=== PATIENT | female | born 1975 | race Hispanic/Latino ===

== ENCOUNTER 2017-05-12 20:58 | Emergency (ER) | payer BC, SELFPAY ==
[2017-05-12] MEDS ORDERED: CYCLOBENZAPRINE 10 MG TAB ONE (22:22)
[2017-05-12 22:29] LABS: Urine Blood 3+ (NEG); Urine Glucose NEGATIVE (NEG); Urine Protein NEGATIVE (NEG)
[2017-05-12] MEDS ORDERED: KETOROLAC 30 MG/ML INJ ONE (22:59)
--- NOTE | 2017-05-12 23:36 | EDPHYS ---
Physician Documentation [facility] Name: Aracelis Morales Age: 42 yrs Sex: Female : 1975 Arrival Date: 05/12/2017 Time: 21:02 Bed 20 Private MD: Alpesh Ortiz E ED Physician Duncan Monaco HPI: 05/12 22:00 This 42 yrs old Female presents to ER via Ambulatory with complaints of Neck cp Pain, <24hrs Old, Nausea, Chills. 22:00 The patient or guardian complains of pain, that is acute, tenderness. The symptoms are cp located on the back of neck. 22:00 Onset: The symptoms/episode began/occurred gradually, and became worse today. cp 22:00 Context: The neck injury/problem resulted from from unknown cause. Associated signs and cp symptoms: Pertinent positives: chills, Pertinent negatives: fever, headache, numbness, weakness. The pain does not radiate. Severity of symptoms: in the emergency department the symptoms are unchanged, despite home interventions. 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 - Social history:: Smoking status: Patient/guardian denies using tobacco. ROS: 22:05 Constitutional: Negative for body aches, chills, fever, poor PO intake. cp 22:05 Eyes: Negative for injury, pain, redness, and discharge. cp 22:05 ENT: Negative for drainage from ear(s), ear pain, sore throat, difficulty swallowing, difficulty handling secretions. 22:05 Neck: Positive for pain with movement, pain at rest, tenderness, Negative for injury or acute deformity, swollen nodes. 22:05 Cardiovascular: Negative for chest pain, edema, palpitations. 22:05 Respiratory: Negative for cough, shortness of breath, wheezing. 22:05 Abdomen/GI: Negative for abdominal pain, vomiting, diarrhea, constipation, black/tarry stool, rectal bleeding. 22:05 Back: Negative for injury or acute deformity. 22:05 Skin: Negative for cellulitis, rash. 22:05 Neuro: Negative for altered mental status, headache, numbness, weakness. 22:05 All other systems are negative. Exam: 22:12 Constitutional: The patient appears in no acute distress, alert, awake, cp non-diaphoretic, non-toxic, well developed, well nourished, overweight 22:12 Head/Face: Normocephalic, atraumatic. cp 22:12 Eyes: Periorbital structures: appear normal, Pupils: equal, round, and reactive to light and accomodation, Extraocular movements: intact throughout, Conjunctiva: normal, no exudate, no injection, Sclera: no appreciated abnormality, Lids and lashes: appear normal, bilaterally. 22:12 ENT: External ear(s): are unremarkable, Ear canal(s): are normal, clear, TM's: dullness, bilaterally, Nose: is normal, Mouth: Lips: moist, Oral mucosa: pink and intact, moist, Posterior pharynx: Airway: no evidence of obstruction, patent, Tonsils: are normal in appearance, Uvula: midline, non-edematous, no erythema, swelling, is not appreciated, erythema, is not appreciated, exudate, is not appreciated, Voice: is normal. 22:12 Neck: External neck: swelling, is not appreciated, tenderness, that is moderate, of the left mid cervical area, right mid cervical area, left trapezius, lower cervical area and right trapezius, ROM/movement: pain, that is mild, with any movement, limited range of motion, is not appreciated, Meningeal signs: are not present, nuchal rigidity, is not appreciated, Lymph nodes: no appreciated lymphadenopathy. 22:12 Chest/axilla: Inspection: normal, Palpation: is normal, no crepitus, no tenderness. 22:12 Cardiovascular: Rate: normal, Rhythm: regular, Pulses: Pulses are 2+ in right radial artery and left radial artery. Edema: is not appreciated, JVD: is not appreciated. 22:12 Respiratory: the patient does not display signs of respiratory distress, Respirations: normal, no use of accessory muscles, no retractions, no splinting, no tachypnea, labored breathing, is not present, Breath sounds: are clear throughout, no decreased breath sounds, no stridor, no wheezing. 22:12 Abdomen/GI: Exam negative for discomfort, distension, guarding, Inspection: abdomen appears normal. 22:12 Back: CVA tenderness, is absent, vertebral tenderness, is not appreciated. 22:12 Skin: cellulitis, is not appreciated, no rash present. 22:12 Neuro: Orientation: to person, place \T\ time. Cerebellar function: is grossly normal, Motor: moves all fours, strength is normal, Sensation: no obvious gross deficits. Vital Signs: 21:31 BP 157 / 78; Pulse 71; Resp 18; Temp 98.2; Pulse Ox 97% on R/A; Weight 108.86 kg; bp Height 5 ft. 4 in. (162.56 cm); 23:01 BP 142 / 90; Pulse 64; Resp 18; Pulse Ox 98% ; bp 23:30 BP 139 / 83; Pulse 69; Resp 16; Pulse Ox 98% ; bp 21:31 Body Mass Index 41.20 (108.86 kg, 162.56 cm) bp MDM: 21:33 Patient medically screened. cp 23:30 Data reviewed: vital signs, nurses notes, radiologic studies, plain films. cp 23:30 Differential diagnosis: Cervical Raiculopathy Cervical Spondylosis cervical strain, cp Spondylosis subluxation, Thoracic Outlet Syndrome torticollis. Test interpretation: by ED physician or midlevel provider: plain radiologic studies. Counseling: I had a detailed discussion with the patient and/or guardian regarding: the historical points, exam findings, and any diagnostic results supporting the discharge/admit diagnosis, radiology results, the need for outpatient follow up, a family practitioner, to return to the emergency department if symptoms worsen or persist or if there are any questions or concerns that arise at home. Response to treatment: improved, and as a result, I will discharge patient. 05/12 22:08 Order name: Glucose, Ancillary Testing; Complete Time: 22:09 EDMS 05/12 22:09 Interpretation: GLUC,ANCIL 74; Reviewed. 05/12 22:21 Order name: Urine Dipstick--Ancillary (enter results) [facility] 05/12 21:53 Order name: XRAY C Spine Ap/lat 05/12 22:21 Order name: Urine --Ancillary (enter results) [facility] 05/12 21:53 Order name: Accucheck Blood Glucose; Complete Time: 22:07 05/12 21:53 Order name: Urine Test (obtain specimen); Complete Time: 22:07 cp 05/12 21:53 Order name: Urine Dipstick-Ancillary (obtain specimen); Complete Time: 22:07 cp Administered Medications: 22:07 Drug: Flexeril 10 mg Route: PO; bs1 22:50 Drug: TORadol 60 mg Route: IM; Site: right deltoid; bs1 Point of Care Testing: Blood Glucose: 22: Blood Glucose: 74 mg/dL; bs1 Ranges: Critical Glucose Levels:Adult <50 mg/dl or >400 mg/dl <40 mg/dl or >180 mg/dl Disposition: 05/13 15:56 Co-signature as Attending Physician, Duncan Monaco MD I agree with the assessment and [facility] plan of care. Disposition: 05/12/17 23:35 Discharged to Home. Impression: Neck Pain. - Condition is Stable. - Discharge Instructions: Musculoskeletal Pain. - Prescriptions for Naprosyn 500 mg Oral Tablet - take 1 tablet by ORAL route 2 times per day take with food; 20 tablet. Cyclobenzaprine 10 mg Oral Tablet - take 1 tablet by ORAL route every 8 hours As needed no driving while taking medication; 20 tablet. - Medication Reconciliation Form, Thank You Letter, Antibiotic Education, Prescription Opioid Use form. - Follow up: Private Physician; When: 2 - 3 days; Reason: Recheck today's complaints. - Problem is new. - Symptoms have improved. Signatures: Dispatcher [employer] Duncan Mello MD MD cha Page, Corey, PA PA cp Peltier, Brian, RN RN Marily Patterson RN RN bs1
--- NOTE | 2017-05-12 23:36 | ER ---
Nurse's Notes [facility] Name: Aracelis Morales Age: 42 yrs Sex: Female : 1975 Arrival Date: 05/12/2017 Time: 21:02 Bed 20 Private MD: Alpesh Ortiz E Diagnosis: Neck Pain Presentation: 05/12 21:30 Presenting complaint: Patient states: I HAVE THIS SHARP PAIN IN MY NECK THAT STARTED IN bp MY SHOULDER. IT'S WORSE WHEN I MOVE. Transition of care: patient was not received from another setting of care. Onset of symptoms was May 10, 2017. Care prior to arrival: None. 21:30 Method Of Arrival: Ambulatory bp 21:30 Acuity: TACHO 5 bp Triage Assessment: 21:31 General: Appears in no apparent distress. uncomfortable, obese, Behavior is calm, bp cooperative, appropriate for age. Pain: Complains of pain in back of neck. EENT: No deficits noted. Neuro: Level of Consciousness is awake, alert, obeys commands, Oriented to person, place, time, situation, Appropriate for age Hat And Cap Sewer are equal bilaterally Moves all extremities. Full function Speech is normal, Facial symmetry appears normal, Intact. Cardiovascular: No deficits noted. Respiratory: Airway is patent Respiratory effort is even, unlabored, Respiratory pattern is regular, symmetrical. GI: No deficits noted. : No signs and/or symptoms were reported regarding the genitourinary system. Derm: No signs and/or symptoms reported regarding the dermatologic system. Musculoskeletal: Circulation, motion, and sensation intact. Range of motion: intact in all extremities. 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 - Social history:: Smoking status: Patient/guardian denies using tobacco. Screenin:33 Abuse screen: Denies threats or abuse. Denies injuries from another. Nutritional bp screening: No deficits noted. Tuberculosis screening: No symptoms or risk factors identified. Fall Risk None identified. Assessment: 21:35 General: Appears in no apparent distress. uncomfortable, Behavior is cooperative, bs1 anxious. Pain: Complains of pain in back of neck Pain does not radiate. Pain currently is 9 out of 10 on a pain scale. Quality of pain is described as aching. Neuro: Level of Consciousness is awake, alert, obeys commands, Oriented to person, place, time, situation, Appropriate for age Hat And Cap Sewer are equal bilaterally Moves all extremities. Gait is steady, Reports patient unable to lift shoulders or move head side to side without hurting neck. . Cardiovascular: Reports nausea, Denies chest pain, palpitations, shortness of breath, Heart tones S1 S2 Capillary refill < 3 seconds Patient's skin is warm and dry. Respiratory: Airway is patent Trachea midline Respiratory effort is even, unlabored, Respiratory pattern is regular, symmetrical, Breath sounds are clear bilaterally. GI: Abdomen is round Bowel sounds present X 4 quads. Abd is soft and non tender X 4 quads. Reports nausea, Patient currently denies abdominal pain, diarrhea, vomiting. : No deficits noted. No signs and/or symptoms were reported regarding the genitourinary system. EENT: No deficits noted. No signs and/or symptoms were reported regarding the EENT system. Derm: No deficits noted. No signs and/or symptoms reported regarding the dermatologic system. Musculoskeletal: Circulation, motion, and sensation intact. Capillary refill < 3 seconds, Range of motion: limited in back of neck. 23:43 Reassessment: PT D/C HOME AMBULATORY, DX WITH MUSCULOSKELETAL NECK PAIN. bp Vital Signs: 21:31 BP 157 / 78; Pulse 71; Resp 18; Temp 98.2; Pulse Ox 97% on R/A; Weight 108.86 kg; bp Height 5 ft. 4 in. (162.56 cm); 23:01 BP 142 / 90; Pulse 64; Resp 18; Pulse Ox 98% ; bp 23:30 BP 139 / 83; Pulse 69; Resp 16; Pulse Ox 98% ; bp 21:31 Body Mass Index 41.20 (108.86 kg, 162.56 cm) bp ED Course: 21:02 Patient arrived in ED. es 21:03 Alpesh Ortiz MD is Private Physician. es 21:30 Marily Collins, JORGE is Primary Nurse. bs1 21:31 Triage completed. bp 21:31 Arm band placed on. bp 21:33 Duncan Whelan PA is PHCP. cp 21:33 Duncan Monaco MD is Attending Physician. cp 21:33 Patient has correct armband on for positive identification. Bed in low position. Call bp light in reach. 21:41 No provider procedures requiring assistance completed. Patient did not have IV access bs1 during this emergency room visit. 22:34 Patient moved to radiology via wheelchair. ml 22:34 X-ray completed. Patient tolerated procedure well. ml 22:35 Patient moved back from radiology. ml 22:35 XRAY C Spine Ap/lat In Process Unspecified. EDMS Administered Medications: 22:07 Drug: Flexeril 10 mg Route: PO; bs1 22:50 Drug: TORadol 60 mg Route: IM; Site: right deltoid; bs1 Point of Care Testing: Blood Glucose: 22:07 Blood Glucose: 74 mg/dL; bs1 Ranges: Outcome: 23:35 Discharge ordered by MD. cp 23:45 Discharged to home ambulatory. bp 23:45 Condition: stable 23:45 Discharge instructions given to patient, Instructed on discharge instructions, follow up and referral plans. medication usage, Demonstrated understanding of instructions, follow-up care, medications, Prescriptions given X 2. 23:46 Patient left the ED. bp Signatures: Dispatcher [employer] EDMS Jen Mcbride Melissa Duncan Whelan PA PA cp Peltier, Brian, RN RN bp Marily Collins RN RN bs1
[2017-05-12 23:56] VITALS: TEMP 98.2
[2017-05-12 23:58] VITALS: O2SAT 98
[2017-05-12 23:59] VITALS: BP 139/83
--- NOTE | 2017-05-13 09:34 | RAD REPORT ---
EXAM DESCRIPTION: RAD - C Spine Ap/Lat - 05/12/2017 10:44 pm CLINICAL HISTORY: Neck pain, shoulder pain COMPARISON: None. FINDINGS: Cervical bodies are normal in height and alignment. No fracture or acute bony process seen . No disc space narrowing. There is no prevertebral soft tissue thickening or other suspicious soft tissue finding. IMPRESSION: Negative cervical spine examination.
== END 2017-05-12 23:46 | disposition home or self-care (01) ==
LOC: ER 20:58
DX: M54.2 Cervicalgia (principal); E11.9 Type 2 diabetes mellitus without complications; F41.9 Anxiety disorder, unspecified
CPT/HCPCS: 72040; 81003; 81025; 82962; 96372; 99283

== ENCOUNTER 2017-07-06 17:39 | Emergency (ER) | payer SELFPAY ==
[2017-07-06 19:03] LABS: Urine Blood NEGATIVE (NEG); Urine Glucose NEGATIVE (NEG); Urine Protein NEGATIVE (NEG); Urine Specific Gravity 1.025 (1.005-1.030)
[2017-07-06 19:03] LABS: Absolute Lymphocytes (CBC) 1.9 K/uL (0.7-4.9); Absolute Monocytes 1.1 K/uL (0.1-1.3); Absolute Neutrophil 6.6 K/uL (1.8-8.0); Basophils % 0.7 % (0-1.3); Eosinophils % 1.3 % (0-4.4); Hematocrit 42.8 % (36.0-45.0); Lymphocytes % 19.6 % (15.3-44.8); MCH 29.4 pg (27.0-35.0); MCV 86.7 fL (80-100); MPV 8.2 fL (7.6-11.3); Monocytes % 10.8 % (3.3-12.3); Potassium 3.6 mEq/L (3.6-5.0); RBC Red Blood Cell Count 4.94 M/uL (3.86-4.86)
[2017-07-06] MEDS ORDERED: ASPIRIN 81 MG CHEWABLE TABLET ONE (19:04)
[2017-07-06] MEDS ORDERED: DIAZEPAM 10 MG/2 ML INJ SYRINGE ONE ×2 (19:06→19:16)
--- NOTE | 2017-07-06 19:38 | RAD REPORT ---
EXAM DESCRIPTION: RAD - Chest Pa And Lat (2 Views) - 07/06/2017 6:42 pm CLINICAL HISTORY: Chest pain COMPARISON: January 2015 TECHNIQUE: PA and lateral views of the chest were obtained. FINDINGS: The lungs are clear. Lung markings are similar to comparison. Heart size is normal and ce ntral vasculature is within normal limits. No pleural effusion or pneumothorax seen. No acute bony finding noted. No aortic abnormality. IMPRESSION: No acute cardiopulmonary process. No significant interval change.
[2017-07-06] MEDS ORDERED: ONDANSETRON 4 MG/2 ML VIAL ONE (21:38)
--- NOTE | 2017-07-06 22:10 | EDPHYS ---
Physician Documentation [facility] Name: Aracelis Morales Age: 42 yrs Sex: Female : 1975 Arrival Date: 07/06/2017 Time: 17:42 Bed 30 Private MD: Alpesh Ortiz E ED Physician Nikos Parish HPI: 07/06 21:03 This 42 yrs old Female presents to ER via Ambulatory with complaints of Chest snw Pain > 30 y/o. 21:03 The patient or guardian reports chest pain that is located primarily in the anterior snw chest wall, bilaterally. 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 - Social history:: Smoking status: Patient/guardian denies using tobacco. - Ebola Screening: : Patient negative for fever greater than or equal to 101.5 degrees Fahrenheit, and additional compatible Ebola Virus Disease symptoms. ROS: 21:00 Constitutional: Negative for fever, chills, and weight loss, + anxiety, lots of stress snw yesterday Eyes: Negative for injury, pain, redness, and discharge, ENT: Negative for injury, pain, and discharge, Neck: Negative for injury, pain, and swelling, Cardiovascular: Negative for palpitations and edema, + chest pain Respiratory: Negative for shortness of breath, cough, wheezing, and pleuritic chest pain, Abdomen/GI: Negative for abdominal pain, nausea, vomiting, diarrhea, and constipation, Back: Negative for injury and pain, : Negative for injury, bleeding, discharge, and swelling, MS/Extremity: Negative for injury and deformity, Skin: Negative for injury, rash, and discoloration, Neuro: Negative for headache, weakness, numbness, tingling, and seizure, Psych: Negative for depression, anxiety, suicide ideation, homicidal ideation, and hallucinations. Exam: 19:14 Constitutional: This is a well developed, obese patient who is awake, alert, and in no snw acute distress. Head/Face: Normocephalic, atraumatic. Eyes: Pupils equal round and reactive to light, extra-ocular motions intact. Lids and lashes normal. Conjunctiva and sclera are non-icteric and not injected. Cornea within normal limits. Periorbital areas with no swelling, redness, or edema. ENT: Nares patent. No nasal discharge, no septal abnormalities noted. Tympanic membranes are normal and external auditory canals are clear. Oropharynx with no redness, swelling, or masses, exudates, or evidence of obstruction, uvula midline. Mucous membranes moist. Neck: Trachea midline, no thyromegaly or masses palpated, and no cervical lymphadenopathy. Supple, full range of motion without nuchal rigidity, or vertebral point tenderness. No Meningismus. Chest/axilla: Normal chest wall appearance and motion. Nontender with no deformity. No lesions are appreciated. Cardiovascular: Regular rate and rhythm with a normal S1 and S2. No gallops, murmurs, or rubs. Normal PMI, no JVD. No pulse deficits. Respiratory: Lungs have equal breath sounds bilaterally, clear to auscultation and percussion. No rales, rhonchi or wheezes noted. No increased work of breathing, no retractions or nasal flaring. Abdomen/GI: Soft, non-tender, with normal bowel sounds. No distension or tympany. No guarding or rebound. No evidence of tenderness throughout. Back: No spinal tenderness. No costovertebral tenderness. Full range of motion. Skin: Warm, dry with normal turgor. Normal color with no rashes, no lesions, and no evidence of cellulitis. Neuro: Awake and alert, GCS 15, oriented to person, place, time, and situation. Cranial nerves II-XII grossly intact. Motor strength 5/5 in all extremities. Sensory grossly intact. Cerebellar exam normal. Normal gait. 19:14 Musculoskeletal/extremity: Extremities: grossly normal except: ROM: intact in all extremities, Sensation intact. tenderness to posterior neck and anterior bilateral chest. Vital Signs: 17:49 BP 156 / 93; Pulse 77; Resp 16; Temp 97.9; Pulse Ox 97% on R/A; Weight 108.86 kg; aj Height 5 ft. 4 in. (162.56 cm); 18:53 BP 124 / 73; Pulse 72; Resp 16; Pulse Ox 99% on R/A; Pain 9/10; sr5 20:29 BP 123 / 64; Pulse 75; Resp 16; Pulse Ox 96% on R/A; Pain 5/10; sr5 21:41 BP 131 / 72; Pulse 76; Resp 14; Pulse Ox 99% ; Pain 4/10; sr5 22:33 BP 128 / 79; Pulse 74; Resp 18; Pulse Ox 99% ; Pain 4/10; sr5 17:49 Body Mass Index 41.20 (108.86 kg, 162.56 cm) aj MDM: 18:25 Patient medically screened. [facility] 07/07 02:00 The patient was given aspirin in the Emergency Department. Data reviewed: vital signs, snw nurses notes. Data interpreted: Pulse oximetry: on room air is 99 %. Interpretation: normal. Counseling: I had a detailed discussion with the patient and/or guardian regarding: the historical points, exam findings, and any diagnostic results supporting the discharge/admit diagnosis, the presence of at least one elevated blood pressure reading (>120/80) during this emergency department visit, lab results, radiology results, the need for outpatient follow up, to return to the emergency department if symptoms worsen or persist or if there are any questions or concerns that arise at home. Special discussion: Based on the patient's history, exam, and Dx evaluation, there is no indication for emergent intervention or inpatient Tx. It is understood by the patient/guardian that if the Sx's persist or worsen they need to return immediately for re-evaluation. Based on the history and exam findings, there is no indication for further emergent testing or inpatient evaluation. I discussed with the patient/guardian the need to see the primary care provider for further evaluation of the symptoms. 07/06 18:23 Order name: CBC with Diff; Complete Time: 19:21 snw 07/06 18:23 Order name: Chem 7; Complete Time: 19:10 snw 07/06 18: Order name: CPK; Complete Time: 19:10 w 07/06 18: Order name: Troponin (emerg Dept Use Only); Complete Time: 19:13 snw 07/06 18:27 Order name: Urine Dipstick--Ancillary (enter results); Complete Time: 19:10 em1 07/06 18:27 Order name: Urine --Ancillary (enter results); Complete Time: 19:10 em 07/06 18:23 Order name: Chest Pa And Lat (2 Views) XRAY; Complete Time: 19:40 snw 07/06 18:27 Order name: Urine Dipstick-Ancillary (obtain specimen); Complete Time: 18:27 em1 07/06 18:27 Order name: Urine Test (obtain specimen); Complete Time: 18:27 em1 07/06 18:55 Order name: EKG; Complete Time: 18:56 snw 07/06 20:49 Order name: Troponin (emerg Dept Use Only): at 2130 - and EKG at that time; Complete snw Time: 22:09 07/06 18:55 Order name: EKG - Nurse/Tech; Complete Time: 19:01 snw Administered Medications: 07/06 19:20 Drug: Valium 5 mg Route: IVP; Site: right antecubital; sr5 22:50 Follow up: Response: No change in condition sr5 19:20 Drug: Aspirin Chewable Tablet 324 mg Route: PO; sr5 22:50 Follow up: Response: No adverse reaction sr5 21:40 Drug: Zofran 4 mg Route: IVP; Site: right antecubital; sr5 22:33 Follow up: Response: Nausea is decreased sr5 Disposition: 07/06/17 22:09 Discharged to Home. Impression: Chest pain, unspecified, Myalgia. - Condition is Stable. - Discharge Instructions: Nonspecific Chest Pain, Hypertension, Musculoskeletal Pain, Muscle Pain, Adult, Aspirin and Your Heart. - Prescriptions for Protonix 40 mg Oral Tablet - take 1 tablet by ORAL route once daily; 30 tablet. Zofran 4 mg Oral Tablet - take 1 tablet by ORAL route every 12 hours As needed; 6 tablet. Diclofenac Sodium 75 mg Oral Tablet Sustained Release - take 1 tablet by ORAL route 2 times per day; 30 tablet. orphenadrine citrate 100 mg Oral Tablet Sustained Release - take 1 tablet by ORAL route 2 times per day As needed; 20 tablet. - Work release form, Medication Reconciliation Form, Thank You Letter, Antibiotic Education, Prescription Opioid Use form. - Follow up: Alpesh Ortiz MD; When: 2 - 3 days; Reason: Recheck today's complaints, Continuance of care, Re-evaluation by your physician. Follow up: Emergency Department; When: As needed; Reason: Worsening of condition. Addendum: 07/12/2017 19:23 Co-signature as Attending Physician, Nikos Parish MD. r n Signatures: Dispatcher [employer] Payton Farmer, RN RN Selene Potter, STOREROOM CLERK-C STOREROOM CLERK-Csnw Nikos Parish MD MD rn Martinez, Eric em1 Reseckbrittney, Garo, RN RN sr5 Corrections: (The following items were deleted from the chart) 07/06 22:48 22:09 07/06/2017 22:09 Discharged to Home. Impression: Chest pain, unspecified; sr5 Myalgia. Condition is Stable. Forms are Medication Reconciliation Form, Thank You Letter, Antibiotic Education, Prescription Opioid Use. Follow up: Alpesh Ortiz; When: 2 - 3 days; Reason: Recheck today's complaints, Continuance of care, Re-evaluation by your physician. Follow up: Emergency Department; When: As needed; Reason: Worsening of condition. snw
--- NOTE | 2017-07-06 22:10 | ER ---
Nurse's Notes [facility] Name: Aracelis Morales Age: 42 yrs Sex: Female : 1975 Arrival Date: 07/06/2017 Time: 17:42 Bed 30 Private MD: Alpesh Ortiz E Diagnosis: Chest pain, unspecified;Myalgia Presentation: 07/06 17:48 Presenting complaint: Patient states: Neck pain this AM that improved with muscle aj relaxer. Patient reports she then began to feel chest pain in her upper bilateral chest wall, reproducible with palpation. Transition of care: patient was not received from another setting of care. Onset of symptoms was July 06, 2017. Care prior to arrival: None. 17:48 Method Of Arrival: Ambulatory 17:48 Acuity: TACHO 3 22:49 Risk Assessment: Do you want to hurt yourself or someone else? Patient reports no sr5 desire to harm self or others. Initial Sepsis Screen: Does the patient meet any 2 criteria? No. Patient's initial sepsis screen is negative. Does the patient have a suspected source of infection? No. Patient's initial sepsis screen is negative. Triage Assessment: 17:49 General: Appears in no apparent distress. comfortable, obese, Behavior is calm, aj cooperative, appropriate for age. Pain: Complains of pain in anterior aspect of right upper chest and anterior aspect of left upper chest. Neuro: Level of Consciousness is awake, alert, obeys commands, Oriented to person, place, time, situation, Appropriate for age. Cardiovascular: Capillary refill < 3 seconds in bilateral fingers Patient's skin is warm and dry. Respiratory: Airway is patent Trachea midline Respiratory effort is even, unlabored, Respiratory pattern is regular, symmetrical. Derm: Skin is intact, is healthy with good turgor, Skin is pink, warm \\T\\ dry. normal. Musculoskeletal: Reports pain in anterior aspect of right upper chest and anterior aspect of left upper chest. 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 - Social history:: Smoking status: Patient/guardian denies using tobacco. - Ebola Screening: : Patient negative for fever greater than or equal to 101.5 degrees Fahrenheit, and additional compatible Ebola Virus Disease symptoms. Screenin:59 Abuse screen: Denies threats or abuse. Nutritional screening: No deficits noted. rs2 Tuberculosis screening: No symptoms or risk factors identified. Fall Risk None identified. Assessment: 17:59 General: Appears in no apparent distress. obese, well groomed, Behavior is calm, rs2 cooperative, appropriate for age. 17:59 Pain: Complains of pain in chest Pain does not radiate. Pain currently is 6 out of 10 rs2 on a pain scale. Pain began Pt states, "I took a nap earlier after I took a muscle relaxer and when I woke up about noon my chest felt tight.". Neuro: No deficits noted. Cardiovascular: Reports chest pain, nausea, Chest pain is located in right left anterior. Respiratory: No deficits noted. GI: Reports nausea. 18:53 Reassessment: Assumed care of pt, pt returning from xray department via wheelchair. sr5 Ambulated steadily to stretcher, placed on social problems specialist, SR on monitor, complaint of 9/10 chest pressure with nausea. No radiation. Skin warm/dry/nc. MOLD INSERT CHANGER notified. No orders recevied at this time. Equal unlabored resp, room air, IV site asympt/SL. Awaiting lab/xray results. Call light within reach. 21:40 Reassessment: Patient and/or family updated on plan of care and expected duration. Pain sr5 level reassessed. Patient is alert, oriented x 3, equal unlabored respirations, skin warm/dry/pink. Pt reports chest pressure intermintently persists, nausea unresolved, MOLD INSERT CHANGER notified, order for zofran received/given. Repeat troponin collected, sent to lab, repeat EKG performed. Pt remains AA\\T\\Ox4, equal unlabored resp, skin warm/dry/nc, IV site asympt. SR on monitor. 22:33 Reassessment: Pt remains fully AA\\T\\Ox4, equal unlabored resp, room air, skin sr5 warm/dry/nc, SR on monitor, continued c/o of chest pressure interminent. Repeat trop and EKG negative. MOLD INSERT CHANGER at bedside to discuss results. IV site dc'd intact, steady gait out of ER. DC with family driving. Vital Signs: 17:49 BP 156 / 93; Pulse 77; Resp 16; Temp 97.9; Pulse Ox 97% on R/A; Weight 108.86 kg; aj Height 5 ft. 4 in. (162.56 cm); 18:53 BP 124 / 73; Pulse 72; Resp 16; Pulse Ox 99% on R/A; Pain 9/10; sr5 20:29 BP 123 / 64; Pulse 75; Resp 16; Pulse Ox 96% on R/A; Pain 5/10; sr5 21:41 BP 131 / 72; Pulse 76; Resp 14; Pulse Ox 99% ; Pain 4/10; sr5 22:33 BP 128 / 79; Pulse 74; Resp 18; Pulse Ox 99% ; Pain 4/10; sr5 17:49 Body Mass Index 41.20 (108.86 kg, 162.56 cm) aj ED Course: 17:42 Patient arrived in ED. sb2 17:42 Alpesh Ortiz MD is Private Physician. sb2 17:49 Triage completed. aj 17:49 Arm band placed on left wrist. Patient placed in an exam room. aj 17:58 Yumiko Lawson is Primary Nurse. rs2 17:59 Patient has correct armband on for positive identification. Placed in gown. Bed in low rs2 position. Call light in reach. Side rails up X 1. report checker on. Pulse ox on. NIBP on. Door closed. Noise minimized. Warm blanket given. Verbal reassurance given. 17:59 Patient maintains SpO2 saturation greater than 95% on room air. rs2 18:21 Selene Youssef FNP-C is PHCP. snw 18:21 Nikos Parish MD is Attending Physician. snw 18:41 X-ray completed. Patient tolerated procedure well. kc2 18:42 Chest Pa And Lat (2 Views) XRAY In Process Unspecified. EDMS 18:42 Report given to Pt report given to Chelsea Espinal RN. rs2 18:42 Inserted saline lock: 20 gauge in right antecubital area, using aseptic technique. rs2 22:09 Alpesh Ortiz MD is Referral Physician. snw 22:33 No provider procedures requiring assistance completed. IV discontinued, intact, sr5 bleeding controlled, No redness/swelling at site. Pressure dressing applied. Administered Medications: 19:20 Drug: Valium 5 mg Route: IVP; Site: right antecubital; sr5 22:50 Follow up: Response: No change in condition sr5 19:20 Drug: Aspirin Chewable Tablet 324 mg Route: PO; sr5 22:50 Follow up: Response: No adverse reaction sr5 21:40 Drug: Zofran 4 mg Route: IVP; Site: right antecubital; sr5 22:33 Follow up: Response: Nausea is decreased sr5 Outcome: 22:09 Discharge ordered by . mary 22:33 Discharged to home ambulatory, with family. sr5 22:33 Condition: good 22:33 Discharge instructions given to patient, Instructed on discharge instructions, follow up and referral plans. medication usage, Demonstrated understanding of instructions, follow-up care, medications, Prescriptions given X 4. 22:48 Patient left the ED. sr5 Signatures: Dispatcher [employer] EDPayton Cummings RN RN aj Therrien, Shelly, BUSINESS DEVELOPMENT MANAGER-C BUSINESS DEVELOPMENT MANAGER-Csnw Concetta Dorantes kc2 Garo Espinal RN RN sr5 Yumiko Lawson rs2 Cheyanne Regan sb2
[2017-07-06 23:07] VITALS: TEMP 97.9
[2017-07-06 23:10] VITALS: O2SAT 99
[2017-07-06 23:11] VITALS: BP 128/79
--- NOTE | 2017-07-07 06:45 | EKG ---
Test Date: 2017-07-06 Test Time: 18:19:14 Carnival Worker: ARM MEASUREMENT RESULTS: Intervals: Rate: 76 DE: 152 QRSD: 86 QT: 424 QTc: 477 [place]: P: 27 DE: 152 QRS: 4 T: 11 INTERPRETIVE STATEMENTS: Normal sinus rhythm Normal ECG Compared to ECG 02/12/2015 04:05:54 No significant changes Electronically Signed On 07-07-17 06:44:49 CDT by Keven Leonardo
--- NOTE | 2017-07-07 10:04 | EKG ---
Test Date: 2017-07-06 Test Time: 22:26:55 Supervisor Nuclear Medicine: MARILYN MEASUREMENT RESULTS: Intervals: Rate: 70 TX: 138 QRSD: 88 QT: 446 QTc: 481 [place]: P: 0 TX: 138 QRS: 45 T: 17 INTERPRETIVE STATEMENTS: Normal sinus rhythm Normal ECG Compared to ECG 07/06/2017 18:19:14 No significant changes Electronically Signed On 07-07-17 10:03:25 CDT by Dale Bell
== END 2017-07-06 22:48 | disposition home or self-care (01) ==
LOC: ER 17:39
DX: R07.9 Chest pain, unspecified (principal); M79.1 Myalgia; E11.9 Type 2 diabetes mellitus without complications; F41.9 Anxiety disorder, unspecified
CPT/HCPCS: 36415; 71046; 80048; 81003; 81025; 82550; 84484; 85025; 93005; 96374; 96375; 99285; J2405; J3360

== ENCOUNTER 2017-08-27 04:54 | Emergency (ER) | payer SELFPAY ==
[2017-08-27] MEDS ORDERED: ONDANSETRON 4 MG/2 ML VIAL ONE (06:51)
[2017-08-27 06:57] LABS: Absolute Lymphocytes (CBC) 2.2 K/uL (0.7-4.9); Absolute Monocytes 1.1 K/uL (0.1-1.3); Basophils % 0.7 % (0-1.3); Eosinophils % 1.8 % (0-4.4); Lymphocytes % 23.2 % (15.3-44.8); MCH 30.3 pg (27.0-35.0); MCV 87.3 fL (80-100); Monocytes % 11.9 % (3.3-12.3); RBC Red Blood Cell Count 5.04 M/uL (3.86-4.86)
[2017-08-27 07:17] LABS: Bilirubin Direct 0.1 mg/dL (0-0.2); Bilirubin Total 0.7 mg/dL (0.2-1.0); Potassium 3.5 mmol/L (3.5-5.1); Protein, Total 7.7 g/dL (6.4-8.2)
--- NOTE | 2017-08-27 07:42 | RAD REPORT ---
EXAM DESCRIPTION: CT - CTHCSPWOC - 08/27/2017 7:19 am CLINICAL HISTORY: Headache, neck pain COMPARISON: None. TECHNIQUE: Axial 5 mm thick images of the head were obtained. Axial 2 mm thick images of the cervic al spine were obtained with sagittal and coronal reconstruction images generated and reviewed. All CT scans are performed using dose optimization technique as appropriate and may include automated exposure control or mA/KV adjustment according to patient size. FINDINGS: No intracranial hemorrhage, mass, edema or acute intracranial finding. No suspicion for acute infarct ion. No extra-axial fluid collections. Mastoid air cells and paranasal sinuses are clear. No globe or orbit abnormality seen. Cervical body height and alignment are normal. No disk space narrowing. No fracture or acute bony abn ormality. Posterior spurring changes are present C4 and C5 in the midline. This does not cause signif icant canal encroachment. No facet joint alignment abnormality. No paraspinal mass or hematoma. IMPRESSION: Negative CT head examination for acute or significant finding. No fracture or acute cervical finding. Mild cervical spine degenerative spurring at C4 and C5. No gross central canal abnormality. However, Central canal detail is inherently limited on CT imaging.
[2017-08-27 07:51] LABS: Urine Blood NEGATIVE (NEG); Urine Glucose NEGATIVE (NEG); Urine Protein NEGATIVE (NEG)
[2017-08-27] MEDS ORDERED: KETOROLAC 30 MG/ML INJ ONE (08:02)
[2017-08-27 08:04] LABS: Urine Bacteria 20-50 /HPF (<20); Urine Culture Reflex Order NOT NEEDED; Urine RBC <5 /HPF (NONE SEEN)
--- NOTE | 2017-08-27 08:20 | EDPHYS ---
Physician Documentation [facility] Name: Aracelis Morales Age: 42 yrs Sex: Female : 1975 Arrival Date: 08/27/2017 Time: 04:58 Bed 19 Private MD: ED Physician Nikos Parish HPI: 08/27 06:24 This 42 yrs old Female presents to ER via Ambulatory with complaints of jmm Numbness. 06:24 The patient's problem is reported as paresthesias, all over. Onset: The jmm symptoms/episode began/occurred gradually, 2 hour(s) ago. Duration: The episode is continuous. Associated signs and symptoms: Pertinent positives: tingling, Pertinent negatives: chest pain, weakness. This is a 42 year old female with a history of anxiety and DM that presents to the ED with numbness and tingling to her entire body beginning at approx 4 am this morning. Patient states the symptoms are most pronounced in her neck and right thigh. Patient denies weakness. Patient also states she has undergone a great amount of stress lately. Patient denies chest pain or shortness of breath. . 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 - Social history:: Smoking status: Patient/guardian denies using tobacco. - Ebola Screening: : Patient negative for fever greater than or equal to 101.5 degrees Fahrenheit, and additional compatible Ebola Virus Disease symptoms. ROS: 06:27 Constitutional: Negative for fever, chills, and weight loss, Cardiovascular: Negative jmm for chest pain, palpitations, and edema, Respiratory: Negative for shortness of breath, cough, wheezing, and pleuritic chest pain. 06:27 MS/extremity: Positive for paresthesias. 06:27 Neuro: Positive for numbness, tingling, Negative for weakness. 06:27 All other systems are negative. Exam: 06:27 Constitutional: This is a well developed, well nourished patient who is awake, alert, jmm and in no acute distress. Head/Face: atraumatic. Cardiovascular: Regular rate and rhythm. No edema appreciated Respiratory: Normal respirations, no respiratory distress appreciated Abdomen/GI: Non distended, soft 06:27 Cardiovascular: Rate: normal, Rhythm: regular, Pulses: no pulse deficits are appreciated. 06:27 Musculoskeletal/extremity: ROM: intact in all extremities. 06:27 Skin: Appearance: Color: normal in color. 06:27 Neuro: Orientation: is normal, Mentation: is normal, Memory: is normal. 06:27 Neuro: Cerebellar function: is grossly normal, normal finger to nose testing, Motor: is normal, Gait: is steady. 06:27 Psych: Behavior/mood is pleasant, cooperative. 10:38 Radiologist reports: CT Head C Spine \E\[id number]\E\ [facility] [place] [id number] [facility] REPORT Name: ARACELIS MORALES Acct Number: [id number] :1975 Age:42 Sex:F Ord Phys: Natan Ann Unit Number: [id number] Prim Care Dr: Alpesh Ortiz MD Status: REG [facility] Exam Date: 08/27/17 EXAM DESCRIPTION: CT - CTHCSPWOC - 08/27/2017 7:19 am CLINICAL HISTORY: Headache, neck pain COMPARISON: None. TECHNIQUE: Axial 5 mm thick images of the head were obtained. Axial 2 mm thick images of the cervical spine were obtained with sagittal and coronal reconstruction images generated and reviewed. All CT scans are performed using dose optimization technique as appropriate and may include automated exposure control or mA/KV adjustment according to patient size. FINDINGS: No intracranial hemorrhage, mass, edema or acute intracranial finding. No suspicion for acute infarction. No extra-axial fluid collections. Mastoid air cells and paranasal sinuses are clear. No globe or orbit abnormality seen. Cervical body height and alignment are normal. No disk space narrowing. No fracture or acute bony abnormality. Posterior spurring changes are present C4 and C5 in the midline. This does not cause significant canal encroachment. No facet joint alignment abnormality. No paraspinal mass or hematoma. IMPRESSION: Negative CT head examination for acute or significant finding. No fracture or acute cervical finding. Mild cervical spine degenerative spurring at C4 and C5. No gross central canal abnormality. However, Central canal detail is inherently limited on CT imaging. Signed By: Cruz Corey MD Signed AT: 08/27/17 0742 \E\[id number]\ Vital Signs: 05:20 BP 155 / 94; Pulse 90; Resp 18 S; Temp 98.8(O); Pulse Ox 97% on R/A; Weight 108.86 kg jd3 (R); Height 5 ft. 4 in. (162.56 cm) (R); Pain 9/10; 05:58 BP 127 / 74; Pulse 82; Resp 18 S; Pulse Ox 98% on R/A; jd3 07:25 BP 117 / 72; Pulse 86; Resp 16; Pulse Ox 98% on R/A; Pain 9/10; em 05:20 Body Mass Index 41.20 (108.86 kg, 162.56 cm) d3 MDM: 06:19 Patient medically screened. [facility] 08:18 Data reviewed: vital signs, nurses notes, lab test result(s), radiologic studies, CT [facility] scan. Counseling: I had a detailed discussion with the patient and/or guardian regarding: the historical points, exam findings, and any diagnostic results supporting the discharge/admit diagnosis, the presence of at least one elevated blood pressure reading (>120/80) during this emergency department visit, lab results, radiology results, the need for outpatient follow up, to return to the emergency department if symptoms worsen or persist or if there are any questions or concerns that arise at home. Response to treatment: the patient's symptoms have markedly improved after treatment. 08/27 06:21 Order name: Amylase, Serum; Complete Time: 07:32 [facility] 08/27 06:21 Order name: Basic Metabolic Panel; Complete Time: 07:32 [facility] 08/27 06:21 Order name: CBC with Diff; Complete Time: 06:58 [facility] 08/27 06:21 Order name: Creatinine for Radiology; Complete Time: 07:32 [facility] 08/27 06:21 Order name: Hepatic Function; Complete Time: 07:32 [facility] 08/27 06:21 Order name: Lipase; Complete Time: 07:32 [facility] 08/27 06:21 Order name: Urine Microscopic Only; Complete Time: 08:06 [facility] 08/27 06:21 Order name: CT Head C Spine; Complete Time: 07:49 [facility] 08/27 06:21 Order name: Troponin (emerg Dept Use Only); Complete Time: 07:32 [facility] 08/27 06:30 Order name: EKG; Complete Time: 06:31 j 08/27 07:30 Order name: Urine Dipstick--Ancillary (enter results); Complete Time: 08:06 08/27 07:30 Order name: Urine --Ancillary (enter results); Complete Time: 08:06 08/27 06:21 Order name: IV Saline Lock; Complete Time: 07:01 [facility] 08/27 06:21 Order name: Labs collected and sent; Complete Time: 07:01 [facility] 08/27 06:21 Order name: Urine Dipstick-Ancillary (obtain specimen); Complete Time: 07:01 [facility] 08/27 06:21 Order name: EKG - Nurse/Tech; Complete Time: 07:01 [facility] Administered Medications: 06:50 Drug: Zofran 4 mg Route: IVP; Site: right antecubital; jd3 07:54 Follow up: Response: No adverse reaction em 08:05 Drug: TORadol 30 mg Route: IVP; Site: right antecubital; ss Disposition: 19:07 Co-signature as Attending Physician, Nikos Parish MD. rn Disposition: 08/27/17 08:19 Discharged to Home. Impression: Paresthesia of skin, Urinary tract infection, site not specified. - Condition is Stable. - Discharge Instructions: Paresthesia, Urinary Tract Infection. - Prescriptions for Cephalexin 500 mg Oral Capsule - take 1 capsule by ORAL route every 12 hours for 10 days; 20 capsule. Ultram 50 mg Oral Tablet - take 1 tablet by ORAL route every 6 hours As needed; 12 tablet. - Medication Reconciliation Form, Thank You Letter, Antibiotic Education, Prescription Opioid Use form. - Follow up: Trell Zambrano MD; When: 2 - 3 days; Reason: Continuance of care. - Notes: Please follow up with neurology for further evaluation. Please return to the ED if you develop weakness or worsening symptoms. Signatures: Dispatcher [employer] EDMS Natan Ann PA PA jmm Munoz Ronny, PROFESSIONAL GOLF TOURNAMENT PLAYER PROFESSIONAL GOLF TOURNAMENT PLAYER em Nikos Parish MD MD rn Mar Oliver RN RN Armando Vega RN RN jd3 Corrections: (The following items were deleted from the chart) 08:32 08:19 08/27/2017 08:19 Discharged to Home. Impression: Paresthesia of skin; Urinary em tract infection, site not specified. Condition is Stable. Forms are Medication Reconciliation Form, Thank You Letter, Antibiotic Education, Prescription Opioid Use. Follow up: Trell Zambrano; When: 2 - 3 days; Reason: Continuance of care. scot
--- NOTE | 2017-08-27 08:20 | ER ---
Nurse's Notes [facility] Name: Aracelis Morales Age: 42 yrs Sex: Female : 1975 Arrival Date: 08/27/2017 Time: 04:58 Bed 19 Private MD: Diagnosis: Paresthesia of skin;Urinary tract infection, site not specified Presentation: 08/27 05:15 Presenting complaint: Patient states: "it feels like I am having pins and needles all jd3 over my body, with cold and hot flashes, and some nausea.". Transition of care: patient was not received from another setting of care. Onset of symptoms was August 27, 2017. Risk Assessment: Do you want to hurt yourself or someone else? Patient reports no desire to harm self or others. Initial Sepsis Screen: Does the patient meet any 2 criteria? No. Patient's initial sepsis screen is negative. Does the patient have a suspected source of infection? No. Patient's initial sepsis screen is negative. Care prior to arrival: None. 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 - Social history:: Smoking status: Patient/guardian denies using tobacco. - Ebola Screening: : Patient negative for fever greater than or equal to 101.5 degrees Fahrenheit, and additional compatible Ebola Virus Disease symptoms. Screenin:25 Abuse screen: Denies threats or abuse. Nutritional screening: No deficits noted. jd3 Tuberculosis screening: No symptoms or risk factors identified. Fall Risk Ambulatory Aid- None/Bed Rest/Nurse Assist (0 pts). Gait- Normal/Bed Rest/Wheelchair (0 pts) Mental Status- Oriented to own ability (0 pts). Total Gómez Fall Scale indicates No Risk (0-24 pts). Assessment: 05:22 General: Appears uncomfortable, Behavior is cooperative, appropriate for age, anxious. jd3 Pain: Complains of pain in general Pain currently is 9 out of 10 on a pain scale. Quality of pain is described as aching, heavy, numb. Neuro: Level of Consciousness is awake, alert, obeys commands, Oriented to person, place, time, situation. Cardiovascular: Heart tones S1 S2 present Capillary refill < 3 seconds Patient's skin is warm and dry. Respiratory: Airway is patent Respiratory effort is even, unlabored, Respiratory pattern is regular, symmetrical, Breath sounds are clear bilaterally. GI: Abdomen is round Bowel sounds present X 4 quads. Abd is soft and non tender X 4 quads. Reports nausea. : No signs and/or symptoms were reported regarding the genitourinary system. EENT: No signs and/or symptoms were reported regarding the EENT system. Derm: Skin is intact, Skin is dry, Skin is normal, Skin temperature is warm. Musculoskeletal: Circulation, motion, and sensation intact. Range of motion: intact in all extremities. 05:59 Reassessment: Patient appears in no apparent distress at this time. Patient and/or jd3 family updated on plan of care and expected duration. Pain level reassessed. Patient is alert, oriented x 3, equal unlabored respirations, skin warm/dry/pink. waiting for provider to see pt. 07:10 Reassessment: Patient appears in no apparent distress at this time. Patient and/or em family updated on plan of care and expected duration. Pain level reassessed. General: Appears in no apparent distress. comfortable, Behavior is calm, cooperative. General: Denies fever. Pain: Complains of pain in back of neck Pain currently is 9 out of 10 on a pain scale. Quality of pain is described as aching, numb, Pain began at 4AM. Neuro: Level of Consciousness is awake, alert, obeys commands, Oriented to person, place, time, situation. Neuro: Reports paresthesias in right arm, left arm, right leg and left leg Denies blurred vision dizziness. GI: Abdomen is round obese. : No signs and/or symptoms were reported regarding the genitourinary system. EENT: No signs and/or symptoms were reported regarding the EENT system. Derm: Skin is intact, Skin is pink, warm \\T\\ dry. Musculoskeletal: Circulation, motion, and sensation intact. Range of motion: intact in all extremities. 07:51 Reassessment: Patient appears in no apparent distress at this time. Patient and/or em family updated on plan of care and expected duration. Pain level reassessed. reports pain in neck area, JEANETTE Gama notified, new medication orders received. 08:31 Reassessment: Patient appears in no apparent distress at this time. Patient and/or em family updated on plan of care and expected duration. Pain level reassessed. Patient is alert, oriented x 3, equal unlabored respirations, skin warm/dry/pink. rates pain 4/10 Patient states feeling better. Vital Signs: 05:20 BP 155 / 94; Pulse 90; Resp 18 S; Temp 98.8(O); Pulse Ox 97% on R/A; Weight 108.86 kg jd3 (R); Height 5 ft. 4 in. (162.56 cm) (R); Pain 9/10; 05:58 BP 127 / 74; Pulse 82; Resp 18 S; Pulse Ox 98% on R/A; jd3 07:25 BP 117 / 72; Pulse 86; Resp 16; Pulse Ox 98% on R/A; Pain 9/10; em 05:20 Body Mass Index 41.20 (108.86 kg, 162.56 cm) jd3 ED Course: 04:58 Patient arrived in ED. es 05:15 Armando Aldana, RN is Primary Nurse. jd3 05:18 Triage completed. jd3 05:22 Arm band placed on. jd3 05:25 Patient has correct armband on for positive identification. Bed in low position. Call jd3 light in reach. Side rails up X 1. 05:44 Inserted saline lock: 20 gauge in right antecubital area, using aseptic technique. jd3 Blood collected. 06:14 Natan Ann PA is PHCP. jmm 06:14 Nikos Parish MD is Attending Physician. jmm 07:06 Report given to Erika ANDINO. jd3 07:16 EKG done, by ED staff, reviewed by Nikos Parish MD. em 07:19 CT completed. Patient moved to CT via wheelchair. Patient moved back from CT. kw1 07:19 CT Head C Spine In Process Unspecified. EDMS 07:24 No provider procedures requiring assistance completed. em 08:19 Trell Zambrano MD is Referral Physician. [facility] 08:31 IV discontinued, intact, bleeding controlled, No redness/swelling at site. Pressure em dressing applied. Administered Medications: 06:50 Drug: Zofran 4 mg Route: IVP; Site: right antecubital; jd3 07:54 Follow up: Response: No adverse reaction em 08:05 Drug: TORadol 30 mg Route: IVP; Site: right antecubital; Outcome: 08:19 Discharge ordered by MD. m 08:31 Discharged to home ambulatory. em 08:31 Condition: good 08:31 Discharge instructions given to patient, Instructed on discharge instructions, follow up and referral plans. medication usage, Demonstrated understanding of instructions, follow-up care, medications, Prescriptions given X 2. 08:32 Patient left the ED. em Signatures: Dispatcher [employer] EDMS Natan Ann PA PA jmm Salyer, Edna es Munoz, Edgar, PLASTERER SPOT PLASTERER SPOT em Mar Oliver RN RN ss Davies, Jonathon, RN RN jd3 Wilhelm, Kimberly [facility]
[2017-08-27 08:36] VITALS: TEMP 98.8
[2017-08-27 08:37] VITALS: O2SAT 98
[2017-08-27 08:38] VITALS: BP 117/72
--- NOTE | 2017-08-28 09:33 | EKG ---
Test Date: 2017-08-27 Test Time: 07:10:41 Mainframe Systems Administrator: ITA MEASUREMENT RESULTS: Intervals: Rate: 81 W[place]: 152 QRSD: 88 QT: 376 QTc: 436 [place]: P: 34 [place]: 152 QRS: 9 T: 3 INTERPRETIVE STATEMENTS: Normal sinus rhythm Cannot rule out Anterior infarct, age undetermined Abnormal ECG Compared to ECG 07/06/2017 22:26:55 Myocardial infarct finding now present Electronically Signed On 08-28-17 09:28:29 CDT by Dale Bell
== END 2017-08-27 08:32 | disposition home or self-care (01) ==
LOC: ER 04:54
DX: N39.0 Urinary tract infection, site not specified (principal); E11.9 Type 2 diabetes mellitus without complications; F41.9 Anxiety disorder, unspecified
CPT/HCPCS: 36415; 70450; 72125; 80048; 80076; 81003; 81015; 81025; 82150; 83690; 84484; 85025; 93005; 96374; 96375; 99284; J2405

== ENCOUNTER 2018-02-04 17:27 | Emergency (ER) | payer SELFPAY ==
[2018-02-04] MEDS ORDERED: ONDANSETRON 4 MG (ODT) TAB ONE (18:32)
[2018-02-04] MEDS ORDERED: MORPHINE 4 MG/ML SYR ONE (18:32)
[2018-02-04 19:18] LABS: Urine Blood NEGATIVE (NEG); Urine Glucose NEGATIVE (NEG); Urine Protein TRACE (NEG); Urine Specific Gravity 1.025 (1.005-1.030)
--- NOTE | 2018-02-04 20:00 | RAD REPORT ---
EXAM DESCRIPTION: CT - [id number] - 02/04/2018 6:28 pm CLINICAL HISTORY: Headache, dizziness, nontraumatic neck pain COMPARISON: CT head and cervical August 27, 2017 TECHNIQUE: Axial 5 mm thick images of the head were obtained. Axial 2 mm thick images of the cervic al spine were obtained with sagittal and coronal reconstruction images generated and reviewed. All CT scans are performed using dose optimization technique as appropriate and may include automated exposure control or mA/KV adjustment according to patient size. FINDINGS: No intracranial hemorrhage, mass, edema or acute intracranial finding. No suspicion for acute infarct ion. No extra-axial fluid collections. Mastoid air cells and paranasal sinuses are clear. No globe or orbit abnormality seen. Nasal septum deviation present. Cervical body height and alignment are normal. No disk space narrowing. No fracture or acute bony abn ormality. Calcification along the posterior longitudinal ligament at C4 and C5 causes a minimal encro achment into the central canal. No paraspinal mass or hematoma. A few small nonspecific cervical lymph nodes are present. IMPRESSION: Negative CT head examination for acute or significant finding. Negative CT cervical spine examination for acute or significant finding. Posterior longitudinal liga ment calcification at C4 and C5 does not cause significant canal encroachment.
--- NOTE | 2018-02-04 20:50 | ER ---
Nurse's Notes [facility] Name: Aracelis Morales Age: 43 yrs Sex: Female : 1975 Arrival Date: 02/04/2018 Time: 17:29 Bed 6 Private MD: Alpesh Ortiz E Diagnosis: Muscle spasm of back Presentation: 02/04 17:37 Presenting complaint: Patient states: back of neck pain that began 1 week ago. Pt aa5 states "I thought I had slept wrong but I still have the neck pain". Pt also reports dizziness and nausea x 1 week ago. Denies fever, denies vomiting. 17:37 Transition of care: patient was not received from another setting of care. Onset of aa5 symptoms was January 2018. Risk Assessment: Do you want to hurt yourself or someone else? Patient reports no desire to harm self or others. Initial Sepsis Screen: Does the patient meet any 2 criteria? No. Patient's initial sepsis screen is negative. Does the patient have a suspected source of infection? No. Patient's initial sepsis screen is negative. Care prior to arrival: None. 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 - Social history:: Smoking status: Patient/guardian denies using tobacco. - Ebola Screening: : No symptoms or risks identified at this time. Screenin:40 Abuse screen: Denies threats or abuse. Nutritional screening: No deficits noted. aa5 Tuberculosis screening: No symptoms or risk factors identified. Fall Risk None identified. Assessment: 17:40 General: Appears comfortable, Behavior is calm, cooperative. Pain: Complains of pain in aa5 back of neck Pain does not radiate. Pain currently is 9 out of 10 on a pain scale. Quality of pain is described as tender, Pain began 1 week ago Is continuous. Neuro: Level of Consciousness is awake, alert, obeys commands, Oriented to person, place, time, situation, Inside Polisher are equal bilaterally Moves all extremities. Gait is steady, Speech is normal, Facial symmetry appears normal, Pupils are PERRLA, Reports dizziness. Cardiovascular: Heart tones S1 S2 present Rhythm is regular. Respiratory: Airway is patent Respiratory effort is even, unlabored, Respiratory pattern is regular, symmetrical, Breath sounds are clear bilaterally. GI: Abdomen is round non-distended, Bowel sounds present X 4 quads. Abd is soft and non tender X 4 quads. Reports nausea, Patient currently denies vomiting. : Denies burning with urination, inability to void, urinary frequency. EENT: No signs and/or symptoms were reported regarding the EENT system. Derm: Skin is pink, warm \\T\\ dry. Musculoskeletal: Range of motion: intact in all extremities. 18:33 Reassessment: Patient and/or family updated on plan of care and expected duration. Pain aa5 level reassessed. Patient is alert, oriented x 3, equal unlabored respirations, skin warm/dry/pink. Pt back from CT. Pt notified of wait time for results. 18:49 Reassessment: Patient is alert, oriented x 3, equal unlabored respirations, skin aa5 warm/dry/pink. Pain: Pain currently is 8 out of 10 on a pain scale. 19:34 General: Appears comfortable, Behavior is calm, cooperative. Pain: Complains of pain in ea right trapezius and left trapezius Pain does not radiate. Pain currently is 7 out of 10 on a pain scale. Quality of pain is described as aching, tender. Neuro: Level of Consciousness is awake, alert, obeys commands, Oriented to person, place, time, situation, Inside Polisher are equal bilaterally Moves all extremities. Gait is steady, Speech is normal, Reports dizziness. Cardiovascular: Heart tones S1 S2 present. Respiratory: Airway is patent Respiratory effort is even, unlabored, Respiratory pattern is regular, symmetrical, Breath sounds are clear bilaterally. GI: Abdomen is non-distended, Bowel sounds present X 4 quads. Abd is soft and non tender X 4 quads. Derm: Skin is pink, warm \\T\\ dry. 20:30 Reassessment: Patient and/or family updated on plan of care and expected duration. Pain ea level reassessed. Patient is alert, oriented x 3, equal unlabored respirations, skin warm/dry/pink. 21:16 Reassessment: Patient and/or family updated on plan of care and expected duration. Pain ea level reassessed. Patient is alert, oriented x 3, equal unlabored respirations, skin warm/dry/pink. Discharge instructions given to patient, verbalized the understanding of instruction. Vital Signs: 17:42 BP 159 / 89; Pulse 82; Resp 18 S; Temp 98.7(O); Pulse Ox 99% on R/A; Weight 108.86 kg aa5 (R); Height 5 ft. 4 in. (162.56 cm) (R); Pain 9/10; 18:48 BP 121 / 68; Pulse 73; Resp 16 S; Pulse Ox 99% on R/A; Pain 8/10; aa5 19:00 BP 134 / 82; Pulse 80; Resp 18; Pulse Ox 97% ; ea 20:04 BP 125 / 71; Pulse 70; Resp 18; Pulse Ox 99% ; ea 21:19 BP 121 / 75; Pulse 70; Resp 18; Pulse Ox 99% on R/A; ea 17:42 Body Mass Index 41.20 (108.86 kg, 162.56 cm) aa5 ED Course: 17:29 Patient arrived in ED. rg4 17:29 Alpesh Ortiz MD is Private Physician. rg4 17:37 Arm band placed on Patient placed in an exam room, on a stretcher. aa5 17:37 Patient has correct armband on for positive identification. Placed in gown. Bed in low aa5 position. Call light in reach. Side rails up X2. 17:39 Otis Bull PA is PHCP. jr8 17:39 Ayo Chester MD is Attending Physician. jr8 17:47 Breanna Mcintyre, JORGE is Primary Nurse. aa5 17:49 Triage completed. aa5 17:58 Radiology exam delayed due to test not completed at this time. bq 18:11 Urine collected: clean catch specimen, cloudy, tracie colored. jb1 18:29 CT Head C Spine In Process Unspecified. EDMS 19:00 Report given to JORGE Fontanez. aa5 20:49 Alpesh Ortiz MD is Referral Physician. jr8 21:19 No provider procedures requiring assistance completed. IV discontinued, intact, ea bleeding controlled, No redness/swelling at site. Pressure dressing applied. Administered Medications: 18:33 Drug: morphine 4 mg Route: IM; Site: right gluteus; aa5 18:50 Follow up: Response: No adverse reaction aa5 18:33 Drug: Zofran 4 mg Route: PO; aa5 18:50 Follow up: Response: No adverse reaction aa5 21:15 Drug: TORadol 60 mg Route: IM; Site: right deltoid; ea 21:21 Follow up: Response: Medication administered at discharge. ea 21:15 Drug: Flexeril 10 mg Route: PO; ea 21:22 Follow up: Response: Medication administered at discharge. ea Outcome: 20:49 Discharge ordered by . julissa 21:20 Discharged to home ambulatory. ea 21:20 Condition: stable 21:20 Discharge instructions given to patient, Instructed on discharge instructions, follow up and referral plans. medication usage, Demonstrated understanding of instructions, follow-up care, medications, Prescriptions given X 3. 21:24 Patient left the ED. ea Signatures: Dispatcher [employer] EDMS Cruz Lopez jbBren Kaur Audri, RN RN aa5 Otis Bull PA PA jr8 Pia Chambers4 Estee Arnold RN RN nikki
--- NOTE | 2018-02-04 20:50 | EDPHYS ---
Physician Documentation [facility] Name: Aracelis Morales Age: 43 yrs Sex: Female : 1975 Arrival Date: 02/04/2018 Time: 17:29 Bed 6 Private MD: Alpesh Ortiz E ED Physician Ayo Chester HPI: 02/04 18:44 This 43 yrs old Female presents to ER via Ambulatory with complaints of neck jr8 pain, Dizziness, Nausea. 18:44 The patient or guardian complains of pain. The symptoms are located on the posterior jr8 neck. Onset: The symptoms/episode began/occurred gradually, today. Context: The problem was sustained at home, The neck injury/problem resulted from from unknown cause. Associated signs and symptoms: Pertinent positives: nausea and dizziness. The pain does not radiate. Modifying factors: The symptoms are alleviated by nothing. the symptoms are aggravated by nothing. Severity of symptoms: At their worst the symptoms were mild, in the emergency department the symptoms are unchanged. The patient has not experienced similar symptoms in the past. The patient has not recently seen a physician. Denies trauma . 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 - Social history:: Smoking status: Patient/guardian denies using tobacco. - Ebola Screening: : No symptoms or risks identified at this time. ROS: 18:44 Eyes: Negative for injury, pain, redness, and discharge, ENT: Negative for injury, jr8 pain, and discharge, Cardiovascular: Negative for chest pain, palpitations, and edema, Respiratory: Negative for shortness of breath, cough, wheezing, and pleuritic chest pain, Back: Negative for injury and pain, MS/Extremity: Negative for injury and deformity, Skin: Negative for injury, rash, and discoloration. 18:44 Neck: Positive for pain at rest, tenderness, Negative for bony tenderness. 18:44 Abdomen/GI: Positive for nausea, Negative for abdominal pain, vomiting, diarrhea, abdominal cramps, abdominal distension. 18:44 Neuro: Positive for dizziness, Negative for headache, loss of consciousness, numbness, seizure activity, syncope, tingling, visual changes, weakness. Exam: 18:44 Head/Face: Normocephalic, atraumatic. Eyes: Pupils equal round and reactive to light, jr8 extra-ocular motions intact. Lids and lashes normal. Conjunctiva and sclera are non-icteric and not injected. Cornea within normal limits. Periorbital areas with no swelling, redness, or edema. ENT: Nares patent. No nasal discharge, no septal abnormalities noted. Tympanic membranes are normal and external auditory canals are clear. Oropharynx with no redness, swelling, or masses, exudates, or evidence of obstruction, uvula midline. Mucous membranes moist. Neck: Trachea midline, no thyromegaly or masses palpated, and no cervical lymphadenopathy. Supple, full range of motion without nuchal rigidity, or vertebral point tenderness. No Meningismus. Cardiovascular: Regular rate and rhythm with a normal S1 and S2. No gallops, murmurs, or rubs. Normal PMI, no JVD. No pulse deficits. Respiratory: Lungs have equal breath sounds bilaterally, clear to auscultation and percussion. No rales, rhonchi or wheezes noted. No increased work of breathing, no retractions or nasal flaring. Abdomen/GI: Soft, non-tender, with normal bowel sounds. No distension or tympany. No guarding or rebound. No evidence of tenderness throughout. Skin: Warm, dry with normal turgor. Normal color with no rashes, no lesions, and no evidence of cellulitis. MS/ Extremity: Pulses equal, no cyanosis. Neurovascular intact. Full, normal range of motion. Neuro: Awake and alert, GCS 15, oriented to person, place, time, and situation. Cranial nerves II-XII grossly intact. Motor strength 5/5 in all extremities. Sensory grossly intact. Cerebellar exam normal. Normal gait. 18:44 Back: pain, that is moderate, of the left trapezius and right trapezius, ROM is normal, normal spinal alignment noted, CVA tenderness, is absent, vertebral tenderness, is not appreciated. Vital Signs: 17:42 BP 159 / 89; Pulse 82; Resp 18 S; Temp 98.7(O); Pulse Ox 99% on R/A; Weight 108.86 kg aa5 (R); Height 5 ft. 4 in. (162.56 cm) (R); Pain 9/10; 18:48 BP 121 / 68; Pulse 73; Resp 16 S; Pulse Ox 99% on R/A; Pain 8/10; aa5 19:00 BP 134 / 82; Pulse 80; Resp 18; Pulse Ox 97% ; ea 20:04 BP 125 / 71; Pulse 70; Resp 18; Pulse Ox 99% ; ea 21:19 BP 121 / 75; Pulse 70; Resp 18; Pulse Ox 99% on R/A; ea 17:42 Body Mass Index 41.20 (108.86 kg, 162.56 cm) aa5 MDM: 17:39 Patient medically screened. jr8 20:49 Data reviewed: vital signs, nurses notes, radiologic studies, CT scan, and as a result, jr8 I will discharge patient. Data interpreted: Pulse oximetry: on room air is 99 %. Interpretation: normal. Counseling: I had a detailed discussion with the patient and/or guardian regarding: the historical points, exam findings, and any diagnostic results supporting the discharge/admit diagnosis, radiology results, the need for outpatient follow up, a family practitioner, to return to the emergency department if symptoms worsen or persist or if there are any questions or concerns that arise at home. Response to treatment: the patient's symptoms have markedly improved after treatment. 02/04 18:25 Order name: Urine Dipstick--Ancillary (enter results); Complete Time: 19:23 eb 02/04 18:25 Order name: Urine --Ancillary (enter results); Complete Time: 19:23 eb 02/04 17:50 Order name: CT Head C Spine; Complete Time: 20:04 jr8 Administered Medications: 18:33 Drug: morphine 4 mg Route: IM; Site: right gluteus; aa5 18:50 Follow up: Response: No adverse reaction aa5 18:33 Drug: Zofran 4 mg Route: PO; aa5 18:50 Follow up: Response: No adverse reaction aa5 21:15 Drug: TORadol 60 mg Route: IM; Site: right deltoid; ea 21:21 Follow up: Response: Medication administered at discharge. ea 21:15 Drug: Flexeril 10 mg Route: PO; ea 21:22 Follow up: Response: Medication administered at discharge. ea Disposition: 02/04/18 20:49 Discharged to Home. Impression: Muscle spasm of back. - Condition is Stable. - Discharge Instructions: Muscle Cramps and Spasms, Back Exercises, [id number], Heat Therapy. - Prescriptions for Ibuprofen 800 mg Oral Tablet - take 1 tablet by ORAL route every 12 hours As needed take with food; 20 tablet. Cyclobenzaprine 10 mg Oral Tablet - take 1 tablet by ORAL route every 8 hours As needed; 30 tablet. Tramadol 50 mg Oral Tablet - take 1 tablet by ORAL route every 8 hours as needed; 12 tablet. - Medication Reconciliation Form, Thank You Letter, Antibiotic Education, Prescription Opioid Use form. - Follow up: Alpesh Ortiz MD; When: 5 - 6 days; Reason: Recheck today's complaints, Continuance of care, Re-evaluation by your physician. - Problem is new. - Symptoms have improved. Addendum: 02/16/2018 15:15 Co-signature as Attending Physician, Ayo Chester MD Available for consultation at p s1 all times. . Signatures: Dispatcher [employer] EDMS Breanna Mcintyre RN RN aa5 Otis Bull PA PA jr8 Yola Nicole RN RN tl2 Estee Arnold RN RN ea Singer, Phillip, MD MD ps1 Corrections: (The following items were deleted from the chart) 02/04 18:54 18:44 Neuro: Positive for dizziness, Negative for headache, loss of consciousness, jr8 seizure activity, syncope, jr8 21:24 20:49 02/04/2018 20:49 Discharged to Home. Impression: Muscle spasm of back. Condition ea is Stable. Forms are Medication Reconciliation Form, Thank You Letter, Antibiotic Education, Prescription Opioid Use. Follow up: Alpesh Ortiz; When: 5 - 6 days; Reason: Recheck today's complaints, Continuance of care, Re-evaluation by your physician. Problem is new. Symptoms have improved. jr8
[2018-02-04] MEDS ORDERED: KETOROLAC 30 MG/ML INJ ONE (21:25)
[2018-02-04] MEDS ORDERED: CYCLOBENZAPRINE 10 MG TAB ONE (21:25)
[2018-02-04 21:37] VITALS: TEMP 98.7
[2018-02-04 21:49] VITALS: O2SAT 99
[2018-02-04 21:50] VITALS: BP 121/75
== END 2018-02-04 21:24 | disposition home or self-care (01) ==
LOC: ER 17:27
DX: M62.830 Muscle spasm of back (principal); E11.9 Type 2 diabetes mellitus without complications; F41.9 Anxiety disorder, unspecified; Z79.84 Long term (current) use of oral hypoglycemic drugs; Z79.899 Other long term (current) drug therapy
CPT/HCPCS: 70450; 72125; 81003; 81025; 96372; 99284

== ENCOUNTER 2018-03-30 19:25 | Emergency (ER) | payer SELFPAY ==
[2018-03-30 20:25] LABS: Absolute Lymphocytes (CBC) 2.4 K/uL (0.7-4.9); Absolute Monocytes 1.3 K/uL (0.1-1.3); Absolute Neutrophil 7.8 K/uL (1.8-8.0); Basophils % 0.6 % (0-1.3); Eosinophils % 0.9 % (0-4.4); Hematocrit 44.4 % (36.0-45.0); Lymphocytes % 20.5 % (15.3-44.8); MPV 7.9 fL (7.6-11.3); Monocytes % 11.4 % (3.3-12.3); RBC Red Blood Cell Count 5.07 M/uL (3.86-4.86)
--- NOTE | 2018-03-30 20:27 | RAD REPORT ---
EXAM DESCRIPTION: Bek[facility] Single View03/30/2018 8:06 pm CLINICAL HISTORY: Chest pain COMPARISON: June 2017 FINDINGS: The lungs appear clear of acute infiltrate. The heart is normal size IMPRESSION: No acute abnormalities displayed
[2018-03-30 20:28] LABS: Protime INR 0.96
--- NOTE | 2018-03-30 20:32 | RAD REPORT ---
EXAM DESCRIPTION: CT - Head Brain Wo Cont - 03/30/2018 8:21 pm CLINICAL HISTORY: Numbness COMPARISON: None TECHNIQUE: Computed axial tomography of the head was obtained. IV contrast was not requested. All CT scans are performed using dose optimization technique as appropriate and may include automated exposure control or mA/KV adjustment according to patient size. FINDINGS: An intracranial bleed is not seen . The ventricles are normal in caliber. No extra-axial fluid collection is noted. Fluid within the sinuses/ mastoids is not seen. IMPRESSION: No acute intracranial abnormality is seen. If patient's symptoms persist MRI of the bra in would be recommended.
[2018-03-30 20:37] LABS: Urine Blood NEGATIVE (NEG); Urine Glucose NEGATIVE (NEG); Urine Protein NEGATIVE (NEG)
[2018-03-30 20:45] LABS: ALT/SGPT 26 U/L (12-78); AST/SGOT 15 U/L (15-37); Albumin 4.1 g/dL (3.4-5.0); Alkaline Phosphatase 59 U/L (45-117); BUN Blood Urea Nitrogen 12 mg/dL (7-18); Bicarbonate 29 mmol/L (21-32); Bilirubin Direct 0.1 mg/dL (0-0.2); Bilirubin Total 0.4 mg/dL (0.2-1.0); Glucose Level 104 mg/dL (74-106); Potassium 3.7 mmol/L (3.5-5.1); Protein, Total 7.9 g/dL (6.4-8.2); Sodium Level 142 mmol/L (136-145); Troponin (Emerg Dept Use Only) < 0.02 ng/mL (0.0-0.045)
[2018-03-30 20:49] LABS: NT PRO-BNP < 5 pg/mL (<125)
[2018-03-30 20:53] LABS: Urine Bacteria >50 /HPF (<20); Urine Culture Reflex Order NOT NEEDED; Urine RBC <5 /HPF (NONE SEEN)
[2018-03-30] MEDS ORDERED: ONDANSETRON 4 MG/2 ML VIAL ONE (21:06)
--- NOTE | 2018-03-30 22:59 | EDPHYS ---
Physician Documentation [facility] Name: Aracelis Morales Age: 43 yrs Sex: Female : 1975 Arrival Date: 03/30/2018 Time: 19:26 Bed 2 Private MD: Alpesh Ortiz E ED Physician Aydin Helton HPI: 03/30 20:00 This 43 yrs old Female presents to ER via Ambulatory with complaints of pm1 Dizziness, Numbness Of Face. 20:00 The patient presents with sense of spinning. Onset: The symptoms/episode began/occurred pm1 today, at 17:00. Context: occurred at home, occurred while the patient was cleaning. just prior to the episode the patient experienced no apparent symptoms. Modifying factors: The symptoms are alleviated by nothing, the symptoms are aggravated by movement of head. Associated signs and symptoms: Pertinent positives: numbness, bilateral neck pain, Pertinent negatives: chest pain, headache, shortness of breath. Severity of symptoms: in the emergency department the symptoms are unchanged. Patient's baseline: Neuro: alert and fully oriented, Motor: no deficits, Ambulation: walks without assistance, Speech: normal. The patient has not experienced similar symptoms in the past. 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 - Social history:: Smoking status: Patient/guardian denies using tobacco, Patient/guardian denies using alcohol, street drugs. - Ebola Screening: : No symptoms or risks identified at this time. ROS: 20:00 Constitutional: Negative for fever, chills, and weight loss, Eyes: Negative for injury, pm1 pain, redness, and discharge, ENT: Negative for injury, pain, and discharge, Cardiovascular: Negative for chest pain, palpitations, and edema. 20:00 Respiratory: Negative for shortness of breath, cough, wheezing, and pleuritic chest pain, Abdomen/GI: Negative for abdominal pain, nausea, vomiting, diarrhea, and constipation, Back: Negative for injury and pain, : Negative for injury, bleeding, discharge, and swelling, MS/Extremity: Negative for injury and deformity, Skin: Negative for injury, rash, and discoloration. 20:00 Neck: Positive for stiffness, tenderness, of the left trapezius and right trapezius, Pain. 20:00 Neuro: Positive for dizziness, numbness, of the face. Exam: 20:00 Constitutional: This is a well developed, well nourished patient who is awake, alert, pm1 and in no acute distress. Head/Face: Normocephalic, atraumatic. Eyes: Pupils equal round and reactive to light, extra-ocular motions intact. Lids and lashes normal. Conjunctiva and sclera are non-icteric and not injected. Cornea within normal limits. Periorbital areas with no swelling, redness, or edema. ENT: Nares patent. No nasal discharge, no septal abnormalities noted. Tympanic membranes are normal and external auditory canals are clear. Oropharynx with no redness, swelling, or masses, exudates, or evidence of obstruction, uvula midline. Mucous membranes moist. Chest/axilla: Normal chest wall appearance and motion. Nontender with no deformity. No lesions are appreciated. Cardiovascular: Regular rate and rhythm with a normal S1 and S2. No gallops, murmurs, or rubs. Normal PMI, no JVD. No pulse deficits. Respiratory: Lungs have equal breath sounds bilaterally, clear to auscultation and percussion. No rales, rhonchi or wheezes noted. No increased work of breathing, no retractions or nasal flaring. Abdomen/GI: Soft, non-tender, with normal bowel sounds. No distension or tympany. No guarding or rebound. No evidence of tenderness throughout. 20:00 Back: No spinal tenderness. No costovertebral tenderness. Full range of motion. Skin: Warm, dry with normal turgor. Normal color with no rashes, no lesions, and no evidence of cellulitis. MS/ Extremity: Pulses equal, no cyanosis. Neurovascular intact. Full, normal range of motion. 20:00 Neck: External neck: tenderness, of the left trapezius and right trapezius, muscle spasm, C-spine: vertebral tenderness, is not appreciated. 20:00 Neuro: Orientation: is normal, Mentation: is normal, Cranial nerves: CN II- XII are normal as tested, Cerebellar function: normal finger to nose testing, Motor: moves all fours, strength is normal, strength is 5/5 in all extremities, Sensation: is normal, no obvious gross deficits, sensation of touch equal to both sides of the patient's face, Gait: is steady, at a normal pace, without difficulty. Vital Signs: 19:53 BP 150 / 92; Pulse 102; Resp 16 S; Temp 98.5(O); Pulse Ox 97% on R/A; Weight 108.86 kg bb (R); Height 5 ft. 4 in. (162.56 cm) (R); Pain 0/10; 21:18 BP 108 / 88; Pulse 97; Resp 14; Pulse Ox 99% on R/A; ak1 21:57 BP 110 / 87; Pulse 93; Resp 20; Pulse Ox 99% ; ak1 23:01 BP 131 / 84; Pulse 92; Resp 20; Temp 98.7; Pulse Ox 97% on R/A; ak1 19:53 Body Mass Index 41.20 (108.86 kg, 162.56 cm) bb NIH Stroke Scale Scores: 20:00 NIHSS Score: 0 pm1 MDM: 19:48 Patient medically screened. pm1 22:58 Data reviewed: vital signs. Data interpreted: Pulse oximetry: on room air is 99 %. pm1 Interpretation: normal. Counseling: I had a detailed discussion with the patient and/or guardian regarding: the historical points, exam findings, and any diagnostic results supporting the discharge/admit diagnosis, lab results, radiology results, the need for outpatient follow up, to return to the emergency department if symptoms worsen or persist or if there are any questions or concerns that arise at home. 03/30 19:54 Order name: Basic Metabolic Panel; Complete Time: 20:57 pm1 03/30 19:54 Order name: CBC with Diff; Complete Time: 20:29 pm1 03/30 19:54 Order name: LFT's; Complete Time: 20:57 pm1 03/30 19:54 Order name: Magnesium; Complete Time: 20:57 pm1 03/30 19:54 Order name: NT PRO-BNP; Complete Time: 20:57 pm1 03/30 19:54 Order name: PT-INR; Complete Time: 20:40 pm1 03/30 19:54 Order name: Troponin (emerg Dept Use Only); Complete Time: 20:57 pm03/30 19:54 Order name: XRAY Chest (1 view); Complete Time: 20:29 pm03/30 19:54 Order name: EKG; Complete Time: 19:56 pm03/30 19:54 Order name: Urine Microscopic Only; Complete Time: 20:57 pm03/30 19:57 Order name: CT Head Brain wo Cont; Complete Time: 20:35 pm1 03/30 20:26 Order name: Urine Dipstick--Ancillary (enter results); Complete Time: 20:40 ag4 03/30 20:26 Order name: Urine --Ancillary (enter results); Complete Time: 20:40 ag4 03/30 19:54 Order name: Cardiac monitoring; Complete Time: 20:30 pm03/30 19:54 Order name: EKG - Nurse/Tech; Complete Time: 20:12 pm03/30 19:54 Order name: IV Saline Lock; Complete Time: 20:20 pm03/30 19:54 Order name: Labs collected and sent; Complete Time: 20:20 pm03/30 19:54 Order name: O2 Per Protocol; Complete Time: 20:12 pm03/30 19:54 Order name: O2 Sat Monitoring; Complete Time: 20:12 pm03/30 19:54 Order name: Urine Dipstick-Ancillary (obtain specimen); Complete Time: 20:19 pm1 Administered Medications: 20:58 Drug: Zofran 4 mg Route: IVP; Site: right antecubital; ak1 21:19 Follow up: Response: No adverse reaction ak1 Disposition: 03/31 06:21 Co-signature as Attending Physician, Aydin Helton MD I agree with the assessment and tw4 plan of care. Disposition: 03/30/18 22:58 Discharged to Home. Impression: Paresthesia of skin. - Condition is Stable. - Discharge Instructions: Paresthesia. - Medication Reconciliation Form, Thank You Letter form. - Follow up: Emergency Department; When: As needed; Reason: Worsening of condition. Follow up: Private Physician; When: 2 - 3 days; Reason: Recheck today's complaints, Continuance of care, Re-evaluation by your physician. - Problem is new. - Symptoms have improved. NIH Stroke Scale - NIH Stroke Score Date: 03/30/2018 Time: 20:00 Total Score = 0 1a. Level of Consciousness (LOC) - 0(Alert) 1b. Level of Consciousness (LOC) (Year \T\ Age) - 0(Both) 1c. LOC Commands (Open \T\ Closes Eyes/Bobbin Drier) - 0(Both) 2. Best Gaze (Lateral Gaze Paresis) - 0(Normal) 3. Visual Field Loss - 0(No visual loss) 4. Facial Palsy - 0(Normal) 5a. Left Arm: Motor (10-second hold) - 0(No drift) 5b. Right Arm: Motor (10-second hold) - 0(No drift) 6a. Left Leg: Motor (5-second hold - always test supine) - 0(No drift) 6b. Right Leg: Motor (5-second hold - always test supine) - 0(No drift) 7. Limb Ataxia (finger/nose \T\ heel/wolfe - test with eyes open) - 0(Absent) 8. Sensory Loss (pinprick arms/legs/face) - 0(Normal) 9. Best Language: Aphasia (description/naming/reading) - 0(No aphasia) 10. Dysarthria (speech clarity - read or repeat words) - 0(Normal) 11. Extinction and Inattention (visual/tactile/auditory/spatial/personal) - 0(No abnormality) Initials: pm1 Signatures: Dispatcher [employer] EDMS Abigail Arreguin RN RN bb Lasagna, Tonya, RN RN tl1 Grace Blas RN RN ak1 Maximiliano Kwong, BUSINESS DEVELOPER BUSINESS DEVELOPER pm1 Aydin Helton MD MD tw4 Corrections: (The following items were deleted from the chart) 03/30 23:11 22:58 03/30/2018 22:58 Discharged to Home. Impression: Paresthesia of skin. ak1 Condition is Stable. Forms are Medication Reconciliation Form, Thank You Letter, Antibiotic Education, Prescription Opioid Use. Follow up: Emergency Department; When: As needed; Reason: Worsening of condition. Follow up: Private Physician; When: 2 - 3 days; Reason: Recheck today's complaints, Continuance of care, Re-evaluation by your physician. Problem is new. Symptoms have improved. pm1
--- NOTE | 2018-03-30 22:59 | ER ---
Nurse's Notes [facility] Name: Aracelis Morales Age: 43 yrs Sex: Female : 1975 Arrival Date: 03/30/2018 Time: 19:26 Bed 2 Private MD: Alpesh Ortiz E Diagnosis: Paresthesia of skin Presentation: 03/30 19:45 Presenting complaint: Patient states: today about 1700 she was cleaning her room and bb started feeling "ugly" with numbness to the left side of her face, light-headed, nausea, she also has a stiff neck and "heaviness to her right shoulder. Transition of care: patient was not received from another setting of care. Onset of symptoms was March 30, 2018 at 17:00. Risk Assessment: Do you want to hurt yourself or someone else? Patient reports no desire to harm self or others. Initial Sepsis Screen: Does the patient meet any 2 criteria? No. Patient's initial sepsis screen is negative. Does the patient have a suspected source of infection? No. Patient's initial sepsis screen is negative. Care prior to arrival: None. 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 - Social history:: Smoking status: Patient/guardian denies using tobacco, Patient/guardian denies using alcohol, street drugs. - Ebola Screening: : No symptoms or risks identified at this time. Screenin:05 Abuse screen: Denies threats or abuse. Denies injuries from another. Nutritional ak1 screening: No deficits noted. Tuberculosis screening: No symptoms or risk factors identified. Fall Risk None identified. Assessment: 20:04 General: Appears in no apparent distress. Behavior is calm, cooperative. Pain: Denies ak1 pain. Neuro: Level of Consciousness is awake, alert, obeys commands, Oriented to person, place, time, situation, Marketing Analytics Analyst are equal bilaterally Moves all extremities. Gait is steady, Speech is normal, Facial symmetry appears normal, pt reports numbness to her face. . Cardiovascular: No deficits noted. Respiratory: No deficits noted. GI: No signs and/or symptoms were reported involving the gastrointestinal system. : No signs and/or symptoms were reported regarding the genitourinary system. EENT: No signs and/or symptoms were reported regarding the EENT system. Derm: No signs and/or symptoms reported regarding the dermatologic system. Musculoskeletal: No signs and/or symptoms reported regarding the musculoskeletal system. 21:57 Reassessment: Patient appears in no apparent distress at this time. No changes from ak1 previously documented assessment. Patient and/or family updated on plan of care and expected duration. Pain level reassessed. Patient is alert, oriented x 3, equal unlabored respirations, skin warm/dry/pink. Vital Signs: 19:53 BP 150 / 92; Pulse 102; Resp 16 S; Temp 98.5(O); Pulse Ox 97% on R/A; Weight 108.86 kg bb (R); Height 5 ft. 4 in. (162.56 cm) (R); Pain 0/10; 21:18 BP 108 / 88; Pulse 97; Resp 14; Pulse Ox 99% on R/A; ak1 21:57 BP 110 / 87; Pulse 93; Resp 20; Pulse Ox 99% ; ak1 23:01 BP 131 / 84; Pulse 92; Resp 20; Temp 98.7; Pulse Ox 97% on R/A; ak1 19:53 Body Mass Index 41.20 (108.86 kg, 162.56 cm) bb NIH Stroke Scale Scores: 20:00 NIHSS Score: 0 pm1 ED Course: 19:26 Patient arrived in ED. am2 19:26 Alpesh Ortiz MD is Private Physician. am2 19:40 Grace Blas, JORGE is Primary Nurse. ak1 19:48 Maximiliano Kwong NP is PHCP. pm1 19:48 Aydin Helton MD is Attending Physician. pm1 19:53 Triage completed. bb 19:53 Arm band placed on Patient placed in an exam room, on a stretcher, on pulse oximetry. bb 20:03 X-ray completed. Portable x-ray completed in exam room. Patient tolerated procedure az well. 20:05 XRAY Chest (1 view) In Process Unspecified. EDMS 20:05 Patient has correct armband on for positive identification. Bed in low position. Call ak1 light in reach. Side rails up X 1. monitor car operator on. Pulse ox on. NIBP on. 20:19 CT completed. Patient tolerated procedure well. Patient moved to CT. Patient moved back nj from CT. 20:19 No provider procedures requiring assistance completed. Inserted saline lock: 20 gauge tl1 in right antecubital area, using aseptic technique. Blood collected. 20:23 CT Head Brain wo Cont In Process Unspecified. EDMS 23:06 IV discontinued, intact, bleeding controlled, No redness/swelling at site. Pressure ak1 dressing applied. Administered Medications: 20:58 Drug: Zofran 4 mg Route: IVP; Site: right antecubital; ak1 21:19 Follow up: Response: No adverse reaction ak1 Outcome: 21:57 Condition: stable ak1 22:58 Discharge ordered by MD. pm1 23:06 Discharged to home ambulatory. ak1 23:07 Discharge instructions given to patient, Instructed on discharge instructions, follow ak1 up and referral plans. Demonstrated understanding of instructions, follow-up care. 23:11 Patient left the ED. ak1 NIH Stroke Scale - NIH Stroke Score Date: 03/30/2018 Time: 20:00 Total Score = 0 1a. Level of Consciousness (LOC) - 0(Alert) 1b. Level of Consciousness (LOC) (Year \\T\\ Age) - 0(Both) 1c. LOC Commands (Open \\T\\ Closes Eyes/Traffic Administrator) - 0(Both) 2. Best Gaze (Lateral Gaze Paresis) - 0(Normal) 3. Visual Field Loss - 0(No visual loss) 4. Facial Palsy - 0(Normal) 5a. Left Arm: Motor (10-second hold) - 0(No drift) 5b. Right Arm: Motor (10-second hold) - 0(No drift) 6a. Left Leg: Motor (5-second hold - always test supine) - 0(No drift) 6b. Right Leg: Motor (5-second hold - always test supine) - 0(No drift) 7. Limb Ataxia (finger/nose \\T\\ heel/wolfe - test with eyes open) - 0(Absent) 8. Sensory Loss (pinprick arms/legs/face) - 0(Normal) 9. Best Language: Aphasia (description/naming/reading) - 0(No aphasia) 10. Dysarthria (speech clarity - read or repeat words) - 0(Normal) 11. Extinction and Inattention (visual/tactile/auditory/spatial/personal) - 0(No abnormality) Initials: pm1 Signatures: Dispatcher [employer] EDAbigail Hurt RN RN bb Bárbara Aden RN RN tl1 Grace Blas RN RN ak1 Maximiliano Kwong, NEHEMIAS PATTERN CARRIER pm1 Dustin Canales Amanda am2 Marina Tinsley
[2018-03-31 00:20] VITALS: BP 131/84; TEMP 98.7; O2SAT 97
--- NOTE | 2018-03-31 07:46 | EKG ---
Test Date: 2018-03-30 Test Time: 20:09:27 Recovery Advocate: JEFFERSON MEASUREMENT RESULTS: Intervals: Rate: 101 [place]: 140 QRSD: 86 QT: 380 QTc: 492 Gay: P: 21 [place]: 140 QRS: 4 T: 4 INTERPRETIVE STATEMENTS: Sinus tachycardia Otherwise normal ECG Compared to ECG 08/27/2017 07:10:41 Sinus rhythm no longer present Myocardial infarct finding no longer present Electronically Signed On 03-31-18 06:52:19 WIRE BRUSHER by Dale Bell
== END 2018-03-30 23:11 | disposition home or self-care (01) ==
LOC: ER 19:25
DX: R20.2 Paresthesia of skin (principal); E11.9 Type 2 diabetes mellitus without complications; F41.9 Anxiety disorder, unspecified
CPT/HCPCS: 36415; 70450; 71045; 80048; 80076; 81003; 81015; 81025; 83735; 83880; 84484; 85025; 85610; 93005; 96374; 99285; J2405

== ENCOUNTER 2018-10-21 21:26 | Emergency (ER) | payer SELFPAY ==
[2018-10-21 22:25] LABS: Basophils % 0.9 % (0-1.3); Hematocrit 41.5 % (36.0-45.0); Lymphocytes % 22.7 % (15.3-44.8); MPV 8.2 fL (7.6-11.3); RBC Red Blood Cell Count 4.72 M/uL (3.86-4.86)
[2018-10-21 22:27] LABS: Protime INR 0.98
[2018-10-21 22:50] LABS: ALT/SGPT 29 U/L (12-78); AST/SGOT 19 U/L (15-37); Albumin 3.8 g/dL (3.4-5.0); Alkaline Phosphatase 57 U/L (45-117); BUN Blood Urea Nitrogen 9 mg/dL (7-18); Bicarbonate 26 mmol/L (21-32); Bilirubin Direct 0.1 mg/dL (0-0.2); Bilirubin Total 0.4 mg/dL (0.2-1.0); Glucose Level 94 mg/dL (74-106); Magnesium 1.8 mg/dL (1.8-2.4); NT PRO-BNP 15 pg/mL (<125); Potassium 3.9 mmol/L (3.5-5.1); Sodium Level 142 mmol/L (136-145); Troponin (Emerg Dept Use Only) < 0.02 ng/mL (0.0-0.045)
[2018-10-21] MEDS ORDERED: LIDOCAINE VISCOUS 2% SOLN 15 ML UDC ONE (23:02)
[2018-10-21] MEDS ORDERED: MAGNE/ALUM HYDROXD 30 ML UCUP ONE (23:02)
[2018-10-21 23:09] LABS: Urine Blood NEGATIVE (NEG); Urine Glucose NEGATIVE (NEG); Urine Protein NEGATIVE (NEG); Urine Specific Gravity 1.025 (1.005-1.030)
--- NOTE | 2018-10-21 23:15 | ER ---
Nurse's Notes [facility] Name: Aracelis Morales Age: 43 yrs Sex: Female : 1975 Arrival Date: 10/21/2018 Time: 21:28 Bed 25 Private MD: Diagnosis: Chest pain, unspecified;Gastro-esophageal reflux disease Presentation: 10/21 21:31 Presenting complaint: Patient states: Chest pain that started at 1400 today. Reports aj1 that she tried taking Tums but it didn't help. Reports nausea, cold sweats, shortness of breath. Reports chest pain is worse when she takes a deep breath. Denies fever. Transition of care: patient was not received from another setting of care. Onset of symptoms was October 21, 2018 at 14:00. Risk Assessment: Do you want to hurt yourself or someone else? Patient reports no desire to harm self or others. Initial Sepsis Screen: Does the patient meet any 2 criteria? No. Patient's initial sepsis screen is negative. Does the patient have a suspected source of infection? No. Patient's initial sepsis screen is negative. Care prior to arrival: None. 21:31 Method Of Arrival: Ambulatory aj1 21:31 Acuity: TACHO 3 aj1 Triage Assessment: 21:33 General: Appears in no apparent distress. comfortable, Behavior is calm, cooperative, aj1 appropriate for age. Pain: Complains of pain in mid-sternal area Pain does not radiate. Pain currently is 9 out of 10 on a pain scale. Neuro: Level of Consciousness is awake, alert, obeys commands, Oriented to person, place, time, situation. Cardiovascular: Patient's skin is warm and dry. Respiratory: Airway is patent Respiratory effort is even, unlabored, Respiratory pattern is regular, symmetrical. 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 - Social history:: Smoking status: Patient/guardian denies using tobacco. - Ebola Screening: : Patient denies travel to an Ebola-affected area in the 21 days before illness onset. Screenin:35 Abuse screen: Denies threats or abuse. Nutritional screening: No deficits noted. tr5 Tuberculosis screening: No symptoms or risk factors identified. Fall Risk None identified. Assessment: 21:35 Reassessment:. General: Appears uncomfortable, Behavior is calm, cooperative, tr5 appropriate for age. Pain: Complains of pain in mid-sternal area Pain does not radiate. Pain currently is 6 out of 10 on a pain scale. Quality of pain is described as pressure, Pain began gradually, Is continuous, Alleviated by nothing. Neuro: Level of Consciousness is awake, alert, obeys commands, Oriented to person, place, time, Compensation And Benefits Advisor are equal bilaterally Moves all extremities. Cardiovascular: Reports chest pain, Heart tones present Capillary refill < 3 seconds Pulses are all present. Edema is absent. Rhythm is regular. Respiratory: Airway is patent Respiratory effort is even, unlabored, Respiratory pattern is regular, symmetrical. GI: No signs and/or symptoms were reported involving the gastrointestinal system. : No signs and/or symptoms were reported regarding the genitourinary system. EENT: No signs and/or symptoms were reported regarding the EENT system. Derm: Skin is intact, Skin is dry, Skin is normal. Musculoskeletal: Capillary refill < 3 seconds, Range of motion: intact in all extremities. 22:30 Reassessment: Patient and/or family updated on plan of care and expected duration. Pain tr5 level reassessed. Patient is alert, oriented x 3, equal unlabored respirations, skin warm/dry/pink. Vital Signs: 21:33 BP 144 / 92; Pulse 79; Resp 18; Temp 98.1; Pulse Ox 98% on R/A; Weight 108.86 kg (R); aj1 Height 5 ft. 4 in. (162.56 cm) (R); 22:30 BP 135 / 89; Pulse 97; Resp 16; Pulse Ox 97% on R/A; tr5 21:33 Body Mass Index 41.20 (108.86 kg, 162.56 cm) [facility] ED Course: 21:28 Patient arrived in ED. mr 21:32 Triage completed. aj1 21:33 Arm band placed on Patient placed in an exam room. 1 21:35 Bed in low position. Call light in reach. Side rails up X 1. hand dry cleaner on. Pulse tr5 ox on. NIBP on. 21:45 Zahraa Manzano FNP [facility]. nh 21:45 Lee Park MD is Attending Physician. nh 22:14 Inserted saline lock: 20 gauge in right antecubital area, using aseptic technique. lt1 22:15 Initial lab(s) drawn, by me, sent to lab. lt1 22:19 Logan Valle, RN is Primary Nurse. tr5 22:24 XRAY Chest (1 view) In Process Unspecified. EDMS 23:23 No provider procedures requiring assistance completed. IV discontinued. Patient tr5 maintains SpO2 saturation greater than 95% on room air. Administered Medications: 23:01 Drug: GI Cocktail with - (Phenobarbital-Belladonna 10 ml, Maalox Suspension 30 tr5 ml, Lidocaine Liquid 2 % 20 ml) Route: PO; 23:24 Follow up: Response: Marked relief of symptoms tr5 Outcome: 23:14 Discharge ordered by . nh 23:23 Discharged to home ambulatory. tr5 23:23 Condition: stable 23:23 Discharge instructions given to patient, Instructed on discharge instructions, follow up and referral plans. medication usage, Demonstrated understanding of instructions, follow-up care, medications, Prescriptions given X 1. 23:23 Patient left the ED. tr5 Signatures: Dispatcher [employer] EDMS Zoey Chinchilla, RN RN aj1 Zahraa Manzano FNP STATION CAPTAIN wi Kody, Aundrea Zhu lt1 Logan Valle, RN RN tr5
--- NOTE | 2018-10-21 23:16 | EDPHYS ---
Physician Documentation [facility] Name: Aracelis Morales Age: 43 yrs Sex: Female : 1975 Arrival Date: 10/21/2018 Time: 21:28 Bed 25 Private MD: ED Physician [place] HPI: 10/21 23:12 This 43 yrs old Female presents to ER via Ambulatory with complaints of Chest nh Pain. 23:12 Onset: The symptoms/episode began/occurred this morning. Associated signs and symptoms: nh The patient has no apparent associated signs or symptoms. Modifying factors: The patient symptoms are alleviated by nothing, the patient symptoms are aggravated by nothing. The patient has not experienced similar symptoms in the past. The patient has not recently seen a physician. States that she thought it was heartburn, but then tried to drink some coke and it didn't help. 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 - Social history:: Smoking status: Patient/guardian denies using tobacco. - Ebola Screening: : Patient denies travel to an Ebola-affected area in the 21 days before illness onset. ROS: 23:12 Constitutional: Negative for fever, chills, and weight loss, Eyes: Negative for injury, nh pain, redness, and discharge, ENT: Negative for injury, pain, and discharge, Neck: Negative for injury, pain, and swelling, Respiratory: Negative for shortness of breath, cough, wheezing, and pleuritic chest pain, Abdomen/GI: Negative for abdominal pain, nausea, vomiting, diarrhea, and constipation, Back: Negative for injury and pain, : Negative for injury, bleeding, discharge, and swelling, MS/Extremity: Negative for injury and deformity, Skin: Negative for injury, rash, and discoloration, Neuro: Negative for headache, weakness, numbness, tingling, and seizure, Psych: Negative for depression, anxiety, suicide ideation, homicidal ideation, and hallucinations, Allergy/Immunology: Negative for hives, rash, and allergies, Endocrine: Negative for neck swelling, polydipsia, polyuria, polyphagia, and marked weight changes, Hematologic/Lymphatic: Negative for swollen nodes, abnormal bleeding, and unusual bruising. 23:12 Cardiovascular: Positive for chest pain, Negative for edema, orthopnea, palpitations, paroxysmal nocturnal dyspnea, acute changes. Exam: 23:12 Constitutional: This is a well developed, well nourished patient who is awake, alert, nh and in no acute distress. Head/Face: Normocephalic, atraumatic. Eyes: Pupils equal round and reactive to light, extra-ocular motions intact. Lids and lashes normal. Conjunctiva and sclera are non-icteric and not injected. Cornea within normal limits. Periorbital areas with no swelling, redness, or edema. ENT: Nares patent. No nasal discharge, no septal abnormalities noted. Tympanic membranes are normal and external auditory canals are clear. Oropharynx with no redness, swelling, or masses, exudates, or evidence of obstruction, uvula midline. Mucous membranes moist. Neck: Trachea midline, no thyromegaly or masses palpated, and no cervical lymphadenopathy. Supple, full range of motion without nuchal rigidity, or vertebral point tenderness. No Meningismus. Chest/axilla: Normal chest wall appearance and motion. Nontender with no deformity. No lesions are appreciated. Cardiovascular: Regular rate and rhythm with a normal S1 and S2. No gallops, murmurs, or rubs. Normal PMI, no JVD. No pulse deficits. Respiratory: Lungs have equal breath sounds bilaterally, clear to auscultation and percussion. No rales, rhonchi or wheezes noted. No increased work of breathing, no retractions or nasal flaring. Abdomen/GI: Soft, non-tender, with normal bowel sounds. No distension or tympany. No guarding or rebound. No evidence of tenderness throughout. Back: No spinal tenderness. No costovertebral tenderness. Full range of motion. Skin: Warm, dry with normal turgor. Normal color with no rashes, no lesions, and no evidence of cellulitis. MS/ Extremity: Pulses equal, no cyanosis. Neurovascular intact. Full, normal range of motion. Vital Signs: 21:33 BP 144 / 92; Pulse 79; Resp 18; Temp 98.1; Pulse Ox 98% on R/A; Weight 108.86 kg (R); aj1 Height 5 ft. 4 in. (162.56 cm) (R); 22:30 BP 135 / 89; Pulse 97; Resp 16; Pulse Ox 97% on R/A; tr5 21:33 Body Mass Index 41.20 (108.86 kg, 162.56 cm) aj1 MDM: 21:45 Patient medically screened. vt 23:12 Data reviewed: vital signs, nurses notes, lab test result(s), radiologic studies, I nh have discussed the patient's presentation/case with the attending Emergency Department Physician; and as a result, I will discharge patient. Counseling: I had a detailed discussion with the patient and/or guardian regarding: the historical points, exam findings, and any diagnostic results supporting the discharge/admit diagnosis, lab results, radiology results, the need for outpatient follow up, to return to the emergency department if symptoms worsen or persist or if there are any questions or concerns that arise at home. 10/21 21:53 Order name: Basic Metabolic Panel; Complete Time: 22:53 vt 10/21 23:10 Interpretation: CO2 26. vt 10/21 21:53 Order name: CBC with Diff; Complete Time: 22:53 vt 10/21 21:53 Order name: LFT's; Complete Time: 22:53 vt 10/21 21:53 Order name: Magnesium; Complete Time: 22:53 vt 10/21 21:53 Order name: NT PRO-BNP; Complete Time: 22:53 vt 10/21 21:53 Order name: PT-INR; Complete Time: 22:53 vt 10/21 21:53 Order name: Troponin (emerg Dept Use Only); Complete Time: 22:53 vt 10/21 21:53 Order name: XRAY Chest (1 view) vt 10/21 21:53 Order name: EKG; Complete Time: 21:54 vt 10/21 21:53 Order name: Cardiac monitoring; Complete Time: 22:20 vt 10/21 21:53 Order name: EKG - Nurse/Tech; Complete Time: 22:20 vt 10/21 22:55 Order name: Urine Dipstick--Ancillary (enter results); Complete Time: 23:10 ar5 10/21 22:55 Order name: Urine --Ancillary (enter results); Complete Time: 23:10 ar5 10/21 21:53 Order name: IV Saline Lock; Complete Time: 22:20 vt 10/21 21:53 Order name: Labs collected and sent; Complete Time: 22:20 vt 10/21 21:53 Order name: O2 Per Protocol; Complete Time: 22:20 vt 10/21 21:53 Order name: O2 Sat Monitoring; Complete Time: 22:20 vt 10/21 21:53 Order name: Urine Dipstick-Ancillary (obtain specimen); Complete Time: 22:57 vt 10/21 21:53 Order name: Urine Test (obtain specimen); Complete Time: 22:57 vt Administered Medications: 23:01 Drug: GI Cocktail with - (Phenobarbital-Belladonna 10 ml, Maalox Suspension 30 tr5 ml, Lidocaine Liquid 2 % 20 ml) Route: PO; 23:24 Follow up: Response: Marked relief of symptoms tr5 Disposition: 10/21/18 23:14 Discharged to Home. Impression: Chest pain, unspecified, Gastro-esophageal reflux disease. - Condition is Stable. - Discharge Instructions: Nonspecific Chest Pain, Food Choices for Gastroesophageal Reflux Disease, Adult. - Prescriptions for Prilosec 20 mg Oral Capsule, Delayed Release(E.C.) - take 1 capsule by ORAL route once daily; 14 capsule. - Medication Reconciliation Form, Thank You Letter, Antibiotic Education, Prescription Opioid Use form. - Follow up: Private Physician; When: 5 - 6 days; Reason: Recheck today's complaints. - Problem is new. - Symptoms are unchanged. Signatures: Dispatcher [employer] [facility] Zoey Chinchilla RN RN aj1 Zahraa Manzano, GOVERNMENT RELATIONS ANALYST GOVERNMENT RELATIONS ANALYST vt Logan Valle, RN RN tr5 Corrections: (The following items were deleted from the chart) 23:23 23:14 10/21/2018 23:14 Discharged to Home. Impression: Chest pain, unspecified; tr5 Gastro-esophageal reflux disease. Condition is Stable. Forms are Medication Reconciliation Form, Thank You Letter, Antibiotic Education, Prescription Opioid Use. Follow up: Private Physician; When: 5 - 6 days; Reason: Recheck today's complaints. Problem is new. Symptoms are unchanged. vt
[2018-10-22 06:29] VITALS: TEMP 98.1
[2018-10-22 06:30] VITALS: BP 135/89; O2SAT 97
--- NOTE | 2018-10-22 09:32 | EKG ---
Test Date: 2018-10-21 Test Time: 22:24:21 Film Laboratory Technician: ROSALIA MEASUREMENT RESULTS: Intervals: Rate: 74 KS: 144 QRSD: 86 QT: 416 QTc: 461 [place]: P: 34 KS: 144 QRS: 11 T: 17 INTERPRETIVE STATEMENTS: Normal sinus rhythm Prolonged QT Abnormal ECG Compared to ECG 03/30/2018 20:09:27 Prolonged QT interval now present Sinus tachycardia no longer present Electronically Signed On 10-22-18 09:31:00 CDT by Keven Leonardo
--- NOTE | 2018-10-22 12:38 | RAD REPORT ---
EXAM DESCRIPTION: RAD - Chest Single View - 10/21/2018 10:28 pm CLINICAL HISTORY: CHEST PAIN Chest pain. COMPARISON: Chest Single View dated 03/30/2018; Chest Pa And Lat (2 Views) dated 07/06/2017; CHEST SIN GLE VIEW dated 02/12/2015; CHEST SINGLE VIEW dated 05/25/2013 FINDINGS: Portable technique limits examination quality. The lungs are grossly clear. The heart is normal in size. No displaced fractures. IMPRESSION: No acute intrathoracic process suspected.
== END 2018-10-21 23:23 | disposition home or self-care (01) ==
LOC: ER 21:26
DX: K21.9 Gastro-esophageal reflux disease without esophagitis (principal); F41.9 Anxiety disorder, unspecified
CPT/HCPCS: 36415; 71045; 80048; 80076; 81003; 81025; 83735; 83880; 84484; 85025; 85610; 93005; 99285

== ENCOUNTER 2018-12-03 01:34 | Emergency (ER) | payer SELFPAY ==
[2018-12-03] MEDS ORDERED: DICYCLOMINE HCL 10 MG CAP ONE (02:20)
--- NOTE | 2018-12-03 02:33 | EDPHYS ---
Physician Documentation [facility] Name: Aracelis Morales Age: 43 yrs Sex: Female : 1975 Arrival Date: 12/03/2018 Time: 01:37 Bed 8 Private MD: ED Physician Duncan Monaco HPI: 12/03 01:53 This 43 yrs old Female presents to ER via Ambulatory with complaints of jr8 Nausea/Vomiting. 01:53 The patient presents to the emergency department with nausea, vomiting. Onset: The jr8 symptoms/episode began/occurred at 17:00. Possible causes: bad food exposure. Associated signs and symptoms: Pertinent negatives: fever, GI bleeding, hematuria. Pt reports onset of nausea and vomiting at 1700 today after eating a chicken salad, reports intermittent abd cramping, denies fevers, denies pain at this time. 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 - Social history:: Smoking status: Patient/guardian denies using tobacco. - Ebola Screening: : No symptoms or risks identified at this time. ROS: 01:55 Constitutional: Negative for fever, chills, and weight loss, Eyes: Negative for injury, jr8 pain, redness, and discharge, ENT: Negative for injury, pain, and discharge, Neck: Negative for injury, pain, and swelling, Cardiovascular: Negative for chest pain, palpitations, and edema, Respiratory: Negative for shortness of breath, cough, wheezing, and pleuritic chest pain, Back: Negative for injury and pain, MS/Extremity: Negative for injury and deformity, Neuro: Negative for headache, weakness, numbness, tingling, and seizure. 01:55 Abdomen/GI: Positive for nausea, vomiting. Exam: 01:55 Constitutional: This is a well developed, well nourished patient who is awake, alert, jr8 and in no acute distress. Head/Face: Normocephalic, atraumatic. Eyes: Pupils equal round and reactive to light, extra-ocular motions intact. Lids and lashes normal. Conjunctiva and sclera are non-icteric and not injected. Cornea within normal limits. Periorbital areas with no swelling, redness, or edema. ENT: Nares patent. No nasal discharge, no septal abnormalities noted. Tympanic membranes are normal and external auditory canals are clear. Oropharynx with no redness, swelling, or masses, exudates, or evidence of obstruction, uvula midline. Mucous membranes moist. Neck: Trachea midline, no thyromegaly or masses palpated, and no cervical lymphadenopathy. Supple, full range of motion without nuchal rigidity, or vertebral point tenderness. No Meningismus. Chest/axilla: Normal chest wall appearance and motion. Nontender with no deformity. No lesions are appreciated. Cardiovascular: Regular rate and rhythm with a normal S1 and S2. No gallops, murmurs, or rubs. Normal PMI, no JVD. No pulse deficits. Respiratory: Lungs have equal breath sounds bilaterally, clear to auscultation and percussion. No rales, rhonchi or wheezes noted. No increased work of breathing, no retractions or nasal flaring. Abdomen/GI: Soft, non-tender, with normal bowel sounds. No distension or tympany. No guarding or rebound. No evidence of tenderness throughout. Back: No spinal tenderness. No costovertebral tenderness. Full range of motion. MS/ Extremity: Pulses equal, no cyanosis. Neurovascular intact. Full, normal range of motion. Neuro: Awake and alert, GCS 15, oriented to person, place, time, and situation. Cranial nerves II-XII grossly intact. Motor strength 5/5 in all extremities. Sensory grossly intact. Cerebellar exam normal. Normal gait. 01:55 Abdomen/GI: Inspection: abdomen appears normal, obese Bowel sounds: normal, in all quadrants, Palpation: abdomen is soft and non-tender, in all quadrants, Indicators: McBurney's point is not tender, Schuler's sign is negative, Rovsing's sign is negative, Obturator sign is negative, Psoas sign is negative. Vital Signs: 01:43 Pulse 92; Resp 18; Temp 97.9(O); Pulse Ox 100% on R/A; Weight 108.86 kg (R); Height 5 ak1 ft. 4 in. (162.56 cm) (R); Pain 8/10; 01:46 BP 148 / 74; tl1 02:48 BP 125 / 95; Pulse 81; Resp 17; Temp 98(O); Pulse Ox 98% on R/A; Pain 3/10; tl1 01:43 Body Mass Index 41.20 (108.86 kg, 162.56 cm) ak1 MDM: 01:48 Patient medically screened. jr8 02:31 Data reviewed: vital signs, nurses notes, and as a result, I will discharge patient. ED jr8 course: Pt states feeling better, tolerating PO, no focal abdominal findings. States pain is diminished and feeling less nauseous, return precautions given. 12/03 02:06 Order name: NOVJaz; Complete Time: 02:24 tl1 12/03 01:47 Order name: IV Saline Lock; Complete Time: 01:47 tl1 12/03 01:47 Order name: Labs collected and sent; Complete Time: 01:47 tl1 Administered Medications: 01:57 Drug: Zofran 4 mg Route: PO; tl1 02:51 Follow up: Response: No adverse reaction; Marked relief of symptoms; Nausea is decreasedtl1 02:24 Drug: Bentyl 20 mg Route: PO; tl1 02:51 Follow up: Response: No adverse reaction; Marked relief of symptoms; Pain is decreased tl1 Disposition: 12/03/18 02:32 Discharged to Home. Impression: Nausea and vomiting. - Condition is Stable. - Discharge Instructions: Nausea and Vomiting, Adult. - Prescriptions for Zofran ODT 4 mg Oral tablet,disintegrating - place 1 tablet by TRANSLINGUAL route every 6-8 hours; 12 tablet. Bentyl 20 mg Oral Tablet - take 1 tablet by ORAL route every 6 hours As needed; 20 tablet. - Work release form, Medication Reconciliation Form, Thank You Letter form. - Follow up: Private Physician; When: 2 - 3 days; Reason: Recheck today's complaints, Re-evaluation by your physician. - Problem is new. - Symptoms have improved. Addendum: 12/04/2018 08:33 Co-signature as Attending Physician, Duncan Monaco MD I agree with the assessment and c barron plan of care. Signatures: Dispatcher [employer] EDMS Duncan Monaco MD MD cha Roszak, Josh, PA PA jr8 Bárbara Aden, RN RN tl1 Grace Blas RN RN ak1 Corrections: (The following items were deleted from the chart) 12/03 02:00 01:48 BASIC METABOLIC PANEL+C.LAB.BRZ ordered. [facility] EDMS 02:00 01:48 CBC+H.LAB.BRZ ordered. [facility] EDMS 02:00 01:48 Creatinine for Radiology+C.LAB.BRZ ordered. [facility] EDMS 02:00 01:48 HEPATIC FUNCTION+C.LAB.BRZ ordered. [facility] EDMS 02:00 01:48 LIPASE+C.LAB.BRZ ordered. [facility] 02:53 02:32 12/03/2018 02:32 Discharged to Home. Impression: Nausea and vomiting. Condition tl1 is Stable. Forms are Medication Reconciliation Form, Thank You Letter, Antibiotic Education, Prescription Opioid Use. Follow up: Private Physician; When: 2 - 3 days; Reason: Recheck today's complaints, Re-evaluation by your physician. Problem is new. Symptoms have improved. jr8
--- NOTE | 2018-12-03 02:33 | ER ---
Nurse's Notes [facility] Name: Aracelis Morales Age: 43 yrs Sex: Female : 1975 Arrival Date: 12/03/2018 Time: 01:37 Bed 8 Private MD: Diagnosis: Nausea and vomiting Presentation: 12/03 01:44 Presenting complaint: Patient states: abd pain, N/V since 1700. Transition of care: ak1 patient was not received from another setting of care. Onset of symptoms was December 03, 2018. Risk Assessment: Do you want to hurt yourself or someone else? Patient reports no desire to harm self or others. Initial Sepsis Screen: Does the patient meet any 2 criteria? No. Patient's initial sepsis screen is negative. Does the patient have a suspected source of infection? No. Patient's initial sepsis screen is negative. Care prior to arrival: None. 01:44 Method Of Arrival: Ambulatory ak1 01:44 Acuity: TACHO 3 ak1 Triage Assessment: 01:46 General: Appears in no apparent distress. uncomfortable, Behavior is calm, cooperative. 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 - Social history:: Smoking status: Patient/guardian denies using tobacco. - Ebola Screening: : No symptoms or risks identified at this time. Screenin:50 Abuse screen: Denies threats or abuse. Denies injuries from another. Nutritional tl1 screening: No deficits noted. Tuberculosis screening: No symptoms or risk factors identified. Fall Risk None identified. Assessment: 02:00 General: Appears in no apparent distress. obese, Behavior is calm, cooperative, tl1 appropriate for age. Pain: Complains of pain in abdomen Quality of pain is described as crampy. Neuro: Level of Consciousness is awake, alert, obeys commands, Oriented to person, place, time, situation. Cardiovascular: Denies chest pain. Respiratory: Airway is patent Trachea midline Respiratory effort is even, unlabored, Breath sounds are clear bilaterally. GI: Abdomen is obese, Bowel sounds present X 4 quads. Abd is soft and non tender X 4 quads. Reports nausea, vomiting. : No signs and/or symptoms were reported regarding the genitourinary system. EENT: No signs and/or symptoms were reported regarding the EENT system. Derm: No signs and/or symptoms reported regarding the dermatologic system. Musculoskeletal: No signs and/or symptoms reported regarding the musculoskeletal system. 02:50 Reassessment: Patient and/or family updated on plan of care and expected duration. Pain tl1 level reassessed. Patient is alert, oriented x 3, equal unlabored respirations, skin warm/dry/pink. Patient states feeling better. Patient states symptoms have improved. Vital Signs: 01:43 Pulse 92; Resp 18; Temp 97.9(O); Pulse Ox 100% on R/A; Weight 108.86 kg (R); Height 5 ak1 ft. 4 in. (162.56 cm) (R); Pain 8/10; 01:46 BP 148 / 74; tl1 02:48 BP 125 / 95; Pulse 81; Resp 17; Temp 98(O); Pulse Ox 98% on R/A; Pain 3/10; tl1 01:43 Body Mass Index 41.20 (108.86 kg, 162.56 cm) ak1 ED Course: 01:37 Patient arrived in ED. cl3 01:43 Arm band placed on Patient placed in an exam room, on a stretcher, Patient notified of ak1 wait time. 01:43 Patient has correct armband on for positive identification. Bed in low position. Call tl1 light in reach. Side rails up X 1. 01:45 Triage completed. ak1 01:46 Bárbara Aden, JORGE is Primary Nurse. tl1 01:47 No provider procedures requiring assistance completed. Inserted saline lock: 20 gauge tl1 in right antecubital area, using aseptic technique. Blood collected. 01:48 Otis Bull PA is PHCP. jr8 01:48 Duncan Monaco MD is Attending Physician. jr8 02:50 IV discontinued, intact, bleeding controlled, No redness/swelling at site. Pressure tl1 dressing applied. Administered Medications: 01:57 Drug: Zofran 4 mg Route: PO; tl1 02:51 Follow up: Response: No adverse reaction; Marked relief of symptoms; Nausea is decreasedtl1 02:24 Drug: Bentyl 20 mg Route: PO; tl1 02:51 Follow up: Response: No adverse reaction; Marked relief of symptoms; Pain is decreased tl1 Outcome: 02:32 Discharge ordered by MD. costa 02:50 Discharged to home ambulatory. tl1 02:50 Condition: improved 02:50 Discharge instructions given to patient, Instructed on discharge instructions, follow up and referral plans. medication usage, Demonstrated understanding of instructions, follow-up care, medications, Prescriptions given X 2. 02:53 Patient left the ED. tl1 Signatures: Otis Bull PA PA jr8 Bárbara Aden RN RN tl1 Grace Blas RN RN ak1 Randa Andre cl3
[2018-12-03 03:24] VITALS: BP 125/95; TEMP 98; O2SAT 98
== END 2018-12-03 02:53 | disposition home or self-care (01) ==
LOC: ER 01:34
DX: R11.2 Nausea with vomiting, unspecified (principal); E11.9 Type 2 diabetes mellitus without complications; F41.9 Anxiety disorder, unspecified; Z91.048 Other nonmedicinal substance allergy status
CPT/HCPCS: 36415; 82962; 99284

== ENCOUNTER 2019-08-04 12:29 | Emergency (ER) | payer SELFPAY ==
--- NOTE | 2019-08-04 13:03 | ER ---
Nurse's Notes [facility] Name: Aracelis Morales Age: 44 yrs Sex: Female : 1975 Arrival Date: 08/04/2019 Time: 12:33 Bed 10 Private MD: Diagnosis: Acute upper respiratory infection, unspecified Presentation: 08/03 12:40 Chief complaint: Patient states: N/V/D, loss of sense of taste and headache that began ss last night. Pt's nephew that she lives with recently tested positive for COVID 19. Coronavirus screen: Surgical mask placed on patient. Patient moved to private room, placed in contact and droplet isolation with eye protection until further assessment. Patient denies a cough. Patient denies shortness of breath or difficulty breathing. Patient denies measured and/or subjective temperature greater than 100.4F prior to today's visit. Patient denies travel on a cruise ship or to a country the [facility] currently lists as an affected area. Patient reports contact with known and/or suspected case of COVID-19. Ebola Screen: Patient denies exposure to infectious person. Patient denies travel to an Ebola-affected area in the 21 days before illness onset. Initial Sepsis Screen: Does the patient meet any 2 criteria? No. Patient's initial sepsis screen is negative. Does the patient have a suspected source of infection? No. Patient's initial sepsis screen is negative. Risk Assessment: Do you want to hurt yourself or someone else? Patient reports no desire to harm self or others. Onset of symptoms was August 03, 2019. 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 - Social history:: Smoking status: Patient denies any tobacco usage or history of. Screenin:26 Abuse screen: Denies threats or abuse. Nutritional screening: No deficits noted. ll1 Tuberculosis screening: No symptoms or risk factors identified. Fall Risk None identified. Total Gómez Fall Scale indicates No Risk (0-24 pts). Assessment: 13:27 General: Appears ill, Behavior is calm, cooperative. Pain: Complains of pain in head ll1 Quality of pain is described as aching. Neuro: Level of Consciousness is awake, alert, obeys commands, Oriented to person, place, time, situation, Appropriate for age Driver Sales are equal bilaterally Moves all extremities. Full function Gait is steady, Speech is normal, Facial symmetry appears normal, Reports headache. Cardiovascular: No deficits noted. Respiratory: No deficits noted. GI: Abdomen is flat, Bowel sounds present X 4 quads. Abd is soft and non tender X 4 quads. Reports cramping, diarrhea, nausea. Vital Signs: 12:40 BP 137 / 93; Pulse 84; Resp 14; Temp 98.6(TE); Pulse Ox 99% on R/A; Weight 108.86 kg; ss Height 5 ft. 4 in. (162.56 cm); Pain 7/10; 12:40 Body Mass Index 41.20 (108.86 kg, 162.56 cm) ED Course: 12:33 Patient arrived in ED. as 12:33 Selene Youssef [facility]-C is [facility]. snw 12:33 Cresencio Henderson MD is Attending Physician. snw 12:43 Triage completed. ss 12:43 Arm band placed on right wrist. ss 13:26 Terence Andre, JORGE is Primary Nurse. ll1 13:26 Patient has correct armband on for positive identification. Bed in low position. Call ll1 light in reach. Side rails up X 1. 13:32 No provider procedures requiring assistance completed. Patient did not have IV access ll1 during this emergency room visit. Administered Medications: No medications were administered Outcome: 13:02 Discharge ordered by . snw 13:32 Patient left the ED. ll1 13:33 Discharged to home ambulatory. ll1 13:33 Condition: stable 13:33 Discharge instructions given to patient, Instructed on discharge instructions, follow up and referral plans. Demonstrated understanding of instructions, follow-up care, medications, Prescriptions given X 1. Addendum: 08/07/2019 17:37 Addendum: Other pt notified of negative COVID-19 swab results. d m5 Signatures: Fallon Emmanuel, RN RN dm5 Selene Youssef FNP-C FNP-Nimcow Marlyn Butler Shelby, RN RN ss Terence Andre, RN RN ll1
--- NOTE | 2019-08-04 13:03 | EDPHYS ---
Physician Documentation [facility] Name: Aracelis Morales Age: 44 yrs Sex: Female : 1975 Arrival Date: 08/04/2019 Time: 12:33 Bed 10 Private MD: ED Physician Cresencio Henderson HPI: 08/03 13:05 This 44 yrs old Female presents to ER via Ambulatory with complaints of r/o snw covid. 13:05 pt unable to taste, + headache, N/V/D, lives with CoVid 19 positive person. Onset: The snw symptoms/episode began/occurred acutely. Severity of symptoms: At their worst the symptoms were mild in the emergency department the symptoms are unchanged. It is unknown whether or not the patient has had similar symptoms in the past. It is unknown whether or not the patient has recently seen a physician. 13:05 nephew admitted with CoVId 19. 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 - Social history:: Smoking status: Patient denies any tobacco usage or history of. ROS: 13:04 Constitutional: Negative for fever, chills, and weight loss, Eyes: Negative for injury, snw pain, redness, and discharge, ENT: Negative for injury, pain, and discharge, unable to taste Neck: Negative for injury, pain, and swelling, Cardiovascular: Negative for chest pain, palpitations, and edema, Respiratory: Negative for shortness of breath, cough, wheezing, and pleuritic chest pain. 13:04 Back: Negative for injury and pain, : Negative for injury, bleeding, discharge, and swelling, MS/Extremity: Negative for injury and deformity, Skin: Negative for injury, rash, and discoloration. 13:04 Abdomen/GI: Positive for nausea, vomiting, and diarrhea. 13:04 Neuro: Positive for headache. Exam: 14:05 Head/Face: Normocephalic, atraumatic. Eyes: Pupils equal round and reactive to light, snw extra-ocular motions intact. Lids and lashes normal. Conjunctiva and sclera are non-icteric and not injected. Cornea within normal limits. Periorbital areas with no swelling, redness, or edema. ENT: Nares patent. No nasal discharge, no septal abnormalities noted. Tympanic membranes are normal and external auditory canals are clear. Oropharynx with no redness, swelling, or masses, exudates, or evidence of obstruction, uvula midline. Mucous membranes moist. Neck: Trachea midline, no thyromegaly or masses palpated, and no cervical lymphadenopathy. Supple, full range of motion without nuchal rigidity, or vertebral point tenderness. No Meningismus. Chest/axilla: Normal chest wall appearance and motion. Nontender with no deformity. No lesions are appreciated. Cardiovascular: Regular rate and rhythm with a normal S1 and S2. No gallops, murmurs, or rubs. Normal PMI, no JVD. No pulse deficits. Respiratory: Lungs have equal breath sounds bilaterally, clear to auscultation and percussion. No rales, rhonchi or wheezes noted. No increased work of breathing, no retractions or nasal flaring. Abdomen/GI: Soft, non-tender, with normal bowel sounds. No distension or tympany. No guarding or rebound. No evidence of tenderness throughout. Back: No spinal tenderness. No costovertebral tenderness. Full range of motion. Skin: Warm, dry with normal turgor. Normal color with no rashes, no lesions, and no evidence of cellulitis. MS/ Extremity: Pulses equal, no cyanosis. Neurovascular intact. Full, normal range of motion. Neuro: Awake and alert, GCS 15, oriented to person, place, time, and situation. Cranial nerves II-XII grossly intact. Motor strength 5/5 in all extremities. Sensory grossly intact. Cerebellar exam normal. Normal gait. Psych: Awake, alert, with orientation to person, place and time. Behavior, mood, and affect are within normal limits. 14:05 Constitutional: The patient appears alert, awake, febrile. Vital Signs: 12:40 BP 137 / 93; Pulse 84; Resp 14; Temp 98.6(TE); Pulse Ox 99% on R/A; Weight 108.86 kg; ss Height 5 ft. 4 in. (162.56 cm); Pain 7/10; 12:40 Body Mass Index 41.20 (108.86 kg, 162.56 cm) MDM: 12:47 Patient medically screened. snw 13:03 Data reviewed: vital signs, nurses notes. Data interpreted: Pulse oximetry: on room air snw is 99 %. Interpretation: normal. Counseling: I had a detailed discussion with the patient and/or guardian regarding: the historical points, exam findings, and any diagnostic results supporting the discharge/admit diagnosis, lab results, the need for outpatient follow up, to return to the emergency department if symptoms worsen or persist or if there are any questions or concerns that arise at home. Special discussion: I have referred the patient to see his PCP for further evaluation of high blood pressure. Based on the history and exam findings, there is no indication for further emergent testing or inpatient evaluation. I discussed with the patient/guardian the need to see the primary care provider for further evaluation of the symptoms. 08/03 13:01 Order name: CASTRO hernandez Administered Medications: No medications were administered Disposition: 08/04 04:25 Co-signature as Attending Physician, Cresencio Henderson MD I agree with the assessment and kdr plan of care. Disposition: 08/04/19 13:02 Discharged to Home. Impression: Acute upper respiratory infection, unspecified. - Condition is Stable. - Discharge Instructions: General Headache Without Cause, Upper Respiratory Infection, Adult, Rehydration, Adult. - Prescriptions for promethazine 25 mg Oral Tablet - take 1 tablet by ORAL route every 6 hours As needed; 20 tablet. - Work release form, Medication Reconciliation Form, Thank You Letter, Antibiotic Education, Prescription Opioid Use form. - Follow up: Emergency Department; When: As needed; Reason: Worsening of condition. Follow up: Private Physician; Reason: Recheck today's complaints, Continuance of care, Re-evaluation by your physician. Signatures: Dispatcher [employer] Cresencio Welch MD MD kdr Therrien, Shelly, SOILS TECHNICIAN-C SOILS TECHNICIAN-Nimcow Mar Oliver RN RN Terence White RN RN ll1 Corrections: (The following items were deleted from the chart) 08/03 13:32 13:02 08/04/2019 13:02 Discharged to Home. Impression: Acute upper respiratory ll1 infection, unspecified. Condition is Stable. Forms are Medication Reconciliation Form, Thank You Letter, Antibiotic Education, Prescription Opioid Use. Follow up: Emergency Department; When: As needed; Reason: Worsening of condition. Follow up: Private Physician; Reason: Recheck today's complaints, Continuance of care, Re-evaluation by your physician. snw
[2019-08-04 13:38] VITALS: BP 137/93; TEMP 98.6; O2SAT 99
--- OUTSIDE RECORDS SUMMARY | 2019-08-04 14:23 | XMS REPORT | Continuity of Care Document ---
:1975 Author Organization [facility] t Address [address] [place] [id number] Care Team Providers Name Role Phone Unavailable Unavailable Unavailable Problems This patient has no known problems. Allergies, Adverse Reactions, Alerts This patient has no known allergies or adverse reactions. Medications This patient has no known medications. Procedures This patient has no known procedures. Results This patient has no known results.
== END 2019-08-04 13:32 | disposition home or self-care (01) ==
LOC: ER 12:29
DX: J06.9 Acute upper respiratory infection, unspecified (principal); Z20.828 Contact with and (suspected) exposure to other viral communicable diseases; Z91.048 Other nonmedicinal substance allergy status
CPT/HCPCS: 99282; U0001

== ENCOUNTER 2019-08-26 16:40 | Emergency (ER) | payer SELFPAY ==
--- OUTSIDE RECORDS SUMMARY | 2019-08-26 16:42 | XMS REPORT | Continuity of Care Document ---
:1975 Author Organization [facility] t Address [address] [place] [id number] Care Team Providers Name Role Phone Unavailable Unavailable Unavailable Problems This patient has no known problems. Allergies, Adverse Reactions, Alerts This patient has no known allergies or adverse reactions. Medications This patient has no known medications. Procedures This patient has no known procedures. Results This patient has no known results.
[2019-08-26 19:55] LABS: Absolute Lymphocytes (CBC) 1.5 K/uL (0.7-4.9); Basophils % 0.4 % (0-1.3); Hematocrit 43.3 % (36.0-45.0); Lymphocytes % 17.1 % (15.3-44.8); MPV 8.1 fL (7.6-11.3); Protime INR 1.03; RBC Red Blood Cell Count 5.05 M/uL (3.86-4.86)
[2019-08-26 20:10] LABS: AST/SGOT 13 U/L (15-37); BUN Blood Urea Nitrogen 9 mg/dL (7-18); Bicarbonate 28 mmol/L (21-32); Glucose Level 98 mg/dL (74-106); Potassium 3.6 mmol/L (3.5-5.1); Sodium Level 140 mmol/L (136-145)
[2019-08-26 20:11] LABS: ALT/SGPT 17 U/L (12-78); Albumin 3.9 g/dL (3.4-5.0); Alkaline Phosphatase 48 U/L (45-117); Bilirubin Direct 0.1 mg/dL (0-0.2); Bilirubin Total 0.7 mg/dL (0.2-1.0); NT PRO-BNP 27 pg/mL (<125); Protein, Total 7.3 g/dL (6.4-8.2); Troponin (Emerg Dept Use Only) < 0.02 ng/mL (0.0-0.045)
--- NOTE | 2019-08-26 20:20 | RAD REPORT ---
EXAM DESCRIPTION: Bekah Single View08/26/2019 8:12 pm CLINICAL HISTORY: Chest pain COMPARISON: 2018 FINDINGS: The lungs appear clear of acute infiltrate. The heart is normal size IMPRESSION: No acute abnormalities displayed
[2019-08-26] MEDS ORDERED: ONDANSETRON 4 MG/2 ML VIAL ONE (20:32)
[2019-08-26] MEDS ORDERED: MORPHINE 4 MG/ML SYR ONE (20:32)
--- NOTE | 2019-08-26 21:47 | EDPHYS ---
Physician Documentation [facility] Name: Aracelis oMrales Age: 44 yrs Sex: Female : 1975 Arrival Date: 08/26/2019 Time: 16:42 Bed 26 Private MD: Alpesh Ortiz E ED Physician Aydin Helton HPI: 08/25 19:15 This 44 yrs old Female presents to ER via Ambulatory with complaints of Neck pm1 and Upper Back Pain. 19:15 The patient or guardian complains of pain. The symptoms are located left trapezius. pm1 19:15 Onset: The symptoms/episode began/occurred yesterday. Context: The problem was pm1 sustained at home, The neck injury/problem resulted from from unknown cause. Associated signs and symptoms: Pertinent positives: nausea, chest pain yesterday that has resolved, Pertinent negatives: fever, headache. The pain does not radiate. Modifying factors: The symptoms are alleviated by remaining still, the symptoms are aggravated by moving neck and left arm. Severity of symptoms: in the emergency department the symptoms are unchanged. The patient has not experienced similar symptoms in the past. The patient has not recently seen a physician. . 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 - Social history:: Smoking status: Patient denies any tobacco usage or history of. ROS: 19:15 Constitutional: Negative for fever, chills, and weight loss, Eyes: Negative for injury, pm1 pain, redness, and discharge, ENT: Negative for injury, pain, and discharge. 19:15 Respiratory: Negative for shortness of breath, cough, wheezing, and pleuritic chest pain, Abdomen/GI: Negative for abdominal pain, nausea, vomiting, diarrhea, and constipation, Back: Negative for injury and pain, MS/Extremity: Negative for injury and deformity, Skin: Negative for injury, rash, and discoloration, Neuro: Negative for headache, weakness, numbness, tingling, and seizure. 19:15 Neck: Positive for pain with movement, tenderness, of the left trapezius, Negative for bony tenderness. 19:15 Cardiovascular: Positive for chest pain, yesterday, Negative for edema, orthopnea, palpitations. Exam: 19:15 Constitutional: This is a well developed, well nourished patient who is awake, alert, pm1 and in no acute distress. Head/Face: Normocephalic, atraumatic. 19:15 Chest/axilla: Normal chest wall appearance and motion. Nontender with no deformity. No lesions are appreciated. Cardiovascular: Regular rate and rhythm with a normal S1 and S2. No gallops, murmurs, or rubs. Normal PMI, no JVD. No pulse deficits. Respiratory: Lungs have equal breath sounds bilaterally, clear to auscultation and percussion. No rales, rhonchi or wheezes noted. No increased work of breathing, no retractions or nasal flaring. Abdomen/GI: Soft, non-tender, with normal bowel sounds. No distension or tympany. No guarding or rebound. No evidence of tenderness throughout. Back: No spinal tenderness. No costovertebral tenderness. Full range of motion. Skin: Warm, dry with normal turgor. Normal color with no rashes, no lesions, and no evidence of cellulitis. MS/ Extremity: Pulses equal, no cyanosis. Neurovascular intact. Full, normal range of motion. 19:15 Neck: External neck: tenderness, of the left trapezius, C-spine: vertebral tenderness, is not appreciated. 19:15 Neuro: Exam negative for acute changes, Orientation: is normal, Mentation: is normal, Motor: is normal, moves all fours. Vital Signs: 16:59 BP 152 / 78; Pulse 70; Resp 15 S; Temp 99(TE); Pulse Ox 100% on R/A; Weight 108.86 kg ca1 (R); Height 5 ft. 4 in. (162.56 cm) (R); Pain 8/10; 19:38 BP 137 / 70; Pulse 71; Resp 16; Pulse Ox 100% on R/A; Pain 8/10; jb4 20:30 BP 126 / 51; Pulse 71; Resp 16; Pulse Ox 100% on R/A; jb4 21:30 BP 117 / 64; Pulse 69; Resp 16; Pulse Ox 97% on R/A; jb4 22:30 BP 130 / 70; Pulse 92; Resp 16; Pulse Ox 97% on R/A; Pain 6/10; jb4 16:59 Body Mass Index 41.20 (108.86 kg, 162.56 cm) ca1 MDM: 19:02 Patient medically screened. pm1 21:44 Data reviewed: vital signs. Data interpreted: Pulse oximetry: on room air is 100 %. pm1 Interpretation: normal. 21:45 Counseling: I had a detailed discussion with the patient and/or guardian regarding: the pm1 historical points, exam findings, and any diagnostic results supporting the discharge/admit diagnosis, lab results, radiology results, the need for outpatient follow up, to return to the emergency department if symptoms worsen or persist or if there are any questions or concerns that arise at home. 08/25 19:14 Order name: Basic Metabolic Panel; Complete Time: 20:31 pm08/25 19:14 Order name: CBC with Diff; Complete Time: 20:08 pm08/25 19:14 Order name: LFT's; Complete Time: 20:31 pm08/25 19:14 Order name: Magnesium; Complete Time: 20:31 pm08/25 19:14 Order name: NT PRO-BNP; Complete Time: 20:31 pm08/25 19:14 Order name: PT-INR; Complete Time: 20:08 pm08/25 19:14 Order name: Troponin (emerg Dept Use Only); Complete Time: 20:31 pm08/25 19:14 Order name: XRAY Chest (1 view); Complete Time: 20:31 pm08/25 19:14 Order name: Cardiac monitoring; Complete Time: 20:16 pm08/25 19:14 Order name: EKG - Nurse/Tech; Complete Time: 20:16 pm08/25 19:14 Order name: IV Saline Lock; Complete Time: 20:16 pm08/25 19:14 Order name: Labs collected and sent; Complete Time: 20:16 pm08/25 19:14 Order name: O2 Per Protocol; Complete Time: 20:16 pm08/25 19:14 Order name: O2 Sat Monitoring; Complete Time: 20:16 pm1 Administered Medications: 20:25 Drug: Zofran (Ondansetron) 4 mg Route: IVP; Site: right antecubital; mg2 21:00 Follow up: Response: No adverse reaction jb4 20:28 Drug: morphine 4 mg {Note: rass score 0.} Route: IVP; Site: right antecubital; mg2 21:00 Follow up: Response: No adverse reaction; Pain is decreased jb4 22:40 Drug: Flexeril 10 mg Route: PO; jb4 22:40 Follow up: Response: Medication administered at discharge. jb4 Disposition: 08/26 07:43 Co-signature as Attending Physician, Aydin Helton MD I agree with the assessment and 4 plan of care. Disposition: 08/26/19 21:46 Discharged to Home. Impression: Strain of muscle, fascia and tendon at neck level. - Condition is Stable. - Discharge Instructions: Muscle Strain, Acute Torticollis, Adult. - Prescriptions for Tylenol- Codeine #3 300-30 mg Oral Tablet - take 2 tablets by ORAL route every 6 hours As needed; 20 tablet. Cyclobenzaprine 10 mg Oral Tablet - take 1 tablet by ORAL route every 8 hours As needed; 30 tablet. Diclofenac Sodium 75 mg Oral Tablet, Delayed Release (E.C.) - take 1 tablet by ORAL route 2 times per day As needed; 30 tablet. - Medication Reconciliation Form, Thank You Letter, Antibiotic Education, Prescription Opioid Use form. - Follow up: Emergency Department; When: As needed; Reason: Worsening of condition. Follow up: Private Physician; When: 2 - 3 days; Reason: Recheck today's complaints, Continuance of care, Re-evaluation by your physician. - Problem is new. - Symptoms have improved. Signatures: Dispatcher [employer] EDMS Maximiliano Kwong NP AUTOMOBILE MECHANIC SUPERVISOR pm1 Nahid Espino RN RN jb4 Aydin Helton MD MD tw4 Harrison Ying RN RN mg2 Zina Phan RN RN ca1 Corrections: (The following items were deleted from the chart) 08/25 22:42 21:46 08/26/2019 21:46 Discharged to Home. Impression: Strain of muscle, fascia and jb4 tendon at neck level. Condition is Stable. Forms are Medication Reconciliation Form, Thank You Letter, Antibiotic Education, Prescription Opioid Use. Follow up: Emergency Department; When: As needed; Reason: Worsening of condition. Follow up: Private Physician; When: 2 - 3 days; Reason: Recheck today's complaints, Continuance of care, Re-evaluation by your physician. Problem is new. Symptoms have improved. pm1
--- NOTE | 2019-08-26 21:47 | ER ---
Nurse's Notes [facility] Name: Aracelis Morales Age: 44 yrs Sex: Female : 1975 Arrival Date: 08/26/2019 Time: 16:42 Bed 26 Private MD: Alpesh Ortiz E Diagnosis: Strain of muscle, fascia and tendon at neck level Presentation: 08/25 16:59 Chief complaint: Patient states: Neck pain since yesterday, feels heavy. Reports ca1 Nausea. Denies injury. Denies fever. Coronavirus screen: Proceed with normal triage. Patient denies a cough. Patient denies shortness of breath or difficulty breathing. Patient denies measured and/or subjective temperature greater than 100.4F prior to today's visit. Patient denies travel on a cruise ship or to a country the [facility] currently lists as an affected area. Patient denies contact with known and/or suspected case of COVID-19. Ebola Screen: Patient negative for fever greater than or equal to 101.5 degrees Fahrenheit, and additional compatible Ebola Virus Disease symptoms Patient denies exposure to infectious person. Patient denies travel to an Ebola-affected area in the 21 days before illness onset. No symptoms or risks identified at this time. Initial Sepsis Screen: Does the patient meet any 2 criteria? No. Patient's initial sepsis screen is negative. Does the patient have a suspected source of infection? No. Patient's initial sepsis screen is negative. Risk Assessment: Do you want to hurt yourself or someone else? Patient reports no desire to harm self or others. Onset of symptoms was August 26, 2019. 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 - Social history:: Smoking status: Patient denies any tobacco usage or history of. Screenin:38 Abuse screen: Denies threats or abuse. Nutritional screening: No deficits noted. jb4 Tuberculosis screening: No symptoms or risk factors identified. Fall Risk None identified. Assessment: 19:38 General: Appears in no apparent distress. uncomfortable, Behavior is calm, cooperative, jb4 appropriate for age. Pain: Complains of pain in left scapular area, right scapular area and neck Pain does not radiate. Pain currently is 8 out of 10 on a pain scale. Neuro: Level of Consciousness is awake, alert, obeys commands, Oriented to person, place, time, situation. Cardiovascular: Patient's skin is warm and dry. Respiratory: Airway is patent Respiratory effort is even, unlabored, Respiratory pattern is regular, symmetrical. GI: No signs and/or symptoms were reported involving the gastrointestinal system. : No signs and/or symptoms were reported regarding the genitourinary system. EENT: No signs and/or symptoms were reported regarding the EENT system. Derm: Skin is intact, Skin is pink, warm \T\ dry. Musculoskeletal: Circulation, motion, and sensation intact. Range of motion: intact in all extremities. 20:30 Reassessment: Patient appears in no apparent distress at this time. Patient and/or jb4 family updated on plan of care and expected duration. Pain level reassessed. Patient is alert, oriented x 3, equal unlabored respirations, skin warm/dry/pink. 21:30 Reassessment: Patient appears in no apparent distress at this time. Patient and/or jb4 family updated on plan of care and expected duration. Pain level reassessed. Patient is alert, oriented x 3, equal unlabored respirations, skin warm/dry/pink. 22:30 Reassessment: Patient appears in no apparent distress at this time. Patient and/or jb4 family updated on plan of care and expected duration. Pain level reassessed. Patient is alert, oriented x 3, equal unlabored respirations, skin warm/dry/pink. Vital Signs: 16:59 BP 152 / 78; Pulse 70; Resp 15 S; Temp 99(TE); Pulse Ox 100% on R/A; Weight 108.86 kg ca1 (R); Height 5 ft. 4 in. (162.56 cm) (R); Pain 8/10; 19:38 BP 137 / 70; Pulse 71; Resp 16; Pulse Ox 100% on R/A; Pain 8/10; jb4 20:30 BP 126 / 51; Pulse 71; Resp 16; Pulse Ox 100% on R/A; jb4 21:30 BP 117 / 64; Pulse 69; Resp 16; Pulse Ox 97% on R/A; jb4 22:30 BP 130 / 70; Pulse 92; Resp 16; Pulse Ox 97% on R/A; Pain 6/10; jb4 16:59 Body Mass Index 41.20 (108.86 kg, 162.56 cm) ca1 ED Course: 16:42 Patient arrived in ED. ag5 16:42 Alpesh Ortiz MD is Private Physician. ag5 17:00 Triage completed. ca1 17:00 Arm band placed on right wrist. ca1 19:01 Maximiliano Kwong NP is PHCP. pm1 19:02 Aydin Helton MD is Attending Physician. pm1 19:31 Nahid Espion, JORGE is Primary Nurse. jb4 19:38 Patient has correct armband on for positive identification. Bed in low position. Call jb4 light in reach. Side rails up X 1. newspaper editor on. Pulse ox on. NIBP on. 20:12 XRAY Chest (1 view) In Process Unspecified. EDMS 22:38 No provider procedures requiring assistance completed. IV discontinued, intact, jb4 bleeding controlled, No redness/swelling at site. Pressure dressing applied. Administered Medications: 20:25 Drug: Zofran (Ondansetron) 4 mg Route: IVP; Site: right antecubital; mg2 21:00 Follow up: Response: No adverse reaction jb4 20:28 Drug: morphine 4 mg {Note: rass score 0.} Route: IVP; Site: right antecubital; mg2 21:00 Follow up: Response: No adverse reaction; Pain is decreased jb4 22:40 Drug: Flexeril 10 mg Route: PO; jb4 22:40 Follow up: Response: Medication administered at discharge. jb4 Outcome: 21:46 Discharge ordered by . pm1 22:38 Discharged to home ambulatory. jb4 22:38 Condition: stable 22:38 Discharge instructions given to patient, Instructed on discharge instructions, follow up and referral plans. medication usage, Demonstrated understanding of instructions, follow-up care, medications, Prescriptions given X 3. 22:42 Patient left the ED. jb4 Signatures: Dispatcher [employer] EDMS Maximiliano Kwong, [employer] pm1 Nahid Espino RN RN jb4 Harrison Ying RN RN mg2 Zina Phan RN RN ca1 Anna Mancera ag5 Corrections: (The following items were deleted from the chart) 08/26 04:35 08/25 19:38 Pain: Complains of pain in left scapular area, right scapular area and neck jb4 Pain does not radiate. Pain currently is 6 out of 10 on a pain scale. jb4
[2019-08-26] MEDS ORDERED: CYCLOBENZAPRINE 10 MG TAB ONE (22:43)
[2019-08-26 23:05] VITALS: TEMP 99
[2019-08-26 23:33] VITALS: BP 130/70; O2SAT 97
== END 2019-08-26 22:42 | disposition home or self-care (01) ==
LOC: ER 16:40
DX: S16.1XXA Strain of muscle, fascia and tendon at neck level, initial encounter (principal); E11.9 Type 2 diabetes mellitus without complications; F41.9 Anxiety disorder, unspecified; Z91.048 Other nonmedicinal substance allergy status
CPT/HCPCS: 36415; 71045; 80048; 80076; 83735; 83880; 84484; 85025; 85610; 96374; 96375; 99284; J2405

== ENCOUNTER 2019-10-03 16:47 | Emergency (ER) | payer SELFPAY ==
--- OUTSIDE RECORDS SUMMARY | 2019-10-03 16:48 | XMS REPORT | Continuity of Care Document ---
:1975 Author Organization [facility] t Address [address] [place] [id number] Care Team Providers Name Role Phone Kimberly Meyers Attending Clinician Doctor Unassigned, Name Attending Clinician Unavailable Problems This patient has no known problems. Allergies, Adverse Reactions, Alerts This patient has no known allergies or adverse reactions. Medications This patient has no known medications. Procedures This patient has no known procedures. Encounters Start End Encounter Admission Attending Care Care Encounter Source Date/Time Date/Time Type Type Clinicians Facility Department ID 2019-09-17 2019-09-17 Emergency Mitch [facility] [id number] 14:51:00 16:38:00 Kimberly Caballero [id number] [place] [id number] [place] [id number] 2019-09-17 2019-09-17 Orders Doctor [facility] [id number] 00:00:00 00:00:00 Only UnassMAMIE alvarez [id number] [place] [facility] [id number] Results This patient has no known results.
--- OUTSIDE RECORDS SUMMARY | 2019-10-03 16:49 | XMS REPORT | Summary of Care ---
:1975 Author Organization [facility] - Health Address [address] [place] [address] Care Team Providers Name Role Phone Padmini Meyer [facility] Insurance [employer]mo [phone] Mitch Faustin Primary Care Provider Encounter Details Date Type Department Care Team Description 09/17/2019 Orders Only [facility] Doctor Unassigned, No [address] [facility] [place] [address] [place] [id number] Allergies Active Allergy Reactions Severity Noted Date Comments Iodine And Iodide Containing Products Rash documented as of this encounter (statuses as of 09/17/2019) Medications Medication Sig Dispensed Refills Start Date End Date Status vitamin w/FA Take 1 tablet by 100 tablet 3 12/26/2016 Active tablet mouth daily. ferrous sulfate 325 mg Take 1 tablet by 60 tablet 2 12/26/2016 Active (65 mg iron) tablet mouth 2 (two) times daily. ibuprofen 600 mg Take 1 tablet by 60 tablet 1 12/26/2016 Active tablet mouth every 6 (six) hours as needed for Pain (scale 1-3) or Pain (scale 4-6) (Pain). Take with food or milk. metFORMIN 500 mg Take 1 tablet by 60 tablet 2 12/26/2016 Active tablet mouth 2 (two) times daily with meals. proMETHazine 25 mg Take 1 tablet by 20 tablet 0 12/06/2018 Active tabletIndications: mouth every 6 Gastroenteritis, (six) hours as Urinary tract needed for Nausea infection without and Vomiting hematuria, site (N/V). unspecified documented as of this encounter (statuses as of 09/17/2019) Active Problems Problem Noted Date Well woman exam 02/10/2017 Contraceptive management 02/10/2017 Morbid obesity 02/10/2017 History of depression 06/09/2016 History of anxiety 06/09/2016 Controlled type 2 diabetes mellitus without complicati on 06/09/2016 documented as of this encounter (statuses as of 09/17/2019) Resolved Problems Problem Noted Date Resolved Date Routine follow-up 01/17/2017 02/10/2017 delivery delivered 12/26/2016 01/17/2017 NST (non-stress test) nonreactive 12/23/20162016 38 weeks gestation of 12/23/2016 01/18/20 17 [address] contractions 12/20/2016 01/17/2017 Supervision of high risk , antepartum 06/09/2016 01/17/2017 AMA (advanced maternal age) multigravida 35+ 06/09/2016 01/17/2017 Flu vaccine need 06/09/2016 01/17/2017 Overview: Received today Morbid obesity with body mass index of 40.0-49.9 03/26/2016 06/09/2016 Obesity affecting 03/26/2016 01/17/2017 documented as of this encounter (statuses as of 09/17/2019) Immunizations Name Administration Dates Next Due Influenza Virus Vaccine Quad IM 3+ YRS 06/09/2016 TDAP 10/14/2016 documented as of this encounter Social History Tobacco Use Types Packs/Day Years Used Date Never Smoker Smokeless Tobacco: Never Used Alcohol Use Drinks/Week oz/Week Comments No Sex Assigned at Date Recorded Not on file documented as of this encounter Last Filed Vital Signs Not on filedocumented in this encounter Plan of Treatment Health Maintenance Due Date Last Done Comments PNEUMOCOCCAL 0-64 YEARS COMBINED SERIES (1 1983 of 1 - PPSV23) LDL-C 1987 URINE MICROALBUMIN 1987 Depression Screening 1989 FOOT EXAM 1995 Breast Cancer Screening (MAMMOGRAM) 2017 HgA1C 03/19/2017 09/16/2016, 06/09/2016 CREATININE (SERUM) 07/12/2017 07/12/2016, 06/11/2016 EYE EXAM 12/08/2017 12/08/2016, 08/06/2016 PAP SMEAR 06/10/2019 06/09/2016 INFLUENZA VACCINE (#1) 2019 06/09/2016 DTaP,Tdap,and Td Vaccines (2 - Td) 10/14/2026 10/14/2016 documented as of this encounter Procedures Procedure Name Priority Date/Time Associated Diagnosis Comme nts ASSIGNMENT OF BENEFITS Routine 09/17/2019 2:48 PM CDT documented in this encounter Results Not on filedocumented in this encounter Advance Directives Name Relationship Healthcare Agent Communication Relationship Janice Saleh [facility] Health Care Agent [phone] Morales (Mobile) [email or web address]
--- OUTSIDE RECORDS SUMMARY | 2019-10-03 16:49 | XMS REPORT | Summary of Care ---
:1975 Author Organization [facility] - Health Address [address] [place] [address] Care Team Providers Name Role Phone Padmini Meyer [facility] Insurance Hmo [phone] Mitch Faustin Primary Care Provider Reason for Visit Reason Comments Abdominal Pain Dizziness Auth/Cert Status Reason Specialty Diagnoses / Referred By Referred To Procedures Contact Contact Emergency Medicine [facility] Em ergency Dept [address] [phone] Fax: Encounter Details Date Type Department Care Team Description 09/17/2019 Emergency ADC-Emergency Kimberly Meyer , TAYLOR Menorrhagia with regular cycle (Primary Dx); Department [address] [place] [address]. Vaginal bleeding; [address] [place] [address] Epigastri c abdominal pain; Drive [id number] Nausea; [place] [address] Abdominal cramping [phone] Allergies Active Allergy Reactions Severity Noted Date Comments Iodine And Iodide Containing Products Rash documented as of this encounter (statuses as of 09/17/2019) Medications Medication Sig Dispensed Refills Start Date End Date Status vitamin w/FA Take 1 tablet 100 tablet 3 12/26/2016 Active tablet by mouth daily. ferrous sulfate 325 mg Take 1 tablet 60 tablet 2 12/26/2016 Active (65 mg iron) tablet by mouth 2 (two) times daily. ibuprofen 600 mg Take 1 tablet 60 tablet 1 12/26/2016 Active tablet by mouth every 6 (six) hours as needed for Pain (scale 1-3) or Pain (scale 4-6) (Pain). Take with food or milk. metFORMIN 500 mg Take 1 tablet 60 tablet 2 12/26/2016 Active tablet by mouth 2 (two) times daily with meals. proMETHazine 25 mg Take 1 tablet 20 tablet 0 12/06/2018 Active tabletIndications: by mouth every Gastroenteritis, 6 (six) hours Urinary tract as needed for infection without Nausea and hematuria, site Vomiting (N/V). unspecified ondansetron (ZOFRAN Take 1 tablet 15 tablet 0 09/17/201910/01 Active ODT) 4 mg by mouth every disintegrating 8 (eight) hours tabletIndications: as needed for Nausea, Abdominal Nausea and cramping, Menorrhagia Vomiting (N/V) with regular cycle for up to 15 days. documented as of this encounter (statuses as [...] 38 weeks gestation of 12/23/2016 01/18/20 17 Sterling Cardona contractions 12/20/2016 01/17/2017 Supervision of high [...] Assigned at Date Recorded Not on file COVID-19 Exposure Response Date Recorded In the last month, have you been in contact with No / Unsure 09/17/2019 2:53 PM CDT someone who was confirmed or suspected to have Coronavirus / COVID-19? documented as of this encounter Last Filed Vital Signs Vital Sign Reading Time Taken Comments Blood Pressure 162/94 09/17/2019 2:57 PM CDT Pulse 73 09/17/2019 2:57 PM CDT Temperature 37.1 C (98.8 F) 09/17/2019 2:57 PM CDT Respiratory Rate 16 09/17/2019 2:57 PM CDT Oxygen Saturation 99% 09/17/2019 2:57 PM CDT Inhaled Oxygen Concentration - - Weight 109.8 kg (242 lb) 09/17/2019 2:57 PM CDT Height 162.6 cm (5' 4") 09/17/2019 2:57 PM CDT Body Mass Index 41.54 09/17/2019 2:57 PM CDT documented in this encounter Discharge Instructions Kimberly White FNP - 09/17/2019 Take medication as directed for nausea Take over the counter Midol, Motrin or Tylenol for abdominal cramping Drink plenty fluids Follow up with your Gelatin 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 Menstrual Cycle, Understanding the Normal (Georgian)Menstrual Cycle, Hormones and Your (Georgian)Dysfunctional Uterine Bleeding (Georgian)Abdominal Pain, Adult (Georgian)documented in this encounter ED Notes Shruthi Shelby RN - 09/17/2019 2:53 PM CDTCC: Patient present to ED from home. She states she started her period last night 09/15 at 22:00. She stated she is having more cramping that normal and epigastric pain at 5 out of 10. She stated she's had multiple blood clots and gone through 4 pads today. She also reports dizziness. PMHx: NIDDM, Anxiety, Pancreatitis PSH: , Cholie MEDS: See Hx LMP: 09/15 Tetanus: UTD Awake, alert, oriented, resp reg unlabored, skin warm, color appropriate for race, moves all ext without difficulty, amb without assist. Appears in no distress documented in this encounter Miscellaneous Notes ED Nurse Note - Ne Mon RN - 09/17/2019 4:37 PM CDTPt given printed and verbal discharge instructions Prescriptions provided zofran Pt verbalized understanding of instructions, pt awake alert oriented, resp reg unlabored, skin w/d, color appropriate for race, moves all ext well,pt encouraged to follow up with pcp Advised to seek medical attention for new/prolonged/worsening of symptoms, No adverse reaction to meds given in ER noted upon discharge PIV d'cd, dressing to site, catheter in tact. Awake, alert oriented, resp reg unlabored, skin w/d, pt leaving amb with steady gait, in no apparent distress, documented in this encounter Plan of Treatment Health [...] encounter Procedures Procedure Name Priority Date/Time Associated Comments Diagnosis URINALYSIS STAT 09/17/2019 3:34 PM Vaginal blee ding Results for this CDT Epigastric procedure are i n abdominal pain the results section. CBC WITH DIFF STAT 09/17/2019 3:34 PM Vaginal blee ding Results for this CDT Epigastric procedure are i n abdominal pain the results section. COMP. METABOLIC STAT 09/17/2019 3:34 PM Vaginal blee ding Results for this PANEL (79638) CDT Epigastric procedure are in abdominal pain the results section. LIPASE STAT 09/17/2019 3:34 PM Vaginal blee ding Results for this CDT Epigastric procedure are i n abdominal pain the results section. POCT TEST BETHANIE 09/17/2019 3:32 PM Vaginal bleeding Results for this CDT Epigastric procedure are i n abdominal pain the results section. documented in this encounter Results LIPASE (09/17/2019 3:34 PM CDT) Pathologist Sig nature LIPASE 47 0 - 220 U/L [facility] Specimen Blood - VENOUS Performing Organization Address City/State/Zipcode Phone Number [facility] CLIA: [id number] [place] [address] COMP. METABOLIC PANEL ([id number]) (09/17/2019 3:34 PM CDT) Pathologist Sig nature NA 138 135 - 145 mmol/L [facility] K 3.9 3.5 - 5.0 mmol/L [facility] CL 106 98 - 108 mmol/L [facility] CO2 TOTAL 25 23 - 31 mmol/L [facility] AGAP 7 2 - 16 [facility] BUN 5 (L) 7 - 23 mg/dL [facility] GLUCOSE 103 70 - 110 mg/dL [facility] CREATININE 0.76 0.50 - 1.04 [facility] mg/dL HOSPITAL LABORATORY TOTAL BILI 0.5 0.1 - 1.1 mg/dL [facility] CALCIUM 8.8 8.6 - 10.6 mg/dL [facility] T PROTEIN 7.2 6.3 - 8.2 g/dL [facility] ALBUMIN 4.1 3.5 - 5.0 g/dL [facility] ALK PHOS 47 34 - 122 U/L [facility] ALTv 17 5 - 35 U/L [facility] AST(SGOT) 19 13 - 40 U/L [facility] eGFR Calculation 83.5 mL/min/1.73m2 [facility] LABORATOR Y eGFR Calculation 101.2 mL/min/1.73m2 [facility] LABORATORY Specimen Blood - VENOUS Narrative Performed At [facility] of Glomerular Filtration Rate (GFR) [facility] and Staging of Kidney Disease* + + +- + | GFR (mL/min/1.73 m2) | With Kidney Damage | Without Kidney Damage + + +- + | >90 | Stage one | Normal + + +- + | 60-89 | Stage two | Decreased GFR + + +- + | 30-59 | Stage three | Stage three + + +- + | 15-29 | Stage four | Stage four + + +- + | <15 (or dialysis) | Stage five | Stage five + + +- + *Each stage assumes the associated GFR level has been in effect for at least three months. Stages 1 to 5, with or without kidney disease, indicate chronic kidney disease. Notes: Determination of stages one and two (with eGFR >59mL/min/1.73 m2) requires estimation of kidney damage for at least three months as defined by structural or functional abnormalities of the kidney, manifested by either: Pathological abnormalities or Markers of kidney damage (including abnormalities in the composition of the blood or urine or abnormalities in imaging tests). Performing Organization Address City/State/Zipcode Phone Number [facility] CLIA: [id number] [place] [address] CBC WITH DIFF (09/17/2019 3:34 PM CDT) [facility] WBC 7.97 4.30 - 11.10 [facility] 10*3/L [facility] RBC 4.92 3.93 - 5.25 [facility] 10*6/L [facility] HGB 14.4 11.6 - 15.0 [facility] g/dL [facility] HCT 42.3 35.7 - 45.2 % [facility] MCV 86.0 80.6 - 95.5 fL [facility] MCH 29.3 25.9 - 32.8 pg [facility] MCHC 34.0 31.6 - 35.1 [facility] g/dL [facility] RDW-SD 39.7 39.0 - 49.9 fL [facility] RDW-CV 12.8 12.0 - 15.5 % [facility] PLT 246 166 - 358 [facility] 10*3/L HOSPITAL LABORATORY MPV 9.6 9.5 - 12.9 fL [facility] NRBC/100 WBC 0.0 0.0 - 10.0 /100 [facility] WBCs [facility] NRBC x10^3 <0.01 10*3/L [facility] GRAN MAT (NEUT) % 75.3 % [facility] IMM GRAN % 0.30 % [facility] LYMPH % 15.3 % [facility] MONO % 7.9 % [facility] EOS % 0.8 % [facility] BASO % 0.4 % [facility] GRAN MAT x10^3(ANC) 6.01 1.88 - 7.09 [facility] 10*3/uL [facility] IMM GRAN x10^3 <0.03 0.00 - 0.06 [facility] 10*3/uL HOSPITAL LABORATORY LYMPH x10^3 1.22 (L) 1.32 - 3.29 [facility] 10*3/uL HOSPITAL LAB[facility]ORY MONO x10^3 0.63 0.33 - 0.92 [facility] 10*3/uL HOSPITAL LAB[facility]ATORY EOS x10^3 0.06 0.03 - 0.39 [facility] 10*3/uL HOSPITAL LAB[facility]ORY BASO x10^3 0.03 0.01 - 0.07 [facility] 10*3/uL HOSPITAL LAB[facility]ORY Specimen Blood - VENOUS Performing Organization Address City/State/Zipcode Phone Number [facility] CLIA: [id number] [place], [place] [id number] LABORATORY [address] URINALYSIS (09/17/2019 3:34 PM CDT) Pathologist Sig nature APPEARANCE Cloudy (A) Clear [facility] COLOR Grace (A) Yellow [facility] PH 6.0 4.8 - 8.0 [facility] SP GRAVITY 1.012 1.003 - 1.030 [facility] GLU U QUAL 50 mg/dL (A) Normal [facility] BLOOD 2+ (A) Negative [facility] KETONES Negative Negative [facility] PROTEIN 100 mg/dL (A) Negative [facility] UROBILIN Normal Normal [facility] BILIRUBIN Negative Negative [facility] NITRITE Negative Negative [facility] LEUK MOOSE Negative Negative [facility] RBC/HPF >182 (H) 0 - 3 HPF [facility] WBC/HPF 19 (H) 0 - 5 HPF [facility] BACTERIA Few (A) Negative [facility] MUCOUS Moderate (A) Negative LPF [facility] SQ EPITH 5 HPF [facility] Specimen Urine - URINE, CLEAN CATCH Performing Organization Address City/State/Zipcode Phone Number [facility] CLIA: [id number] [place] [address] POCT TEST (09/17/2019 3:32 PM CDT) Pathologist Sig nature POCT PREG negative On board controls acceptable present with C Line Specimen Urine - URINE, CLEAN CATCH documented in this encounter Visit Diagnoses Diagnosis Menorrhagia with regular cycle - Primary Excessive or frequent menstruation Vaginal bleeding Other specified noninflammatory disorder of vagina Epigastric abdominal pain Abdominal pain, epigastric Nausea Nausea alone Abdominal cramping Abdominal pain, unspecified site documented in this encounter Administered Medications Medication Order MAR Action Action Date Dose Rate Site NaCl 0.9% (NS) bolus New Bag 09/17/2019 3:33 PM CDT 1,000 mL 99 9 mL/hr infusion 1,000 mL at 999 mL/hr, 1,000 mL, IV Infusion, ONCE, 1 dose, Tue09/17/19 at 1530, BETHANIE ondansetron (ZOFRAN (PF)) injection 4 mg Given 09/17/2019 3:34 PM CDT 4 mg 4 mg, Slow IV Push, ONCE, 1 dose, 09/17/19 at 1630, BETHANIE documented in this encounter Advance Directives Name Relationship Healthcare Agent Communication Relationship Janice Saleh Sibling Health Care Agent [phone] Morales (Mobile) [email or web address]
[2019-10-03] MEDS ORDERED: FAMOTIDINE 20 MG/2 ML VIAL IV ONE (20:05)
[2019-10-03] MEDS ORDERED: ONDANSETRON 4 MG/2 ML VIAL ONE (20:05)
[2019-10-03] MEDS ORDERED: MORPHINE 4 MG/ML SYR ONE ×2 (20:05→22:04)
[2019-10-03] MEDS ORDERED: NA CHLORIDE 0.9% 1,000 ML ONE (20:05)
--- NOTE | 2019-10-03 20:15 | RAD REPORT ---
EXAM DESCRIPTION: CT - Abdomen Pelvis Wo Contrast - 10/03/2019 7:50 pm CLINICAL HISTORY: Abdominal pain. ABD PAIN COMPARISON: [facility]STONE PROTOCOL dated 02/26/2015 TECHNIQUE: CT imaging of the abdomen and pelvis was performed without contrast. Solid organ, bowel a nd vascular assessment is limited due to lack of IV and oral contrast. All CT scans are performed using dose optimization technique as appropriate and may include automated exposure control or mA/KV adjustment according to patient size. FINDINGS: The lower lung valdivia are clear.Cholecystectomy clips. The liver, spleen, pancreas, adrenal glands and kidneys are within normal limits for a limited non-co ntrast examination. No bowel obstruction, free air, free fluid or abscess. Mild sigmoid diverticulosis without diverticul itis. The appendix is normal. Small fat containing umbilical hernia. Moderate spondylosis L5-S1. IMPRESSION: No acute intra-abdominal or pelvic findings. A limited non-contrast examination was performed as detailed.
[2019-10-03 20:27] LABS: Absolute Lymphocytes (CBC) 1.3 K/uL (0.7-4.9); Basophils % 0.6 % (0-1.3); Hematocrit 43.7 % (36.0-45.0); MPV 8.2 fL (7.6-11.3); RBC Red Blood Cell Count 5.08 M/uL (3.86-4.86)
[2019-10-03 20:41] LABS: Urine Blood NEGATIVE (NEG); Urine Glucose NEGATIVE (NEG); Urine Protein NEGATIVE (NEG); Urine Specific Gravity 1.025 (1.005-1.030)
[2019-10-03 20:51] LABS: Albumin 3.8 g/dL (3.4-5.0); Bilirubin Direct 0.2 mg/dL (0-0.2); Bilirubin Total 0.8 mg/dL (0.2-1.0); Potassium 4.1 mmol/L (3.5-5.1); Protein, Total 7.4 g/dL (6.4-8.2)
[2019-10-03] MEDS ORDERED: PROMETHAZINE INJ 25 MG/ML AMP ONE (22:04)
--- NOTE | 2019-10-03 23:29 | ER ---
Nurse's Notes [facility] Name: Aracelis Morales Age: 44 yrs Sex: Female : 1975 Arrival Date: 10/03/2019 Time: 16:49 Bed 4 Private MD: Diagnosis: Abdominal Pain;Nausea Presentation: 10/02 17:03 Chief complaint: Patient states: Sudden onset RUQ abdominal pain at noon today. Near ll1 syncope feeling with nausea/chills/cold sweats since. Coronavirus screen: Client denies travel out of the [place] in the last 14 days. At this time, the client does not indicate any symptoms associated with coronavirus-19. The client reports previous COVID testing was negative. Ebola Screen: Patient denies travel to an Ebola-affected area in the 21 days before illness onset. Initial Sepsis Screen: Does the patient meet any 2 criteria? No. Patient's initial sepsis screen is negative. Risk Assessment: Do you want to hurt yourself or someone else? Patient reports no desire to harm self or others. Onset of symptoms was October 03, 2019. 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 - Social history:: Smoking status: Patient denies any tobacco usage or history of. Patient/guardian denies using alcohol, street drugs. Screenin:00 Abuse screen: Denies threats or abuse. Denies injuries from another. Nutritional rr5 screening: No deficits noted. Tuberculosis screening: No symptoms or risk factors identified. Fall Risk IV access (20 points). Total Gómez Fall Scale indicates No Risk (0-24 pts). Assessment: 20:00 General: Appears in no apparent distress. uncomfortable, Behavior is calm, cooperative, rr5 appropriate for age. 20:00 Neuro: Level of Consciousness is awake, alert, obeys commands, Oriented to person, rr5 place, time, situation, Reports dizziness. Cardiovascular: Capillary refill < 3 seconds Patient's skin is warm and dry. Respiratory: Airway is patent Respiratory effort is even, unlabored, Respiratory pattern is regular, symmetrical. GI: Abdomen is round non-distended, Reports lower abdominal pain, upper abdominal pain, nausea, vomiting. : No signs and/or symptoms were reported regarding the genitourinary system. EENT: No signs and/or symptoms were reported regarding the EENT system. Derm: Skin is intact, is healthy with good turgor, Skin temperature is warm. Musculoskeletal: Circulation, motion, and sensation intact. Capillary refill < 3 seconds. 21:00 Reassessment: Patient appears in no apparent distress at this time. Patient is alert, rr5 oriented x 3, equal unlabored respirations, skin warm/dry/pink. awaiting for results. 21:45 Reassessment: ED provider aware with order made and carried out Patient states symptoms rr5 have not improved. Pain: Complains of pain in abdomen Pain currently is 8 out of 10 on a pain scale. Quality of pain is described as aching. 22:35 Reassessment: Patient appears in no apparent distress at this time. No changes from rr5 previously documented assessment. Patient is alert, oriented x 3, equal unlabored respirations, skin warm/dry/pink. awaiting for review Patient states symptoms have improved. 23:35 Reassessment: Patient appears in no apparent distress at this time. Patient is alert, rr5 oriented x 3, equal unlabored respirations, skin warm/dry/pink. discharge instruction given and explained without complaints made. Vital Signs: 17:03 BP 143 / 88; Pulse 84; Resp 18; Temp 98.3; Pulse Ox 99% ; Weight 109.77 kg; Height 5 ll1 ft. 4 in. (162.56 cm); Pain 8/10; 21:00 BP 141 / 75; Pulse 80; Resp 19; Pulse Ox 100% ; rr5 21:45 BP 138 / 75; Pulse 75; Resp 17; Pulse Ox 99% ; Pain 8/10; rr5 17:03 Body Mass Index 41.54 (109.77 kg, 162.56 cm) ll1 ED Course: 16:49 Patient arrived in ED. ds1 17:05 Triage completed. ll1 17:05 Arm band placed on Patient notified of wait time. ll1 19:14 Andrzej Mullins MD is Attending Physician. [facility] 19:50 CT Abd/Pelvis - Without Contrast In Process Unspecified. EDMS 19:54 Fahad Laws, RN is Primary Nurse. rr5 20:00 Patient has correct armband on for positive identification. Placed in gown. Bed in low rr5 position. Call light in reach. Side rails up X2. 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 Pulse ox on. NIBP on. 20:10 Inserted saline lock: 20 gauge in right antecubital area, using aseptic technique. rr5 Blood collected. 20:15 Urine collected: clean catch specimen, clear. rr5 20:20 EKG done, by ED staff, reviewed by Andrzej Mullins MD. rr5 23:28 Zeke Mena MD is Referral Physician. [facility] 23:42 No provider procedures requiring assistance completed. IV discontinued, intact, jb4 bleeding controlled, No redness/swelling at site. Pressure dressing applied. Administered Medications: 20:10 Drug: NS 0.9% 1000 ml Route: IV; Rate: 1000 ml; Site: right antecubital; rr5 20:10 Drug: Pepcid 20 mg Route: IVP; Site: right antecubital; rr5 20:12 Drug: Zofran (Ondansetron) 4 mg Route: IVP; Site: right antecubital; rr5 20:14 Drug: morphine 4 mg {Note: rass 0.} Route: IVP; Site: right antecubital; rr5 21:58 Drug: Phenergan 12.5 mg Route: IVP; Site: right antecubital; rr5 22:00 Drug: morphine 4 mg {Note: rass 0.} Route: IVP; Site: right antecubital; rr5 Outcome: 23:29 Discharge ordered by . 7 23:41 Discharged to home ambulatory. jb4 23:41 Condition: stable 23:41 Discharge instructions given to patient, Instructed on discharge instructions, follow up and referral plans. medication usage, Demonstrated understanding of instructions, follow-up care, medications, Prescriptions given X 3. 23:42 Patient left the ED. jb4 Signatures: Dispatcher [employer] EDNJ Isabel Marshall ds1 Nahid Espino RN RN jb4 Fahad Laws, RN RN rr5 Terence Andre RN RN 1 Andrzej Mullins MD MD [email or web address]
--- NOTE | 2019-10-03 23:29 | EDPHYS ---
Physician Documentation [facility] Name: Aracelis Morales Age: 44 yrs Sex: Female : 1975 Arrival Date: 10/03/2019 Time: 16:49 Bed 4 Private MD: ED Physician Andrzej Mullins HPI: 10/02 20:13 This 44 yrs old Female presents to ER via Ambulatory with complaints of mh7 Dizziness, Nausea, Abdominal Pain. 20:13 The patient presents with abdominal pain in the epigastric area, in the left upper mh7 quadrant. The patient presents with abdominal pain. Onset: The symptoms/episode began/occurred today. The symptoms do not radiate. Associated signs and symptoms: Pertinent positives: nausea, Dizziness, Pertinent negatives: anorexia, blood in stools, chest pain, constipation, dysuria, fever, headache, hematuria, palpitations, shortness of breath, vaginal discharge, vomiting, vomiting blood. The symptoms are described as intermittent, vague, waxing/waning. Modifying factors: The symptoms are alleviated by nothing, the symptoms are aggravated by nothing. Severity of pain: At its worst the pain was moderate today, in the emergency department the pain is unchanged. 23:30 Associated signs and symptoms: Pertinent positives: Pertinent negatives:. 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 - Social history:: Smoking status: Patient denies any tobacco usage or history of. Patient/guardian denies using alcohol, street drugs. ROS: 20:13 Constitutional: Negative for fever, chills, and weight loss, Eyes: Negative for injury, mh7 pain, redness, and discharge, ENT: Negative for injury, pain, and discharge, Neck: Negative for injury, pain, and swelling, Cardiovascular: Negative for chest pain, palpitations, and edema, Respiratory: Negative for shortness of breath, cough, wheezing, and pleuritic chest pain, Back: Negative for injury and pain, : Negative for injury, bleeding, discharge, and swelling, MS/Extremity: Negative for injury and deformity, Skin: Negative for injury, rash, and discoloration, Neuro: Negative for headache, weakness, numbness, tingling, and seizure, Psych: Negative for depression, anxiety, suicide ideation, homicidal ideation, and hallucinations, Allergy/Immunology: Negative for hives, rash, and allergies, Endocrine: Negative for neck swelling, polydipsia, polyuria, polyphagia, and marked weight changes, Hematologic/Lymphatic: Negative for swollen nodes, abnormal bleeding, and unusual bruising. Exam: 20:13 Constitutional: This is a well developed, well nourished patient who is awake, alert, mh7 and in no acute distress. Head/Face: Normocephalic, atraumatic. Neck: Trachea midline, no thyromegaly or masses palpated, and no cervical lymphadenopathy. Supple, full range of motion without nuchal rigidity, or vertebral point tenderness. No Meningismus. Chest/axilla: Normal chest wall appearance and motion. Nontender with no deformity. No lesions are appreciated. Cardiovascular: Regular rate and rhythm with a normal S1 and S2. No gallops, murmurs, or rubs. Normal PMI, no JVD. No pulse deficits. Respiratory: Lungs have equal breath sounds bilaterally, clear to auscultation and percussion. No rales, rhonchi or wheezes noted. No increased work of breathing, no retractions or nasal flaring. 20:13 Back: No spinal tenderness. No costovertebral tenderness. Full range of motion. Skin: Warm, dry with normal turgor. Normal color with no rashes, no lesions, and no evidence of cellulitis. MS/ Extremity: Pulses equal, no cyanosis. Neurovascular intact. Full, normal range of motion. Neuro: Awake and alert, GCS 15, oriented to person, place, time, and situation. Cranial nerves II-XII grossly intact. Motor strength 5/5 in all extremities. Sensory grossly intact. Cerebellar exam normal. Normal gait. 20:13 Abdomen/GI: Inspection: abdomen appears normal, obese Bowel sounds: normal, in all quadrants, Palpation: moderate abdominal tenderness, in the epigastric area and left upper quadrant, Rectal exam: the exam is deferred, because of patient request, Indicators: McBurney's point is not tender, Schuler's sign is negative, Rovsing's sign is negative, Obturator sign is negative, Psoas sign is negative, Liver: no appreciated palpable abnormalities, Hernia: not appreciated. Vital Signs: 17:03 BP 143 / 88; Pulse 84; Resp 18; Temp 98.3; Pulse Ox 99% ; Weight 109.77 kg; Height 5 ll1 ft. 4 in. (162.56 cm); Pain 8/10; 21:00 BP 141 / 75; Pulse 80; Resp 19; Pulse Ox 100% ; rr5 21:45 BP 138 / 75; Pulse 75; Resp 17; Pulse Ox 99% ; Pain 8/10; rr5 17:03 Body Mass Index 41.54 (109.77 kg, 162.56 cm) ll1 MDM: 19:36 Patient medically screened. 7 23:26 Differential diagnosis: appendicitis, bowel obstruction, diverticulitis, gastritis, mh7 non-specific abd pain, pancreatitis, Peptic Ulcer Disease, Pyelonephritis, urinary tract infection. Data reviewed: vital signs, nurses notes, lab test result(s), CBC, electrolytes, urinalysis, EKG, radiologic studies, CT scan. Data interpreted: Pulse oximetry: on room air is 99 %. Interpretation: normal. Counseling: I had a detailed discussion with the patient and/or guardian regarding: the historical points, exam findings, and any diagnostic results supporting the discharge/admit diagnosis, the presence of at least one elevated blood pressure reading (>120/80) during this emergency department visit, lab results, radiology results, the need for outpatient follow up, to return to the emergency department if symptoms worsen or persist or if there are any questions or concerns that arise at home. Response to treatment: the patient's symptoms have resolved after treatment, the patient's blood pressure is in an acceptable range, mental status has returned to baseline, the patient no longer shows bradycardia, the patient is not short of breath, the patient is not tachycardic, the patient's pain is gone, the patient's temperature has normalized. 10/03 06:20 Special discussion: Based on the patient's Hx, exam, and Dx evaluation, there is no [facility] indication for emergent surgery or inpatient Tx. It is understood by the patient/guardian that if the Sx's persist or worsen they need to return immediately for re-evaluation. 10/02 17:20 Order name: Glucose, Ancillary Testing; Complete Time: 22:59 EDMS 10/02 19:38 Order name: Basic Metabolic Panel; Complete Time: 22:59 [facility] 10/02 19:38 Order name: CBC with Diff; Complete Time: 22:59 [facility] 10/02 19:38 Order name: Hepatic Function; Complete Time: 22:59 [facility] 10/02 19:38 Order name: Lipase; Complete Time: 22:59 [facility] 10/02 20:18 Order name: Urine Dipstick--Ancillary (enter results); Complete Time: 22:59 [facility] 10/02 19:38 Order name: CT Abd/Pelvis - Without Contrast; Complete Time: 22:59 [facility] 10/02 20:18 Order name: Urine --Ancillary (enter results); Complete Time: 22:59 [facility] 10/02 19:38 Order name: IV Saline Lock; Complete Time: 20:17 [facility] 10/02 19:38 Order name: Labs collected and sent; Complete Time: 20:17 [facility] 10/02 19:38 Order name: Urine Dipstick-Ancillary (obtain specimen); Complete Time: 20:16 [facility] 10/02 19:38 Order name: Urine Test (obtain specimen); Complete Time: 20:16 [facility] 10/02 19:38 Order name: EKG - Nurse/Tech; Complete Time: 20:16 [facility] Administered Medications: 10/02 20:10 Drug: NS 0.9% 1000 ml Route: IV; Rate: 1000 ml; Site: right antecubital; rr5 20:10 Drug: Pepcid 20 mg Route: IVP; Site: right antecubital; rr5 20:12 Drug: Zofran (Ondansetron) 4 mg Route: IVP; Site: right antecubital; rr5 20:14 Drug: morphine 4 mg {Note: rass 0.} Route: IVP; Site: right antecubital; rr5 21:58 Drug: Phenergan 12.5 mg Route: IVP; Site: right antecubital; rr5 22:00 Drug: morphine 4 mg {Note: rass 0.} Route: IVP; Site: right antecubital; rr5 Disposition: 10/03 06:20 Co-signature as Attending Physician, Andrzej Mullins MD. [facility] Disposition: 10/03/19 23:29 Discharged to Home. Impression: Abdominal Pain, Nausea. - Condition is Stable. - Discharge Instructions: Abdominal Pain, Adult, [id number], Nausea, Adult, [id number]. - Prescriptions for Zofran ODT 4 mg Oral tablet,disintegrating - place 1 tablet by TRANSLINGUAL route every 8 hours As needed; 10 tablet. Bentyl 20 mg Oral Tablet - take 1 tablet by ORAL route every 6 hours As needed; 20 tablet. Pepcid 20 mg Oral Tablet - take 1 tablet by ORAL route every 12 hours for 5 days; 10 tablet. - Medication Reconciliation Form, Thank You Letter, Antibiotic Education, Prescription Opioid Use form. - Follow up: Private Physician; When: 1 - 2 days; Reason: Worsening of condition, Recheck today's complaints, Continuance of care, Re-evaluation by your physician. Follow up: Zeke Mena MD; When: 2 - 3 days; Reason: Worsening of condition, Recheck today's complaints. - Problem is new. - Symptoms have improved. Signatures: Dispatcher [employer] EDMS Nahid Espino RN RN jb4 Fahad Laws RN RN rr5 Terence Andre RN RN ll1 Andrzej Mullins MD MD 7 Corrections: (The following items were deleted from the chart) 10/02 23:31 23:29 10/03/2019 23:29 Discharged to Home. Impression: Abdominal Pain; Gastroenteritis. mh7 Condition is Stable. Forms are Medication Reconciliation Form, Thank You Letter, Antibiotic Education, Prescription Opioid Use. Follow up: Private Physician; When: 1 - 2 days; Reason: Worsening of condition, Recheck today's complaints, Continuance of care, Re-evaluation by your physician. Follow up: Zeke Mena; When: 2 - 3 days; Reason: Worsening of condition, Recheck today's complaints. Problem is new. Symptoms have improved. mh7 23:31 23:31 10/03/2019 23:29 Discharged to Home. Impression: Abdominal Pain; Vomiting. mh7 Condition is Stable. Forms are Medication Reconciliation Form, Thank You Letter, Antibiotic Education, Prescription Opioid Use. Follow up: Private Physician; When: 1 - 2 days; Reason: Worsening of condition, Recheck today's complaints, Continuance of care, Re-evaluation by your physician. Follow up: Zeke Mena; When: 2 - 3 days; Reason: Worsening of condition, Recheck today's complaints. Problem is new. Symptoms have improved. mh7 23:42 23:31 10/03/2019 23:29 Discharged to Home. Impression: Abdominal Pain; Nausea. jb4 Condition is Stable. Forms are Medication Reconciliation Form, Thank You Letter, Antibiotic Education, Prescription Opioid Use. Follow up: Private Physician; When: 1 - 2 days; Reason: Worsening of condition, Recheck today's complaints, Continuance of care, Re-evaluation by your physician. Follow up: Zeke Mena; When: 2 - 3 days; Reason: Worsening of condition, Recheck today's complaints. Problem is new. Symptoms have improved. 7
[2019-10-04 00:59] VITALS: TEMP 98.3
[2019-10-04 01:02] VITALS: BP 138/75; O2SAT 99
--- NOTE | 2019-10-04 08:39 | EKG ---
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
== END 2019-10-03 23:42 | disposition home or self-care (01) ==
LOC: ER 16:47
DX: R10.13 Epigastric pain (principal); Z88.8 Allergy status to other drugs, medicaments and biological substances
CPT/HCPCS: 36415; 74176; 80048; 80076; 81003; 81025; 82947; 83690; 85025; 93005; 96374; 96375; 99284; J2405; J2550; J7030

== ENCOUNTER 2020-02-20 23:55 | Inpatient (IN) | payer SELFPAY ==
--- OUTSIDE RECORDS SUMMARY | 2020-02-20 23:59 | XMS REPORT | Continuity of Care Document ---
:1975 Author Organization [facility] t Address [address] [place] [address] [place] [id number] Care Team Providers Name Role Phone Kimberly [...] Clinicians Facility Department ID 2019-09-17 2019-09-17 Emergency [facility]renice [facility] [id number] 14:51:00 16:38:00 Kimberly Caballero [id number] [place] [id number] [place] [id number] [id number] 2019-09-17 2019-09-17 Orders Doctor JEAN [id number] 00:00:00 00:00:00 Only UnassMAMIE alvarez [id number] [place] [facility] [id number] Results This patient has no known results.
[2020-02-21 00:53] LABS: Absolute Lymphocytes (CBC) 1.9 K/uL (0.7-4.9); Basophils % 0.8 % (0-1.3); Lymphocytes % 24.2 % (15.3-44.8); MPV 8.1 fL (7.6-11.3); RBC Red Blood Cell Count 4.77 M/uL (3.86-4.86)
[2020-02-21] MEDS ORDERED: ASPIRIN 81 MG CHEWABLE TABLET ONE (00:57)
[2020-02-21] MEDS ORDERED: NITROGLYCERIN 0.4 MG/TAB SL ONE (00:57)
[2020-02-21 01:12] LABS: ALT/SGPT 15 U/L (12-78); AST/SGOT 11 U/L (15-37); Albumin 3.9 g/dL (3.4-5.0); Alkaline Phosphatase 62 U/L (45-117); BUN Blood Urea Nitrogen 10 mg/dL (7-18); Bicarbonate 28 mmol/L (21-32); Bilirubin Direct 0.1 mg/dL (0-0.2); Bilirubin Total 0.3 mg/dL (0.2-1.0); Glucose Level 106 mg/dL (74-106); Lipase 124 U/L (73-393); Magnesium 2.2 mg/dL (1.8-2.4); NT PRO-BNP 15 pg/mL (<125); Potassium 3.9 mmol/L (3.5-5.1); Protein, Total 7.3 g/dL (6.4-8.2); Sodium Level 141 mmol/L (136-145); Troponin (Emerg Dept Use Only) < 0.02 ng/mL (0.0-0.045)
--- NOTE | 2020-02-21 01:20 | EDPHYS ---
Physician Documentation [facility] Name: Aracelis Morales Age: 45 yrs Sex: Female : 1975 Arrival Date: 02/20/2020 Time: 23:57 Bed 17 Private MD: ED Physician Duncan Monaco HPI: 02/20 00:29 This 45 yrs old Female presents to ER via Ambulatory with complaints of Chest cp Pain, Nausea. 00:30 The patient or guardian reports chest pain that is located primarily in the substernal cp area. 00:30 Onset: last night. cp 00:30 Associated signs and symptoms: Pertinent positives: nausea, Pertinent negatives: cp abdominal pain, cough, headache, lower extremity pain, lower extremity swelling, palpitations, shortness of breath. The chest pain is described as a heaviness. Duration: The patient or guardian reports a single episode, that is still ongoing, and unchanged. Modifying factors: The symptoms are alleviated by nothing. [employer] FE[employer]ER: 00:30 LMP 01/2020 Historical: - Allergies: 00:18 Iodine; sg - Home Meds: 02:13 alprazolam 0.5 mg Oral tab twice a day [Active]; metformin 500 mg Oral tab 1 tab daily [Active]; - PMHx: 00:18 Anxiety; Diabetes - NIDDM; Pancreatitis; sg - PSHx: 00:18 Cholecystectomy; ; sg - Immunization history:: Adult Immunizations up to date. - Social history:: Smoking status: Patient denies any tobacco usage or history of. ROS: 00:30 Cardiovascular: Positive for chest pain, of the substernal, Negative for edema, cp palpitations. 00:30 Constitutional: Negative for body aches, chills, fever, poor PO intake. cp 00:30 Abdomen/GI: Positive for nausea, Negative for abdominal pain, vomiting, diarrhea, constipation. 00:30 Eyes: Negative for injury, pain, redness, and discharge. cp 00:30 Neck: Negative for pain with movement, pain at rest, stiffness. cp 00:30 Respiratory: Negative for cough, shortness of breath, wheezing. 00:30 Back: Negative for radiated pain. 00:30 Neuro: Negative for altered mental status, dizziness, headache, numbness, weakness. 00:30 All other systems are negative. Exam: 00:38 Head/Face: Normocephalic, atraumatic. cp 00:38 Constitutional: The patient appears in no acute distress, alert, awake, non-diaphoretic, non-toxic, well developed, well nourished, obese, uncomfortable. 00:38 Eyes: Periorbital structures: appear normal, Conjunctiva: normal, no exudate, no injection, Sclera: no appreciated abnormality, Lids and lashes: appear normal, bilaterally. 00:38 ENT: External ear(s): are unremarkable, Nose: is normal, Posterior pharynx: is normal, airway is patent. 00:38 Neck: ROM/movement: is normal, is supple, without pain, no range of motions limitations. 00:38 Chest/axilla: Inspection: normal, Palpation: is normal, no crepitus, no tenderness. 00:38 Cardiovascular: Rate: normal, Rhythm: regular, Heart sounds: murmur, not appreciated, Edema: is not appreciated, JVD: is not appreciated. 00:38 Respiratory: the patient does not display signs of respiratory distress, Respirations: normal, no use of accessory muscles, no retractions, labored breathing, is not present, Breath sounds: are clear throughout, no decreased breath sounds, no stridor, no wheezing. 00:38 Abdomen/GI: Inspection: abdomen appears normal, Bowel sounds: active, all quadrants, Palpation: abdomen is soft and non-tender, in all quadrants. 00:38 Back: pain, that is mild, of the between shoulder blades, ROM is normal. 00:38 Neuro: Orientation: to person, place \T\ time. Mentation: is normal. 00:41 ECG was reviewed by the Attending Physician. cp Vital Signs: 00:20 BP 150 / 79; Pulse 76; Resp 18; Temp 97.9; Pulse Ox 100% ; Weight 108.86 kg; Height 5 wh ft. 4 in. (162.56 cm); Pain 6/10; 02:00 BP 145 / 61; Pulse 74; Resp 18; Pulse Ox 100% on R/A; wh 00:20 Body Mass Index 41.20 (108.86 kg, 162.56 cm) wh MDM: 00:12 Patient medically screened. carlos 00:42 Differential diagnosis: abnormal EKG, acute myocardial infarction, acute pericarditis, cp anxiety, chest wall pain, esophagitis, pericarditis, pleurisy, pneumonia, pneumothorax, pulmonary embolus, thoracic aortic disection. 01:14 HEART Score: History: Moderately Suspicious (1), ECG: Non specific repolarization cp disturbance / LBTB / PM (1), Age: < or = 45 years (0), Risk Factors: 1 or 2 risk factors (1), [DM] [Obesity] Troponin: < or = 1 x Normal Limit (0), Total Score = 3. The patient was given aspirin in the Emergency Department. 01:18 Data reviewed: vital signs, nurses notes, lab test result(s), EKG, radiologic studies, cp plain films. 01:18 Test interpretation: by ED physician or midlevel provider: ECG, chest xray negative for cp infiltrates. Counseling: I had a detailed discussion with the patient and/or guardian regarding: the historical points, exam findings, and any diagnostic results supporting the discharge/admit diagnosis, the presence of at least one elevated blood pressure reading (>120/80) during this emergency department visit, lab results, radiology results, the need for further work-up and treatment in the hospital. Response to treatment: the patient's symptoms have markedly improved after treatment. 02/20 00:31 Order name: Basic Metabolic Panel; Complete Time: : cp 02/20 00:31 Order name: CBC with Diff; Complete Time: : cp 02/20 00:31 Order name: LFT's; Complete Time: 01: cp 02/20 00:31 Order name: Magnesium; Complete Time: 01: cp 02/20 00:31 Order name: NT PRO-BNP; Complete Time: 01: cp 02/20 00:31 Order name: PT-INR; Complete Time: 01: cp 02/20 00:31 Order name: Troponin (emerg Dept Use Only); Complete Time: 01: cp 02/20 01:13 Interpretation: TROPED < 0.02; Reviewed. cp 02/20 00:31 Order name: Lipase; Complete Time: 01: cp 02/20 00:43 Order name: COVID-19 cp 02/20 03:04 Order name: SARS-COV-2 RT PCR; Complete Time: 07:10 EDMS 02/20 06:27 Order name: Basic Metabolic Panel; Complete Time: 07:10 EDMS 02/20 06:27 Order name: Troponin I; Complete Time: 07:10 EDMS 02/20 06:27 Order name: Lipid Profile; Complete Time: 07:10 EDMS 02/20 06:27 Order name: T4 Free; Complete Time: 07:10 EDMS 02/20 00:31 Order name: XRAY Chest (1 view) cp 02/20 00:31 Order name: EKG; Complete Time: 00:32 cp 02/20 00:31 Order name: Cardiac monitoring; Complete Time: 00:59 cp 02/20 00:31 Order name: EKG - Nurse/Tech; Complete Time: 00:59 cp 02/20 00:31 Order name: IV Saline Lock; Complete Time: 00:59 cp 02/20 06:27 Order name: Magnesium; Complete Time: 07:10 EDMS 02/20 06:27 Order name: Thyroid Stimulating Hormone; Complete Time: 07:10 EDMS 02/20 07:59 Order name: Glucose, Ancillary Testing EDMS 02/20 11:52 Order name: Glucose, Ancillary Testing EDMS 02/20 12:09 Order name: Troponin I EDMS 02/20 17:03 Order name: Glucose, Ancillary Testing EDMS 02/20 00:31 Order name: Labs collected and sent; Complete Time: 00:59 cp 02/20 00:31 Order name: O2 Per Protocol; Complete Time: 00:59 cp 02/20 00:31 Order name: O2 Sat Monitoring; Complete Time: 00:59 cp 02/20 01:55 Order name: NPO; Complete Time: 02:03 la1 EC:41 Rate is 78 beats/min. Rhythm is regular. [place] interval is normal. QRS interval is normal. cp QT interval is normal. Interpreted by me. Reviewed by me. Administered Medications: 00:58 Drug: Aspirin Chewable Tablet 324 mg Route: PO; 02:03 Follow up: Response: No adverse reaction 00:58 Drug: Nitroglycerin 0.4 mg Route: Sublingual; 02:03 Follow up: Response: No adverse reaction 01:41 Drug: morphine 2 mg {Note: RASS 0.} Route: IVP; Site: right antecubital; 02:02 Follow up: Response: No adverse reaction; Pain is decreased; RASS: Alert and Calm (0) 01:43 Drug: Zofran (Ondansetron) 4 mg Route: IVP; Site: right antecubital; 02:03 Follow up: Response: No adverse reaction; Nausea is decreased 02:02 Drug: ALPRAZolam Tablet 0.5 mg Route: PO; Disposition: 02/21/20 01:19 Hospitalization ordered by Fahad Parish for Observation. Preliminary diagnosis is Chest pain, unspecified. - Bed requested for [facility] ER HOLD. - Status is Observation. ll1 - Condition is Stable. - Problem is new. - Symptoms have improved. Addendum: 02/24/2020 01:52 Co-signature as Attending Physician, Duncan Monaco MD I agree with the assessment and c barron plan of care. Signatures: Dispatcher [employer] EDSid Garcia, RN RN Duncan Monaco MD MD cha Rittger, Kevin, MD MD [facility] Josias Freire, [employer]-C IN[employer] INTERNS[employer]-Cla1 Duncan Whelan PA PA Zoey Chambers, RN JORGE María Puentes Terence Andre RN RN ll1 Corrections: (The following items were deleted from the chart) 02/20 01:27 01:19 Hospitalization Ordered by Fahad Parish MD for Observation. Preliminary cg diagnosis is Chest pain, unspecified. Bed requested for Telemetry/MedSurg (observation). Status is Observation. Condition is Stable. Problem is new. Symptoms have improved. cp 17:47 01:27 02/21/2020 01:19 Hospitalization Ordered by Fahad Parish MD for Observation. ll1 Preliminary diagnosis is Chest pain, unspecified. Bed requested for [facility] ER HOLD. Status is Observation. Condition is Stable. Problem is new. Symptoms have improved. cg
--- NOTE | 2020-02-21 01:20 | ER ---
Nurse's Notes [facility] Name: Aracelis Morales Age: 45 yrs Sex: Female : 1975 Arrival Date: 02/20/2020 Time: 23:57 Bed 17 Private MD: Diagnosis: Chest pain, unspecified Presentation: 02/20 00:18 Chief complaint: Patient states: Im having some chest discomfort and nausea, this all sg started last night and has just been getting worse. Coronavirus screen: Client denies travel out of the [place] in the last 14 days. Ebola Screen: Patient negative for fever greater than or equal to 101.5 degrees Fahrenheit, and additional compatible Ebola Virus Disease symptoms Patient denies exposure to infectious person. Patient denies travel to an Ebola-affected area in the 21 days before illness onset. No symptoms or risks identified at this time. Initial Sepsis Screen: Does the patient meet any 2 criteria? No. Patient's initial sepsis screen is negative. Does the patient have a suspected source of infection? No. Patient's initial sepsis screen is negative. Risk Assessment: Do you want to hurt yourself or someone else? Patient reports no desire to harm self or others. Onset of symptoms was February 21, 2020. Care prior to arrival: None. 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 - Social history:: Smoking status: Patient denies any tobacco usage or history of. Screenin:30 Abuse screen: Denies threats or abuse. Denies injuries from another. Nutritional screening: No deficits noted. Tuberculosis screening: No symptoms or risk factors identified. Fall Risk None identified. Assessment: 00:30 General: Appears in no apparent distress. Behavior is calm, cooperative, appropriate wh for age. Pain: Complains of pain in chest Pain does not radiate. Pain currently is 6 out of 10 on a pain scale. Quality of pain is described as squeezing, Pain began 4 hours ago. Neuro: Level of Consciousness is awake, alert, obeys commands, Oriented to person, place, time, situation, Appropriate for age. Cardiovascular: Reports chest pain, Heart tones S1 S2. Respiratory: Airway is patent Respiratory effort is even, unlabored, Respiratory pattern is regular, symmetrical, Breath sounds are clear bilaterally. GI: Abdomen is flat, non-distended. : No signs and/or symptoms were reported regarding the genitourinary system. EENT: No signs and/or symptoms were reported regarding the EENT system. Derm: Skin is intact, is healthy with good turgor, Skin is pink, warm \T\ dry. normal. Musculoskeletal: Circulation, motion, and sensation intact. 02:00 Reassessment: Patient appears in no apparent distress at this time. No changes from previously documented assessment. Patient and/or family updated on plan of care and expected duration. Pain level reassessed. Patient is alert, oriented x 3, equal unlabored respirations, skin warm/dry/pink. Vital Signs: 00:20 BP 150 / 79; Pulse 76; Resp 18; Temp 97.9; Pulse Ox 100% ; Weight 108.86 kg; Height 5 wh ft. 4 in. (162.56 cm); Pain 6/10; 02:00 BP 145 / 61; Pulse 74; Resp 18; Pulse Ox 100% on R/A; wh 00:20 Body Mass Index 41.20 (108.86 kg, 162.56 cm) ED Course: 02/19 23:57 Patient arrived in ED. cf2 02/20 00:11 Duncan Whelan PA is PHCP. cp 00:11 Duncan Monaco MD is Attending Physician. cp 00:18 Arm band placed on. sg 00:19 Triage completed. sg 00:30 Patient has correct armband on for positive identification. Placed in gown. Bed in low wh position. Call light in reach. Side rails up X 1. vehicle monitor technician on. Pulse ox on. NIBP on. 00:35 María Puentes is Primary Nurse. wh 00:45 No provider procedures requiring assistance completed. Inserted saline lock: 20 gauge wh in right antecubital area, using aseptic technique. Blood collected. Patient maintains SpO2 saturation greater than 95% on room air. 01:01 XRAY Chest (1 view) In Process Unspecified. EDMS 01:18 Fahad Parish MD is Hospitalizing Provider. cp 17:48 Patient admitted, IV remains in place. ll1 Administered Medications: 00:58 Drug: Aspirin Chewable Tablet 324 mg Route: PO; 02:03 Follow up: Response: No adverse reaction 00:58 Drug: Nitroglycerin 0.4 mg Route: Sublingual; 02:03 Follow up: Response: No adverse reaction 01:41 Drug: morphine 2 mg {Note: RASS 0.} Route: IVP; Site: right antecubital; 02:02 Follow up: Response: No adverse reaction; Pain is decreased; RASS: Alert and Calm (0) 01:43 Drug: Zofran (Ondansetron) 4 mg Route: IVP; Site: right antecubital; 02:03 Follow up: Response: No adverse reaction; Nausea is decreased 02:02 Drug: ALPRAZolam Tablet 0.5 mg Route: PO; Outcome: 01:19 Decision to Hospitalize by Provider. cp 17:47 Patient left the ED. ll1 17:47 Admitted to Tele accompanied by nurse, via stretcher, room ICU ER room 9, with chart, ll1 Report called to Logan 17:47 Condition: stable 17:48 Instructed on the need for admit. 1 Signatures: Dispatcher [employer] EDMS Sid Dasilva RN RN sg Page, Corey, PA PA María Puentes Aracelis Kirkpatrick cf2 Terence Andre RN RN 1
[2020-02-21] MEDS ORDERED: ONDANSETRON 4 MG/2 ML VIAL ONE ×2 (01:43→12:14)
[2020-02-21] MEDS ORDERED: MORPHINE 2 MG/ML SYR ONE ×5 (01:43→17:57)
--- NOTE | 2020-02-21 02:04 | P.HP ---
Certification for Inpatient Patient admitted to: Observation With expected LOS: <2 Midnights Patient will require the following post-hospital care: None Practitioner: I am a practitioner with admitting privileges, knowledge of patient current condition, hospital course, and medical plan of care. Services: Services provided to patient in accordance with Admission requirements found in Title 42 Section 412.3 of the Code of Federal Regulations <Josias Freire - Last Filed: 02/21/20 02:01> Patient History Date of Service: 02/21/20 Primary Care Provider: Dr. Ortiz Reason for admission: Chest pain History of Present Illness: 45-year-old female with history of diabetes mellitus type 2 presents to the emergency department for chest pain. Patient reports chest pain began at approximately 7:30 p.m. last night while she was cooking dinner from the pain is described as a pressure/tightness radiating to the back with associated diaphoresis, nausea. Patient denies previous episodes similar to this, has not had cardiac workup ever in the past. Father has history of heart disease. Initial troponin negative, EKG with nonspecific changes, chest x-ray unremarkable. Labs unremarkable. ED provider wishes to admit patient for further evaluation and management of chest pain. - Past Medical/Surgical History -: Diabetes mellitus type 2 -: Cholecystectomy -: Psychosocial/ Personal History: Patient lives with family - Family History Father -: Heart disease, Hypertension - Social History Smoking Status: Never smoker Alcohol use: No CD- Drugs: No Caffeine use: Yes Place of Residence: Home <Josias Freire - Last Filed: 02/21/20 02:01> Date of Service: 02/28/20 <Fahad Parish - Last Filed: 02/28/20 14:57> Allergies Iodinated Contrast Media Allergy (Verified 02/21/20 03:07) Hives/Rash Review of Systems 10-point ROS is otherwise unremarkable Respiratory: Shortness of Breath Cardiovascular: Chest Pain <PhiljohnathanJosias - Last Filed: 02/21/20 02:01> Physical Examination - Physical Exam General: Alert, In no apparent distress, Oriented x3, Obese HEENT: Atraumatic, PERRLA, Mucous membr. moist/pink Neck: Supple, 2+ carotid pulse no bruit, No LAD Respiratory: Clear to auscultation bilaterally, Normal air movement Cardiovascular: Regular rate/rhythm, Normal S1 S2 Gastrointestinal: Normal bowel sounds, No tenderness Musculoskeletal: No tenderness Integumentary: No rashes Neurological: Normal speech, Normal strength at 5/5 x4 extr, Normal tone, Normal affect - Studies Laboratory Data (last 24 hrs) 02/21/20 00:35: PT 11.8, INR 1.00 02/21/20 00:35: WBC 7.9, Hgb 13.8, Hct 41.0, Plt Count 256 02/21/20 00:35: Sodium 141, Potassium 3.9, BUN 10, Creatinine 0.94, Glucose 106, Magnesium 2.2, Total Bilirubin 0.3, AST 11 L, ALT 15, Alkaline Phosphatase 62, Lipase 124 <Josias Freire - Last Filed: 02/21/20 02:01> Assessment and Plan - Plan Assessment Chest pain rule out ACS Diabetes mellitus type 2 Plan Chest pain rule out ACS: Monitor on telemetry, trend troponins, cardiology consult in place. Continue with daily aspirin, metoprolol, statin. Lipid panel with morning labs, thyroid panel with morning labs. Appreciate further input from cardiology. DVT prophylaxis Lovenox 40 mg subcutaneous once daily. Diabetes mellitus type 2: A.c. HS Accu-Cheks, sliding scale insulin therapy. Patient reports last A1c was 5 last month. Discharge Plan: Home Plan to discharge in: 24 Hours - Advance Directives Does patient have a Living Will: No Does patient have a Durable POA for Healthcare: No - Code Status/Comfort Care Code Status Assessed: Yes (Full code) Critical Care: No Time Spent Managing Pts Care (In Minutes): 55 <Josias Freire - Last Filed: 02/21/20 02:01> - Plan Agree with plan of care as noted above by Josias Freire. Atypical chest pain, constant with occasionally worsening trend troponins, cardiology consulted <Fahad Parish - Last Filed: 02/28/20 14:57>
[2020-02-21] MEDS ORDERED: ALPRAZOLAM 0.5 MG TABLET ONE (02:15)
[2020-02-21] MEDS ORDERED: ACETAMINOPHEN 500 MG TAB PO PRN (03:03)
[2020-02-21] MEDS ORDERED: ONDANSETRON 4 MG/2 ML VIAL IV PRN (03:03)
[2020-02-21] MEDS ORDERED: ALPRAZOLAM 0.25 MG TABLET PO PRN (03:03)
[2020-02-21 03:05] VITALS: BMI 41.1
[2020-02-21] MEDS: MORPHINE 2 MG/ML SYR IV PRN ×4 (04:00→17:46)
[2020-02-21] MEDS: METOPROLOL TAR 25 MG TAB PO SCH ×2 (06:00→17:42)
[2020-02-21 06:27] LABS: BUN Blood Urea Nitrogen 10 mg/dL (7-18); Bicarbonate 27 mmol/L (21-32); Glucose Level 106 mg/dL (74-106); HDL Cholesterol 25 mg/dL (40-60); LDL Cholesterol, Calculated 77 (<130); Magnesium 2.1 mg/dL (1.8-2.4); Potassium 3.8 mmol/L (3.5-5.1); Sodium Level 140 mmol/L (136-145); Troponin I < 0.02 ng/mL (0.0-0.045)
[2020-02-21] MEDS ORDERED: METOPROLOL TAR 25 MG TAB ONE (07:06)
[2020-02-21] MEDS: INSULIN -REGULAR HUMAN 50 UNIT/0.5 ML ML SQ SCH ×4 (07:30→21:00)
[2020-02-21] MEDS ORDERED: ASPIRIN EC 81 MG TAB PO ONE (07:49)
[2020-02-21] MEDS ORDERED: POTASSIUM CL SA 10 MEQ TAB PO ONE ×2 (07:49→09:00)
[2020-02-21] MEDS ORDERED: ENOXAPARIN 40 MG/0.4 ML SQ ONE (07:50)
[2020-02-21] MEDS ORDERED: PNEUMOCOCCAL VACCINE 0.5 ML IMVAC ONE (08:00)
[2020-02-21] MEDS: ASPIRIN EC 81 MG TAB PO SCH (08:05)
[2020-02-21] MEDS: ENOXAPARIN 40 MG/0.4 ML SQ SCH (08:05)
--- NOTE | 2020-02-21 08:50 | RAD REPORT ---
EXAM DESCRIPTION: RAD - Chest Single View - 02/21/2020 1:00 am CLINICAL HISTORY: CHEST PAIN Chest pain. COMPARISON: Chest Single View dated 08/26/2019; Chest Single View dated 10/21/2018; Chest Single View d ated 03/30/2018; Chest Pa And Lat (2 Views) dated 07/06/2017 FINDINGS: Portable technique limits examination quality. The lungs are grossly clear. The heart is normal in size. No displaced fractures. IMPRESSION: No acute intrathoracic process suspected.
--- NOTE | 2020-02-21 14:03 | CON ---
Date of Consultation: 02/21/2020 Reason For Consultation: Chest pain. History Of Present Illness: A 45-year-old female, obese, history of hypertension, presented with billy st pain, pressure-like, retrosternal, no radiation. Started around 7:30 p.m. yesterday, continuously being there. Not related to exertion. No radiation. She has been having shortness of breath on mi nimal exertion lately. No nausea, vomiting, or diarrhea. No other complaints. Past Medical History: As outlined above in HPI. Medications: Refer to reconciliation sheet for detailed list. Allergies: CONTRAST MEDIA. Social History: She does not smoke or drink. Does not use drugs. Review of Systems: All systems reviewed and they were negative except what mentioned in the HPI. Family History: No premature coronary disease or cancer. Physical Examination: Vital Signs: Temperature is 97.8, pulse 69, breathing at 18, blood pressure 126/59, saturating 97%. General: Pleasant young female, obese, no apparent distress. Head and neck: Pupils are equal, reactive to light. Intact eye movements. No JVD. No cervical lym phadenopathy. Neck: Supple. Thyroid is not enlarged. Lungs: Clear to auscultation bilaterally. No rhonchi, rales, or crackles. No accessory muscle use. Heart: Regular rate and rhythm. No extra sounds. Abdomen: Soft, nontender. Bowel sounds positive. No organomegaly. No masses or hernia. No rigidi ty or rebound. Extremities: No edema, clubbing, or cyanosis. Intact pulses. Skin: No rash noted. Neurologic: Alert, awake, oriented x3. No acute focal deficits appreciated. Investigations: Troponins x2 are negative. Creatinine 0.78. Hemoglobin 13.8. EKG is normal sinus rhythm without acute abnormalities. Assessment And Plan: Chest pain. It is atypical as it is constant since yesterday. Negative EKG fi ndings and negative troponin. Atypical and probably noncardiac due to obesity and hypertension. Rec ommend exercise stress test to further evaluate and further trend troponin 1 more time. Start baby a spirin 81 mg and further plan based on the stress test results. If the patient becomes asymptomatic and chest pain free, stress test can be done as outpatient. Otherwise, if continues to have symptoms , recommend to do the stress test as an inpatient. SR/MODL Voice ID: [id number] Report ID: [id number]
--- NOTE | 2020-02-21 17:46 | P.PN ---
Subjective Date of Service: 02/21/20 Primary Care Provider: Dr. Ortiz Chief Complaint: Chest pain Subjective: No new changes (continues with chest pain, some relief with medications) Review of Systems 10-point ROS is otherwise unremarkable Physical Examination - Vital Signs Temperature: 98.0 F Blood Pressure: 96/60 Pulse: 75 Respirations: 17 Pulse Ox (%): 98 - Physical Exam General: Alert, In no apparent distress, Oriented x3 HEENT: Sclerae nonicteric Respiratory: Clear to auscultation bilaterally Cardiovascular: No edema, Regular rate/rhythm Gastrointestinal: Soft and benign, No tenderness Musculoskeletal: Tenderness (slight TTP along sternum) Integumentary: No rashes Neurological: Normal speech, Normal affect - Studies Laboratory Data (last 24 hrs) 02/21/20 05:35: Sodium 140, Potassium 3.8, BUN 10, Creatinine 0.78, Glucose 106, Magnesium 2.1, Troponin I < 0.02, Triglycerides 175 H, Cholesterol 137, HDL Cholesterol 25 L, Cholesterol/HDL Ratio 5.48 02/21/20 00:35: PT 11.8, INR 1.00 02/21/20 00:35: WBC 7.9, Hgb 13.8, Hct 41.0, Plt Count 256 02/21/20 00:35: Sodium 141, Potassium 3.9, BUN 10, Creatinine 0.94, Glucose 106, Magnesium 2.2, Total Bilirubin 0.3, AST 11 L, ALT 15, Alkaline Phosphatase 62, Lipase 124 Assessment & Plan Physician Review Additional Text: Chest pain rule out ACS Diabetes mellitus type 2 Plan Chest pain rule out ACS: trop negative x3, cardiology consulted, recommend stress test given family history, atypical chest pain continue aspirin, metoprolol, stati Diabetes mellitus type 2: A.c. HS Accu-Cheks, sliding scale insulin therapy. Patient reports last A1c was 5 last month. Dispo: anticipate dc home tomorrow after stress test - if negative Time Spent Managing Pts Care (In Minutes): 35
[2020-02-21] MEDS: ATORVASTATIN 40 MG TAB PO SCH ×2 (21:00)
[2020-02-21] MEDS ORDERED: ATORVASTATIN 20 MG TAB ONE (21:34)
[2020-02-21] MEDS ORDERED: ALPRAZOLAM 0.25 MG TABLET ONE (21:35)
[2020-02-21] MEDS ORDERED: ACETAMINOPHEN 325 MG TABLET ONE (21:39)
[2020-02-21] MEDS ORDERED: PROMETHAZINE INJ 25 MG/ML AMP IV ONE (21:39)
[2020-02-21] MEDS ORDERED: ACETAMINOPHEN 500 MG TAB ONE (21:41)
[2020-02-21] MEDS ORDERED: PROMETHAZINE INJ 25 MG/ML AMP ONE (22:02)
[2020-02-22 05:21] LABS: Magnesium 2.3 mg/dL (1.8-2.4); Potassium 4.2 mmol/L (3.5-5.1)
[2020-02-22] MEDS: METOPROLOL TAR 25 MG TAB PO SCH (06:00)
[2020-02-22] MEDS: INSULIN -REGULAR HUMAN 50 UNIT/0.5 ML ML SQ SCH ×3 (07:30→16:22)
[2020-02-22] MEDS: ASPIRIN EC 81 MG TAB PO SCH (08:13)
[2020-02-22] MEDS: ENOXAPARIN 40 MG/0.4 ML SQ SCH (08:13)
[2020-02-22] MEDS ORDERED: REGADENOSON 0.4 MG/5 ML SYR IV ONE (08:30)
--- NOTE | 2020-02-22 12:05 | RAD REPORT ---
EXAM DESCRIPTION: NM - Rest Stress Cardiac Imaging - 02/22/2020 11:49 am CLINICAL HISTORY: CP Chest pain. COMPARISON: No comparisons TECHNIQUE: The patient was administered approximately 10mCi of Tc 99m Sestamibi prior to resting SPE CT imaging of the heart. The patient was then administered approximately 30 mCi of Tc 99m Sestamibi f ollowing exercise or pharmacologic stress. Multiplanar SPECT images were reviewed. FINDINGS: No stress induced ischemic defect is seen to suggest stress induced ischemia. No fixed def ect is seen to suggest hibernating myocardium or scarred myocardium. The end diastolic volume is 65 ml, the end systolic volume is 23 ml, and the ejection fraction is 64 %. IMPRESSION: No stress induced ischemia.
--- NOTE | 2020-02-22 15:44 | P.DS ---
Admission Date: 02/21/20 Discharge Date: 02/22/20 Primary Care Provider: Dr. Ortiz Disposition: ROUTINE DISCHARGE Discharge Condition: GOOD Reason for Admission: Chest pain Consultations: Cardiology - Dr. Gordillo Procedures: CXR (02/20): no acute intrathoracic processs suspected Nuclear Stress Test (02/21): no stress induced ischemic defect is seen. no fixed defect is seen. EF: 64% COVID (02/20): negative. Problem List: Chest pain rule out ACS Diabetes mellitus type 2, non-insulin dependent Brief History of Present Illness: 45yo F, PMH: non-insulin dependent DM2, presented to ED due to chest pain/pressure behind sternum. Pain began night prior to presentation while cooking dinner. Described as pressure/tightness, radiated to back with associated diaphoresis/nausea. Denies history of cardiac disease, reports father with h/o heart disease. Initial troponin negative, EKG without ischemic changes, CXR unremarkable, labs otherwise unremarkable. Hospital Course: Patient was admitted for ACS rule out. Troponin trended and remained negative x 3. Cardiology consulted and recommended nuclear stress test given continued atypical chest pain, which resulted negative. On day of discharge, patient reported mild-moderate improvement of chest pain. On the seconday day of hospitalization, patient did have some sternal tenderness that recreated her pain, however subsequent exams were negative on recreating this. She was discharged with a prescription for pantoprazole. She is to f/u with PCP and to f/u with cardiology if her pain persists. She expressed understanding and agreement with the plan. Vital Signs/Physical Exam: Temp Pulse Resp BP Pulse Ox 98.6 F 79 20 126/84 99 02/22/20 12:00 02/22/20 12:00 02/22/20 12:00 02/22/20 12:00 02/22/20 12:00 General: Alert, In no apparent distress, Oriented x3, Obese HEENT: Sclerae nonicteric Neck: JVD not distended Respiratory: Clear to auscultation bilaterally, Normal air movement Cardiovascular: No edema, Regular rate/rhythm, No murmurs Gastrointestinal: Soft and benign Musculoskeletal: No tenderness Integumentary: No rashes, No significant lesion Neurological: Normal speech, Normal affect Laboratory Data at Discharge: WBC 7.9 K/uL (4.3-10.9) 02/21/20 00:35 Hgb 13.8 g/dL (12.0-15.0) 02/21/20 00:35 Hct 41.0 % (36.0-45.0) 02/21/20 00:35 Plt Count 256 K/uL (152-406) 02/21/20 00:35 PT 11.8 SECONDS (9.5-12.5) 02/21/20 00:35 INR 1.00 02/21/20 00:35 Sodium 142 mmol/L (136-145) 02/22/20 04:42 Potassium 4.2 mmol/L (3.5-5.1) 02/22/20 04:42 BUN 8 mg/dL (7-18) 02/22/20 04:42 Creatinine 0.86 mg/dL (0.55-1.3) 02/22/20 04:42 Glucose 103 mg/dL (74-106) 02/22/20 04:42 Magnesium 2.3 mg/dL (1.8-2.4) 02/22/20 04:42 Total Bilirubin 0.3 mg/dL (0.2-1.0) 02/21/20 00:35 AST 11 U/L (15-37) L 02/21/20 00:35 ALT 15 U/L (12-78) 02/21/20 00:35 Alkaline Phosphatase 62 U/L (45-117) 02/21/20 00:35 Troponin I < 0.02 ng/mL (0.0-0.045) 02/21/20 11:39 Triglycerides 175 mg/dL (<150) H 02/21/20 05:35 Cholesterol 137 mg/dL (<200) 02/21/20 05:35 HDL Cholesterol 25 mg/dL (40-60) L 02/21/20 05:35 Cholesterol/HDL Ratio 5.48 02/21/20 05:35 Lipase 124 U/L (73-393) 02/21/20 00:35 Home Medications: Alprazolam [Xanax] 0.5 mg PO BID 02/21/20 Metformin HCl 500 mg PO DAILY 02/21/20 Pantoprazole [Protonix Tab*] 40 mg PO DAILY 30 Days #30 tab 02/22/20 New Medications: Pantoprazole [Protonix Tab*] 40 mg PO DAILY 30 Days #30 tab Patient Discharge Instructions: Your cardiac enzymes (troponin), EKG, and stress test were all normal. There was no evidence of an acute heart attack / heart damage. Your chest pain may be due to some gastritis / acid reflux. You are prescribed pantoprazole - once a day. Follow up with PCP within 1 week. Follow up with Cardiology in the next few weeks if your pain persists. Diet: ADA Activity: Ad elise Followup: Yunior Gold PA [Primary Care Provider] - Time spent managing pt's care (in minutes): 45
[2020-02-22 16:26] VITALS: BP 121/76; TEMP 97.8; O2SAT 98
--- NOTE | 2020-02-25 08:44 | TREADPHA ---
DX: CHEST PAIN Date of Study: Ht: 5' 4 " Wt: 240 lb 0 oz Consulting Physician: KEMI MEDICATIONS: ASPIRIN, LOPRESSOR, NOVOLIN-R HISTORY: 45 YEAR OLD FEMALE WITH CHEST PAIN. HISTORY OF NON INSULIN DEPENDENT DIABETES MELLITUS AND ANXIETY. PHYSICIAL EXAMINATION: RESTING B.P.: 132/81 RESTING H.R.: 77 RESTING EKG: NORMAL PROTOCOL: LEXISCAN EXERCISE TIME: 3:30 B.P. AT PEAK STRESS: 114/76 IMPRESSION: LEXISCAN STRESS TEST PERFORMED. CARDIOLITE INJECTED PER PROTOCOL. SEE NUCLEAR MEDICINE REPORT. NO SUPRAVENTRICULAR TACHYCARDIA. NO VENTRICULAR TACHYCARDIA. NO ARRHYTMIAS NOTED. RESPIRATORY EVEN AND NONLABORED. PATIENT TOLERATED WELL.
== END 2020-02-22 16:27 | disposition home or self-care (01) | DRG 392 ==
LOC: ER 23:55 → ERHOLD 02-21 02:09 → OBSVTOIN 02-21 07:48 → ERHOLD 02-21 17:44
PROVIDERS: ADMIT Hospitalist; ATTEND Hospitalist
DX: K21.9 Gastro-esophageal reflux disease without esophagitis (principal); Z68.41 Body mass index [BMI] 40.0-44.9, adult; E66.9 Obesity, unspecified; K29.70 Gastritis, unspecified, without bleeding; I10 Essential (primary) hypertension; E11.9 Type 2 diabetes mellitus without complications; Z88.8 Allergy status to other drugs, medicaments and biological substances; Z79.84 Long term (current) use of oral hypoglycemic drugs; Z91.041 Radiographic dye allergy status; Z79.899 Other long term (current) drug therapy; Z90.49 Acquired absence of other specified parts of digestive tract; Z20.822 Contact with and (suspected) exposure to COVID-19
CPT/HCPCS: 36415; 71045; 78452; 80048; 80061; 80076; 82947; 83690; 83735; 83880; 84439; 84443; 84484; 85025; 85610; 93005; 93017; 96374; 96375; 99285; A9500; G0378; J1650; J2270; J2405; J2550; J2785; U0003

== ENCOUNTER 2020-11-15 03:52 | Emergency (ER) | payer SELFPAY ==
[2020-11-15] MEDS ORDERED: predniSONE 20 MG TAB ONE (05:36)
[2020-11-15] MEDS ORDERED: DIPHENHYDRAMINE 25 MG TAB/CAP ONE (05:36)
[2020-11-15] MEDS ORDERED: FAMOTIDINE 20 MG TAB ONE (05:36)
--- NOTE | 2020-11-15 05:50 | EDPHYS ---
Physician Documentation [facility] Name: Aracelis Morales Age: 45 yrs Sex: Female : 1975 Arrival Date: 11/15/2020 Time: 03:56 Bed 11 Private MD: ED Physician Andrzej Mullins HPI: 11/15 04:25 This 45 yrs old Female presents to ER via Ambulatory with complaints of mh7 Allergic Reaction, Nausea, Hives. 04:25 The patient presents with itching, rash, of the chest, right arm and left arm. Onset: mh7 The symptoms/episode began/occurred today, at 01:00. Associated signs and symptoms: Pertinent positives: hives, nausea, rash, Pertinent negatives: abdominal pain, Altered mental status chest pain, dysphagia, fever, headache, Light headed shortness of breath, swelling, Syncope vomiting. Possible causes: CBD Gummies. At home the patient or guardian has treated the symptoms with nothing. Severity of symptoms: At their worst the symptoms were mild today, in the emergency department the symptoms are unchanged. Patient states that she ate 2 CBD Gummies around 12:30 AM and approximately 30 minutes later started having itching and a rash to both arms and chest area. Denies any lip, tongue, throat swelling. Denies any headache, chest pain, abdominal pain, fever, shortness of breath, cough, vomiting, diarrhea, dizziness, numbness/tingling, or weakness.. RN PRIMARY CARE: 04:16 LMP 10/29/2020 df1 Historical: - Allergies: 04:08 Iodine; df1 - Home Meds: 04:08 alprazolam 0.5 mg Oral tab twice a day [Active]; metformin 500 mg Oral tab 1 tab daily df1 [Active]; - PMHx: 04:08 Anxiety; Diabetes - NIDDM; Pancreatitis; df1 - PSHx: 04:08 section; Cholecystectomy; df1 - Immunization history:: Adult Immunizations up to date. - Social history:: Smoking status: Patient denies any tobacco usage or history of. Patient/guardian denies using alcohol, street drugs, IV drugs. ROS: 04:25 Constitutional: Negative for fever, chills, and weight loss, Eyes: Negative for injury, mh7 pain, redness, and discharge, ENT: Negative for injury, pain, and discharge, Neck: Negative for injury, pain, and swelling, Cardiovascular: Negative for chest pain, palpitations, and edema, Respiratory: Negative for shortness of breath, cough, wheezing, and pleuritic chest pain, Back: Negative for injury and pain, : Negative for injury, bleeding, discharge, and swelling, MS/Extremity: Negative for injury and deformity, Neuro: Negative for headache, weakness, numbness, tingling, and seizure, Psych: Negative for depression, anxiety, suicide ideation, homicidal ideation, and hallucinations, Endocrine: Negative for neck swelling, polydipsia, polyuria, polyphagia, and marked weight changes, Hematologic/Lymphatic: Negative for swollen nodes, abnormal bleeding, and unusual bruising. Exam: 04:25 Constitutional: This is a well developed, well nourished patient who is awake, alert, mh7 and in no acute distress. Head/Face: Normocephalic, atraumatic. Eyes: Pupils equal round and reactive to light, extra-ocular motions intact. Lids and lashes normal. Conjunctiva and sclera are non-icteric and not injected. Cornea within normal limits. Periorbital areas with no swelling, redness, or edema. Neck: Trachea midline, no thyromegaly or masses palpated, and no cervical lymphadenopathy. Supple, full range of motion without nuchal rigidity, or vertebral point tenderness. No Meningismus. Chest/axilla: Normal chest wall appearance and motion. Nontender with no deformity. No lesions are appreciated. Cardiovascular: Regular rate and rhythm with a normal S1 and S2. No gallops, murmurs, or rubs. Normal PMI, no JVD. No pulse deficits. Respiratory: Lungs have equal breath sounds bilaterally, clear to auscultation and percussion. No rales, rhonchi or wheezes noted. No increased work of breathing, no retractions or nasal flaring. Abdomen/GI: Soft, non-tender, with normal bowel sounds. No distension or tympany. No guarding or rebound. No evidence of tenderness throughout. Back: No spinal tenderness. No costovertebral tenderness. Full range of motion. Skin: Warm, dry with normal turgor. Normal color with no rashes, no lesions, and no evidence of cellulitis. MS/ Extremity: Pulses equal, no cyanosis. Neurovascular intact. Full, normal range of motion. Neuro: Awake and alert, GCS 15, oriented to person, place, time, and situation. Cranial nerves II-XII grossly intact. Motor strength 5/5 in all extremities. Sensory grossly intact. Cerebellar exam normal. Normal gait. Psych: Awake, alert, with orientation to person, place and time. Behavior, mood, and affect are within normal limits. Vital Signs: 04:05 BP 160 / 102; Pulse 91; Resp 18; Temp 98.7; Pulse Ox 100% on R/A; Weight 108.86 kg; df1 Height 5 ft. 4 in. (162.56 cm); Pain 0/10; 04:46 BP 131 / 82; Pulse 91; Resp 18; Temp 97.0; Pulse Ox 100% ; Weight 108.8 kg; Height 5 wr ft. 4 in. (162.56 cm); Pain 0/10; 04:46 Body Mass Index 41.17 (108.80 kg, 162.56 cm) wr MDM: 05:44 Differential diagnosis: anaphylaxis, angioedema, non IgE mediated drug reaction 7 urticaria. Data reviewed: vital signs, nurses notes, lab test result(s), finger stick glucose. Data interpreted: Pulse oximetry: on room air is 100 %. Interpretation: normal. Counseling: I had a detailed discussion with the patient and/or guardian regarding: the historical points, exam findings, and any diagnostic results supporting the discharge/admit diagnosis, lab results, the need for outpatient follow up, to return to the emergency department if symptoms worsen or persist or if there are any questions or concerns that arise at home. Response to treatment: the patient's symptoms have resolved after treatment, the patient's blood pressure is in an acceptable range, mental status has returned to baseline, the patient no longer shows bradycardia, the patient is not short of breath, the patient is not tachycardic, the patient's pain is gone, the patient's temperature has normalized, the patient is now symptom free. 05:50 Patient medically screened. [facility] 11/15 05:07 Order name: Glucose, Ancillary Testing; Complete Time: 05:09 EDMS 11/15 04:47 Order name: Accucheck Blood Glucose; Complete Time: 05:08 [facility] Administered Medications: 05:16 Drug: Benadryl (diphenhydrAMINE) 50 mg Route: PO; wr 05:16 Drug: Pepcid (famotidine) 20 mg Route: PO; wr 05:16 Drug: predniSONE 60 mg Route: PO; Point of Care Testing: Ranges: Critical Glucose Levels:Adult <50 mg/dl or >400 mg/dl <40 mg/dl or >180 mg/dl Disposition Summary: 11/15/20 05:50 Discharge Ordered Location: Home [facility] Problem: new [facility] Symptoms: have improved [facility] Condition: Stable [facility] Diagnosis - Urticaria, unspecified [facility] - Cannabis abuse [facility] Followup: [facility] - With: Private Physician - When: 1 - 2 days - Reason: Worsening of condition, Recheck today's complaints, Continuance of care, Re-evaluation by your physician Followup: [facility] - With: Man Merida MD - When: 1 - 2 days - Reason: Worsening of condition, Recheck today's complaints Discharge Instructions: - Discharge Summary Sheet [facility] - Hives, [id number] [facility] Forms: - Medication Reconciliation Form [facility] - Thank You Letter [facility] - Antibiotic Education [facility] - Prescription Opioid Use [facility] Prescriptions: - Benadryl 25 mg Oral Capsule - take 1 capsule by ORAL route every 6 hours As needed; 30 tablet; Refills: 0, [facility] Product Selection Permitted - Pepcid 20 mg Oral Tablet - take 1 tablet by ORAL route every 12 hours for 5 days; 10 tablet; Refills: 0, [facility] Product Selection Permitted - Prednisone 20 mg Oral Tablet - take 2 tablets by ORAL route once daily for 5 days; 10 tablet; Refills: 0, [facility] Product Selection Permitted Signatures: Dispatcher [employer] Andrzej Perez MD MD [facility] Ervin Watson Dawn df1
--- NOTE | 2020-11-15 05:50 | ER ---
Nurse's Notes [facility] Name: Aracelis Morales Age: 45 yrs Sex: Female : 1975 Arrival Date: 11/15/2020 Time: 03:56 Bed 11 Private MD: Diagnosis: Urticaria, unspecified;Cannabis abuse Presentation: 11/15 04:05 Chief complaint: Patient states: allergic reaction/rash at 0330 today. Coronavirus df1 screen: Vaccine status: Patient reports being unvaccinated. The client reports previous COVID testing was negative. Date of collection: July 2020. Ebola Screen: Patient negative for fever greater than or equal to 101.5 degrees Fahrenheit, and additional compatible Ebola Virus Disease symptoms Patient denies exposure to infectious person. Patient denies travel to an Ebola-affected area in the 21 days before illness onset. Onset: The symptoms/episode began/occurred suddenly, 3 hour(s) ago. Onset: The symptoms/episode began/occurred 1 hour(s) ago. Anaphylaxis evaluation, no signs or symptoms of anaphylaxis were noted. Initial Sepsis Screen: Does the patient meet any 2 criteria? No. Patient's initial sepsis screen is negative. Risk Assessment: Do you want to hurt yourself or someone else? Patient reports no desire to harm self or others. Onset of symptoms was November 15, 2020 at 03:30. 04:05 Method Of Arrival: Ambulatory df1 04:05 Acuity: TACHO 4 df1 04:10 Note Pt states h/o anxiety and out of prescription. At 0030 today she took 2 CBD df1 gummies for relief. At 0330 pt states rash, nausea and hot sweat. Upon arrival pt denies SOB, nausea. LS CTA. Resp even and unlabored. Airway patent. Skin warm and dry. 04:18 Initial Sepsis Screen: Does the patient have a suspected source of infection? No. df1 Patient's initial sepsis screen is negative. Triage Assessment: 04:09 General: Appears in no apparent distress. comfortable, Behavior is calm, cooperative. df1 Pain: Denies pain. Derm: Pt reports rash to bilateral arms and torso. BRICK WASHER: 04:16 LMP 10/29/2020 df1 Historical: - Allergies: 04:08 Iodine; df1 - Home Meds: 04:08 alprazolam 0.5 mg Oral tab twice a day [Active]; metformin 500 mg Oral tab 1 tab daily df1 [Active]; - PMHx: 04:08 Anxiety; Diabetes - NIDDM; Pancreatitis; df1 - PSHx: 04:08 section; Cholecystectomy; df1 - Immunization history:: Adult Immunizations up to date. - Social history:: Smoking status: Patient denies any tobacco usage or history of. Patient/guardian denies using alcohol, street drugs, IV drugs. Screenin:16 Abuse screen: Denies threats or abuse. Nutritional screening: No deficits noted. df1 Tuberculosis screening: No symptoms or risk factors identified. Fall Risk None identified. Assessment: 04:16 Respiratory: Airway is patent Breath sounds are clear bilaterally. df1 04:18 Respiratory: Respiratory effort is even, unlabored. df1 05:01 Reassessment: B/P=131/82., blood ajnnvge=348, T=97.7,R=18,. Reassessment: Pulse=91,O2 wr Kqn=195 %.Rash on arms neck,and face.. General: Appears in no apparent distress. obese. Pain: Denies pain. Cardiovascular: No deficits noted. 05:06 GI: No deficits noted. wr Vital Signs: 04:05 BP 160 / 102; Pulse 91; Resp 18; Temp 98.7; Pulse Ox 100% on R/A; Weight 108.86 kg; df1 Height 5 ft. 4 in. (162.56 cm); Pain 0/10; 04:46 BP 131 / 82; Pulse 91; Resp 18; Temp 97.0; Pulse Ox 100% ; Weight 108.8 kg; Height 5 wr ft. 4 in. (162.56 cm); Pain 0/10; 04:46 Body Mass Index 41.17 (108.80 kg, 162.56 cm) wr ED Course: 03:56 Patient arrived in ED. bp1 04:08 Triage completed. df1 04:16 Arm band placed on right wrist. df1 04:18 Patient has correct armband on for positive identification. Bed in low position. Call df1 light in reach. 04:18 No provider procedures requiring assistance completed. df1 04:23 Andrzej Mullins MD is Attending Physician. [facility] 05:46 Man Merida MD is Referral Physician. mh7 Administered Medications: 05:16 Drug: Benadryl (diphenhydrAMINE) 50 mg Route: PO; wr 05:16 Drug: Pepcid (famotidine) 20 mg Route: PO; wr 05:16 Drug: predniSONE 60 mg Route: PO; Point of Care Testing: Ranges: Outcome: 05:36 Condition: Condition stable, patient stated itching have stop ,and rash is going wr away. No acute distress noted at this time. 05:36 Instructed on discharge instructions, no drinking with medication, medication usage. 05:50 Discharge ordered by . socrates 06:10 Patient left the ED. Signatures: Marily Dover Maurice, MD MD mh7 Ervin Watson Dawn df1
[2020-11-15 06:19] VITALS: O2SAT 100
[2020-11-15 06:21] VITALS: BP 131/82; TEMP 97
== END 2020-11-15 06:10 | disposition home or self-care (01) ==
LOC: ER 03:52
DX: L50.9 Urticaria, unspecified (principal); F12.10 Cannabis abuse, uncomplicated; E11.9 Type 2 diabetes mellitus without complications; F41.9 Anxiety disorder, unspecified; Z91.048 Other nonmedicinal substance allergy status
CPT/HCPCS: 82947; 99283; J7512

== ENCOUNTER 2021-03-07 23:11 | Emergency (ER) | payer SELFPAY ==
--- OUTSIDE RECORDS SUMMARY | 2021-03-07 23:15 | XMS REPORT | Continuity of Care Document ---
:1975 Author Organization [facility] t Address [address] [place] [address] Care Team Providers Name Role Phone Mitch Faustin Primary Care Physician Salena BENITEZ Attending Clinician Unavailable Eli VAZQUEZ, Salena Attending Clinician SOLOMON Attending Clinician Unavailable SOLOMON Attending Clinician Unavailable Mitch VAZQUEZ, J Attending Clinician Doctor Unassigned, Name Attending Clinician Unavailable Diaz ROTH Attending Clinician Unavailable Payers Payer Name Policy Type Policy Number Effective Date Expiration Date S [employer] [place] [id number] 2020 WOMEN 00:00:00 MEDICAID PENDING PENDING 2018 2018 00:00:00 00:00:00 Advance Directives Directive Decision Effective Termination Comments Source Date Date Healthcare Agents on N/A Univ ersity FileNameRelationshipHealthcare [facility] Agent Medical RelationshipCommunicationHerkimer Memorial Hospitala Branch Therese MoralesSist. franc[facility] centerHealth Care [phone] (Mobile) [email or web address] Problems Condition Condition Condition Status Onset Resolution Last Treating Co mments Source Name Details Category Date Date Treatment Clinician Date Benign Benign Disease Active Univers breast breast 6-14 ity of lumps lumps 00:00: [place] [address] Medical Branch Abnormal Abnormal Disease Active Unive rs finding on finding on 07-28 it y of breast breast 00:00: [place] imaging imaging 00 Medical Branch Anxiety Anxiety Disease Active Univers 4-27 ity of 00:00: [place] [facility] Excessive Excessive Disease Active Uni vers bleeding bleeding -27 ity of in the in the 00:00: [place] premenopau premenopau 00 Me dical phi period phi period Br anch Contracept Contracept Disease Active 2016-02 U nivers rowdy rowdy 2-28 ity of management management 00:00: [place] [facility] Morbid Morbid Disease Active 2016-02 Univers obesity obesity 2- ity of 00:00: [place] [facility] History of History of Disease Active U mike depression depression - it y of 00:00: [place] [facility] History of History of Disease Active U liloers anxiety anxiety - ity of 00:00: [place] [facility] Controlled Controlled Disease Active U nivers type 2 type 2 -26 ity of diabetes diabetes 00:00: [place] mellitus mellitus 00 Medica l without without Branch complicati complicati on on Allergies, Adverse Reactions, Alerts Allergy Allergy Status Severity Reaction(s) Onset Inactive Treating Comm ents Source Name Type Date Date Clinician IODINE Drug Active Rash 2018-02 Univers AND Class 0-23 ity of IODIDE 00:00: [place] CONTAINI 00 Medical NG Branch PRODUCTS Iodine Propensi Active Rash 2018-02 Univers And ty to 0-23 ity of Iodide adverse 00:00: [place] Containi reaction 00 Medica l ng s Branch Products Social History Social Habit Start Date Stop Date Quantity Comments Source Exposure to Not sure [facility] SARS-CoV-2 [place] Medical (event) Branch Alcohol intake 2020-07-28 2020-07-28 Current University of 00:00:00 00:00:00 non-drinker of [facility] alcohol Branch (finding) Tobacco use and 2016-06-09 2016-06-09 Never used Universit y of exposure 00:00:00 00:00:00 [facility] Sex Assigned At [birth year] Universit y of 00:00:00 00:00:00 [facility] Smoking Status Start Date Stop Date Source Never smoker [facility] Branch Medications Ordered Filled Start Stop Current Ordering Indication Dosage Frequency Signature Comments Components Source Medication Medication Date Date Medication? Clinician (SIG) Name Name hydroCHLORO Yes 12.5mg Take 12.5 Univers thiazide 4-07 mg by ity of 12.5 mg 00:00: mouth [place] tablet 00 daily. Medical Branch ALPRAZolam Yes .5mg Take 0.5 Uni vers 0.5 mg 2-17 mg by ity of tablet 00:00: mouth 2 [place] 00 (two) Medical times Branch daily. proMETHazin 2018-02 Yes [id number] 25mg Take 1 Univers e 25 mg 0-23 tablet by ity of tablet 00:00: mouth [place] 00 every 6 Medical (six) Branch hours as needed for Nausea and Vomiting (N/V). metFORMIN 2016-02 Yes 500mg Take 1 Unive rs 500 mg 1-12 tablet by ity of tablet 00:00: mouth 2 00 (two) Medical times [place] daily with meals. Immunizations Ordered Filled Immunization Date Status Comments Rene stokes Immunization Name Name TDAP 2016-10-14 Completed University of 00:00:00 [facility] Influenza Virus 2016-06-09 Completed [facility] y of Vaccine Quad IM 3+ 00:00:00 [facility] Procedures Procedure Date / Time Performed Performing Clinician Rene stokes BI ULTRASOUND BREAST 2021-02-11 17:57:00 Tirce Benitez [facility] Branch Encounters Start End Encounter Admission Attending Care Care Encounter Source Date/Time Date/Time Type Type Clinicians Facility Department ID 2020-12-13 Emergency [facility] [id number] Univers 14:22:14 itcelestine of [facility] 2021-02-11 2021-02-11 [facility] [id number] Univers 10:49:55 23:59:00 TRICE gutiérrez of [facility] 2021-02-11 2021-02-11 [facility] [place] [id number] Univers 10:49:55 23:59:00 Encounter Trice Martino SPECIALTY [id number] ity of CARE [id number] [facility] AT [id number] [place] [id number] Branch [place] 2021-02-11 2021-02-11 Outpatient Lenin BENITEZ [facility] [id number] Univers 11:00:00 11:00:00 [id number] 2020-12-29 2020-12-29 Outpatient Lenin ELI [facility] [id number] Univers 11:15:00 11:15:00 [facility] [id number] [facility] 2020-12-29 2020-12-29 [facility] [id number] Univers 00:00:00 00:00:00 TRICE celestine [facility] 2020-07-24 2020-07-24 Outpatient Lenin BENITEZ [facility] [id number] Univers 00:00:00 00:00:00 TRICE [id number] [facility] 2020-07-24 2020-07-24 [facility] [id number] Univers 00:00:00 00:00:00 TRICE celestine [facility] 2020-07-01 2020-07-01 Outpatient Lenin BENITEZ [facility] [id number] Univers 12:30:00 12:30:00 TRICE [id number] [facility] 2020-07-01 2020-07-01 Outpatient Lenin BENITEZ [facility] [id number] Univers 00:00:00 00:00:00 TRICE [facility] 2020-06-23 2020-06-23 Outpatient R [facility] [id number] Univers 13:30:00 13:30:00 [id number] [facility] 2020-06-23 2020-06-23 Outpatient R [facility] [id number] Univers 13:30:00 13:30:00 ity [facility] 2020-06-16 2020-06-16 Outpatient R BASIM CARBAJAL [facility] [id number] Univers 13:00:00 13:00:00 BASIM [facility]JAL [id number] [facility] 2020-06-16 2020-06-16 Outpatient R BASIM CARBAJAL [facility] [id number] Univers 00:00:00 00:00:00 BASIM CARBAJAL [facility] 2020-06-16 2020-06-16 Outpatient R TWILA CARBAJALEETA [facility] [id number] Univers 00:00:00 00:00:00 BASIM CARBAJAL celsetine [facility] 2020-06-16 2020-06-16 [facility] [id number] Univers 00:00:00 00:00:00 BASIM CARBAJAL [facility] 2020-06-10 2020-06-10 [facility] [id number] Univers 13:15:00 13:15:00 TRICE celestine [facility] 2020-06-10 2020-06-10 [facility] [id number] Univers 13:15:00 13:15:00 TRICE [id number] [facility] 2019-09-17 2019-09-17 [facility] [id number] 14:51:00 16:38:00 Kimberly Caballero [id number] [place] [id number] [place] [id number] 2019-09-17 2019-09-17 Orders Doctor TED [id number] 00:00:00 00:00:00 Only Unassigned, MAMIE [id number] [place] [facility] [id number] 2018-12-06 2018-12-06 Emergency [facility] ERT [id number] Univers 20:14:02 22:54:00 SENTHIL [facility] Results This patient has no known results.
[2021-03-08 00:03] LABS: Absolute Lymphocytes (CBC) 1.7 K/uL (0.7-4.9); Hematocrit 41.4 % (36.0-45.0); Lymphocytes % 16.7 % (15.3-44.8); MPV 7.2 fL (7.6-11.3); Protime INR 0.99; RBC Red Blood Cell Count 4.77 M/uL (3.86-4.86)
[2021-03-08 00:04] LABS: Urine Blood Negative (Negative); Urine Glucose Negative (Negative); Urine Protein Negative (Negative); Urine Specific Gravity >=1.030 (1.005-1.030); Urine pH 5.5 (5.0-7.0)
[2021-03-08] MEDS ORDERED: FENTANYL CITR 100 MCG/2 ML ONE (00:11)
[2021-03-08] MEDS ORDERED: NA CHLORIDE 0.9% 2,000 ML ONE (00:12)
[2021-03-08] MEDS ORDERED: ONDANSETRON 4 MG/2 ML VIAL ONE (00:12)
[2021-03-08] MEDS ORDERED: FAMOTIDINE 20 MG/2 ML VIAL IV ONE (00:12)
[2021-03-08 00:19] LABS: Albumin 3.6 g/dL (3.4-5.0); Bilirubin Direct 0.1 mg/dL (0-0.2); Bilirubin Total 0.4 mg/dL (0.2-1.0); Potassium 3.7 mmol/L (3.5-5.1); Protein, Total 7.5 g/dL (6.4-8.2); Troponin High Sensitivity 4.7 pg/mL (<58.9)
[2021-03-08] MEDS ORDERED: NA CHLORIDE 0.9% 100 ML ONE (02:46)
[2021-03-08] MEDS ORDERED: CEFTRIAXONE 1000 MG/VIAL ONE (02:46)
--- NOTE | 2021-03-08 03:29 | EDPHYS ---
Physician Documentation [facility] Name: Aracelis Morales Age: 46 yrs Sex: Female : 1975 Arrival Date: 03/07/2021 Time: 23:15 Bed 14 Private MD: NAKIA Physician Duncan Monaco HPI: 03/07 23:34 This 46 yrs old Female presents to ER via Ambulatory with complaints of carlos Abdominal Pain, Nausea/Vomiting/Diarrhea. 23:34 The patient presents to the emergency department with nausea, vomiting, that is carlos continuous, described as bilious. Onset: The symptoms/episode began/occurred today. Possible causes: unknown. The symptoms are aggravated by nothing. The symptoms are alleviated by nothing. Associated signs and symptoms: The patient has no apparent associated signs or symptoms. Severity of symptoms: At their worst the symptoms were mild in the emergency department the symptoms have resolved. The patient has not experienced similar symptoms in the past. 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 - Social history:: Smoking status: Patient denies any tobacco usage or history of. Patient/guardian denies using alcohol. ROS: 23:35 Constitutional: Negative for fever, chills, and weight loss, Eyes: Negative for injury, carlos pain, redness, and discharge, ENT: Negative for injury, pain, and discharge, Neck: Negative for injury, pain, and swelling, Cardiovascular: Negative for chest pain, palpitations, and edema, Respiratory: Negative for shortness of breath, cough, wheezing, and pleuritic chest pain, Back: Negative for injury and pain, : Negative for injury, bleeding, discharge, and swelling, MS/Extremity: Negative for injury and deformity, Skin: Negative for injury, rash, and discoloration, Neuro: Negative for headache, weakness, numbness, tingling, and seizure, Psych: Negative for depression, anxiety, suicide ideation, homicidal ideation, and hallucinations, Allergy/Immunology: Negative for hives, rash, and allergies, Endocrine: Negative for neck swelling, polydipsia, polyuria, polyphagia, and marked weight changes, Hematologic/Lymphatic: Negative for swollen nodes, abnormal bleeding, and unusual bruising. 23:35 Abdomen/GI: Positive for abdominal pain, nausea and vomiting, of the epigastric area, right upper quadrant and left upper quadrant. Exam: 23:35 Constitutional: This is a well developed, well nourished patient who is awake, alert, carlos and in no acute distress. Head/Face: Normocephalic, atraumatic. Eyes: Pupils equal round and reactive to light, extra-ocular motions intact. Lids and lashes normal. Conjunctiva and sclera are non-icteric and not injected. Cornea within normal limits. Periorbital areas with no swelling, redness, or edema. ENT: Nares patent. No nasal discharge, no septal abnormalities noted. Tympanic membranes are normal and external auditory canals are clear. Oropharynx with no redness, swelling, or masses, exudates, or evidence of obstruction, uvula midline. Mucous membranes moist. Neck: Trachea midline, no thyromegaly or masses palpated, and no cervical lymphadenopathy. Supple, full range of motion without nuchal rigidity, or vertebral point tenderness. No Meningismus. Chest/axilla: Normal chest wall appearance and motion. Nontender with no deformity. No lesions are appreciated. Cardiovascular: Regular rate and rhythm with a normal S1 and S2. No gallops, murmurs, or rubs. Normal PMI, no JVD. No pulse deficits. Respiratory: Lungs have equal breath sounds bilaterally, clear to auscultation and percussion. No rales, rhonchi or wheezes noted. No increased work of breathing, no retractions or nasal flaring. Back: No spinal tenderness. No costovertebral tenderness. Full range of motion. Pelvic Exam: Normal external genitalia. Speculum exam with closed cervical os, no discharge or bleeding noted. Bimanual exam with normal adnexa, no adnexal or cervical motion tenderness. Normal uterus. Female : Normal external genitalia. Skin: Warm, dry with normal turgor. Normal color with no rashes, no lesions, and no evidence of cellulitis. MS/ Extremity: Pulses equal, no cyanosis. Neurovascular intact. Full, normal range of motion. Neuro: Awake and alert, GCS 15, oriented to person, place, time, and situation. Cranial nerves II-XII grossly intact. Motor strength 5/5 in all extremities. Sensory grossly intact. Cerebellar exam normal. Normal gait. Psych: Awake, alert, with orientation to person, place and time. Behavior, mood, and affect are within normal limits. 23:35 Abdomen/GI: Inspection: abdomen appears normal, distension, that is moderate, Bowel sounds: normal, Palpation: moderate abdominal tenderness, in the epigastric area, right upper quadrant and left upper quadrant, Liver: no appreciated palpable abnormalities, Hernia: not appreciated. 03/08 00:24 ECG was reviewed by the Attending Physician. [facility] Vital Signs: 03/07 23:28 BP 161 / 80; Pulse 94; Resp 18; Temp 98.2(TE); Pulse Ox 99% on R/A; Weight 108.86 kg; ld1 Height 5 ft. 4 in. (162.56 cm); Pain 0/10; 23:28 Body Mass Index 41.20 (108.86 kg, 162.56 cm) ld1 MDM: 23:23 Patient medically screened. [facility] 23:36 Differential diagnosis: gastritis, pancreatitis, diverticulitis, viral gastroenteritis, carlos gastroenteritis. Data reviewed: vital signs, nurses notes, lab test result(s), EKG, radiologic studies, CT scan, plain films. Data interpreted: hall monitor: rate is 94 beats/min, rhythm is regular, Pulse oximetry: on room air is 99 %. Test interpretation: by ED physician or midlevel provider: ECG, plain radiologic studies. Counseling: I had a detailed discussion with the patient and/or guardian regarding: the historical points, exam findings, and any diagnostic results supporting the discharge/admit diagnosis, lab results, radiology results. 03/07 23:33 Order name: Basic Metabolic Panel; Complete Time: 00:52 [facility] 03/07 22: Order name: CBC with Diff; Complete Time: 00:52 [facility] 03/07 23:33 Order name: LFT's; Complete Time: 00:52 [facility] 03/07 23: Order name: Magnesium; Complete Time: 00:52 [facility] 03/07 23:33 Order name: NT PRO-BNP; Complete Time: 00:52 [facility] 03/07 23:33 Order name: PT-INR; Complete Time: 00:52 [facility] 03/07 23:33 Order name: Troponin HS; Complete Time: 00:52 [facility] 03/07 23:33 Order name: XRAY Chest (1 view) [facility] 03/07 23:33 Order name: Lipase; Complete Time: 00:52 [facility] 03/07 23:40 Order name: Abdomen EDAK 03/08 00:04 Order name: Urine Dipstick-Ancillary; Complete Time: 00:52 [facility] 03/08 00:14 Order name: Urine Dipstick-Ancillary [facility] 03/07 23:33 Order name: EKG; Complete Time: 23:34 [facility] 03/07 23:33 Order name: Cardiac monitoring; Complete Time: 00:06 [facility] 03/07 23:33 Order name: EKG - Nurse/Tech; Complete Time: 00:06 [facility] 03/07 23:33 Order name: IV Saline Lock; Complete Time: 00:06 [facility] 03/07 23:33 Order name: Labs collected and sent; Complete Time: 00:06 [facility] 03/07 23:33 Order name: O2 Per Protocol; Complete Time: 00:06 [facility] 03/07 23:33 Order name: O2 Sat Monitoring; Complete Time: 00:06 [facility] 03/07 23:33 Order name: Urine Dipstick-Ancillary (obtain specimen); Complete Time: 00:06 [facility] 03/07 23:33 Order name: Urine Test (obtain specimen); Complete Time: 00:06 [facility] EC/23 00:24 Rate is 87 beats/min. Rhythm is regular. QRS [place] is Normal. [place] interval is normal. QRS carlos interval is normal. QT interval is normal. No Q waves. T waves are Normal. No ST changes noted. Clinical impression: Normal ECG and No evidence of ischemia. Interpreted by me. Reviewed by me. Administered Medications: 00:20 Drug: fentaNYL (PF) 50 mcg Route: IVP; Site: right antecubital; vc1 01:56 Follow up: Response: No adverse reaction vc1 00:20 Drug: NS 0.9% 1000 ml Route: IV; Rate: 125 ml/hr; Site: right antecubital; vc1 03:49 Follow up: Response: No adverse reaction; IV Status: Completed infusion; IV Intake: vc1 500ml 00:21 Drug: NS 0.9% 1000 ml Route: IV; Rate: 1 bolus; Site: right antecubital; vc1 03:34 Follow up: Response: No adverse reaction; IV Status: Completed infusion; IV Intake: vc1 1000ml 00:21 Drug: Zofran (Ondansetron) 8 mg Route: IVP; Site: right antecubital; vc1 01:57 Follow up: Response: No adverse reaction vc1 00:21 Drug: Pepcid (famotidine) 20 mg Route: IVP; Site: right antecubital; vc1 01:56 Follow up: Response: No adverse reaction vc1 03:04 Drug: Rocephin (cefTRIAXone) 1 grams Route: IV; Rate: per protocol; Site: right vc1 antecubital; 03:32 Follow up: Response: No adverse reaction vc1 03:48 Follow up: Response: No adverse reaction; IV Status: Completed infusion vc1 Disposition Summary: 03/08/21 03:28 Discharge Ordered Location: Home carlos Problem: new carlos Symptoms: have improved carlos Condition: Stable carlos Diagnosis - Abdominal tenderness carlos - Epigastric abdominal tenderness carlos - Vomiting carlos Followup: carlos - With: Private Physician - When: 2 - 3 days - Reason: Recheck today's complaints, Continuance of care, Re-evaluation by your physician Followup: carlos - With: - When: 2 - 3 days - Reason: Recheck today's complaints, Re-evaluation by your physician Discharge Instructions: - Discharge Summary Sheet carlos - Abdominal Pain, Adult carlos - Nausea and Vomiting, Adult carlos - Nausea and Vomiting, Adult, [id number] carlos - Abdominal Pain, Adult, [id number] carlos - Vomiting, Adult carlos Forms: - Medication Reconciliation Form carlos - Thank You Letter carlos - Antibiotic Education carlos - Prescription Opioid Use carlos Prescriptions: - Pepcid 20 mg Oral Tablet - take 1 tablet by ORAL route every 12 hours for 15 days; 30 tablet; Refills: 0, carlos Product Selection Permitted - ondansetron 8 mg Oral tablet,disintegrating - take 1 tablet by ORAL route every 8 hours; 15 tablet; Refills: 0, Product carlos Selection Permitted Signatures: Dispatcher [employer] Duncan Mello MD MD cha Dibbern, Lauren RN RN ld1 Calcote, Ileana, RN RN vc1 Corrections: (The following items were deleted from the chart) 03/07 23:40 23:34 Abdomen Pelvis W Con+CT.RAD.BRZ ordered. EDMS EDMS
--- NOTE | 2021-03-08 03:29 | ER ---
Nurse's Notes [facility] Name: Aracelis Morales Age: 46 yrs Sex: Female : 1975 Arrival Date: 03/07/2021 Time: 23:15 Bed 14 Private MD: Diagnosis: Abdominal tenderness;Epigastric abdominal tenderness;Vomiting Presentation: 03/07 23:28 Chief complaint: Patient states: I started feeling nauseous and having chills this ld1 morning. Pt reports vomiting prior to arrival. Coronavirus screen: Client presents with at least one sign or symptom that may indicate coronavirus-19. Standard/surgical mask placed on the client. Ebola Screen: No symptoms or risks identified at this time. Initial Sepsis Screen: Does the patient meet any 2 criteria? No. Patient's initial sepsis screen is negative. Does the patient have a suspected source of infection? No. Patient's initial sepsis screen is negative. Risk Assessment: Do you want to hurt yourself or someone else? Patient reports no desire to harm self or others. Onset of symptoms was March 07, 2021. 23:28 Method Of Arrival: Ambulatory ld1 23:28 Acuity: TACHO 3 ld1 Triage Assessment: 23:30 General: Appears in no apparent distress. comfortable, Behavior is calm, cooperative, ld1 appropriate for age. Pain: Complains of pain in abdomen. Neuro: Level of Consciousness is awake, alert, obeys commands, Oriented to person, place, time, situation. Respiratory: Airway is patent Respiratory effort is even, unlabored. GI: Abdomen is round non-distended, Reports nausea, vomiting. 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 - Social history:: Smoking status: Patient denies any tobacco usage or history of. Patient/guardian denies using alcohol. Screenin/23 00:00 Abuse screen: Denies threats or abuse. Nutritional screening: No deficits noted. vc1 Tuberculosis screening: No symptoms or risk factors identified. Fall Risk None identified. Assessment: 00:00 GI: Bowel sounds present X 4 quads. Abd is soft and non tender. vc1 00:00 General: Appears in no apparent distress. Behavior is calm, cooperative, appropriate vc1 for age. Pain: Complains of pain in epigastric area Pain does not radiate. Pain currently is 5 out of 10 on a pain scale. Neuro: No deficits noted. Cardiovascular: No deficits noted. GI: Reports upper abdominal pain, nausea. 01:00 Reassessment: Patient appears in no apparent distress at this time. Patient and/or vc1 family updated on plan of care and expected duration. Pain level reassessed. Patient is alert, oriented x 3, equal unlabored respirations, skin warm/dry/pink. Patient states symptoms have improved. 02:00 Reassessment: Patient appears in no apparent distress at this time. Patient and/or vc1 family updated on plan of care and expected duration. Pain level reassessed. Patient is alert, oriented x 3, equal unlabored respirations, skin warm/dry/pink. 03:00 Reassessment: Patient appears in no apparent distress at this time. No changes from vc1 previously documented assessment. Patient and/or family updated on plan of care and expected duration. Pain level reassessed. Patient is alert, oriented x 3, equal unlabored respirations, skin warm/dry/pink. Vital Signs: 03/07 23:28 BP 161 / 80; Pulse 94; Resp 18; Temp 98.2(TE); Pulse Ox 99% on R/A; Weight 108.86 kg; ld1 Height 5 ft. 4 in. (162.56 cm); Pain 0/10; 23:28 Body Mass Index 41.20 (108.86 kg, 162.56 cm) ld1 ED Course: 23:15 Patient arrived in ED. ja2 23:23 Duncan Monaco MD is Attending Physician. carlos 23:30 Triage completed. ld1 23:30 Arm band placed on right wrist. ld1 03/08 00:00 Patient has correct armband on for positive identification. sports book board attendant on. Pulse vc1 ox on. NIBP on. 00:04 Basic Metabolic Panel Sent. vc1 00:04 CBC with Diff Sent. vc1 00:04 LFT's Sent. vc1 00:04 Magnesium Sent. vc1 00:04 NT PRO-BNP Sent. vc1 00:06 Lipase Sent. vc1 00:20 Ileana Zambrano, RN is Primary Nurse. vc1 01:07 XRAY Chest (1 view) In Process Unspecified. EDMS 01:55 Abdomen In Process Unspecified. EDMS 03:28 Lesli Tomas MD is Referral Physician. carlos 03:33 Urine Dipstick-Ancillary Sent. vc1 03:47 No provider procedures requiring assistance completed. IV discontinued, intact, vc1 bleeding controlled, No redness/swelling at site. Pressure dressing applied. Administered Medications: 00:20 Drug: fentaNYL (PF) 50 mcg Route: IVP; Site: right antecubital; vc1 01:56 Follow up: Response: No adverse reaction vc1 00:20 Drug: NS 0.9% 1000 ml Route: IV; Rate: 125 ml/hr; Site: right antecubital; vc1 03:49 Follow up: Response: No adverse reaction; IV Status: Completed infusion; IV Intake: vc1 500ml 00:21 Drug: NS 0.9% 1000 ml Route: IV; Rate: 1 bolus; Site: right antecubital; vc1 03:34 Follow up: Response: No adverse reaction; IV Status: Completed infusion; IV Intake: vc1 1000ml 00:21 Drug: Zofran (Ondansetron) 8 mg Route: IVP; Site: right antecubital; vc1 01:57 Follow up: Response: No adverse reaction vc1 00:21 Drug: Pepcid (famotidine) 20 mg Route: IVP; Site: right antecubital; vc1 01:56 Follow up: Response: No adverse reaction vc1 03:04 Drug: Rocephin (cefTRIAXone) 1 grams Route: IV; Rate: per protocol; Site: right vc1 antecubital; 03:32 Follow up: Response: No adverse reaction vc1 03:48 Follow up: Response: No adverse reaction; IV Status: Completed infusion vc1 Intake: 03:34 IV: 1000ml; Total: 1000ml. vc1 03:49 IV: 500ml; Total: 1500ml. vc1 Outcome: 03:28 Discharge ordered by . carlos 03:47 Discharged to home ambulatory. vc1 03:47 Condition: good 03:47 Discharge instructions given to patient, Instructed on discharge instructions, follow up and referral plans. Demonstrated understanding of instructions, follow-up care, medications, Prescriptions given X 2. 03:48 Patient left the ED. vc1 Signatures: Dispatcher [employer] [facility] Duncan Monaco MD MD cha Dibbern, Lauren, RN RN ld1 Shannon Ward Vanessa, RN RN vc1
--- NOTE | 2021-03-08 07:56 | RAD REPORT ---
EXAM DESCRIPTION: RAD - Chest Single View - 03/08/2021 1:08 am CLINICAL HISTORY: ABDOMINAL DISTENTION COMPARISON: Chest Single View dated 02/21/2020; Chest Single View dated 08/26/2019; Chest Single View d ated 10/21/2018; Chest Single View dated 03/30/2018 FINDINGS: Lines: None. Lungs: No evidence of edema or pneumonia. Pleural: No significant pleural effusions or pneumothorax. Cardiac: The heart size is within normal limits. Bones: No acute fractures. Other: IMPRESSION: No acute cardiopulmonary disease.
[2021-03-08 09:29] VITALS: BP 161/80; TEMP 98.2; O2SAT 99
--- NOTE | 2021-03-09 08:05 | EKG ---
Test Date: 2021-03-07 Test Time: 23:47:07 Fly Rail Operator: RIKI MEASUREMENT RESULTS: Intervals: Rate: 87 CO: 152 QRSD: 90 QT: 396 QTc: 476 [place]: P: 41 CO: 152 QRS: 64 T: 7 INTERPRETIVE STATEMENTS: Normal sinus rhythm Normal ECG Compared to ECG 02/21/2020 00:27:13 ST (T wave) deviation no longer present Electronically Signed On 03-09-21 08:03:06 HYDRAULIC BULL RIVETER OPERATOR by Dale Bell
--- NOTE | 2021-03-09 11:40 | RAD REPORT ---
EXAM DESCRIPTION: CT - Abdomen Pelvis Wo Contrast - 03/08/2021 4:30 am CLINICAL HISTORY: 46 years, Female, Abd pain;Abdominal distention;Nausea / vomiting COMPARISON: 10/03/2019 TECHNIQUE: Multiple transaxial tomograms of the abdomen and pelvis were performed from the lung base s to the symphysis pubis 5 mm slice thickness at 5 mm interval reconstruction, without administration of IV and oral contrast. Multiplanar reformats in the sagittal and coronal plane were generated and reviewed. This exam was performed according to our departmental dose-optimization protocol, which includes auto mated exposure control, adjustment of the mA and/or kV according to patient size and/or use of iterat rowdy reconstruction technique. FINDINGS: The lack of IV and oral contrast limits evaluation of solid organs, subtle lesions cannot be excluded. The lung bases demonstrate to be clear. Grossly the unopacified liver demonstrate decreased attenuation corresponding to fatty infiltration. Otherwise the liver, pancreas, spleen and adrenal glands demonstrate to be within normal limits, no s ignificant focal lesions were identified. Surgical clips within the gallbladder fossa correspond to previous cholecystectomy. The kidneys demonstrate grossly unremarkable. There is no evidence for nephrolithiasis and/or hydro nephrosis. The opacified stomach, small bowel and large bowel demonstrate to be within normal limits. There is n o evidence for bowel dilatation/or free air. The appendix is normal. Large bowel demonstrate to be un remarkable. There is minimal diverticulosis within the sigmoid colon with no evidence for diverticuli tis. The urinary bladder demonstrate to be within normal limits. The uterus is absent. There are no adnexa l masses. The aorta demonstrate to be within normal limits. There is no retroperitoneal lymphadenop athy. There is no evidence for ascites. The rest of the soft tissue demonstrate to be grossly unrem arkable. IMPRESSION: No evidence for nephrolithiasis and/or hydronephrosis. Fatty infiltration of the liver. Minimal diverticulosis within the sigmoid colon with no evidence for diverticulitis. Status post cholecystectomy and hysterectomy. Electronically signed by: Cruz Monterroso MD 03/08/2021 3:11 AM SYSTEMS DEVELOPMENT MANAGER Due to temporary technical issues with the PACS/Fluency reporting system, reports are being signed by the in house radiologist without review as a courtesy to ensure prompt reporting. The interpreting r adiologist is fully responsible for the content of the report.
== END 2021-03-08 03:48 | disposition home or self-care (01) ==
LOC: ER 23:11
DX: R11.2 Nausea with vomiting, unspecified (principal); E11.9 Type 2 diabetes mellitus without complications; F41.9 Anxiety disorder, unspecified; Z91.048 Other nonmedicinal substance allergy status
CPT/HCPCS: 96365; 96361; 93005; 85025; 80048; 36415; 83735; 85610; 80076; 81003; 84484; 83690; 83880; 74176; 71045; 96375; 99284; J3010; J7030; J2405

== ENCOUNTER 2022-06-10 16:55 | Emergency (ER) | payer SELFPAY ==
--- OUTSIDE RECORDS SUMMARY | 2022-06-10 17:00 | XMS REPORT | Continuity of Care Document ---
:1975 Author Organization [facility] t Address [address] [facility] [address] [place] [address] Care Team Providers Name Role Phone TARIQ VIVEROS Primary Care Physician Unavailable PADMINI POLLOCK Attending Clinician Unavailable Chloé Arzola Attending Clinician CHLOÉ MARTINS Attending Clinician Unavailable HAYLEY IBARRA Attending Clinician Unavailable Hayley Rubio Attending Clinician Padmini Rucker Attending Clinician [phone] APRIL HYLTON Attending Clinician Unavailable April Hylton MD Attending Clinician Gurdeep Hunter Attending Clinician SENTHIL ROTH Attending Clinician Unavailable Senthil Escalera Attending Clinician TRICE BENITEZ Attending Clinician Unavailable Trice Swenson Attending Clinician BASIM CARBAJAL Attending Clinician Unavailable BASIM CARBAJAL Attending Clinician Unavailable Kimberly Meyers Attending Clinician Doctor Unassigned, [place] Attending Clinician Unavailable HAYLEY IBARRA Admitting Clinician Unavailable PADMINI POLLOCK Admitting Clinician Unavailable APRIL HYLTON Admitting Clinician Unavailable Payers Payer Name Policy Type Policy Number Effective Date Expiration Date Diaz clifton [employer]-RMCHP [id number] 2020 00:00:00 MEDICAID PENDING PENDING 2018 2018 00:00:00 00:00:00 Problems Condition Condition Condition Status Onset Resolution Last Treating Co mments Source Name Details Category Date Date Treatment Clinician Date Benign Benign Disease Active Univers breast breast 6-14 ity of lumps lumps 00:00: [place] 00 Medical Branch Abnormal Abnormal Disease Active Unive rs finding on finding on 07-28 it y of breast breast 00:00: [place] imaging imaging 00 Medical Branch Anxiety Anxiety Disease Active Univers 4-27 ity of 00:00: [place] 00 Medical Branch Excessive Excessive Disease Active Uni vers bleeding bleeding 4-27 ity of in the in the 00:00: [place] premenopau premenopau 00 Me dical phi period phi period Br anch Contracept Contracept Disease Active 2016-02 U nivers rowdy rowdy 2-28 ity of management management [place] [facility] [place] Morbid Morbid Disease Active 2016-02 Univers obesity obesity 2-28 ity of 00:00: [place] 00 Medical Branch History of History of Disease Active U nivers depression depression 4-26 it y of 00:00: [place] 00 Medical Branch History of History of Disease Active U nivers anxiety anxiety 4-26 ity of 00:00: [place] 00 Medical Branch Controlled Controlled Disease Active U nivers type 2 type 2 4-26 ity of diabetes diabetes 00:00: [place] mellitus mellitus 00 Medica l without without Branch complicati complicati on on Allergies, Adverse Reactions, Alerts Allergy Allergy Status Severity Reaction(s) Onset Inactive Treating Comm ents Source Name Type Date Date Clinician Iodine Propensi Active Rash 2018-02 Univers And ty to 0-23 ity of Iodide adverse 00:00: [place] Containi reaction 00 Medica l ng s Branch Products IODINE Drug Active Rash 2018-02 Univers AND Class 0-23 ity of IODIDE 00:00: [place] CONTAINI 00 Medical NG Branch PRODUCTS Iodine Propensi Active Rash 2018-02 Univers And ty to 0-23 ity of Iodide adverse 00:00: [place] Containi reaction 00 Medica l ng s Branch Products Social History Social Habit Start Date Stop Date Quantity Comments Source Exposure to 2022-05-23 2022-06-02 Not sure [facility] SARS-CoV-2 00:00:00 00:13:00 [place] Medical (event) Branch Alcohol intake 2022-06-02 2022-06-02 Current University 00:00:00 00:00:00 non-drinker of [facility] alcohol (finding) Branch Tobacco use and 2016-06-09 2016-06-09 Smokeless tobacco Un iversity of exposure 00:00:00 00:00:00 non-user [facility] Sex Assigned At [birth year] Universit y of 00:00:00 00:00:00 [facility] Smoking Status Start Date Stop Date Source Never smoked tobacco [facility] Medications Ordered Filled Start Stop Current Ordering Indication Dosage Frequency Signature Comments Components Source Medication Medication Date Date Medication? Clinician (SIG) Name Name acetaminoph No 1000mg 1,000 mg, Univers en 06-02 Oral, ity of (TYLENOL) 05:30: 05:24 ONCE, 1 [place] tablet [place] :[place] dose, On Medical 1,000 mg Wed [place] 06/02/22 at 0030, BETHANIE ketorolac 2022- No 30mg 30 mg, Unive rs (TORADOL) 05-30 Slow IV ity of injection 22:00: 21:28 Push, [place] 30 mg 00 :00 ONCE, 1 Medical dose, On [facility] 05/30/22 at 1700, Routine NaCl 0.9% 2022- No 1000mL at 999 Uni vers (NS) bolus 05-30 mL/hr, ity of infusion 21:45: 22:50 1,000 mL, Justin as 1,000 mL 00 :00 IV Medical Infusion, [place] ONCE, 1 dose, On [place] 05/30/22 at 1645, BETHANIE ondansetron 2022- No 4mg 4 mg, Slow Univers (ZOFRAN 05-30 IV Push, ity of (PF)) 21:15: 21:25 ONCE, 1 [place] injection 4 00 :00 dose, On Medi cris mg [place] 05/30/22 at 1615, BETHANIE morpHINE (4 2022- No 4mg 4 mg, Slow Univers mg/mL) 05-30-16 IV Push, ity of injection 4 21:15: 21:29 ONCE, 1 [place] mg 00 :[place] dose, On Medical [place] 05/30/22 at 1615, STAT cephALEXin 2022-0 Yes [id number] 500mg Take 1 U nivers 500 mg 4-16 capsule by ity of capsule 00:00: mouth 4 [place] 00 (four) Medical times Branch daily. ibuprofen 2022-0 Yes [id number] 600mg Take 1 U nivers 600 mg 4-16 tablet by ity of tablet 00:00: mouth [place] 00 every 6 Medical (six) Branch hours as needed for Pain (scale 4-6). cephALEXin 2022-0 Yes [id number] 500mg Take 1 U nivers 500 mg 4-16 capsule by ity of capsule 00:00: mouth 4 [place] 00 (four) Medical times Branch daily. ibuprofen 2022-0 Yes [id number] 600mg Take 1 U nivers 600 mg 4-16 tablet by ity of tablet 00:00: mouth [place] 00 every 6 Medical (six) Branch hours as needed for Pain (scale 4-6). cephALEXin 2022-0 2022- No [id number] 500mg Take 1 Univers 500 mg -16 -16 capsule by ity of capsule 00:00: 00:00 mouth 4 [place] 00 :00 (four) Medical times Branch daily for 8 days. ibuprofen 2022-0 2022- No [id number] 600mg Take 1 Univers 600 mg 4-16 -16 tablet by ity of tablet 00:00: 00:00 mouth [place] 00 :00 every 6 Medical (six) Branch hours as needed for Pain (scale 4-6). aspirin 0 Yes 324mg 324 mg, Univer s chewable 10-05 Oral, ity of tablet 324 14:00: DAILY, [place] mg 00 First dose Medical on Mon Branch 10/05/21 at 0900, Until Discontinu ed, Routine ondansetron 2021-0 2021- No 4mg 4 mg, Slow Univers (ZOFRAN 10-05 IV Push, ity of (PF)) 03:00: 02:49 ONCE, 1 [place] injection 4 00 :00 dose, On Medi cris mg [place] 10/04/21 at 2200, BETHANIE morpHINE (4 2021- No 4mg 4 mg, Slow Univers mg/mL) 10-05 IV Push, ity of injection 4 03:00: 02:44 ONCE, 1 [place] mg 00 :00 dose, On Medical [place] 10/04/21 at 2200, STAT meclizine 2021-0 Yes [id number] 25mg Take 1 U nivers 25 mg 1-31 tablet by ity of tablet 00:00: mouth [place] 00 every 6 Medical (six) Branch hours. meclizine 2021-0 Yes [id number] 25mg Take 1 U nivers 25 mg 1-31 tablet by ity of tablet 00:00: mouth [place] 00 every 6 Medical (six) Branch hours. meclizine 2021-0 Yes [id number] 25mg Take 1 U nivers 25 mg 1-31 tablet by ity of tablet 00:00: mouth [place] 00 every 6 Medical (six) Branch hours. meclizine 2021-0 Yes [id number] 25mg Take 1 U nivers 25 mg 1-31 tablet by ity of tablet 00:00: mouth [place] 00 every 6 Medical (six) Branch hours. meclizine 2021-0 Yes [id number] 25mg Take 1 U nivers 25 mg 1-31 tablet by ity of tablet 00:00: mouth [place] 00 every 6 Medical (six) Branch hours. meclizine 2021-0 Yes [id number] 25mg Take 1 U nivers 25 mg 1-31 tablet by ity of tablet 00:00: mouth [place] 00 every 6 Medical (six) Branch hours. hydroCHLORO 2020-0 Yes 12.5mg Take 12.5 Univers thiazide 4-07 mg by ity of 12.5 mg 00:00: mouth [place] tablet 00 daily. Medical Branch hydroCHLORO 2020-0 Yes 12.5mg Take 12.5 Univers thiazide 4-07 mg by ity of 12.5 mg 00:00: mouth [place] tablet 00 daily. Medical Branch hydroCHLORO 2020-0 Yes 12.5mg Take 12.5 Univers thiazide 4-07 mg by ity of 12.5 mg 00:00: mouth [place] tablet 00 daily. Medical Branch hydroCHLORO 1-0 Yes 12.5mg Take 12.5 Univers thiazide 4-07 mg by ity of 12.5 mg 00:00: mouth [place] tablet 00 daily. Medical Branch hydroCHLORO 2020-0 Yes 12.5mg Take 12.5 Univers thiazide 4-07 mg by ity of 12.5 mg 00:00: mouth [place] tablet 00 daily. Medical Branch hydroCHLORO 2020-0 Yes 12.5mg Take 12.5 Univers thiazide 4-07 mg by ity of 12.5 mg 00:00: mouth [place] tablet 00 daily. Medical Branch ALPRAZolam 2020-0 Yes .5mg Take 0.5 Uni vers 0.5 mg 2-17 mg by ity of tablet 00:00: mouth 2 [place] 00 (two) Medical times Branch daily. ALPRAZolam 2020-0 Yes .5mg Take 0.5 Uni vers 0.5 mg 2-17 mg by ity of tablet 00:00: mouth 2 [place] 00 (two) Medical times Branch daily. ALPRAZolam 2020-0 Yes .5mg Take 0.5 Uni vers 0.5 mg 2-17 mg by ity of tablet 00:00: mouth 2 [place] 00 (two) Medical times Branch daily. ALPRAZolam 1-0 Yes .5mg Take 0.5 Uni vers 0.5 mg 2-17 mg by ity of tablet 00:00: mouth 2 [place] 00 (two) Medical times Branch daily. ALPRAZolam 2020-0 Yes .5mg Take 0.5 Uni vers 0.5 mg 2-17 mg by ity of tablet 00:00: mouth 2 [place] 00 (two) Medical times Branch daily. ALPRAZolam 2020-0 Yes .5mg Take 0.5 Uni vers 0.5 mg 2-17 mg by ity of tablet 00:00: mouth 2 [place] 00 (two) Medical times Branch daily. proMETHazin 2018-02 Yes [id number] 25mg Take 1 Univers e 25 mg 0-23 tablet by ity of tablet 00:00: mouth [place] 00 every 6 Medical (six) Branch hours as needed for Nausea and Vomiting (N/V). proMETHazin 2018-02 Yes [id number] 25mg Take 1 Univers e 25 mg 0-23 tablet by ity of tablet 00:00: mouth [place] 00 every 6 Medical (six) Branch hours as needed for Nausea and Vomiting (N/V). proMETHazin 2018-02 Yes [id number] 25mg Take 1 Univers e 25 mg 0-23 tablet by ity of tablet 00:00: mouth [place] 00 every 6 Medical (six) Branch hours as needed for Nausea and Vomiting (N/V). proMETHazin 2018-02 Yes [id number] 25mg Take 1 Univers e 25 mg 0-23 tablet by ity of tablet 00:00: mouth [place] 00 every 6 Medical (six) Branch hours as needed for Nausea and Vomiting (N/V). proMETHazin 2018-02 Yes [id number] 25mg Take 1 Univers e 25 mg 0-23 tablet by ity of tablet 00:00: mouth [place] 00 every 6 Medical (six) Branch hours as needed for Nausea and Vomiting (N/V). proMETHazin 2018-02 Yes [id number] 25mg Take 1 Univers e 25 mg 0-23 tablet by ity of tablet 00:00: mouth [place] 00 every 6 Medical (six) Branch hours as needed for Nausea and Vomiting (N/V). metFORMIN 2016-02 Yes 500mg Take 1 Unive rs 500 mg 1-12 tablet by ity of tablet 00:00: mouth (two) Medical times Branch daily with meals. metFORMIN 2016-02 Yes 500mg Take 1 Unive rs 500 mg 1-12 tablet by ity of tablet 00:00: mouth (two) Medical times Branch daily with meals. metFORMIN 2016-02 Yes 500mg Take 1 Unive rs 500 mg 1-12 tablet by ity of tablet 00:00: mouth (two) Medical times Branch daily with meals. metFORMIN 2016-02 Yes 500mg Take 1 Unive rs 500 mg 1-12 tablet by ity of tablet 00:00: mouth (two) Medical times Branch daily with meals. metFORMIN 2016-02 Yes 500mg Take 1 Unive rs 500 mg 1-12 tablet by ity of tablet 00:00: mouth (two) Medical times Branch daily with meals. metFORMIN 2016-02 Yes 500mg Take 1 Unive rs 500 mg 1-12 tablet by ity of tablet 00:00: mouth (two) Medical times Branch daily with meals. Immunizations Ordered Filled Immunization Date Status Comments [facility] e Immunization Name Name [facility] 2016-10-14 Completed University of 00:00:00 [facility] TD 2016-10-14 Completed University of 00:00:00 [facility] TD 2016-10-14 Completed University of 00:00:00 [facility] TDAP 2016-10-14 Completed University of 00:00:00 [facility] TD 2016-10-14 Completed University of 00:00:00 [facility] TDAP 2016-10-14 Completed University of 00:00:00 [facility] Influenza Virus 2016-06-09 Completed Universit y of Vaccine Quad IM 3+ 00:00:00 [facility] Influenza Virus 2016-06-09 Completed Universit y of Vaccine Quad IM 3+ 00:00:00 [facility] Influenza Virus 2016-06-09 Completed Universit y of Vaccine Quad IM 3+ 00:00:00 [facility] Influenza Virus 2016-06-09 Completed Universit y of Vaccine Quad IM 3+ 00:00:00 [facility] Influenza Virus 2016-06-09 Completed Universit y of Vaccine Quad IM 3+ 00:00:00 [facility] Influenza Virus 2016-06-09 Completed Universit y of Vaccine Quad IM 3+ 00:00:00 [facility] Vital Signs Vital Name Observation Time Observation Value Comments Source Systolic blood 2022-06-02 06:36:00 135 mm[Hg] Univer sity of pressure [facility] Diastolic blood 2022-06-02 06:36:00 97 mm[Hg] Unive rsity of pressure [facility] Heart rate 2022-06-02 06:36:00 100 /min [facility] Body temperature 2022-06-02 06:36:00 38 Mariaa [facility] Respiratory rate 2022-06-02 06:36:00 20 /min [facility] Oxygen saturation in 2022-06-02 06:36:00 98 /min [facility] Arterial blood by [facility] Pulse oximetry Branch Body height 2022-06-02 05:16:00 162.6 cm [facility] Body weight 2022-06-02 05:16:00 108.41 kg [facility] BMI 2022-06-02 05:16:00 41.02 kg/m2 Universi ty of [place] [facility] Systolic blood 2022-05-30 22:00:00 116 mm[Hg] Univer sity of pressure [place] [facility] Diastolic blood 2022-05-30 22:00:00 80 mm[Hg] Unive rsity of pressure [place] [facility] Heart rate 2022-05-30 22:00:00 94 /min Universi ty of [place] [facility] Respiratory rate 2022-05-30 22:00:00 18 /min Univ ersity of [place] [facility] Oxygen saturation in 2022-05-30 22:00:00 97 /min University of Arterial blood by [place] [facility] Pulse oximetry Branch Body temperature 2022-05-30 20:39:00 37.39 Mariaa Univ ersity of [place] [facility] Body height 2022-05-30 20:39:00 162.6 cm Universi ty [facility] [place] [facility] Body weight 2022-05-30 20:39:00 108.41 kg [facility]i ty [facility] [place] [facility] BMI 2022-05-30 20:39:00 41.02 kg/m2 [facility]i ty [facility] [place] [facility] Systolic blood 2021-10-05 04:00:00 140 mm[Hg] Univer sity of pressure [place] [facility] Diastolic blood 2021-10-05 04:00:00 62 mm[Hg] Unive rsity of pressure [place] [facility] Heart rate 2021-10-05 04:00:00 71 /min Universi ty of [place] [facility] Respiratory rate 2021-10-05 04:00:00 19 /min Univ ersity of [place] [facility] Oxygen saturation in 2021-10-05 04:00:00 98 /min University of Arterial blood by [place] [facility] Pulse oximetry Branch Body temperature 2021-10-05 01:11:00 37.11 Mariaa Univ ersity of [place] [facility] Body height 2021-10-05 01:11:00 162.6 cm [facility]i ty [facility] [place] [facility] Body weight 2021-10-05 01:11:00 112.946 kg [facility]i ty [facility] [place] [facility] BMI 2021-10-05 01:11:00 42.74 kg/m2 [facility]i ty [facility] [place] [facility] Systolic blood 2021-08-11 18:19:00 132 mm[Hg] Univer sity of pressure [place] [facility] Diastolic blood 2021-08-11 18:19:00 78 mm[Hg] Unive rsity of pressure [facility] Heart rate 2021-08-11 18:19:00 84 /min [facility] Body temperature 2021-08-11 18:19:00 36.56 Mariaa [facility] Respiratory rate 2021-08-11 18:19:00 18 /min [facility] Body height 2021-08-11 18:19:00 162.6 cm [facility] Body weight 2021-08-11 18:19:00 115.469 kg [facility] BMI 2021-08-11 18:19:00 43.70 kg/m2 [facility] Procedures Procedure Date / Time Performing Clinician Source Performed NOTICE OF PRIVACY 2022-06-02 05:09:15 Doctor Unassigned, No Univ [facility] PRACTICES Name [facility] CONSENT/REFUSAL FOR 2022-06-02 05:08:40 [facility]igned, [facility] Name [facility] CT THORAX WO CONTRAST 2022-05-30 21:42:00 Hayley [facility] 2022-05-30 21:16:00 Hayley Ibarra [facility] COMP. METABOLIC PANEL 2022-05-30 21:16:00 [facility] [place] [id number] SEDIMENTATION RATE 2022-05-30 21:16:00 Hayley Ibarra [facility] CBC WITH DIFF 2022-05-30 21:16:00 Hayley Ibarra [facility] EBV-MONONUCLEOSIS SCREEN 2022-05-30 21:16:00 Hayley Ibarra [facility] CONSENT/REFUSAL FOR 2022-05-30 20:36:59 Doctor Unassigned, No [facility] Name [facility] TROPONIN I 2021-10-05 03:15:00 April Hylton [facility] XR CHEST 1 VW 2021-10-05 01:30:54 April Hylton [facility] LIPASE 2021-10-05 01:20:00 April Hylton [facility] TROPONIN I 2021-10-05 01:20:00 April Hylton [facility] COMP. METABOLIC PANEL 2021-10-05 01:20:00 April Hylton [facility] ([id number]) [facility] CBC WITH DIFF 2021-10-05 01:20:00 April Hylton [facility] PROTHROMBIN TIME / INR 2021-10-05 01:20:00 April Hylton [facility] ACTIVATED PARTIAL 2021-10-05 01:20:00 April Hylton [facility] CONSENT/REFUSAL FOR 2021-10-05 01:03:42 Doctor Unassigned, No Un [facility] DIAGNOSIS AND TREATMENT Name Medical Branch Encounters Start End Encounter Admission Attending Care Care Encounter Source Date/Time Date/Time Type Type Clinicians Facility Department ID 2020-12-13 Emergency [facility] [id number] Univers 14:22:14 ity [facility] 2022-08-11 2022-08-11 Outpatient R AKINSIPE, [facility] [id number] Univers 13:30:00 13:30:00 PADMINI gutiérrez o f [facility] 2022-08-11 2022-08-11 Outpatient R AKINSIPE, [facility] [id number] Univers 13:15:00 13:15:00 PADMINI andersony o f [facility] 2022-06-02 2022-06-02 Emergency [place], [facility] [id number] Univers 00:19:00 02:06:00 Chloé DOW [id number] Dg [id number] [facility] [id number] [facility] 084 Branch 2022-06-02 2022-06-02 Emergency X RIDDLE, [facility] ERT [id number] Univers 00:19:00 02:06:00 CHLOÉ anderson [facility] 2022-05-30 2022-05-30 Emergency X [facility] ERT [id number] Univers 15:40:00 18:20:00 HAYLEY ity [facility] 2022-05-30 2022-05-30 Emergency [facility] [id number] Univers 15:40:00 18:20:00 [facility] [id number] ity of [place] [id number] [facility] [id number] [address] 2021-10-26 2021-10-26 Outpatient R [facility] [id number] Univers 06:46:08 23:59:00 PADMINI gutiérrez o f [facility] 2021-10-26 2021-10-26 [facility] [id number] Univers 06:46:08 23:59:00 Encounter Padmini Teixeira SPECIALTY [id number] ity of [facility] [id number] [facility] AT [id number] [address] 2021-10-04 2021-10-04 Emergency X [facility] ERT [id number] Univers 20:06:00 23:21:00 APRIL andersony [facility] 2021-10-04 2021-10-04 Emergency [facility] [id number] Univers 20:06:00 23:21:00 April Perales [place] [id number] ity [facility] [id number] [facility] [id number] [address] 2021-08-11 2021-08-11 Outpatient R [facility] [id number] Univers 13:15:00 14:04:37 PADMINI wesley f [facility] 2021-08-11 2021-08-11 Office [facility] [id number] Univers 13:15:00 14:04:37 Visit Padmini Teixeira INVESTIGATION SPECIALIST [id number] ity of [facility] 4.2.7.2.686 Justin as MATERNAL [id number] [facility] & CHILD [address] [place] [address] 2021-08-11 2021-08-11 Outpatient R [facility] [id number] Univers 13:15:00 14:04:37 PADMINI monicacelestine o f [facility] 2021-07-02 2021-07-02 [facility] [id number] Univers 00:00:00 00:00:00 Gurdeep Phelps INVESTIGATION SPECIALIST [id number] [facility] [id number] Justin as MATERNAL [id number] [facility] & CHILD [address] [place] [address] 2021-03-16 2021-03-16 Emergency [facility] [id number] Univers 16:20:00 22:25:00 SENTHIL [facility] 2021-03-16 2021-03-16 Emergency [facility] [id number] Univers 16:20:00 22:25:00 Senthil Perales [place] [id number] i [facility] [id number] [facility] [id number] [address] 2021-02-11 2021-02-11 Outpatient R [facility] [id number] Univers 10:49:55 23:59:00 TRICE gutiérrez [facility] 2021-02-11 2021-02-11 [facility] [id number] Univers 10:49:55 23:59:00 Encounter Trice [id number] [facility] [id number] [facility] AT [id number] [address] [place] 2020-12-29 2020-12-29 Outpatient Lenin BENITEZ [facility] [id number] Univers 00:00:00 00:00:00 TRICE gutiérrez [facility] 2020-07-24 2020-07-24 [facility] [id number] Univers 00:00:00 00:00:00 TRICE gutiérrez [facility] 2020-07-012020-07-01 Outpatient R ELI [facility] [id number] Univers 11:58:52 23:59:00 TRICE gutiérrez [facility] 2020-07-01 2020-07-01 Outpatient R ELI [facility] [id number] Univers 00:00:00 00:00:00 TRICE gutiérrez [facility] 2020-06-23 2020-06-23 Outpatient R [facility] [id number] Univers 13:30:00 13:30:00 borck [facility] 2020-06-16 2020-06-16 Outpatient R BASIM CARBAJAL [facility] [id number] Univers 00:00:00 00:00:00 BASIM CARBAJAL [facility] 2020-06-16 2020-06-16 [facility] [id number] Univers 00:00:00 00:00:00 BASIM CARBAJAL [facility] 2020-06-16 2020-06-16 [facility] [id number] Univers 00:00:00 00:00:00 BASIM CARBAJAL [facility] 2020-06-10 2020-06-10 Outpatient Lenin BENITEZ [facility] [id number] Univers 13:15:00 13:15:00 TRICE celestine [facility] 2019-09-17 2019-09-17 Emergency Mitch [facility] [id number] 14:51:00 16:38:00 Kimberly Dow [id number] [place] [id number] [place] [id number] 2019-09-17 2019-09-17 Orders Doctor TED [id number] 00:00:00 00:00:00 Only Unassigned, MAMIE [id number] [place] [facility] [id number] [id number] 2018-12-06 2018-12-06 Emergency [facility] [id number] Univers 20:14:02 22:54:00 SENTHIL [facility] Results Test Description Test Time Test Comments Results Result Comments Source EBV-MONONUCLEOSIS SCREEN 2022-05-30 22:36:10 Test Item Value Reference Range Interpretation Comme nts EBV Mononucleosis Screen (test code = 9405815351) Negative Nega tive Lab Interpretation (test code = 92672-1) Normal [place] [facility] [id number] 22:13:14 Test Item Value Reference Range Interpretation Comments ESR (test code = 20881-6) 9 See_Comment [ Automated message] The system Gingr generated this result transmitted ref erence range: 0 - 20 m m/HR. The reference r belinda was not used to interpret this result as normal/abnor mal. Lab Interpretation (test Normal code = 54664-4) [facility]. METABOLIC PANEL ([id number])2022-05-30 22:10:18 Test Item Value Reference Range Interpretation Comments NA (test code = 138 mmol/L 135-145 2176602853) K (test code = 4.5 mmol/L 3.5-5.0 5164103061) CL (test code = 100 mmol/L 98-108 9967327665) CO2 TOTAL (test code 27 mmol/L 23-31 = 3712536711) AGAP (test code = 11 2-16 4127195077) BUN (test code = 9 mg/dL 7-23 8060880701) GLUCOSE (test code = 105 mg/dL 70-110 3307268881) CREATININE (test code 0.80 mg/dL 0.50-1.04 = 8753616979) TOTAL BILI (test code 0.8 mg/dL 0.1-1.1 = 1672033882) CALCIUM (test code = 9.0 mg/dL 8.6-10.6 2175539457) T PROTEIN (test code 7.3 g/dL 6.3-8.2 = 4886386117) ALBUMIN (test code = 4.4 g/dL 3.5-5.0 9284515617) ALK PHOS (test code = 49 U/L 34-122 7239316814) ALTv (test code = 24 U/L 5-35 1742-6) AST(SGOT) (test code 25 U/L 13-40 = 1351793032) eGFR (test code = 77.6 mL/min/1.73m2 4374165595) TEJAL (test code = TEJAL) Association of Glomerular Filtration Rate (GFR) and Staging of Kidney Disease* + + +- +| GFR (mL/min/1.73 m2) ?| With Kidney Damage ?| ?Without Kidney Damage+ ------+ ----+ ------+| ?>90 ?| ?Stage one ?| ? Normal ?+ -+ + -+| ?60-89 ?| ?Stage two ?| ? Decreased GFR ? + + +- +| ?30-59 ?| ?Stage three ?| ? Stage three ? + + +- +| ?15-29 ?| ?Stage four ? | ? Stage four ?+ -+ + -+| ?<15 (or dialysis) ? ?| ?Stage five ? | ? Stage five ?+ -+ + -+ *Each stage assumes the associated GFR level has been in effect for at least three months. ?Stages 1 to 5, with or without kidney disease, indicate chronic kidney disease. Notes: Determination of stages one and two (with eGFR >59mL/min/1.73 m2) requires estimation of kidney damage for at least three months as defined by structural or functional abnormalities of the kidney, manifested by either:Pathological abnormalities or Markers of kidney damage (including abnormalities in the composition of the blood or urine or abnormalities in imaging tests). [facility]37 Test Item Value Reference Range Interpretation Comments LIPASE (test code = 6907805569) 52 U/L 0-220 Lab Interpretation (test code = Normal 68192-8) [facility] [id number] 21:50:52 Test Item Value Reference Range Interpretation Comments WBC (test code = 7.08 See_Comment [Automated 5802-2) message] The sy stem which generated this result transmitted reference range : 4.30 - 11.10 10*3/?L. The reference range was not used to interpret this result as normal/abnormal . RBC (test code = 5.09 See_Comment [Automated 308-3) message] The sy stem which generated this result transmitted reference range : 3.93 - 5.25 10*6/?L. The reference range was not used to interpret this result as normal/abnormal . HGB (test code = 14.7 g/dL 11.6-15.0 718-7) HCT (test code = 44.8 % 35.7-45.2 4544-3) MCV (test code = 88.0 fL 80.6-95.5 787-2) MCH (test code = 28.9 pg 25.9-32.8 785-6) MCHC (test code = 32.8 g/dL 31.6-35.1 786-4) RDW-SD (test code = 41.7 fL 39.0-49.9 76788-1) RDW-CV (test code = 12.8 % 12.0-15.5 788-0) PLT (test code = 228 See_Comment [Automated 777-3) message] The sy stem which generated this result transmitted reference range : 166 - 358 10*3/ ?L. The reference r belinda was not used to interpret this result as normal/abnormal . MPV (test code = 9.6 fL 9.5-12.9 89811-0) NRBC/100 WBC (test 0.0 See_Comment [Automat ed code = 9515454922) message] The system which generated this result transmitted reference range : 0.0 - 10.0 /100 WBCs. The refer ence range was not u sed to interpret th is result as normal/abnormal . NRBC x10^3 (test code See_Comment [Auto mated = 1592425824) message] The s ystem which generated this result transmitted reference range : 10*3/?L. The reference range was not used to interpret this result as normal/abnormal . GRAN MAT (NEUT) % 68.7 % (test code = 770-8) IMM GRAN % (test code 0.40 % = 6926631512) LYMPH % (test code = 13.3 % 736-9) MONO % (test code = 17.1 % 5905-5) EOS % (test code = 0.1 % 713-8) BASO % (test code = 0.4 % 706-2) GRAN MAT x10^3(ANC) 4.86 10*3/uL 1.88-7.09 (test code = 7829995080) IMM GRAN x10^3 (test 0.03 10*3/uL 0.00-0.06 code = 6287723761) LYMPH x10^3 (test code 0.94 10*3/uL 1.32-3.29 L = 731-0) MONO x10^3 (test code 1.21 10*3/uL 0.33-0.92 H = 742-7) EOS x10^3 (test code = 0.03-0.39 L 711-2) BASO x10^3 (test code 0.03 10*3/uL 0.01-0.07 = 704-7) Lab Interpretation Abnormal (test code = 74894-7) [facility] [id number] 03:46:06 Test Item Value Reference Interpretation Comments Range TROPONIN I (test 0.001 ng/mL See_Comment [Automated code = 6994891965) message] The system which generated this result transmitted reference range : <=0.034. The reference range was not used to interpret this result as normal/abnormal . TEJAL (test code = Reference (Normal) TEJAL) Range (defined by the 99th percentile reference limit): <= 0.034 ng/mL Note: Cardiac troponin begins to rise 3-4 hours after the onset of ischemia. Repeat in 4-6 hours if the sample was drawn within 3-4 hours of the onset of the symptom and found normal. Diagnosis of myocardial injury is made with acute changes in cTn concentrations with at least one serial sample above the 99th percentile upper reference limit (URL), taken together with the patient's clinical presentation. Biotin has been reported to cause a negative bias, interpret results relative to patient's use of biotin. Lab Interpretation Normal (test code = 63914-9) [facility] [id number] 01:53:04 Test Item Value Reference Interpretation Comments Range TROPONIN I (test 0.002 ng/mL See_Comment [Automated code = 7311792339) message] The system which generated this result transmitted reference range : <=0.034. The reference range was not used to interpret this result as normal/abnormal . TEJAL (test code = Reference (Normal) TEJAL) Range (defined by the 99th percentile reference limit): <= 0.034 ng/mL Note: Cardiac troponin begins to rise 3-4 hours after the onset of ischemia. Repeat in 4-6 hours if the sample was drawn within 3-4 hours of the onset of the symptom and found normal. Diagnosis of myocardial injury is made with acute changes in cTn concentrations with at least one serial sample above the 99th percentile upper reference limit (URL), taken together with the patient's clinical presentation. Biotin has been reported to cause a negative bias, interpret results relative to patient's use of biotin. Lab Interpretation Normal (test code = 71466-9) [facility] 01:42:22 Test Item Value Reference Range Interpretation Comments APTT Patient (test See_Comment [Automat ed code = 3173-2) message] The system which generated this result transmitted reference range : 23 - 38 Seconds . The reference range was not used to interpr et this result as normal/abnormal . TEJAL (test code = TEJAL) The [facility] patient population mean normal value for aPTT is 30 seconds. Lab Interpretation Normal (test code = 88083-8) [facility] METABOLIC PANEL ([id number])2021-10-05 01:42:02 Test Item Value Reference Range Interpretation Comments NA (test code = 138 mmol/L 135-145 4068225672) K (test code = 4.2 mmol/L 3.5-5 1853777812) CL (test code = 103 mmol/L 98-108 9880404258) CO2 TOTAL (test code = 30 mmol/L 23-31 6980763347) AGAP (test code = 2-16 8972165037) BUN (test code = 7 mg/dL 7-23 3627049818) GLUCOSE (test code = 115 mg/dL 70-110 H 4954369429) CREATININE (test code = 0.81 mg/dL 0.5-1.04 2141202424) TOTAL BILI (test code = 0.2 mg/dL 0.1-1.5 4264295883) CALCIUM (test code = 8.4 mg/dL 8.6-10.6 L 1276922488) T PROTEIN (test code = 6.6 g/dL 6.3-8.2 4810327088) ALBUMIN (test code = 4.1 g/dL 3.5-5 1280444505) ALK PHOS (test code = 60 U/L 34-122 8506886961) ALTv (test code = 20 U/L 5-35 2-6) AST(SGOT) (test code = 23 U/L 13-40 2215148347) eGFR (test code = mL/min/1.73m2 4472456393) TEJAL (test code = TEJAL) Association of Glomerular Filtration Rate (GFR) and Staging of Kidney Disease* + --+ --+ ------+| GFR (mL/min/1.73 m2) ?| With Kidney Damage ?| ?Without Kidney Damage+ --------+ --------+ +| ?>90 ?| ?Stage one ?| ? Normal ?+ ---+ ---+ -------+| ?60-89 ?| ?Stage two ?| ? Decreased GFR ? + --+ --+ ------+| ?30-59 ?| ?Stage three ?| ? Stage three ? + --+ --+ ------+| ?15-29 ?| ?Stage four ? | ? Stage four ?+ ---+ ---+ -------+| ?<15 (or dialysis) ? ?| ?Stage five ? | ? Stage five ?+ ---+ ---+ -------+ *Each stage assumes the associated GFR level has been in effect for at least three months. ?Stages 1 to 5, with or without kidney disease, indicate chronic kidney disease. Notes: Determination of stages one and two (with eGFR >59mL/min/1.73 m2) requires estimation of kidney damage for at least three months as defined by structural or functional abnormalities of the kidney, manifested by either:Pathological abnormalities or Markers of kidney damage (including abnormalities in the composition of the blood or urine or abnormalities in imaging tests). Lab Interpretation Abnormal (test code = 49920-3) [facility], [id number] 01:41:22 Test Item Value Reference Range Interpretation Comments LIPASE (test code = 6487167108) 110 U/L 0-220 Lab Interpretation (test code = Normal 22335-0) [facility]landsPROT[facility]OM[facility] TIME / [id number] 01:39:21 Test Item Value Reference Range Interpretation Comments PROTIME PATIENT (test See_Comment [Auto mated message] code = 5964-2) The system wh ich generated this result transmitted ref erence range: 12.0 - 1 4.7 Seconds. The re ference range was not u sed to interpret this result as normal/abnor mal. INR (test code = 6301-6) Nor mal INR <1.1; Warfarin Therap eutic range 2.0 to 3. 0 or 2.5 to 3.5, dep ending upon the indica tions. Lab Interpretation (test Normal code = 98560-4) [facility] WITH [id number] 01:28:20 Test Item Value Reference Range Interpretation Comments WBC (test code = See_Comment [Automated 2690-2) message] The sy stem which generated this result transmitted reference range : 4.30 - 11.10 10*3/?L. The reference range was not used to interpret this result as normal/abnormal . RBC (test code = See_Comment [Automated 789-8) message] The sy stem which generated this result transmitted reference range : 3.93 - 5.25 10*6/?L. The reference range was not used to interpret this result as normal/abnormal . HGB (test code = 13.4 g/dL 11.6-15 718-7) HCT (test code = 40.6 % 35.7-45.2 4544-3) MCV (test code = 86.9 fL 80.6-95.5 787-2) MCH (test code = 28.7 pg 25.9-32.8 785-6) MCHC (test code = 33.0 g/dL 31.6-35.1 786-4) RDW-SD (test code = 42.2 fL 39-49.9 26566-4) RDW-CV (test code = 13.3 % 12-15.5 788-0) PLT (test code = See_Comment [Automated 777-3) message] The sy stem which generated this result transmitted reference range : 166 - 358 10*3/ ?L. The reference r belinda was not used to interpret this result as normal/abnormal . MPV (test code = 9.0 fL 9.5-12.9 L 10780-0) NRBC/100 WBC (test See_Comment [Automat ed code = 8375776080) message] The system which generated this result transmitted reference range : 0.0 - 10.0 /100 WBCs. The refer ence range was not u sed to interpret th is result as normal/abnormal . NRBC x10^3 (test code See_Comment [Auto mated = 9330072577) message] The s ystem which generated this result transmitted reference range : 10*3/?L. The reference range was not used to interpret this result as normal/abnormal . GRAN MAT (NEUT) % 59.1 % (test code = 770-8) IMM GRAN % (test code 0.40 % = 3164227834) LYMPH % (test code = 26.1 % 736-9) MONO % (test code = 12.1 % 5905-5) EOS % (test code = 1.8 % 713-8) BASO % (test code = 0.5 % 706-2) GRAN MAT x10^3(ANC) 4.47 10*3/uL 1.88-7.09 (test code = 4045965507) IMM GRAN x10^3 (test 0.03 10*3/uL 0-0.06 code = 9203922410) LYMPH x10^3 (test code 1.98 10*3/uL 1.32-3.29 = 731-0) MONO x10^3 (test code 0.92 10*3/uL 0.33-0.92 = 742-7) EOS x10^3 (test code = 0.14 10*3/uL 0.03-0.39 711-2) BASO x10^3 (test code 0.04 10*3/uL 0.01-0.07 = 704-7) Lab Interpretation Abnormal (test code = 67407-8) [facility]"
[2022-06-10] MEDS ORDERED: ONDANSETRON 4 MG/2 ML VIAL ONE (17:17)
[2022-06-10] MEDS ORDERED: NA CHLORIDE 0.9% 1,000 ML ONE (17:17)
[2022-06-10] MEDS ORDERED: FAMOTIDINE 20 MG/2 ML VIAL IV ONE (17:17)
[2022-06-10 17:35] LABS: Absolute Lymphocytes (CBC) 2.1 K/uL (0.7-4.9); Hematocrit 36.4 % (36.0-45.0); Lymphocytes % 25.9 % (15.3-44.8); MCV 83.5 fL (80-100); MPV 8.2 fL (7.6-11.3); RBC Red Blood Cell Count 4.36 M/uL (3.86-4.86)
[2022-06-10 17:51] LABS: Albumin 2.4 g/dL (3.4-5.0); Bilirubin Total 0.6 mg/dL (0.2-1.0); Potassium 3.1 mEq/L (3.5-5.1); Protein, Total 6.5 g/dL (6.4-8.2)
--- NOTE | 2022-06-10 18:05 | RAD REPORT ---
EXAM DESCRIPTION: CT - Abdomen Pelvis Wo Contrast - 06/10/2022 5:28 pm CLINICAL HISTORY: ABD PAIN COMPARISON: Abdomen Pelvis Wo Contrast dated 03/08/2021; Abdomen Pelvis Wo Contrast dated 10/03/19 20; CTSTONE PROTOCOL dated 02/26/2015; CTSTONE PROTOCOL dated 10/05/2011 TECHNIQUE: Thin cut axial CT imaging of the abdomen and pelvis was performed without IV contrast. Mu ltiplanar reformats were generated and reviewed. All CT scans are performed using dose optimization technique as appropriate and may include automated exposure control or mA/KV adjustment according to patient size. FINDINGS: Trace left pleural effusion. The liver, adrenal glands, and pancreas show no suspicious findings. Spleen is mildly enlarged. Gallb ladder was surgically removed. No evidence of intra or extrahepatic biliary ductal dilation. Symmetric renal contour, without suspicious parenchymal findings within limits of noncontrast techniq ue. No evidence of radiopaque calculi or hydroureteronephrosis. No dilated bowel loops or bowel wall thickening. No free here or inflammatory stranding. Trace free p elvic fluid, could be physiologic. No hernia, mass or bulky lymphadenopathy. The urinary bladder is w ithout significant finding. No suspicious bony findings. IMPRESSION: No acute intra-abdominal process. Mild splenomegaly. Trace left pleural effusion.
--- NOTE | 2022-06-10 18:29 | EDPHYS ---
Physician Documentation [facility] Name: Aracelis Morales Age: 47 yrs Sex: Female : 1975 Arrival Date: 06/10/2022 Time: 16:55 Bed DIS5 Private MD: NAKIA Physician Duncan Monaco HPI: 06/10 17:08 This 47 yrs old Female presents to ER via Ambulatory with complaints of Fever, ms3 Abdominal Pain. 17:08 47-year-old female with past medical history of anxiety, diabetes, pancreatitis ms3 presents for upper abdominal pain and fever. Patient states her pain is moderate. Patient denies alleviating or inciting factors. Patient states her symptoms have been ongoing for 12 days. Patient endorses cough, fevers, shortness of breath.. Historical: - Allergies: 16:59 Iodine; ll1 16:59 IV contrast; ll1 - Home Meds: 20:39 alprazolam 0.5 mg Oral tab twice a day [Active]; kl - PMHx: 16:59 Anxiety; Diabetes - NIDDM; Pancreatitis; ll1 - PSHx: 16:59 section; Cholecystectomy; ll1 - Immunization history:: Adult Immunizations up to date, Client reports having NOT received the Covid vaccine. - Social history:: Smoking status: Patient denies any tobacco usage or history of. ROS: 17:08 Constitutional: Negative for fever, and chills. Neck: Negative for injury, pain, and ms3 swelling. 17:08 Skin: Negative for injury, rash, and discoloration. 17:08 Cardiovascular: 17:08 Respiratory: Positive for cough. 17:08 All other systems are negative. Exam: 17:08 Constitutional: This is a well developed, well nourished patient who is awake, alert, ms3 and in no acute distress. Head/Face: Normocephalic, atraumatic. Neck: Trachea midline, no cervical lymphadenopathy. Supple, full range of motion without nuchal rigidity, or vertebral point tenderness. No Meningismus. Chest/axilla: Normal chest wall appearance and motion. Nontender with no deformity. Cardiovascular: Regular rate and rhythm with a normal S1 and S2. No gallops, murmurs, or rubs. Normal PMI, no JVD. No pulse deficits. Respiratory: Lungs have equal breath sounds bilaterally, clear to auscultation and percussion. No rales, rhonchi or wheezes noted. No increased work of breathing, no retractions or nasal flaring. Skin: Warm, dry with normal turgor. Normal color with no rashes, no lesions, and no evidence of cellulitis. MS/ Extremity: Pulses equal, no cyanosis. Neurovascular intact. Full, normal range of motion. 17:08 Abdomen/GI: Inspection: abdomen appears normal, Bowel sounds: normal, Palpation: mild abdominal tenderness, in the epigastric area. Vital Signs: 17:01 BP 131 / 86; Pulse 105; Resp 18; Temp 99.3; Pulse Ox 99% on R/A; ll1 20:37 BP 123 / 75; Pulse 96; Resp 18; Temp 98.4(TE); Pulse Ox 93% ; kl MDM: 17:06 Patient medically screened. ms3 17:08 Differential diagnosis: viral Infection, bacterial infection, URI, Gastritis vs ms3 Pancreatitis. 18:31 Data reviewed: vital signs, nurses notes, lab test result(s), radiologic studies, and ms3 as a result, I will discharge patient. I considered the following discharge prescriptions or medication management in the emergency department Medications were administered in the Emergency Department. See MAR. Counseling: I had a detailed discussion with the patient and/or guardian regarding: the historical points, exam findings, and any diagnostic results supporting the discharge/admit diagnosis, lab results, radiology results, the need for outpatient follow up, to return to the emergency department if symptoms worsen or persist or if there are any questions or concerns that arise at home. ED course: Discussed labs and CT with patient. Patient to follow-up with Dr. Rocha in 2 to 3 days. Patient understands and agrees with plan. All questions were answered. Return precautions discussed include worsening symptoms, or any other concern. On reevaluation patient improved, alert and orient x4, no apparent distress, nontoxic-appearing. 18:56 Transition of care: After a detail discussion of the patient's case, care is ms3 transferred to Duncan Monaco MD. ED course: Patient with fever at discharge. Will obtain CXR, Flu and COVID.. 06/10 17:07 Order name: CBC with Diff; Complete Time: 17:53 ms3 06/10 17:07 Order name: CMP; Complete Time: 17:53 ms3 06/10 17:07 Order name: Lipase; Complete Time: 17:53 ms3 06/10 18:50 Order name: COVID-19 SARS RT PCR [facility] 06/10 19:03 Order name: SARS-COV-2 RT PCR; Complete Time: 20:08 EDMS 06/10 19:03 Order name: Influenza Screen (A ; Complete Time: 20:08 EDMS 06/10 19:30 Order name: Blood Culture Adult (2) [facility] 06/10 19:30 Order name: Strep [facility] 06/10 20:15 Order name: Throat Culture [facility] 06/10 17:07 Order name: CT Abd/Pelvis - Without Contrast; Complete Time: 18:12 ms3 06/10 19:24 Order name: Chest Pa And Lat (2 Views) XRAY [facility] 06/10 17:07 Order name: IV Saline Lock; Complete Time: 17:23 ms3 06/10 17:07 Order name: Labs collected and sent; Complete Time: 17:23 ms3 Administered Medications: 17:15 Drug: NS 0.9% IV 1000 ml Route: IV; Rate: 1 bolus; Site: left antecubital; mb9 17:18 Drug: Ondansetron IVP 4 mg Route: IVP; Site: left antecubital; mb9 17:21 Drug: Famotidine IVP 20 mg Route: IVP; Site: left antecubital; mb9 18:54 Drug: Ibuprofen PO 600 mg Route: PO; ll1 20:36 Drug: Acetaminophen PO 1000 mg Route: PO; kl 20:36 Drug: LevOfloxacin PO 750 mg Route: PO; kl 20:36 Drug: Potassium PO Effervescent Tablet 50 mEq Route: PO; kl Disposition Summary: 06/10/22 20:15 Discharge Ordered Location: Home(06/10/22 20:15) carlos Problem: new carlos Symptoms: have improved carlos Condition: Stable(06/10/22 20:15) carlos Diagnosis - Fever, unspecified(06/10/22 20:15) carlos - Acute upper respiratory infection, unspecified carlos - Pleural effusion, not elsewhere classified carlos - Cough(06/10/22 20:15) carlos - Hypokalemia carlos Followup: carlos - With: Private Physician - When: 2 - 3 days - Reason: Recheck today's complaints, Continuance of care, Re-evaluation by your physician Discharge Instructions: - Discharge Summary Sheet carlos - Potassium Content of Foods carlos - Fever, Adult carlos - Pleural Effusion carlos - Cool Mist Vaporizer carlos - Upper Respiratory Infection, Adult, Bhkt-cs-Gqrz carlos - Cough, Adult carlos - Fever, Adult, Kfrq-lj-Prfm carlos - Hypokalemia carlos Forms: - Medication Reconciliation Form carlos - Thank You Letter carlos - Antibiotic Education carlos - Prescription Opioid Use carlos Prescriptions: - levofloxacin 750 mg Oral Tablet - take 1 tablet by ORAL route once daily; 10 tablet; Refills: 0, Product carlos Selection Permitted Signatures: Dispatcher [employer] EDMS Jia Andre, RN Duncan Dent MD MD cha Lewis, Lynsay RN RN ll1 Obdulio Salomon DO DO ms3 Jong, Katia Gtz RN RN mb9 Corrections: (The following items were deleted from the chart) 18:56 18:29 Home ms3 ms3 18:56 18:29 Stable ms3 ms3 18:56 18:29 Epigastric abdominal tenderness ms3 ms3 18:56 18:29 Fever, unspecified ms3 ms3 18:56 18:29 Cough ms3 ms3 20:04 19:12 Chest Single View+RAD.RAD.BRZ ordered. EDMS EDMS
--- NOTE | 2022-06-10 18:29 | ER ---
Nurse's Notes [facility] Name: Aracelis Morales Age: 47 yrs Sex: Female : 1975 Arrival Date: 06/10/2022 Time: 16:55 Bed DIS5 Private MD: Diagnosis: Fever, unspecified;Acute upper respiratory infection, unspecified;Pleural effusion, not elsewhere classified;Cough;Hypokalemia Presentation: 06/10 16:59 Chief complaint:. Ebola Screen: Patient denies travel to an Ebola-affected area in the [facility] 21 days before illness onset. Initial Sepsis Screen: Does the patient meet any 2 criteria? No. Patient's initial sepsis screen is negative. Does the patient have a suspected source of infection? Yes: Acute abdominal pain. Risk Assessment: Do you want to hurt yourself or someone else? Patient reports no desire to harm self or others. 16:59 Method Of Arrival: Ambulatory [facility] 16:59 Acuity: TACHO 3 [facility] 17:01 Chief complaint: Patient states: Still has bad cough, SOB (for 12 days total) although ll1 she was seen about 5 days ago. Fever 103 at home. Upper abdominal pain started today. Coronavirus screen: Client denies travel out of the [place] in the last 14 days. congestion, cough unrelated to allergies, difficulty breathing, fatigue, Client presents with at least one sign or symptom that may indicate coronavirus-19. Standard/surgical mask placed on the client. Onset of symptoms was May 29, 2022. Triage Assessment: 17:03 General: Appears uncomfortable, Behavior is calm, cooperative, appropriate for age. ll1 Pain: Complains of pain in upper abdomen Quality of pain is described as aching. Respiratory: Reports shortness of breath cough that is. GI: Reports upper abdominal pain. Historical: - Allergies: 16:59 Iodine; ll1 16:59 IV contrast; ll1 - Home Meds: 20:39 alprazolam 0.5 mg Oral tab twice a day [Active]; kl - PMHx: 16:59 Anxiety; Diabetes - NIDDM; Pancreatitis; ll1 - PSHx: 16:59 section; Cholecystectomy; ll1 - Immunization history:: Adult Immunizations up to date, Client reports having NOT received the Covid vaccine. - Social history:: Smoking status: Patient denies any tobacco usage or history of. Screenin:38 [facility] ED Fall Risk Assessment (Adult) History of falling in the last 3 months, kl including since admission No falls in past 3 months (0 pts) Confusion or Disorientation No (0 pts) Intoxicated or Sedated No (0 pts) Impaired Gait No (0 pts) Mobility Assist Device Used No (0 pt) Altered Elimination No (0 pt) Score/Fall Risk Level 0 - 2 = Low Risk Oriented to surroundings, Maintained a safe environment. Abuse screen: Denies threats or abuse. Nutritional screening: No deficits noted. Tuberculosis screening: No symptoms or risk factors identified. Assessment: 17:23 Reassessment: pt taken to CT via wheelchair. mb9 20:37 Reassessment: Patient appears in no apparent distress at this time. Patient is alert, kl oriented x 3, equal unlabored respirations, skin warm/dry/pink. Patient states feeling better. Patient states symptoms have improved. Vital Signs: 17:01 BP 131 / 86; Pulse 105; Resp 18; Temp 99.3; Pulse Ox 99% on R/A; ll1 20:37 BP 123 / 75; Pulse 96; Resp 18; Temp 98.4(TE); Pulse Ox 93% ; kl ED Course: 16:57 Patient arrived in ED. ts1 16:59 Triage completed. ll1 16:59 Obdulio Salomon DO is Attending Physician. ms3 17:03 Arm band placed on. ll1 17:23 Inserted saline lock: 22 gauge in left antecubital area, using aseptic technique. mb9 17:23 CBC with Diff Sent. mb9 17:23 CMP Sent. mb9 17:23 Lipase Sent. mb9 17:31 CT Abd/Pelvis - Without Contrast In Process Unspecified. EDMS 18:28 Carlos Rocha DO is Referral Physician. ms3 18:57 Attending Physician role handed off by Obdulio Salomon DO ms3 18:57 Duncan Monaco MD is Attending Physician. ms3 20:04 Chest Pa And Lat (2 Views) XRAY In Process Unspecified. EDMS 20:38 Patient has correct armband on for positive identification. kl 20:39 No provider procedures requiring assistance completed. IV discontinued, intact, kl bleeding controlled, No redness/swelling at site. Pressure dressing applied. Administered Medications: 17:15 Drug: NS 0.9% IV 1000 ml Route: IV; Rate: 1 bolus; Site: left antecubital; mb9 17:18 Drug: Ondansetron IVP 4 mg Route: IVP; Site: left antecubital; mb9 17:21 Drug: Famotidine IVP 20 mg Route: IVP; Site: left antecubital; mb9 18:54 Drug: Ibuprofen PO 600 mg Route: PO; ll1 20:36 Drug: Acetaminophen PO 1000 mg Route: PO; kl 20:36 Drug: LevOfloxacin PO 750 mg Route: PO; kl 20:36 Drug: Potassium PO Effervescent Tablet 50 mEq Route: PO; Medication: 20:39 VIS not applicable for this client. stephanie Outcome: 18:29 Discharge ordered by . ms3 20:15 Discharge ordered by . carlos 20:38 Discharged to home ambulatory. 20:38 Condition: improved 20:38 Discharge instructions given to patient, Instructed on discharge instructions, follow up and referral plans. medication usage, Demonstrated understanding of instructions, follow-up care, medications, Prescriptions given X 1. 20:40 Patient left the ED. kl Signatures: Dispatcher [employer] EDMS Jia Andre RN RN kl Anderson, Corey, MD MD cha Lewis, Lynsay, RN RN ll1 Obdulio Salomon DO DO ms3 Katia Sunshine RN RN mb9 Melani Marsh PAS PAS ts1 Corrections: (The following items were deleted from the chart) 17:04 17:01 Chief complaint: Patient states: Still has bad cough, SOB although she was seen ll1 here 2 days ago. Fever 103 at home [facility]
[2022-06-10] MEDS ORDERED: IBUPROFEN 400 MG TAB ONE (18:57)
[2022-06-10] MEDS ORDERED: IBUPROFEN 200 MG TAB PO ONE (18:57)
[2022-06-10] MEDS ORDERED: POTASSIUM 25 MEQ EFFERV TAB ONE (20:28)
[2022-06-10] MEDS ORDERED: levoFLOXacin 750 MG TAB ONE (20:28)
[2022-06-10] MEDS ORDERED: ACETAMINOPHEN 500 MG TAB ONE (20:28)
[2022-06-10 21:05] VITALS: BP 123/75; TEMP 98.4; O2SAT 93
--- NOTE | 2022-06-10 21:16 | RAD REPORT ---
[facility]10[facility]20[facility] 8:05 pm CLINICAL HISTORY: COUGH COMPARISON: Chest Single View dated 06/05/2022; Chest Single View dated 03/08/2021; Chest Single View dated 02/21/2020; Chest Single View dated 08/26/2019 TECHNIQUE: PA and lateral views of the chest. FINDINGS: The lungs are clear. No pneumothorax or effusion. The cardiomediastinal contours are unrem arkable. IMPRESSION: No acute cardiopulmonary process.
== END 2022-06-10 20:40 | disposition home or self-care (01) ==
LOC: ER 16:55
DX: J06.9 Acute upper respiratory infection, unspecified (principal); J90 Pleural effusion, not elsewhere classified; R05.9 Cough, unspecified; E87.6 Hypokalemia; Z20.822 Contact with and (suspected) exposure to COVID-19
CPT/HCPCS: 36415; 71046; 74176; 80053; 83690; 85025; 87040; 87070; 87081; 87804; J2405; J7030; U0003

== ENCOUNTER 2023-09-27 22:13 | Emergency (ER) | payer OTHER ==
--- OUTSIDE RECORDS SUMMARY | 2023-09-27 22:18 | XMS REPORT | Continuity of Care Document ---
Author Name Unknown Address [address] [facility]. [address] [place] [address] [facility] thconnect Address [address] [facility] [place] [address] Care Team Providers Care Acid Correction Hand Name Role Phone PADMINI MEYER Primary Care Physician Unav PADMINI Billingsley Attending Clinician Unavail able ADAMA NAZARIO Attending Clinician Unavailable Adama Nazario MD Attending Clinician [phone] ISIS MCCLENDON Attending Clinician Unavailable Isis Mcclendon MD Attending Clinician [phone] Betsy Padmini ALCANTARA Attending Clinician + LEELA BENITEZ Attending Clinician Unavailab Leela Carson DO Attending Clinician + [phone] Doctor Unassigned, [place] Attending Clinician U [facility] Attending Clinician Unav Rosa Meadows MD Attending Clinician + CHLOÉ MARTINS Attending Clinician Unavaila Chloé Georges Attending Clinician + [phone] HAYLEY IBARRA Attending Clinician Unavaila Hayley Cueva Attending Clinician [phone] APRIL HYLTON Attending Clinician Unavailable April Hylton MD Attending Clinician [phone] Will GRANULATING MACHINE OPERATOR, Gurdeep Phelps Attending Clinician +[phone] SENTHIL ROTH Attending Clinician Unavailable Senthil Escalera Attending Clinician [phone] TRICE BENITEZ Attending Clinician Unavailthor Benitez GRANULATING MACHINE OPERATOR, Trice Martino Attending Clinician [phone] BASIM CARBAJAL Attending Clinician Unavailable BASIM CARBAJAL Attending Clinician Unavailable Mitch VAZQUEZ, Kimberly Ann Attending Clinician [phone] ADAMA NAZARIO Admitting Clinician Unavailable ISIS MCCLENDON Admitting Clinician Unavailable HAYLEY IBARRA Admitting Clinician Unavaila PADMINI Woodall Admitting Clinician Unavail able APRIL HYLTON Admitting Clinician Unavailable Payers Payer Name Policy Type Policy Number Effective Date Expirati on Date Source [facility] [id number] 2023 00:00:00 MEDICAID PENDING PENDING 2018 00:00:00 2018 00:00:00 Problems Condition Name Condition Details Condition Category Status Onset Date Resolution Date Last Treatment Date Treating Clinician Comments Source Benign breast lumps Benign breast lumps Disease Active 07-28 00:00: 00 [facility] Abnormal finding on breast imaging Abnormal finding on breast imaging Disease Active 07-28 00:00: 00 [facility] Anxiety Anxiety Disease Active 06-10 00:00: 00 [facility] Excessive bleeding in the premenopau phi period Excessive bleeding in the premenopau phi period Disease Active 06-10 00:00: 00 [facility] Contracept rowdy management Contracept rowdy management Disease Active 2016-02 00:00: 00 [facility] Morbid obesity Morbid obesity Disease Active 2016-02 00:00: 00 [facility] History of depression History of depression Disease Active 06-09 00:00: 00 [facility] History of anxiety History of anxiety Disease Active 06-09 00:00: 00 [facility] Controlled type 2 diabetes mellitus without complicati on Controlled type 2 diabetes mellitus without complicati on Disease Active 06-09 00:00: 00 [facility] Allergies, Adverse Reactions, Alerts Allergy Name Allergy Type Status Severity Reaction(s) Onset Date Inactive Date Treating Clinician Comments Source Iodine And Iodide Containi ng Products Propensi ty to adverse reaction s Active Rash 2018-02 00:00: 00 [facility] IODINE AND IODIDE CONTAINI NG PRODUCTS Drug Class Active Rash 2018-02 00:00: 00 [facility] Iodine And Iodide Containi ng Products Propensi ty to adverse reaction s Active Rash 2018-02 00:00: 00 [facility] Social History Social Habit Start Date Stop Date Quantity Comments Source Gender identity [facility] Alcoholic beverage intake 2023-04-14 00:00:00 2023-04-14 00:00:00 Current non-drinker of alcohol (finding) [facility] Alcohol intake 2023-04-14 00:00:00 2023-04-14 00:00:00 Current non-drinker of alcohol (finding) [facility] History of Social function 2022-08-11 00:00:00 2022-08-11 00:00:00 [facility] Exposure to SARS-CoV-2 (event) 2022-05-23 00:00:00 2022-06-02 00:13:00 Not sure [facility] Tobacco use and exposure 2016-06-09 00:00:00 2016-06-09 00:00:00 Smokeless tobacco non-user [facility] Sex assigned at 1975 00:00:00 1975 00:00:00 [facility] Smoking Status Start Date Stop Date Source Never smoked tobacco [facility] Medications Ordered Medication Name Filled Medication Name Start Date Stop Date Current Medication? Ordering Clinician Indication Dosage Frequency Signature (SIG) Comments Components Source metroNIDAZO LE (FLAGYL) tablet 500 mg 07-20 03:00: 00 07-20 03:04 :00 No 500mg 500 mg, Oral, ONCE, 1 dose, On Tue07/20/23 at 2200, BETHANIE, Reason for Anti-Infec tive: Documented Infection, Documented Infection Site: Abdominal, Duration of Therapy: Once (ED) [facility] levoFLOXaci n in D5W (LEVAQUIN) 500 mg/100 mL Piggyback 500 mg 07-20 03:00: 00 07-20 04:04 :00 No 500mg 500 mg, IV Piggyback, ONCE, 1 dose, On Tue07/20/23 at 2200, Administer over 60 Minutes, 100 mL, Reason for Anti-Infec tive: Documented Infection, Documented Infection Site: Abdominal, Duration of Therapy: Once (ED) [facility] famotidine (PEPCID (PF)) injection 20 mg 07-20 01:15: 00 07-20 02:02 :00 No 20mg 20 mg, Slow IV Push, ONCE, 1 dose, On Tue07/20/23 at 2014, [facility] ondansetron (ZOFRAN (PF)) injection 4 mg 07-20 01:15: 00 07-20 02:00 :00 No 4mg 4 mg, Slow IV Push, ONCE, 1 dose, On Tue07/20/23 at 2015, [facility] morpHINE (4 mg/mL) injection 6 mg 07-20 01:15: 00 07-20 02:07 :00 No 6mg 6 mg, Slow IV Push, ONCE, 1 dose, On Tue07/20/23 at 2015, [facility] levoFLOXaci n 500 mg tablet 07-19 00:00: 00 07-30 04:59 :00 Yes [id number] 500mg Take 1 tablet by mouth in the morning for 10 days. [facility] metroNIDAZO LE 500 mg tablet 07-19 00:00: 00 07-30 04:59 :00 Yes [id number] 500mg Take 1 tablet by mouth in the morning and 1 tablet at noon and 1 tablet in the evening. Do all this for 10 days. [facility] HYDROcodone -acetaminop hen 5-325 mg tablet 07-19 00:00: 00 07-27 04:59 :00 Yes [id number] 1{tbl} Take 1 tablet by mouth every 8 (eight) hours as needed for Pain (scale 7-10) for up to 7 days. Indication s: acute pain [facility] docusate (COLACE) 100 mg capsule 07-19 00:00: 00 07-27 04:59 :00 Yes [id number] 100mg Take 1 capsule by mouth in the morning for 7 days. [facility] ipratropium -albuteroL (DUONEB) 0.5 mg-3 mg(2.5 mg base)/3 mL nebulizer solution 3 mL 18:15: 00 17:23 :00 No 3mL 3 mL, Inhalation , ONCE, 1 dose, On Jazzmine 04/14/23 at 1215, Routine [facility] predniSONE 20 mg tablet 00:00: 00 Yes [id number] 100 60mg Take 3 tablets by mouth every morning. [facility] albuterol 90 mcg/actuati on inhaler 00:00: 00 Yes [id number] 100 2{puff} Inhale 2 Puffs every 4 (four) hours as needed for Wheezing or Shortness of Breath. [facility] benzonatate 100 mg capsule 00:00: 00 Yes [id number] 100 100mg Take 1 capsule by mouth 3 (three) times daily as needed for Cough. [facility] pramoxine (PROCTOFOAM ) 1 % foam 11-13 00:00: 00 Yes [id number] Insert into rectum every 2 (two) hours as needed for Rectal itching/pa in. [facility] ondansetron (ZOFRAN (PF)) injection 4 mg 09-30 17:00: 00 09-30 17:41 :00 No 4mg 4 mg, Slow IV Push, ONCE, 1 dose, On Jazzmine 09/30/22 at 1200, BETHANIE [facility] phenazopyri dine 200 mg tablet 09-30 00:00: 00 Yes [id number] 200mg Take 1 tablet by mouth in the morning and 1 tablet at noon and 1 tablet in the evening. [facility] ondansetron 4 mg disintegrat ing tablet 09-30 00:00: 00 Yes [id number] 4mg Take 1 tablet by mouth every 8 (eight) hours as needed for Nausea and Vomiting (N/V). [facility] acetaminoph en (TYLENOL) tablet 1,000 mg 06-02 05:30: 00 06-02 05:24 :00 No 1000mg 1,000 mg, Oral, ONCE, 1 dose, On Tue06/02/22 at 0030, BETHANIE [facility] ketorolac (TORADOL) injection 30 mg 05-30 22:00: 00 05-30 21:28 :00 No 30mg 30 mg, Slow IV Push, ONCE, 1 dose, On Tue05/30/22 at 1700, Routine [facility] NaCl 0.9% (NS) bolus infusion 1,000 mL 05-30 21:45: 00 05-30 22:50 :00 No 1000mL at 999 mL/hr, 1,000 mL, IV Infusion, ONCE, 1 dose, On Tue05/30/22 at 1645, BETHANIE [facility] ondansetron (ZOFRAN (PF)) injection 4 mg 05-30 21:15: 00 05-30 21:25 :00 No 4mg 4 mg, Slow IV Push, ONCE, 1 dose, On Tue05/30/22 at 1615, BETHANIE [facility] morpHINE (4 mg/mL) injection 4 mg 05-30 21:15: 00 05-30 21:29 :00 No 4mg 4 mg, Slow IV Push, ONCE, 1 dose, On Tue05/30/22 at 1615, STAT [facility] cephALEXin 500 mg capsule 05-30 00:00: 00 11-13 00:00 :00 No [id number] 500mg Take 1 capsule by mouth 4 (four) times daily. [facility] ibuprofen 600 mg tablet 05-30 00:00: 00 11-13 00:00 :00 No [id number] 600mg Take 1 tablet by mouth every 6 (six) hours as needed for Pain (scale 4-6). [facility] aspirin chewable tablet 324 mg 10-05 14:00: 00 Yes 324mg 324 mg, Oral, DAILY, First dose on Tue10/05/21 at 0900, Until Discontinu ed, Routine [facility] ondansetron (ZOFRAN (PF)) injection 4 mg 10-05 03:00: 00 10-05 02:49 :00 No 4mg 4 mg, Slow IV Push, ONCE, 1 dose, On 10/04/21 at 2200, BETHANIE [facility] morpHINE (4 mg/mL) injection 4 mg 10-05 03:00: 00 10-05 02:44 :00 No 4mg 4 mg, Slow IV Push, ONCE, 1 dose, On 10/04/21 at 2200, STAT [facility] meclizine 25 mg tablet 03-16 00:00: 00 Yes [id number] 25mg Take 1 tablet by mouth every 6 (six) hours. [facility] hydroCHLORO thiazide 12.5 mg tablet 407 00:00: 00 Yes 12.5mg Take 12.5 mg by mouth daily. [facility] ALPRAZolam 0.5 mg tablet 2-17 00:00: 00 Yes .5mg Take 0.5 mg by mouth 2 (two) times daily. [facility] proMETHazin e 25 mg tablet 2018-02 0 00:00: 00 Yes [id number] 25mg Take 1 tablet by mouth every 6 (six) hours as needed for Nausea and Vomiting (N/V). [facility] metFORMIN 500 mg tablet 2016-02 00:00: 00 Yes 500mg Take 1 tablet by mouth 2 (two) times daily with meals. [facility] Immunizations Ordered Immunization Name Filled Immunization Name Date Status Comments Source TD 2016-10-14 00:00:00 Completed [facility] TDAP 2016-10-14 00:00:00 Completed [facility] TDAP 2016-10-14 00:00:00 Completed [facility] TDAP 2016-10-14 00:00:00 Completed [facility] TDAP 2016-10-14 00:00:00 Completed [facility] TDAP 2016-10-14 00:00:00 Completed [facility] TDAP 2016-10-14 00:00:00 Completed [facility] TDAP 2016-10-14 00:00:00 Completed [facility] TDAP 2016-10-14 00:00:00 Completed [facility] TDAP 2016-10-14 00:00:00 Completed [facility] TDAP 2016-10-14 00:00:00 Completed [facility] Influenza Virus Vaccine Quad IM 3+ 2016-06-09 00:00:00 Completed [facility] Influenza Virus Vaccine Quad IM 3+ 2016-06-09 00:00:00 Completed [facility] Influenza Virus Vaccine Quad IM 2016-06-09 00:00:00 Completed [facility] Influenza Virus Vaccine Quad IM 3+ 2016-06-09 00:00:00 Completed [facility] Influenza Virus Vaccine Quad IM 2016-06-09 00:00:00 Completed [facility] Influenza Virus Vaccine Quad IM + 2016-06-09 00:00:00 Completed [facility] Influenza Virus Vaccine Quad IM 3+ 2016-06-09 00:00:00 Completed [facility] Influenza Virus Vaccine Quad IM 3+ 2016-06-09 00:00:00 Completed [facility] Influenza Virus Vaccine Quad IM + 2016-06-09 00:00:00 Completed [facility] Influenza Virus Vaccine Quad IM 3+ 2016-06-09 00:00:00 Completed [facility] Influenza Virus Vaccine Quad IM 3+ 2016-06-09 00:00:00 Completed [facility] Influenza Virus Vaccine Quad IM 3+ YRS Unknown Completed [facility] TDAP Unknown Completed [facility] Influenza Virus Vaccine Quad IM 3+ YRS Unknown Completed [facility] TDAP Unknown Completed [facility] Influenza Virus Vaccine Quad IM 3+ YRS Unknown Completed [facility] TDAP Unknown Completed [facility] Influenza Virus Vaccine Quad IM 3+ YRS Unknown Completed [facility] TDAP Unknown Completed [facility] Influenza Virus Vaccine Quad IM 3+ YRS Unknown Completed [facility] TDAP Unknown Completed [facility] Vital Signs Vital Name Observation Time Observation Value Comments S ource Heart rate 2023-07-21 04:03:00 81 /min [facility] Body temperature 2023-07-21 04:03:00 36.72 Mariaa [facility] Respiratory rate 2023-07-21 04:03:00 22 /min [facility] Oxygen saturation in Arterial blood by Pulse oximetry 2023-07-21 04:03:00 99 /min [facility] Systolic blood pressure 2023-07-21 04:00:00 131 mm[Hg] [facility] Diastolic blood pressure 2023-07-21 04:00:00 91 mm[Hg] [facility] Body height 2023-07-21 00:24:00 162.6 cm [facility] Body weight 2023-07-21 00:24:00 113.399 kg [facility] BMI 2023-07-21 00:24:00 42.91 kg/m2 [facility] Heart rate 2023-04-14 17:34:00 75 /min [facility] Respiratory rate 2023-04-14 17:34:00 18 /min [facility] Oxygen saturation in Arterial blood by Pulse oximetry 2023-04-14 17:34:00 97 /min [facility] Systolic blood pressure 2023-04-14 17:10:00 170 mm[Hg] [facility] Diastolic blood pressure 2023-04-14 17:10:00 95 mm[Hg] [facility] Body temperature 2023-04-14 17:10:00 36.94 Mariaa [facility] Body weight 2023-04-14 17:10:00 111.131 kg [facility] BMI 2023-04-14 17:10:00 42.05 kg/m2 [facility] Systolic blood pressure 2022-11-13 15:00:00 148 mm[Hg] [facility] Diastolic blood pressure 2022-11-13 15:00:00 86 mm[Hg] [facility] Heart rate 2022-11-13 15:00:00 86 /min [facility] Body temperature 2022-11-13 15:00:00 37.22 Mariaa [facility] Respiratory rate 2022-11-13 15:00:00 16 /min [facility] Body height 2022-11-13 15:00:00 162.6 cm [facility] Body weight 2022-11-13 15:00:00 108.863 kg [facility] BMI 2022-11-13 15:00:00 41.20 kg/m2 [facility] Oxygen saturation in Arterial blood by Pulse oximetry 2022-11-13 15:00:00 98 /min [facility] Systolic blood pressure 2022-09-30 20:34:31 140 mm[Hg] [facility] Diastolic blood pressure 2022-09-30 20:34:31 113 mm[Hg] [facility] Heart rate 2022-09-30 20:34:31 98 /min [facility] Body temperature 2022-09-30 20:34:31 36.89 Mariaa [facility] Respiratory rate 2022-09-30 20:34:31 18 /min [facility] Oxygen saturation in Arterial blood by Pulse oximetry 2022-09-30 20:33:52 99 /min [facility] Body weight 2022-09-30 16:55:00 109.77 kg [facility] BMI 2022-09-30 16:55:00 41.54 kg/m2 [facility] Systolic blood pressure 2022-08-11 18:32:00 129 mm[Hg] [facility] Diastolic blood pressure 2022-08-11 18:32:00 82 mm[Hg] [facility] Heart rate 2022-08-11 18:32:00 84 /min [facility] Body temperature 2022-08-11 18:32:00 35.61 Mariaa [facility] Respiratory rate 2022-08-11 18:32:00 18 /min [facility] Body height 2022-08-11 18:32:00 162.6 cm [facility] Body weight 2022-08-11 18:32:00 114.533 kg [facility] BMI 2022-08-11 18:32:00 43.34 kg/m2 [facility] Systolic blood pressure 2022-06-02 06:36:00 135 mm[Hg] [facility] Diastolic blood pressure 2022-06-02 06:36:00 97 mm[Hg] [facility] Heart rate 2022-06-02 06:36:00 100 /min [facility] Body temperature 2022-06-02 06:36:00 38 Mariaa [facility] Respiratory rate 2022-06-02 06:36:00 20 /min [facility] Oxygen saturation in Arterial blood by Pulse oximetry 2022-06-02 06:36:00 98 /min [facility] Body height 2022-06-02 05:16:00 162.6 cm [facility] Body weight 2022-06-02 05:16:00 108.41 kg [facility] BMI 2022-06-02 05:16:00 41.02 kg/m2 [facility] Systolic blood pressure 2022-05-30 22:00:00 116 mm[Hg] [facility] Diastolic blood pressure 2022-05-30 22:00:00 80 mm[Hg] [facility] Heart rate 2022-05-30 22:00:00 94 /min [facility] Respiratory rate 2022-05-30 22:00:00 18 /min [facility] Oxygen saturation in Arterial blood by Pulse oximetry 2022-05-30 22:00:00 97 /min [facility] Body temperature 2022-05-30 20:39:00 37.39 Mariaa [facility] Body height 2022-05-30 20:39:00 162.6 cm [facility] Body weight 2022-05-30 20:39:00 108.41 kg [facility] BMI 2022-05-30 20:39:00 41.02 kg/m2 [facility] Systolic blood pressure 2021-10-05 04:00:00 140 mm[Hg] [facility] Diastolic blood pressure 2021-10-05 04:00:00 62 mm[Hg] [facility] Heart rate 2021-10-05 04:00:00 71 /min Un[facility] Respiratory rate 2021-10-05 04:00:00 19 /min [facility] Oxygen saturation in Arterial blood by Pulse oximetry 2021-10-05 04:00:00 98 /min [facility] Body temperature 2021-10-05 01:11:00 37.11 Mariaa [facility] Body height 2021-10-05 01:11:00 162.6 cm [facility] Body weight 2021-10-05 01:11:00 112.946 kg [facility] BMI 2021-10-05 01:11:00 42.74 kg/m2 [facility] Systolic blood pressure 2021-08-11 18:19:00 132 mm[Hg] [facility] Diastolic blood pressure 2021-08-11 18:19:00 78 mm[Hg] [facility] Heart rate 2021-08-11 18:19:00 84 /min [facility] Body temperature 2021-08-11 18:19:00 36.56 Mariaa [facility] Respiratory rate 2021-08-11 18:19:00 18 /min [facility] Body height 2021-08-11 18:19:00 162.6 cm [facility] Body weight 2021-08-11 18:19:00 115.469 kg [facility] BMI 2021-08-11 18:19:00 43.70 kg/m2 [facility] Procedures Procedure Date / Time Performed Performing Clinician Source EKG-12 LEAD 2023-07-21 02:57:52 Adama Nazario [facility] CT ABDOMEN PELVIS WO CONTRAST 2023-07-21 01:58:00 Adama Nazario [facility] POCT TEST 2023-07-21 01:19:00 Adama Nazario [facility] LIPASE 2023-07-21 01:17:00 Adama Nazario [facility] TROPONIN I 2023-07-21 01:17:00 Adama Nazario [facility] COMP. METABOLIC PANEL ([id number]) 2023-07-21 01:17:00 Adama Nazario [facility] CBC WITH DIFF 2023-07-21 01:17:00 Adama Nazario [facility] URINALYSIS 2023-07-21 01:17:00 Adama Nazario [facility] ASSIGNMENT OF BENEFITS 2023-04-14 18:12:52 Docto r Unassigned, [place] [facility] XR CHEST 2 VW 2023-04-14 17:56:43 Isis Mcclendon [facility] RAPID INFLUENZA A/B 2023-04-14 17:25:00 Isis Mcclendon [facility] COVID-19 (ID NOW RAPID TESTING) 2023-04-14 17:25:00 Isis Mcclendon [facility] CONSENT/REFUSAL FOR DIAGNOSIS AND TREATMENT 2023-04-14 17:06:33 Doctor Unassigned, [place] [facility] CONSENT/REFUSAL FOR DIAGNOSIS AND TREATMENT 2022-11-13 15:09:48 Doctor Unassigned, [place] [facility] COVID-19 (ID NOW RAPID TESTING) 2022-09-30 18:39:00 Rosa Parikh [facility] LIPASE 2022-09-30 17:39:00 Rosa Parikh [facility] COMP. METABOLIC PANEL ([id number]) 2022-09-30 17:39:00 Rosa Parikh [facility] CBC WITH DIFF 2022-09-30 17:39:00 Rosa Parikh [facility] POCT TEST 2022-09-30 17:35:00 Rosa Yee [facility] URINALYSIS 2022-09-30 17:34:00 Rosa Parikh [facility] CONSENT/REFUSAL FOR DIAGNOSIS AND TREATMENT 2022-09-30 16:44:46 Doctor Unassigned, [place] [facility] ASSIGNMENT OF BENEFITS 2022-08-11 18:23:46 Docto r Unassigned, [place] [facility] NOTICE OF PRIVACY PRACTICES 2022-06-02 05:09:15 Doctor Unassigned, [place] [facility] CONSENT/REFUSAL FOR DIAGNOSIS AND TREATMENT 2022-06-02 05:08:40 Doctor Unassigned, [place] [facility] CT THORAX WO CONTRAST 2022-05-30 21:42:00 Rusty Ibarra [facility] LIPASE 2022-05-30 21:16:00 [facility] COMP. METABOLIC PANEL ([id number]) 2022-05-30 21:16:00 Hayley Ibarra [facility] SEDIMENTATION RATE 2022-05-30 21:16:00 Angie Ibarra [facility] CBC WITH DIFF 2022-05-30 21:16:00 Hayley Ibarra [facility] EBV-MONONUCLEOSIS SCREEN 2022-05-30 21:16:00 Hayley Ibarra [facility] CONSENT/REFUSAL FOR DIAGNOSIS AND TREATMENT 2022-05-30 20:36:59 Doctor Unassigned, [place] [facility] TROPONIN I 2021-10-05 03:15:00 April Hylton [facility] XR CHEST 1 VW 2021-10-05 01:30:54 April Hylton [facility] LIPASE 2021-10-05 01:20:00 April Hylton [facility] TROPONIN I 2021-10-05 01:20:00 April Hylton [facility] COMP. METABOLIC PANEL ([id number]) 2021-10-05 01:20:00 April Hylton [facility] CBC WITH DIFF 2021-10-05 01:20:00 April Hylton [facility] PROTHROMBIN TIME / INR 2021-10-05 01:20:00 Duncan Hylton [facility] ACTIVATED PARTIAL THRMPLAS DEEPTHI 2021-10-05 01:20:00 April Hylton [facility] CONSENT/REFUSAL FOR DIAGNOSIS AND TREATMENT 2021-10-05 01:03:42 Doctor Unassigned, [place] [facility] Encounters Start Date/Time End Date/Time Encounter Type Admission Type Attending Clinicians Care Facility Care Department Encounter ID Source 2020-12-13 14:22:14 Emergency [facility] [id number] [facility] 2023-07-20 19:27:00 2023-07-20 23:07:00 Emergency X ADAMA NAZARIO [facility] ERT [id number] [facility] 2023-07-20 19:27:00 2023-07-20 23:07:00 Emergency Adama Nazario [facility] [id number] [facility] 2023-04-14 11:13:00 2023-04-14 12:26:00 Emergency X ISIS MCCLENDON [facility] ERT [id number] [facility] 2023-04-14 11:13:00 2023-04-14 12:26:00 Emergency Isis Mcclendon [facility] 1..840.114 [id number] [facility] 2022-12-28 13:45:00 2022-12-28 23:59:00 Outpatient R PADMINI MEYER [facility] [id number] [facility] 2022-12-28 07:23:29 2022-12-28 23:59:00 Hospital Encounter Padmini Meyer [facility] 1..840.114 [id number] [facility] 2022-11-13 10:19:00 2022-11-13 11:19:00 Emergency X LEELA BENITEZ [facility] ERT [id number] [facility] 2022-11-13 10:19:00 2022-11-13 11:19:00 Emergency Leela Benitez [facility] 1..840.114 [id number] [facility] 2022-11-03 00:00:00 2022-11-03 00:00:00 Outpatient R PADMINI MEYER [facility] [id number] [facility] 2022-11-01 00:00:00 2022-11-01 00:00:00 Telephone Padmini Meyer [facility] 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 1..840.114 [id number] [facility] 2022-10-01 00:00:00 2022-10-01 00:00:00 Patient Secure Msg Doctor Unassigned, [place] [facility] 1..840.114 350.1.13.10 4.2.7.2.686 [id number] [facility] 2022-09-30 11:58:00 2022-09-30 15:39:00 Emergency X ROSA PARIKH [facility] ERT [id number] [facility] 2022-09-30 11:58:00 2022-09-30 15:39:00 Emergency Rosa Parikh [facility] 1..840.114 350.1.13.10 4.2.7.2.686 [id number] [facility] 2022-08-11 13:30:00 2022-08-11 14:23:51 Outpatient R PADMINI MEYER [facility] [id number] [facility] 2022-08-11 13:30:00 2022-08-11 14:23:51 Office Visit Padmini Meyer [facility] 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 MATERNAL & CHILD HEALTH [facility] 1..840.114 350.1.13.10 4.2.7.2.686 [id number] [facility] 2022-08-11 13:15:00 2022-08-11 13:15:00 Outpatient R PADMINI MEYER [facility] [id number] [facility] 2022-08-11 00:00:00 2022-08-11 00:00:00 Orders Only Doctor Unassigned, [place] [facility] 1..840.114 350.1.13.10 4.2.7.2.686 [id number] [facility] 2022-06-02 00:19:00 2022-06-02 02:06:00 Emergency X CHLOÉ MARTINS [facility] ERT [id number] [facility] 2022-06-02 00:19:00 2022-06-02 02:06:00 Emergency VinelandChloé baird [facility] 1..840.114 350.1.13.10 4.2.7.2.686 [id number] [facility] 2022-05-30 15:40:00 2022-05-30 18:20:00 Emergency X HAYLEY IBARRA [facility] ERT [id number] [facility] 2022-05-30 15:40:00 2022-05-30 18:20:00 Emergency [place], Fol[place] F [facility] 1..840.114 350.1.13.10 4.2.7.2.686 [id number] [facility] 2021-10-26 06:46:08 2021-10-26 23:59:00 Outpatient R PADMINI MEYER [facility] [id number] [facility] 2021-10-26 06:46:08 2021-10-26 23:59:00 Hospital Encounter Padmini Meyer [facility] 1..840.114 350.1.13.10 4.2.7.2.686 [id number] [facility] 2021-10-04 20:06:00 2021-10-04 23:21:00 Emergency X JESÚS HYLTONBOBBY [facility] ERT [id number] [facility] 2021-10-04 20:06:00 2021-10-04 23:21:00 Emergency April Hylton S [facility] 1..840.114 350.1.13.10 4.2.7.2.686 [id number] [facility] 2021-08-11 13:15:00 2021-08-11 14:04:37 Outpatient R PADMINI MEYER [facility] [id number] [facility] 2021-08-11 13:15:00 2021-08-11 14:04:37 Office Visit Padmini Meyer [facility] 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 1..840.114 350.1.13.10 4.2.7.2.686 [id number] [facility] 2021-08-11 13:15:00 2021-08-11 14:04:37 Outpatient R PADMINI MEYER [facility] [id number] [facility] 2021-07-02 00:00:00 2021-07-02 00:00:00 Telephone Gurdeep Solis Lenin [facility] 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 1.2.840.114 350.1.13.10 4.2.7.2.686 [id number] [facility] 2021-03-16 16:20:00 2021-03-16 22:25:00 Emergency X SENTHIL ROTH [facility] ERT [id number] [facility] 2021-03-16 16:20:00 2021-03-16 22:25:00 Emergency Senthil Roth S [facility] 1.2.840.114 350.1.13.10 4.2.7.2.686 [id number] [facility] 2021-02-11 10:49:55 2021-02-11 23:59:00 Outpatient TRICE PETERSON [facility] [id number] [facility] 2021-02-11 10:49:55 2021-02-11 23:59:00 Hospital Encounter Trice Benitez [facility] 1.2.840.114 350.1.13.10 4.2.7.2.686 [id number] [facility] 2020-12-29 00:00:00 2020-12-29 00:00:00 Outpatient TRICE PETERSON [facility] [id number] [facility] 2020-07-24 00:00:00 2020-07-24 00:00:00 Outpatient TRICE PETERSON [facility] [id number] [facility] 2020-07-01 11:58:52 2020-07-01 23:59:00 Outpatient TRICE PETERSON [facility] [id number] [facility] 2020-07-01 00:00:00 2020-07-01 00:00:00 Outpatient TRICE PETERSON [facility] [id number] [facility] 2020-06-23 13:30:00 2020-06-23 13:30:00 Outpatient R [facility] [id number] [facility] 2020-06-16 00:00:00 2020-06-16 00:00:00 Outpatient BASIM REYES [facility] [id number] [facility] 2020-06-16 00:00:00 2020-06-16 00:00:00 Outpatient BASIM REYES [facility] [id number] [facility] 2020-06-16 00:00:00 2020-06-16 00:00:00 Outpatient BASIM REYES [facility] [id number] [facility] 2020-06-10 13:15:00 2020-06-10 13:15:00 Outpatient TRICE PETERSON [facility] [id number] [facility] 2019-09-17 14:51:00 2019-09-17 16:38:00 Emergency Kimberly Meyer [facility] 1.2.840.114 350.1.13.10 4.2.7.2.686 [id number] 2019-09-17 00:00:00 2019-09-17 00:00:00 Orders Only Doctor Unassigned, [place] [facility] 1.2.840.114 350.1.13.10 4.2.7.2.686 [id number] 2018-12-06 20:14:02 2018-12-06 22:54:00 Emergency X SENTHIL ROTH [facility] ERT [id number] [facility] Results Test Description Test Time Test Comments Results Resul t Comments Source CT ABDOMEN PELVIS WO CONTRAST 6 02:52:03 ORDERING PHYSICIAN: ADAMA NAZARIO CLINICAL HISTORY: Abdominal pain, acute, nonlocalized TECHNIQUE: CT abdomen and pelvis was performed without administration ofintravenous contrast. CT scan was done according to ALARA (As Low asReasonably Achievable). TECHNICAL QUALITY: Diagnostic COMPARISON: None FINDINGS: The lung bases are clear. The liver is normal in appearance. The gallbladder has been removed. The spleen is normal in appearance. The pancreas is normal in appearance. There is no peripancreaticinflamm ation. The adrenal glands are normal in appearance. The kidneys are symmetric in size and density. There is no hydronephrosis.There are no renal stones. Abdominal aorta is normal in caliber. There is no intra-abdominal free air. The small bowel is normal in caliber. There is stool in the colon. There isdiverticulitis of the sigmoid colon, series 2 image 132. The appendix isvisualized and normal in appearance. The bladder is distended without focal bladder wall thickening and withoutbladder stone. The uterus is present. Both ovaries are visualized and normal in size.There is no prevertebral pelvis. There are no enlarged lymph nodes in the abdomen or pelvis. There is no compression fracture[facility] Metabolic Panel ([id number])2023-07-21 01:43:47* Test Item Value Reference Range Interpretation Comme nts NA (test code = 2958998353) 139 mmol/L 135-145 K (test code = 1407325906) 3.7 mmol/L 3.5-5.0 CL (test code = 5039507447) 103 mmol/L 98-108 CO2 TOTAL (test code = 1187854381) 30 mmol/L 23-31 AGAP (test code = 2027342440) 6 2-16 BUN (test code = 5952347827) 11 mg/dL 7-23 GLUCOSE (test code = 4623388147) 84 mg/dL 70-110 CREATININE (test code = 2160-0) 0.86 mg/dL 0.50-1.04 TOTAL BILI (test code = 5342723688) 0.6 mg/dL 0.1-1.1 CALCIUM (test code = 8708798191) 8.7 mg/dL 8.6-10.6 T PROTEIN (test code = 6117248284) 7.5 g/dL 6.3-8.2 ALBUMIN (test code = 6902172175) 4.2 g/dL 3.5-5.0 ALK PHOS (test code = 4132482633) 65 U/L 34-122 ALTv (test code = 1742-6) 18 U/L 5-35 AST(SGOT) (test code = 1230345535) 21 U/L 13-40 eGFR (test code = 55182-0) 84.5 mL/min/1.73m2 CKD-EPI eGFR (20 21). Assuming creatinine has been stable day-to-day for at least three months, the eGFR indicates Category G2 (60 - 89 mL/min/1.73 m2) [facility]* Test Item Value Reference Range Interpretation Comme nts LIPASE (test code = 5741773194) 93 U/L 0-220 Lab Interpretation (test cod e = 89642-6) Normal [facility] [id number] 01:29:28* Test Item Value Reference Range Interpretation Comme nts WBC (test code = 6690-2) 12.19 4.30-11.10 H RBC (test code = 789-8) 4.69 3.93-5.25 HGB (test code = 718-7) 13.6 g/dL 11.6-15.0 HCT (test code = 4544-3) 41.3 % 35.7-45.2 MCV (test code = 787-2) 88.1 fL 80.6-95.5 MCH (test code = 785-6) 29.0 pg 25.9-32.8 MCHC (test code = 786-4) 32.9 g/dL 31.6-35.1 RDW-SD (test code = 91863-5) 42.2 fL 39.0-49.9 RDW-CV (test code = 788-0) 13.2 % 12.0-15.5 PLT (test code = 777-3) 258 166-358 MPV (test code = 68371-2) 9.3 fL 9.5-12.9 L NRBC/100 WBC (test code = 4944098574) 0.0 0.0-10.0 NRBC x10^3 (test code = 4024933577) See_Comment [Automated messa ge] The system which generated this result transmitted reference range: 10*3/?L. The reference range was not used to interpret this result as normal/abnormal. GRAN MAT (NEUT) % (test code = 770-8) 72.3 % IMM GRAN % (test code = 4113399772) 0.80 % LYMPH % (test code = 736-9) 14.4 % MONO % (test code = 5905-5) 11.2 % EOS % (test code = 713-8) 1.0 % BASO % (test code = 706-2) 0.3 % GRAN MAT x10^3(ANC) (test code = 9009326446) 8.81 10*3/uL 1.88-7.09 H IMM GRAN x10^3 (test code = 9789371016) 0.10 10*3/uL 0.00-0.06 H LYMPH x10^3 (test code = 731-0) 1.75 10*3/uL 1.32-3.29 MONO x10^3 (test code = 742-7) 1.37 10*3/uL 0.33-0.92 H EOS x10^3 (test code = 711-2) 0.12 10*3/uL 0.03-0.39 BASO x10^3 (test code = 704-7) 0.04 10*3/uL 0.01-0.07 Lab Interpretation (test code = 89255-4) Abnormal [facility] [id number] 01:19:00* Test Item Value Reference Range Interpretation Comme nts POCT PREG (test code = 1605) Negative On board controls acceptable with C Line (test code = 3574) Yes POCT PREG LOT # (test code = 3575) [id number] POCT PREG TEST DATE ( test code = 3576) 06-17-2024 Lab Interpretation (test cod e = 89783-5) Normal [facility] 2 [id number] 17:59:43HISTORY: Cough. TECHNIQUE: PA and lateral views of the chest are obtained. Comparison madewith a 05/03/2021 study. FINDINGS: Congestion seen in the lower lungs, slightly more in the rightlung base without focal area of consolidation. No acute pneumonia detected.No pneumothorax or pleural effusion. Cardiomediastinal contour appearsnormal. CONCLUSIONS: Mild bibasilar pulmonary congestion consistent withpossibility of viral infection.[facility] COMP. METABOLIC PANEL ([id number])2022-09-30 18:06:59* Test Item Value Reference Range Interpretation Comme nts NA (test code = 7106567826) 140 mmol/L 135-145 K (test code = 1193974632) 3.7 mmol/L 3.5-5.0 CL (test code = 7893419506) 106 mmol/L 98-108 CO2 TOTAL (test code = 0471309797) 25 mmol/L 23-31 AGAP (test code = 6458616948) 9 2-16 BUN (test code = 0328189968) 10 mg/dL 7-23 GLUCOSE (test code = 6265251691) 114 mg/dL 70-110 H CREATININE (test code = 2989061949) 0.69 mg/dL 0.50-1.04 TOTAL BILI (test code = 6634376118) 1.0 mg/dL 0.1-1.1 CALCIUM (test code = 5711420710) 8.5 mg/dL 8.6-10.6 L T PROTEIN (test code = 0380335508) 7.7 g/dL 6.3-8.2 ALBUMIN (test code = 6232396725) 4.3 g/dL 3.5-5.0 ALK PHOS (test code = 8277724330) 48 U/L 34-122 ALTv (test code = 1742-6) 17 U/L 5-35 AST(SGOT) (test code = 6488404516) 21 U/L 13-40 eGFR (test code = 1394089869) 92.0 mL/min/1.73m2 TEJAL (test code = TEJAL) Association of [...] or abnormalities in imaging tests). Lab Interpretation (test code = 98865-4) Abnormal [facility] 18:06:39* Test Item Value Reference Range Interpretation Comme nts LIPASE (test code = 7472549429) 55 U/L 0-220 Lab Interpretation (test cod e = 20591-3) Normal [facility] WITH [id number] 17:55:58* Test Item Value Reference Range Interpretation Comme nts WBC (test code = 6690-2) 8.72 See_Comment [Automated Medlert] The system which generated this result transmitted reference range: 4.30 - 11.10 10*3/?L. The reference range was not used to interpret this result as normal/abnormal. RBC (test code = 789-8) 4.53 See_Comment [Automated Medlert] The system which generated this result transmitted reference range: 3.93 - 5.25 10*6/?L. The reference range was not used to interpret this result as normal/abnormal. HGB (test code = 718-7) 13.2 g/dL 11.6-15.0 HCT (test code = 4544-3) 39.4 % 35.7-45.2 MCV (test code = 787-2) 87.0 fL 80.6-95.5 MCH (test code = 785-6) 29.1 pg 25.9-32.8 MCHC (test code = 786-4) 33.5 g/dL 31.6-35.1 RDW-SD (test code = 26913-6) 39.8 fL 39.0-49.9 RDW-CV (test code = 788-0) 12.6 % 12.0-15.5 PLT (test code = 777-3) 244 See_Comment [Automated messa ge] The system which generated this result transmitted reference range: 166 - 358 10*3/?L. The reference range was not used to interpret this result as normal/abnormal. MPV (test code = 71083-1) 9.5 fL 9.5-12.9 NRBC/100 WBC (test code = 7553135625) 0.0 See_Comment [Automated me ssage] The system which generated this result transmitted reference range: 0.0 - 10.0 /100 WBCs. The reference range was not used to interpret this result as normal/abnormal. NRBC x10^3 (test code = 3896988993) See_Comment [Automated me ssage] The system which generated this result transmitted reference range: 10*3/?L. The reference range was not used to interpret this result as normal/abnormal. GRAN MAT (NEUT) % (test code = 770-8) 74.0 % IMM GRAN % (test code = 6051136973) 0.60 % LYMPH % (test code = 736-9) 15.1 % MONO % (test code = 5905-5) 9.4 % EOS % (test code = 713-8) 0.6 % BASO % (test code = 706-2) 0.3 % GRAN MAT x10^3(ANC) (test code = 8340995098) 6.45 10*3/uL 1.88-7.09 IMM GRAN x10^3 (test code = 2501293198) 0.05 10*3/uL 0.00-0.06 LYMPH x10^3 (test code = 731-0) 1.32 10*3/uL 1.32-3.29 MONO x10^3 (test code = 742-7) 0.82 10*3/uL 0.33-0.92 EOS x10^3 (test code = 711-2) 0.05 10*3/uL 0.03-0.39 BASO x10^3 (test code = 704-7) 0.03 10*3/uL 0.01-0.07 [facility] [id number] 17:35:00* Test Item Value Reference Range Interpretation Comme nts POCT PREG (test code = 1605) Negative On board controls acceptable with C Line (test code = 3574) Yes POCT PREG LOT # (test code = 3575) [id number] POCT PREG TEST DATE ( test code = 3576) 02/17/2024 Lab Interpretation (test cod e = 37053-5) Normal [facility]MON[facility]UCLEOS[facility] [id number] 22:36:10* Test Item Value Reference Range Interpretation Comme nts EBV Mononucleosis Screen (te st code = 3875743913) Negative Negative Lab Interpretation (test cod e = 69870-1) Normal [facility]EDIMENTATION [id number] 22:13:14* Test Item Value Reference Range Interpretation Comme nts ESR (test code = 65066-7) 9 See_Comment [Automated message] The system which generated this result transmitted reference range: 0 - 20 mm/HR. The reference range was not used to interpret this result as normal/abnormal. Lab Interpretation (test code = 23307-5) Normal [facility]OL[facility] PAN[facility] (59712)2022-05-30 22:10:18* Test Item Value Reference Range Interpretation Comme nts NA (test code = 7293479999) 138 mmol/L 135-145 K (test code = 0263752701) 4.5 mmol/L 3.5-5.0 CL (test code = 2694968961) 100 mmol/L 98-108 CO2 TOTAL (test code = 0304724416) 27 mmol/L 23-31 AGAP (test code = 2586036132) 11 2-16 BUN (test code = 9576670542) 9 mg/dL 7-23 GLUCOSE (test code = 3672383822) 105 mg/dL 70-110 CREATININE (test code = 1691875227) 0.80 mg/dL 0.50-1.04 TOTAL BILI (test code = 3962169160) 0.8 mg/dL 0.1-1.1 CALCIUM (test code = 9414037917) 9.0 mg/dL 8.6-10.6 T PROTEIN (test code = 4859066052) 7.3 g/dL 6.3-8.2 ALBUMIN (test code = 7195578277) 4.4 g/dL 3.5-5.0 ALK PHOS (test code = 6992450047) 49 U/L 34-122 ALTv (test code = 1742-6) 24 U/L 5-35 AST(SGOT) (test code = 4663481039) 25 U/L 13-40 eGFR (test code = 8837327280) 77.6 mL/min/1.73m2 TEJAL (test code = TEJAL) Association of [...] or urine or abnormalities in imaging tests). [facility] 22:09:37* Test Item Value Reference Range Interpretation Comme nts LIPASE (test code = 8679335832) 52 U/L 0-220 Lab Interpretation (test cod e = 13269-0) Normal [facility] WITH [id number] 21:50:52* Test Item Value Reference Range Interpretation Comme nts WBC (test code = 6690-2) 7.08 See_Comment [Automated messa ge] The system which generated this result transmitted reference range: 4.30 - 11.10 10*3/?L. The reference range was not used to interpret this result as normal/abnormal. RBC (test code = 789-8) 5.09 See_Comment [Automated messa ge] The system which generated this result transmitted reference range: 3.93 - 5.25 10*6/?L. The reference range was not used to interpret this result as normal/abnormal. HGB (test code = 718-7) 14.7 g/dL 11.6-15.0 HCT (test code = 4544-3) 44.8 % 35.7-45.2 MCV (test code = 787-2) 88.0 fL 80.6-95.5 MCH (test code = 785-6) 28.9 pg 25.9-32.8 MCHC (test code = 786-4) 32.8 g/dL 31.6-35.1 RDW-SD (test code = 37642-0) 41.7 fL 39.0-49.9 RDW-CV (test code = 788-0) 12.8 % 12.0-15.5 PLT (test code = 777-3) 228 See_Comment [Automated messa ge] The system which generated this result transmitted reference range: 166 - 358 10*3/?L. The reference range was not used to interpret this result as normal/abnormal. MPV (test code = 84173-7) 9.6 fL 9.5-12.9 NRBC/100 WBC (test code = 9308893411) 0.0 See_Comment [Automated Inspirotec ssage] The system which generated this result transmitted reference range: 0.0 - 10.0 /100 WBCs. The reference range was not used to interpret this result as normal/abnormal. NRBC x10^3 (test code = 8800401212) See_Comment [Automated messa ge] The system which generated this result transmitted reference range: 10*3/?L. The reference range was not used to interpret this result as normal/abnormal. GRAN MAT (NEUT) % (test code = 770-8) 68.7 % IMM GRAN % (test code = 1631058163) 0.40 % LYMPH % (test code = 736-9) 13.3 % MONO % (test code = 5905-5) 17.1 % EOS % (test code = 713-8) 0.1 % BASO % (test code = 706-2) 0.4 % GRAN MAT x10^3(ANC) (test code = 6046849940) 4.86 10*3/uL 1.88-7.09 IMM GRAN x10^3 (test code = 8687605824) 0.03 10*3/uL 0.00-0.06 LYMPH x10^3 (test code = 731-0) 0.94 10*3/uL 1.32-3.29 L MONO x10^3 (test code = 742-7) 1.21 10*3/uL 0.33-0.92 H EOS x10^3 (test code = 711-2) 0.03-0.39 L BASO x10^3 (test code = 704-7) 0.03 10*3/uL 0.01-0.07 Lab Interpretation (test code = 22485-2) Abnormal [facility] [id number] 03:46:06* Test Item Value Reference Range Interpretation Comments TROPONIN I (test code = 8764482195) 0.001 ng/mL See_Comment [Automated message] The system which generated this result transmitted reference range: <=0.034. The reference range was not used to interpret this result as normal/abnormal. TEJAL (test code = TEJAL) Reference (Normal) Range (defined by the 99th percentile reference [...] to patient's use of biotin. Lab Interpretation (test code = 56284-4) Normal [facility] [id number] 01:53:04* Test Item Value Reference Range Interpretation Comments TROPONIN I (test code = 5409178337) 0.002 ng/mL See_Comment [Automated message] The system which generated this result transmitted reference range: <=0.034. The reference range was not used to interpret this result as normal/abnormal. TEJAL (test code = TEJAL) Reference (Normal) Range (defined by the 99th percentile reference [...] to patient's use of biotin. Lab Interpretation (test code = 55399-4) Normal [facility]2022-[facility] 01:42:22* Test Item Value Reference Range Interpretation Comme nts APTT Patient (test code = 3173-2) See_Comment [Automated message] The system which generated this result transmitted reference range: 23 - 38 Seconds. The reference range was not used to interpret this result as normal/abnormal. TEJAL (test code = TEJAL) The [facility] patient population mean normal value for aPTT is 30 seconds. Lab Interpretation (test code = 35259-2) Normal [facility] (10369)2021-10-05 01:42:02* Test Item Value Reference Range Interpretation Comme nts NA (test code = 0928274372) 138 mmol/L 135-145 K (test code = 3370252139) 4.2 mmol/L 3.5-5 CL (test code = 4248945042) 103 mmol/L 98-108 CO2 TOTAL (test code = 5173849125) 30 mmol/L 23-31 AGAP (test code = 7935170968) 2-16 BUN (test code = 3922266086) 7 mg/dL 7-23 GLUCOSE (test code = 4327210158) 115 mg/dL 70-110 H CREATININE (test code = 6833413169) 0.81 mg/dL 0.5-1.04 TOTAL BILI (test code = 8794031715) 0.2 mg/dL 0.1-1.1 CALCIUM (test code = 7532715117) 8.4 mg/dL 8.6-10.6 L T PROTEIN (test code = 4754986942) 6.6 g/dL 6.3-8.2 ALBUMIN (test code = 5271608015) 4.1 g/dL 3.5-5 ALK PHOS (test code = 0435063175) 60 U/L 34-122 ALTv (test code = 1742-6) 20 U/L 5-35 AST(SGOT) (test code = 8906512888) 23 U/L 13-40 eGFR (test code = 2458925876) mL/min/1.73m2 TEJAL (test code = TEJAL) Association of [...] or abnormalities in imaging tests). Lab Interpretation (test code = 08232-0) Abnormal [facility], [id number] 01:41:22* Test Item Value Reference Range Interpretation Comme nts LIPASE (test code = 2174885377) 110 U/L 0-220 Lab Interpretation (test cod e = 31461-9) Normal [facility] / [id number] 01:39:21* Test Item Value Reference Range Interpretation Comme nts PROTIME PATIENT (test code = 5964-2) See_Comment [Automated Medlert] The system which generated this result transmitted reference range: 12.0 - 14.7 Seconds. The reference range was not used to interpret this result as normal/abnormal. INR (test code = 6301-6) Normal INR <1.1; Warfarin Therapeutic range 2.0 to 3.0 or 2.5 to 3.5, depending upon the indications. Lab Interpretation (test code = 40132-2) Normal [facility] WITH [id number] 01:28:20* Test Item Value Reference Range Interpretation Comme nts WBC (test code = 6690-2) See_Comment [Automated [employer] by[employer]] The system which generated this result transmitted reference range: 4.30 - 11.10 10*3/?L. The reference range was not used to interpret this result as normal/abnormal. RBC (test code = 789-8) See_Comment [Automated [employer]mi[employer] byUs] The system which generated this result transmitted reference range: 3.93 - 5.25 10*6/?L. The reference range was not used to interpret this result as normal/abnormal. HGB (test code = 718-7) 13.4 g/dL 11.6-15 HCT (test code = 4544-3) 40.6 % 35.7-45.2 MCV (test code = 787-2) 86.9 fL 80.6-95.5 MCH (test code = 785-6) 28.7 pg 25.9-32.8 MCHC (test code = 786-4) 33.0 g/dL 31.6-35.1 RDW-SD (test code = 14494-1) 42.2 fL 39-49.9 RDW-CV (test code = 788-0) 13.3 % 12-15.5 PLT (test code = 777-3) See_Comment [Automated messa ge] The system which generated this result transmitted reference range: 166 - 358 10*3/?L. The reference range was not used to interpret this result as normal/abnormal. MPV (test code = 18705-1) 9.0 fL 9.5-12.9 L NRBC/100 WBC (test code = 2756292168) See_Comment [Automated [employer]spi[employer] ssage] The system which generated this result transmitted reference range: 0.0 - 10.0 /100 WBCs. The reference range was not used to interpret this result as normal/abnormal. NRBC x10^3 (test code = 4614296156) See_Comment [Automated messa ge] The system which generated this result transmitted reference range: 10*3/?L. The reference range was not used to interpret this result as normal/abnormal. GRAN MAT (NEUT) % (test code = 770-8) 59.1 % IMM GRAN % (test code = [id number]) 0.40 % LYMPH % (test code = 736-9) 26.1 % MONO % (test code = 5905-5) 12.1 % EOS % (test code = 713-8) 1.8 % BASO % (test code = 706-2) 0.5 % GRAN MAT x10^3(ANC) (test code = 3027899305) 4.47 10*3/uL 1.88-7.09 IMM GRAN x10^3 (test code = [id number]) 0.03 10*3/uL 0-0.06 LYMPH x10^3 (test code = 731-0) 1.98 10*3/uL 1.32-3.29 MONO x10^3 (test code = 742-7) 0.92 10*3/uL 0.33-0.92 EOS x10^3 (test code = 711-2) 0.14 10*3/uL 0.03-0.39 BASO x10^3 (test code = 704-7) 0.04 10*3/uL 0.01-0.07 Lab Interpretation (test code = 22046-6) Abnormal [facility] Notes Date/Time Note Provider Source 2023-07-20 23:07:30 Pt discharged with diagnosis of diverticulitis, encouraged hydration. Printed and verbal instructions reviewed with and given to pt. Pt. verbalized understanding of teaching and recommended follow-up. Denies questions or concerns at this time. Pt ambulatory at discharge. Appears in no apparent distress. No ataxia noted. Advised to seek medical attention for new/prolonged/worsening of symptoms, Symptoms improved. No adverse reaction to meds given in ER noted upon discharge PIV d'cd, dressing to site, catheter in tact. Nohemi Butler RN [facility] 2023-07-20 19:22:15 Pt arrives ambulatory to ED c/o sharp abdominal pain that began this morning. Says she began feeling a full discomfort yesterday but today the pain got too bad and she had to come in. She reports taking gas-x, & pepto, without relief. Payton Benitez RN [facility] 2023-07-20 19:06:00 Associated Order(s): EKG-12 Lead ONCE Pre-Procedure Diagnose(s): Abdominal pain, unspecified abdominal location Post-Procedure Diagnose(s): Abdominal pain, unspecified abdominal location [facility] Emergency Department Note Patient Name: Roman Rios Date of : 1975 48 year old female Treatment Room: TX4/VA4 Primary Care Physician: Padmini Meyer Patient Escorted by: Self [9] (dropped off) Mode of Arrival: Personal means [1] EMS Treatment Prior to ED Arrival: [facility]ATHER LACER treatment: None Travel and Exposure Screening: Symptoms Does patient have any of these symptoms?: (not recorded) Exposure Screening Has patient had contact with someone with a communicable disease in the last month?: (not recorded) Diseases exposed to:: (not recorded) Is Patient ?: (not recorded) Exposure Date: (not recorded) Chief Complaint: Chief Complaint Patient presents with Abdominal Pain History of Present Illness: 48 y.o. female with upper abdominal pain, N/V and "fullness feeling" since yesterday. Patient reports Gallbladder already gone. Denies fever/chills, Past Medical History/Immunizations: Past Medical History: Diagnosis Date Anxiety 2013 ongoing, on medication Benign breast lumps 07/28/2020 Depression 2012 denies si/hi, situational due to loss of parents Diabetes mellitus ongoing, on metformin Endocrine disorder diabetes insulin resistent 2014 Insulin resistance currently taking metformin Tetanus received in last 5 years: No Allergies: Allergies Allergen Reactions Contrast [Iodine And Iodide Containing Products] Rash Past Social History: Tobacco Use Never smoked or used smokeless tobacco. Alcohol Use No. Drug Use No. Sexual Activity Sexually active; Partners: Male; Control/Protection: None. Comments: 07/11/2022 Past Surgical History: Past Surgical History: Procedure Laterality Date SECTION N/A 12/24/2016 Surgeon: Dean Rasmussen; Location: Labor and Delivery - [facility] CHOLECYSTECTOMY 2011 Review of Systems: Review of Systems Constitutional: Negative for chills and fever. HENT: Negative. Eyes: Negative. Respiratory: Negative. Breasts: Negative. Cardiovascular: Negative. Gastrointestinal: Positive for abdominal pain, nausea and vomiting. Negative for abdominal distention, anal bleeding, blood in stool, constipation, diarrhea and rectal pain. Genitourinary: Negative. Musculoskeletal: Negative. Skin: Negative. Neurological: Negative. Psychiatric/Behavioral: Negative. Endocrine: Endocrine negative Physical Exam: ED Triage Vitals Weight 07/20/231923 113.4 kg (250 lb) Actual or estimated 07/20/231923 Estimated by patient/family report Height 07/20/231923 1.626 m (5' 4") BP 07/20/23 2107 118/71 Pulse 07/20/231923 95 Resp 07/20/231923 16 Temp 07/20/231923 37 ?C (98.6 ?F) Temp source 07/20/231923 Oral SpO2 07/20/231923 100 % Measured on 07/20/231923 Room air Physical Exam Vitals and nursing note reviewed. Constitutional: General: She is not in acute distress. Appearance: Normal appearance. She is not ill-appearing, toxic-appearing or diaphoretic. HENT: Head: Normocephalic and atraumatic. Nose: Nose normal. Mouth/Throat: Mouth: Mucous membranes are moist. Eyes: Pupils: Pupils are equal, round, and reactive to light. Cardiovascular: Rate and Rhythm: Normal rate and regular rhythm. Pulses: Normal pulses. Heart sounds: Normal heart sounds. Pulmonary: Effort: Pulmonary effort is normal. Abdominal: General: There is no distension. Palpations: Abdomen is soft. There is no mass. Tenderness: There is abdominal tenderness. There is no right CVA tenderness, left CVA tenderness, guarding or rebound. Hernia: No hernia is present. Comments: +Epigastric TTP, No guarding, no rebound Musculoskeletal: General: Normal range of motion. Skin: General: Skin is warm. Capillary Refill: Capillary refill takes less than 2 seconds. Neurological: General: No focal deficit present. Mental Status: She is alert and oriented to person, place, and time. Psychiatric: Mood and Affect: Mood normal. Behavior: Behavior normal. Radiology: CT ABDOMEN PELVIS WO CONTRAST Final Result ORDERING PHYSICIAN: ADAMA NAZARIO CLINICAL HISTORY: Abdominal pain, acute, nonlocalized TECHNIQUE: CT abdomen and pelvis was performed without administration of intravenous contrast. CT scan was done according to ALARA (As Low as Reasonably Achievable). TECHNICAL QUALITY: Diagnostic COMPARISON: None FINDINGS: The lung bases are clear. The liver is normal in appearance. The gallbladder has been removed. The spleen is normal in appearance. The pancreas is normal in appearance. There is no peripancreatic inflammation. The adrenal glands are normal in appearance. The kidneys are symmetric in size and density. There is no hydronephrosis. There are no renal stones. Abdominal aorta is normal in caliber. There is no intra-abdominal free air. The small bowel is normal in caliber. There is stool in the colon. There is diverticulitis of the sigmoid colon, series 2 image 132. The appendix is visualized and normal in appearance. The bladder is distended without focal bladder wall thickening and without bladder stone. The uterus is present. Both ovaries are visualized and normal in size. There is no prevertebral pelvis. There are no enlarged lymph nodes in the abdomen or pelvis. There is no compression fracture. IMPRESSION 1. Sigmoid diverticulitis. No perforation or abscess formation. 2. Normal appendix. RL: 518 End of report Lab Results: Lab Results CBC WITH DIFF - Abnormal Result Value Ref Range WBC 12.19 (*) 4.30 - 11.10 10*3/?L RBC 4.69 3.93 - 5.25 10*6/?L HGB 13.6 11.6 - 15.0 g/dL HCT 41.3 35.7 - 45.2 % MCV 88.1 80.6 - 95.5 fL MCH 29.0 25.9 - 32.8 pg MCHC 32.9 31.6 - 35.1 g/dL RDW-SD 42.2 39.0 - 49.9 fL RDW-CV 13.2 12.0 - 15.5 % PLT 258 166 - 358 10*3/?L MPV 9.3 (*) 9.5 - 12.9 fL NRBC/100 WBC 0.0 0.0 - 10.0 /100 WBCs NRBC x10 3 <0.01 10*3/?L GRAN MAT (NEUT) % 72.3 % IMM GRAN % 0.80 % LYMPH % 14.4 % MONO % 11.2 % EOS % 1.0 % BASO % 0.3 % GRAN MAT x10 3 (ANC) 8.81 (*) 1.88 - 7.09 10*3/uL IMM GRAN x10 3 0.10 (*) 0.00 - 0.06 10*3/uL LYMPH x10 3 1.75 1.32 - 3.29 10*3/uL MONO x10 3 1.37 (*) 0.33 - 0.92 10*3/uL EOS x10 3 0.12 0.03 - 0.39 10*3/uL BASO x10 3 0.04 0.01 - 0.07 10*3/uL URINALYSIS - Abnormal APPEARANCE Hazy (*) Clear COLOR Yellow Yellow PH 7.0 4.8 - 8.0 SP GRAVITY 1.019 1.003 - 1.030 GLU U QUAL Normal Normal BLOOD Negative Negative KETONES Negative Negative PROTEIN Negative Negative UROBILIN 4.0 mg/dL (*) Normal BILIRUBIN Negative Negative NITRITE Negative Negative LEUK MOOSE Negative Negative RBC/HPF 1 0 - 3 HPF WBC/HPF 5 0 - 5 HPF BACTERIA Few (*) Negative MUCOUS Slight (*) Negative LPF SQ EPITH 12 HPF LIPASE - Normal LIPASE 93 0 - 220 U/L POCT TEST - Normal POCT PREG Negative On board controls acceptable with C Line Yes POCT PREG LOT # [id number] POCT PREG TEST DATE 06-17-2024 TROPONIN I - Normal TROPONIN I 0.003 <=0.034 ng/mL COMP. METABOLIC PANEL (02180) NA 139 135 - 145 mmol/L K 3.7 3.5 - 5.0 mmol/L CL 103 98 - 108 mmol/L CO2 TOTAL 30 23 - 31 mmol/L AGAP 6 2 - 16 BUN 11 7 - 23 mg/dL GLUCOSE 84 70 - 110 mg/dL CREATININE 0.86 0.50 - 1.04 mg/dL TOTAL BILI 0.6 0.1 - 1.1 mg/dL CALCIUM 8.7 8.6 - 10.6 mg/dL T PROTEIN 7.5 6.3 - 8.2 g/dL ALBUMIN 4.2 3.5 - 5.0 g/dL ALK PHOS 65 34 - 122 U/L ALTv 18 5 - 35 U/L AST(SGOT) 21 13 - 40 U/L eGFR 84.5 mL/min/1.73m2 EKG: If EKG completed, see Procedure Note. Orders and Treatments: Orders Placed This Encounter Procedures CT ABDOMEN PELVIS WO CONTRAST Cbc with Diff Comp. Metabolic Panel (22516) Urinalysis Lipase POCT Test Troponin I Orders Placed This Encounter Medications morpHINE (4 mg/mL) injection 6 mg ondansetron (ZOFRAN (PF)) injection 4 mg famotidine (PEPCID (PF)) injection 20 mg levoFLOXacin in D5W (LEVAQUIN) 500 mg/100 mL Piggyback 500 mg metroNIDAZOLE (FLAGYL) tablet 500 mg First Provider Eval: ED Events Date/Time Event User Comments 07/20/231952 Medical Screening Begins ADAMA NAZARIO MD -- 07/20/231952 First Provider Evaluation ADAMA NAZARIO MD -- ED COURSE Diagnosis/Impression as of 07/20/232200 Abdominal pain, unspecified abdominal location Diverticulitis Procedures: EKG-12 Lead ONCE Date/Time: 07/20/2023 8:19 PM Performed by: Adama Nazario MD Authorized by: Adama Nazario MD ECG interpreted by ED Physician in the absence of a employee benefits attorney: yes Previous ECG: Previous ECG: Unavailable Interpretation: Interpretation: non-specific Rate: ECG rate: 87 ECG rate assessment: normal Rhythm: Rhythm: sinus rhythm Ectopy: Ectopy: none QRS: QRS axis: Normal QRS intervals: Normal QRS conduction: normal ST segments: ST segments: Normal T waves: T waves: normal MDM: Medical Decision Making Amount and/or Complexity of Data Reviewed Labs: ordered. Radiology: ordered. Risk Prescription drug management. Parenteral controlled substances. A) Diverticulitis Disposition/Condition: Levaquin/Flagyl, Bentyl prn, good hydration, diet modification, ER warnings, f/u PCP in 2-3 days ED Disposition None Discharge Medications: Patient's Medications START taking these medications No medications on file CONTINUE taking these medications which have NOT CHANGED ALBUTEROL 90 MCG/ACTUATION INHALER Inhale 2 Puffs every 4 (four) hours as needed for Wheezing or Shortness of Breath. ALPRAZOLAM 0.5 MG TABLET Take 0.5 mg by mouth 2 (two) times daily. BENZONATATE 100 MG CAPSULE Take 1 capsule by mouth 3 (three) times daily as needed for Cough. HYDROCHLOROTHIAZIDE 12.5 MG TABLET Take 12.5 mg by mouth daily. MECLIZINE 25 MG TABLET Take 1 tablet by mouth every 6 (six) hours. METFORMIN 500 MG TABLET Take 1 tablet by mouth 2 (two) times daily with meals. ONDANSETRON 4 MG DISINTEGRATING TABLET Take 1 tablet by mouth every 8 (eight) hours as needed for Nausea and Vomiting (N/V). PHENAZOPYRIDINE 200 MG TABLET Take 1 tablet by mouth in the morning and 1 tablet at noon and 1 tablet in the evening. PRAMOXINE (PROCTOFOAM) 1 % FOAM Insert into rectum every 2 (two) hours as needed for Rectal itching/pain. PREDNISONE 20 MG TABLET Take 3 tablets by mouth every morning. PROMETHAZINE 25 MG TABLET Take 1 tablet by mouth every 6 (six) hours as needed for Nausea and Vomiting (N/V). START taking Modified Medications as Prescribed No medications on file STOP taking these medications No medications on file Follow-up: PCP Electronically signed by: Adama Nazario MD 07/20/23 [id number] [facility] 2023-04-14 12:26:18 Patient discharged home. Follow up with pcp as needed. Return if worsening symptoms. OS REPORT DEVELOPER Harry Moreno RN [facility] 2023-04-14 11:08:34 Patient reports having cough causing chest pain since Tuesday with green sputum. She also reports nasal congestion. Denies sore throat or fever. Has been trying OTC meds with no relief. Denies hx of heart problems. DM2. OS REPORT DEVELOPER Bo Gonzalez RN [facility] 2022-11-02 11:49:58 Formatting of this n ote might be different from the original. Attempted to contact patient x3 to reschedule mammogram appointment. Will address when patient calls back. Braden Mullins [facility] 2022-11-01 11:02:59 Formatting of this n ote might be different from the original. Roman Rios is a 47 year old female Patient wanting to reschedule mammogram appointment, please call [phone] (home) Silvia Bajwa [facility] 2022-09-30 15:37:21 Formatting of this n ote might be different from the original. Pt given printed and verbal discharge instructions regarding uti/nausea, encouraged hydration, Prescriptions provided Discussed ibuprofen and to take with food to avoid GI distress, alternate with Tylenol to help with pain and/or fever Discussed antibiotic therapy and to take until all completed unless adverse reaction occurs - if occurs, discontinue medication and follow up with pcp/seek medical attention Discussed medication side affects and to avoid driving/operating machinery/or engaging in activities requiring alertness while taking. Pt verbalized understanding of instructions,pt encouraged to follow up with pcp and or specialist Advised to seek medical attention for new/prolonged/worsening of symptoms, No adverse reaction to meds given in ER noted upon discharge PIV d'cd, dressing to site, catheter in tact. Awake, alert oriented, resp reg unlabored, skin w/d, pt leaving in no apparent distress, Sonya Lamas RN [facility] 2022-09-30 11:54:20 Formatting of this n ote might be different from the original. Pt states she work up at about 0300 this am with nausea. States her period is 8 days late, that also reports urgency. Marlen Lopez RN [facility]
[2023-09-27] MEDS ORDERED: NA CHLORIDE 0.9% 1,000 ML ONE (22:53)
[2023-09-27] MEDS ORDERED: ONDANSETRON 4 MG/2 ML VIAL ONE (22:53)
[2023-09-27] MEDS ORDERED: MORPHINE 4 MG/ML SYR ONE (22:53)
[2023-09-27 23:01] LABS: Absolute Basophils 0.1 K/uL (0-0.5); Absolute Lymphocytes (CBC) 1.7 K/uL (0.7-4.9); Basophils % 0.8 % (0-1.3); Eosinophils % 0.3 % (0-4.4); Hemoglobin 13.7 g/dL (12.0-15.0); Lymphocytes % 15.5 % (15.3-44.8); MCH 28.7 pg (27.0-35.0); MCHC 33.4 g/dL (32.0-36.0); MPV 7.7 fL (7.6-11.3); Neutrophils % 74.4 % (41.7-73.7); Nucleated Red Blood Cells % 0.1 % (0-0); Platelets 237 thou/uL (152-406); RBC Red Blood Cell Count 4.77 M/uL (3.86-4.86); Red Cell Distribution Width 13.7 % (12.1-15.2)
[2023-09-27 23:14] LABS: Specific Gravity > 1.030 (1.005-1.030); Urine Bacteria 20-50 /HPF (<20); Urine Bilirubin NEGATIVE (Negative); Urine Blood Negative (Negative); Urine Clarity Extremely Turbid (Clear); Urine Color Yellow (Yellow); Urine Culture Reflex Order NOT NEEDED; Urine Glucose NEGATIVE (Negative); Urine Ketones NEGATIVE (Negative); Urine Microscopic Reflex YN ORDER UMIC; Urine Mucus 2+ /HPF (None Seen); Urine Nitrite NEGATIVE (Negative); Urine Protein TRACE (Negative); Urine RBC None Seen /HPF (None Seen); Urine Urobilinogen Normal (Normal); Urine WBC <5 /HPF (<5); Urine pH 5.5 (5.0-7.0)
[2023-09-27 23:16] LABS: Specific Gravity > 1.030 (1.005-1.030)
[2023-09-27 23:19] LABS: Albumin/Globulin Ratio 1.1 (1.1-1.8); Anion Gap 12.4 mEq/L (5.0-15.0); Bilirubin Total 0.9 mg/dL (0.2-1.0); Globulin 3.7 g/dL (2.3-3.5); Potassium 3.4 mEq/L (3.5-5.1); Protein, Total 7.7 g/dL (6.4-8.2)
[2023-09-28] MEDS ORDERED: CEFTRIAXONE 1000 MG/VIAL ONE (00:23)
[2023-09-28] MEDS ORDERED: NA CHLORIDE 0.9% 0 ML ONE (00:23)
[2023-09-28] MEDS ORDERED: NA CHLORIDE 0.9% 50 ML ONE (00:24)
[2023-09-28] MEDS ORDERED: METRONIDAZOLE 500mg IVPB 500 MG/100 ML BAG IV ONE (00:25)
--- NOTE | 2023-09-28 00:31 | EDPHYS ---
Physician Documentation [facility] Name: Aracelis Morales Age: 48 yrs Sex: Female : 1975 Arrival Date: 09/27/2023 Time: 22:13 Bed 20 Private MD: ED Physician Micheal Coffey HPI: 09/26 22:39 This 48 yrs old Female presents to ER via Ambulatory with complaints of sb4 Abdominal Pain. 22:39 The patient presents with abdominal pain in the periumbilical area. Onset: The sb4 symptoms/episode began/occurred this morning. The symptoms do not radiate. Associated signs and symptoms: Pertinent positives: nausea. The symptoms are described as sharp. Modifying factors: The symptoms are alleviated by nothing, the symptoms are aggravated by movement. Severity of pain: in the emergency department the pain is a 9 / 10. The patient has not experienced similar symptoms in the past. The patient has not recently seen a physician. 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 - Infectious Disease History:: Denies. - Social history:: Smoking status: Patient denies any tobacco usage or history of. ROS: 22:39 Constitutional: Negative for fever, chills, and weight loss, sb4 22:39 Abdomen/GI: Positive for abdominal pain, nausea, 22:39 All other systems are negative, Exam: 22:39 Constitutional: This is a well developed, well nourished patient who is awake, alert, sb4 and in no acute distress. Head/Face: Normocephalic, atraumatic. Eyes: Extra-ocular motions intact. Periorbital areas with no swelling, redness, or edema. ENT: Mucous membranes moist. Cardiovascular: Regular rate and rhythm with a normal S1 and S2. Respiratory: Lungs have equal breath sounds bilaterally, clear to auscultation and percussion. No rales, rhonchi or wheezes noted. No increased work of breathing, no retractions or nasal flaring. Skin: Warm, dry with normal turgor. Normal color with no rashes, no lesions, and no evidence of cellulitis. MS/ Extremity: Pulses equal, no cyanosis. Neurovascular intact. Full, normal range of motion. 22:39 Abdomen/GI: Inspection: abdomen appears normal, obese Bowel sounds: normal, Palpation: soft, mild abdominal tenderness, in the umbilical area, Vital Signs: 22:25 BP 158 / 88; Pulse 99; Resp 18; Temp 98.2; Pulse Ox 99% ; Weight 118.39 kg; Height 5 jp4 ft. 4 in. ; Pain 8/10; 23:00 BP 120 / 67; Pulse 92; Resp 17 S; Pulse Ox 100% on R/A; ha1 09/27 00:00 BP 122 / 65; Pulse 88; Resp 17 S; Pulse Ox 99% on R/A; ha1 01:00 BP 139 / 75; Pulse 80; Resp 17 S; Pulse Ox 97% on R/A; ha1 09/26 22:25 Body Mass Index 44.80 (118.39 kg, 162.56 cm) 4 09/26 22:25 Pain Scale: Adult jp4 MDM: 09/26 22:20 Patient medically screened. sb4 22:39 Data reviewed: vital signs, nurses notes, lab test result(s), radiologic studies. sb4 23:51 Counseling: I had a detailed discussion with the patient and/or guardian regarding the 4 historical points, exam findings, and any diagnostic results supporting the discharge/admit diagnosis, lab results, radiology results, to return to the emergency department if symptoms worsen or persist or if there are any questions or concerns that arise at home. 09/27 00:03 Care significantly affected by the following chronic conditions: Diabetes, Obesity. sb4 09/26 22:27 Order name: CBC with Diff; Complete Time: 23:15 sb4 09/26 22:27 Order name: CMP; Complete Time: 23:20 sb4 09/26 22:27 Order name: Lipase; Complete Time: 23:20 sb4 09/26 22:27 Order name: Test, Urine; Complete Time: 23:20 sb4 09/26 22:27 Order name: Urinalysis w/ reflexes; Complete Time: 23:15 sb4 09/26 22:35 Order name: CT Abd/Pelvis - Without Contrast sb4 09/26 22:27 Order name: IV Saline Lock; Complete Time: 22:30 sb4 09/26 22:27 Order name: Labs collected and sent; Complete Time: 22:30 sb4 Administered Medications: 09/26 22:04 Drug: morphine IVP or IV 4 mg IVP once over 4 mins Route: IVP; Infused Over: 4 mins; ha1 Site: right antecubital; 23:20 Follow up: Response: No adverse reaction; Marked relief of symptoms; Pain is decreased; ha1 RASS: Alert and Calm (0) 23:00 Drug: NS 0.9% IV 1000 ml IV at 1 bolus Per protocol; 1000 mL bolus Route: IV; Rate: 1 ha1 bolus; Site: right antecubital; 09/27 01:00 Follow up: Response: No adverse reaction; IV Status: Completed infusion; IV Intake: ha1 1000ml 09/26 23:02 Drug: Ondansetron IVP 4 mg IVP once; over 2 minutes Route: IVP; Site: right antecubital;ha1 23:20 Follow up: Response: No adverse reaction; Marked relief of symptoms 1 09/27 00:00 Drug: Rocephin IV 1 grams IV at calculated rate once; Given slow IV push per pharmacy ha1 instructions Route: IV; Rate: calculated rate; Site: right antecubital; 00:10 Follow up: Response: No adverse reaction; IV Status: Completed infusion; IV Intake: [id number] 00:10 Drug: metroNIDAZOLE IVPB 500 mg 100 ml IVPB at 200 ml/hr once over 30 mins Volume: 100 ha1 ml; Route: IVPB; Rate: 200 ml/hr; Infused Over: 30 mins; Site: right antecubital; 01:02 Follow up: Response: No adverse reaction; IV Status: Completed infusion; IV Intake: ha1 100ml Disposition: 00:51 Co-signature as Attending Physician, Micheal Coffey MD I agree with the assessment sp4 and plan of care. I reviewed the patient's care provided by the Advanced Practice Provider and agree with the diagnosis and treatment plan. Disposition Summary: 09/28/23 00:31 Discharge Ordered Notes: Location: Home sb4 Problem: new sb4 Symptoms: have improved sb4 Condition: Stable sb4 Diagnosis - Left sided colitis without complications sb4 - UTI/ Urinary tract infection, site not specified sb4 Followup: sb4 - With: Emergency Department - When: As needed - Reason: Fever > 102 F, Worsening of condition Discharge Instructions: - Discharge Summary Sheet sb4 - Urinary Tract Infection, Adult, [id number] sb4 - Colitis sb4 Forms: - Work release form sb4 - Antibiotic Education sb4 - Patient Portal Instructions sb4 - Leadership Thank You Letter sb4 Prescriptions: - Flagyl 500 mg Oral Tablet - take 1 tablet ORAL route every 12 hours for 7 days; 14 tablet; Refills: 0, sb4 Product Selection Permitted - cefpodoxime 100 mg Oral tablet - take 1 tablet ORAL route every 12 hours for 7 days take with food; 14 tablet; sb4 Refills: 0, Product Selection Permitted - ondansetron 8 mg Oral Tablet,disintegrating - take 1 tablet ORAL route every 8 hours; 12 tablet; Refills: 0, Product sb4 Selection Permitted Signatures: Dispatcher [employer] EDMS Saida Mejia, RN RN ha1 Kari Gastelum, PA-C PA-C sb4 Micheal Coffey MD MD sp4 Jay Newsome, RN RN jp4 Corrections: (The following items were deleted from the chart) 09/26 22:41 22:28 Abdomen Pelvis W [id number].RAD.[id number] ordered. EDMS EDMS
--- NOTE | 2023-09-28 00:31 | ER ---
Nurse's Notes [facility] Name: Aracelis Morales Age: 48 yrs Sex: Female : 1975 Arrival Date: 09/27/2023 Time: 22:13 Bed 20 Private MD: Diagnosis: Left sided colitis without complications;UTI/ Urinary tract infection, site not specified Presentation: 09/26 22:25 Chief complaint: Patient states: abdominal pain since this morning, states worsened jp4 after lifting heavy boxes. Coronavirus screen: Vaccine status: Patient reports being unvaccinated. Ebola Screen: Patient negative for fever greater than or equal to 101.5 degrees Fahrenheit, and additional compatible Ebola Virus Disease symptoms Patient denies exposure to infectious person. Patient denies travel to an Ebola-affected area in the 21 days before illness onset. No symptoms or risks identified at this time. Initial Sepsis Screen: Does the patient meet any 2 criteria? No. Patient's initial sepsis screen is negative. Does the patient have a suspected source of infection? No. Patient's initial sepsis screen is negative. Risk Assessment: Do you want to hurt yourself or someone else? Patient reports no desire to harm self or others. Onset of symptoms was September 27, 2023. Mechanism of Injury: lifting. 22:25 Method Of Arrival: Ambulatory jp4 22:25 Acuity: TACHO 3 jp4 Triage Assessment: 22:28 General: Appears uncomfortable, obese, Behavior is calm, cooperative. Pain: Complains jp4 of pain in epigastric area, right upper quadrant and left upper quadrant. Neuro: No deficits noted. Level of Consciousness is awake, alert, obeys commands, Oriented to person, place, time, situation. Respiratory: No deficits noted. Airway is patent Respiratory effort is even, unlabored, Respiratory pattern is regular, symmetrical. GI: Reports upper abdominal pain. 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 - Infectious Disease History:: Denies. - Social history:: Smoking status: Patient denies any tobacco usage or history of. Screenin:30 [facility] ED Fall Risk Assessment (Adult) History of falling in the last 3 months, jp4 including since admission No falls in past 3 months (0 pts) Confusion or Disorientation No (0 pts) Intoxicated or Sedated No (0 pts) Impaired Gait No (0 pts) Mobility Assist Device Used No (0 pt) Altered Elimination No (0 pt) Score/Fall Risk Level 0 - 2 = Low Risk. Abuse screen: Denies threats or abuse. Denies injuries from another. Nutritional screening: No deficits noted. Tuberculosis screening: No symptoms or risk factors identified. Assessment: 22:20 General: Appears uncomfortable, Behavior is calm, cooperative. Pain: Complains of pain ha1 in abdomen and umbilical area and epigastric area Pain does not radiate. Pain currently is 8 out of 10 on a pain scale. Quality of pain is described as aching, pressure. Neuro: Level of Consciousness is awake, alert, obeys commands, Oriented to person, place, time, situation. Cardiovascular: Capillary refill < 3 seconds Patient's skin is warm and dry. Respiratory: Airway is patent Respiratory effort is even, unlabored, Respiratory pattern is regular, symmetrical. GI: Abdomen is round non-distended, obese, Bowel sounds present X 4 quads. Abd is soft and non tender Reports upper abdominal pain, nausea. : No signs and/or symptoms were reported regarding the genitourinary system. Derm: Skin is pink, warm \T\ dry. Musculoskeletal: Circulation, motion, and sensation intact. 23:20 Reassessment: Patient and/or family updated on plan of care and expected duration. Pain ha1 level reassessed. Patient is alert, oriented x 3, equal unlabored respirations, skin warm/dry/pink. 09/27 00:20 Reassessment: Patient and/or family updated on plan of care and expected duration. Pain ha1 level reassessed. Patient is alert, oriented x 3, equal unlabored respirations, skin warm/dry/pink. Patient states feeling better. Patient states symptoms have improved. 01:00 Reassessment: Patient and/or family updated on plan of care and expected duration. Pain ha1 level reassessed. Patient is alert, oriented x 3, equal unlabored respirations, skin warm/dry/pink. Patient denies pain at this time. Patient states feeling better. Patient states symptoms have improved. Vital Signs: 09/26 22:25 BP 158 / 88; Pulse 99; Resp 18; Temp 98.2; Pulse Ox 99% ; Weight 118.39 kg; Height 5 jp4 ft. 4 in. ; Pain 8/10; 23:00 BP 120 / 67; Pulse 92; Resp 17 S; Pulse Ox 100% on R/A; ha1 09/27 00:00 BP 122 / 65; Pulse 88; Resp 17 S; Pulse Ox 99% on R/A; ha1 01:00 BP 139 / 75; Pulse 80; Resp 17 S; Pulse Ox 97% on R/A; ha1 09/26 22:25 Body Mass Index 44.80 (118.39 kg, 162.56 cm) jp4 09/26 22:25 Pain Scale: Adult [facility] ED Course: 09/26 22:18 Patient arrived in ED. gm2 22:19 Kari Gastelum PA-C is PHCP. sb4 22:19 Micheal Coffey MD is Attending Physician. sb4 22:20 Saida Mejia, JORGE is Primary Nurse. ha1 22:28 Triage completed. jp4 22:28 Arm band placed on right wrist. jp4 22:30 Patient has correct armband on for positive identification. Bed in low position. Call 4 light in reach. Side rails up X 1. Provided Education on:. Pulse ox on. NIBP on. Verbal reassurance given. 22:30 Inserted saline lock: 20 gauge in right antecubital area, using aseptic technique. ha1 Blood collected. Flushed with 10 mL NS. 22:54 CT Abd/Pelvis - Without Contrast In Process Unspecified. EDMS 09/27 01:01 No provider procedures requiring assistance completed. IV discontinued, intact, ha1 bleeding controlled, No redness/swelling at site. Pressure dressing applied. Administered Medications: 09/26 22:04 Drug: morphine IVP or IV 4 mg IVP once over 4 mins Route: IVP; Infused Over: 4 mins; ha1 Site: right antecubital; 23:20 Follow up: Response: No adverse reaction; Marked relief of symptoms; Pain is decreased; ha1 RASS: Alert and Calm (0) 23:00 Drug: NS 0.9% IV 1000 ml IV at 1 bolus Per protocol; 1000 mL bolus Route: IV; Rate: 1 ha1 bolus; Site: right antecubital; 09/27 01:00 Follow up: Response: No adverse reaction; IV Status: Completed infusion; IV Intake: ha1 1000ml 09/26 23:02 Drug: Ondansetron IVP 4 mg IVP once; over 2 minutes Route: IVP; Site: right antecubital;ha1 23:20 Follow up: Response: No adverse reaction; Marked relief of symptoms ha1 09/27 00:00 Drug: Rocephin IV 1 grams IV at calculated rate once; Given slow IV push per pharmacy ha1 instructions Route: IV; Rate: calculated rate; Site: right antecubital; 00:10 Follow up: Response: No adverse reaction; IV Status: Completed infusion; IV Intake: 50aipx1 00:10 Drug: metroNIDAZOLE IVPB 500 mg 100 ml IVPB at 200 ml/hr once over 30 mins Volume: 100 ha1 ml; Route: IVPB; Rate: 200 ml/hr; Infused Over: 30 mins; Site: right antecubital; 01:02 Follow up: Response: No adverse reaction; IV Status: Completed infusion; IV Intake: ha1 100ml Medication: 01:02 VIS not applicable for this client. ha1 Intake: 00:10 IV: 50ml; Total: 50ml. ha1 01:00 IV: 1000ml; Total: 1050ml. ha1 01:02 IV: 100ml; Total: 1150ml. ha1 Outcome: 00:31 Discharge ordered by MD. webb 01:01 Discharged to home ambulatory, with family, ha1 01:01 Condition: stable 01:01 Discharge instructions given to patient, Instructed on discharge instructions, follow up and referral plans. medication usage, Demonstrated understanding of instructions, follow-up care, medications, Prescriptions given X 3, 01:03 Patient left the ED. ha1 Signatures: Dispatcher [facility] EDMS Saida Mejia RN RN ha1 Kari Gastelum PA-C PA-C sb4 Powell, Jaime, RN RN 4 Makayla Saba gm2
[2023-09-28 01:19] VITALS: TEMP 98.2
[2023-09-28 01:20] VITALS: BP 120/67; O2SAT 100
--- NOTE | 2023-09-29 10:57 | RAD REPORT ---
EXAM DESCRIPTION: CT - Abdomen Pelvis Wo Contrast - 09/27/2023 10:53 pm CLINICAL HISTORY: Abdominal pain. COMPARISON: CT Abdomen pelvis 06/10/2022. TECHNIQUE: Serial axial CT images were obtained from above the diaphragm through the pubic symphysis without administration of intravenous or oral contrast. All CT scans are performed using dose optimization techniques as appropriate, including automated exp osure control and/or standardized protocols, where dose is adjusted for indication for exam and body habitus. FINDINGS: Thoracic: No significant abnormality. Hepatobiliary: Mild diffuse hepatic steatosis. Mild hepatomegaly, measuring 17 cm in length. No obvio us concerning hepatic lesion identified in the absence of intravenous contrast. The gallbladder is dejesus rgically absent. No biliary ductal dilatation. Pancreas: Unremarkable. Spleen: Unremarkable. Gastrointestinal: No evidence of bowel obstruction or perienteric inflammation. The appendix is ari l. The majority of the colon is decompressed. Small stool burden. Moderate left colonic diverticulosi s. Adrenals: No abnormality identified in either adrenal gland. Renal: No obvious concerning parenchymal abnormality in either kidney in the absence of intravenous c ontrast. No hydronephrosis or urolithiasis. Bladder/Reproductive: Poor evaluation of the underdistended urinary bladder by CT technique. Simple a ppearing left ovarian 3.5 cm cyst (no follow-up imaging is recommended). Vascular/Lymphatics: No lymphadenopathy identified by CT size criteria. Abdominal aorta is normal in caliber. Musculoskeletal: No concerning osseous lesion identified. Fluid / peritoneum: No significant free fluid. No free intraperitoneal air identified. IMPRESSION: 1. Decompressed colon, which could be physiologic or can be seen with mild colitis. 2. Simple appearing left ovarian 3.5 cm cyst (no follow-up imaging is recommended). 3. Diffuse hepatic steatosis and mild hepatomegaly. Electronically signed by: Annabel Contreras MD 09/27/2023 11:29 PM CDT Due to temporary technical issues with the PACS/Fluency reporting system, reports are being signed by the in house radiologist without review as a courtesy to ensure prompt reporting. The interpreting r adiologist is fully responsible for the content of the report.
== END 2023-09-28 01:03 | disposition home or self-care (01) ==
LOC: ER 22:13
DX: K51.50 Left sided colitis without complications (principal); N39.0 Urinary tract infection, site not specified; E11.9 Type 2 diabetes mellitus without complications
CPT/HCPCS: 85025; 81001; 36415; 81025; 83690; 80053; 74176; J2405; J7030; J0696

== ENCOUNTER 2024-01-13 00:37 | Emergency (ER) | payer OTHER ==
--- OUTSIDE RECORDS SUMMARY | 2024-01-13 00:41 | XMS REPORT | Continuity of Care Document ---
Author Name Unknown Address [address] [facility]. 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 Name Role Phone VAIBHAVNAHID TARIQ Roy Primary Care Physician UnavailMARYANA Camacho Attending Clinician Unavailable MARYANA CHESTER Attending Clinician Unavailable Maryana Chester DO Attending Clinician [phone] PADMINI MEYER Attending Clinician Unavail able ADAMA NAZARIO Attending Clinician Unavailable Adama Nazario MD Attending Clinician [phone] ISIS MCCLENDON Attending Clinician Unavailable ISIS MCCLENDON Attending Clinician Unavailable Betsy Padmini ALCANTARA Attending Clinician + LEELA BENITEZ Attending Clinician UnavailLeela Cuevas DO Attending Clinician [phone] Doctor Unassigned, [facility] Attending Clinician MARICEL Evans Attending Clinician UnaMaricel Kimball MD Attending Clinician + CHLOÉ MARTINS Attending Clinician UnavailChloé Eller Attending Clinician [phone] HAYLEY IBARRA Attending Clinician Unavaila Hayley Cueva F Attending Clinician [phone] APRIL HYLTON Attending Clinician Unavailable April Hylton MD Attending Clinician Will LAYAWAY CLERK, Gurdeep Phelps Attending Clinician SENTHIL ROTH Attending Clinician Unavailable Senthil Escalera S Attending Clinician [phone] TRICE BENITEZ Attending Clinician Unavailthor Benitez LAYAWAY CLERK, Trice Martino Attending Clinician [phone] BASIM CARBAJAL Attending Clinician Unavailable BASIM CARBAJAL Attending Clinician Unavailable Mitch LAYAWAY CLERK, Kimberly Ann Attending Clinician [phone] ADAMA NAZARIO Admitting Clinician Unavailable ISIS MCCLENDON Admitting Clinician Unavailable HAYLEY IBARRA Admitting Clinician Unavaila PADMINI Woodall Admitting Clinician Unavail able APRIL HYLTON Admitting Clinician Unavailable Payers Payer Name Policy Type Policy Number Effective Date Expirati on Date Source [facility] Bibiana/ GREGORY MENDES [id number] 2023 00:00:00 MEDICAID PENDING PENDING 2018 00:00:00 2018 00:00:00 Problems Condition Name Condition Details Condition Category Status Onset Date Resolution Date Last Treatment Date Treating Clinician Comments Source Benign breast lumps Benign breast lumps Disease Active 07-28 00:00: 00 [facility] Abnormal finding on breast imaging Abnormal finding on breast imaging Disease Active 07-28 00:00: 00 [facility] Anxiety Anxiety Disease Active 06-10 00:00: 00 [facility] Excessive bleeding in the premenopau phi period Excessive bleeding in the premenopau phi period Disease Active 06-10 00:00: 00 [facility] Contracept rowdy management Contracept rowdy management Disease Active 2016-02 00:00: 00 [facility] Morbid obesity Morbid obesity Disease Active 2016-02 00:00: 00 [facility] History of depression History of depression Disease Active 06-09 00:00: 00 [facility] History of anxiety History of anxiety Disease Active 06-09 00:00: 00 [facility] Controlled type 2 diabetes mellitus without complicati on Controlled type 2 diabetes mellitus without complicati on Disease Active 06-09 00:00: 00 [facility] Routine follow-up Routine follow-up Disease Resolve d 2016-02 00:00: 00 2017-02-10 00:00:00 2017-02-10 16:27:13 [facility] delivery delivered delivery delivered Disease Resolve d 2016-02 00:00: 00 2017-01-17 00:00:00 2017-01-17 12:04:50 [facility] NST (non-stres s test) nonreactiv e NST (non-stres s test) nonreactiv e Disease Resolve d 2016-02 00:00: 00 2017-01-17 00:00:00 2017-01-17 12:04:46 [facility] 38 weeks gestation of 38 weeks gestation of Disease Resolve d 2016-02 00:00: 00 2017-01-17 00:00:00 2017-01-17 12:04:48 [facility] [place] contractio [place] contractio ns Disease Resolve d 2016-02 00:00: 00 2017-01-17 00:00:00 2017-01-17 12:04:33 [facility] Supervisio n of high risk , antepartum Supervisio n of high risk , antepartum Disease Resolve d 06-09 00:00: 00 2017-01-17 00:00:00 2017-01-17 12:04:35 [facility] AMA (advanced maternal age) multigravi da 35+ AMA (advanced maternal age) multigravi da 35+ Disease Resolve d 06-09 00:00: 00 2017-01-17 00:00:00 2017-01-17 12:04:36 [facility] Flu vaccine need Flu vaccine need Disease Resolve d 06-09 00:00: 00 2017-01-17 00:00:00 2017-01-17 12:04:44 [facility] Obesity affecting Obesity affecting Disease Resolve d 2 00:00: 00 2017-01-17 00:00:00 2017-01-17 12:04:34 [facility] Morbid obesity with body mass index of 40.0-49.9 Morbid obesity with body mass index of 40.0-49.9 Disease Resolve d 03-26 00:00: 00 2016-06-09 00:00:00 2016-06-09 09:27:08 [facility] Allergies, Adverse Reactions, Alerts Allergy Name Allergy Type Status Severity Reaction(s) Onset Date Inactive Date Treating Clinician Comments Source Iodine And Iodide Containi ng Products Propensi ty to adverse reaction s Active Rash 2018-02 00:00: 00 [facility] IODINE AND IODIDE CONTAINI NG PRODUCTS Drug Class Active Rash 2018-02 00:00: 00 [facility] Iodine And Iodide Containi ng Products Propensi ty to adverse reaction s Active Rash 2018-02 00:00: 00 [facility] Social History Social Habit Start Date Stop Date Quantity Comments Source Gender identity [facility] Alcoholic beverage intake 2024-01-11 00:00:00 2024-01-11 00:00:00 Current non-drinker of alcohol (finding) [facility] Alcohol intake 2023-04-14 00:00:00 2023-04-14 00:00:00 Current non-drinker of alcohol (finding) [facility] History of Social function 2022-08-11 00:00:00 2022-08-11 00:00:00 [facility] Exposure to SARS-CoV-2 (event) 2022-05-23 00:00:00 2022-06-02 00:13:00 Not sure [facility] Tobacco use and exposure 2016-06-09 00:00:00 2016-06-09 00:00:00 Smokeless tobacco non-user [facility] Sex assigned at 1975 00:00:00 1975 00:00:00 [facility] Smoking Status Start Date Stop Date Source Never smoked tobacco [facility] Medications Ordered Medication Name Filled Medication Name Start Date Stop Date Current Medication? Ordering Clinician Indication Dosage Frequency Signature (SIG) Comments Components Source dexamethaso ne sod phos PF injection 10 mg 2023-02 13:00: 00 01-10 11:58 :00 No 10mg 10 mg, Oral, ONCE, 1 dose, On Tue01/11/24 at 0700, Routine [facility] benzonatate 100 mg capsule 2023-02 00:00: 00 Yes [id number] 100 100mg Take 1 capsule by mouth 3 (three) times daily as needed for Cough. [facility] diphenhy-br omphen-phen yleph-DM 12.5-2-5-10 mg/10 mL SoSq 2023-02 00:00: 00 Yes [id number] 5mL Take 5 mL by mouth every 6 (six) hours as needed for Other (cough). [facility] metroNIDAZO LE (FLAGYL) tablet 500 mg 07-20 03:00: 00 07-20 03:04 :00 No 500mg 500 mg, Oral, ONCE, 1 dose, On Tue07/20/23 at 2200, BETHANIE, Reason for Anti-Infec tive: Documented Infection, Documented Infection Site: Abdominal, Duration of Therapy: Once (ED) [facility] levoFLOXaci n in D5W (LEVAQUIN) 500 mg/100 mL Piggyback 500 mg 07-20 03:00: 00 07-20 04:04 :00 No 500mg 500 mg, IV Piggyback, ONCE, 1 dose, On Tue07/20/23 at 2200, Administer over 60 Minutes, 100 mL, Reason for Anti-Infec tive: Documented Infection, Documented Infection Site: Abdominal, Duration of Therapy: Once (ED) [facility] famotidine (PEPCID (PF)) injection 20 mg 07-20 01:15: 00 07-20 02:02 :00 No 20mg 20 mg, Slow IV Push, ONCE, 1 dose, On Tue07/20/23 at 2014, [facility] ondansetron (ZOFRAN (PF)) injection 4 mg 07-20 01:15: 00 07-20 02:00 :00 No 4mg 4 mg, Slow IV Push, ONCE, 1 dose, On Tue07/20/23 at 2014, [facility] morpHINE (4 mg/mL) injection 6 mg 07-20 01:15: 00 07-20 02:07 :00 No 6mg 6 mg, Slow IV Push, ONCE, 1 dose, On Tue07/20/23 at 2014, [facility] levoFLOXaci n 500 mg tablet 07-19 00:00: 00 07-30 04:59 :00 No [id number] 500mg Take 1 tablet by mouth in the morning for 10 days. [facility] metroNIDAZO LE 500 mg tablet 07-19 00:00: 07-30 04:59 :00 No [id number] 500mg Take 1 tablet by mouth in the morning and 1 tablet at noon and 1 tablet in the evening. Do all this for 10 days. [facility] HYDROcodone -acetaminop hen 5-325 mg tablet 07-19 00:00: 00 07-27 04:59 :00 No [id number] 1{tbl} Take 1 tablet by mouth every 8 (eight) hours as needed for Pain (scale 7-10) for up to 7 days. Indication s: acute pain [facility] docusate (COLACE) 100 mg capsule 07-19 00:00: 00 07-27 04:59 :00 No [id number] 100mg Take 1 capsule by mouth in the morning for 7 days. [facility] ipratropium -albuteroL (DUONEB) 0.5 mg-3 mg(2.5 mg base)/3 mL nebulizer solution 3 mL 18:15: 00 17:23 :00 No 3mL 3 mL, Inhalation , ONCE, 1 dose, On Jazzmine 04/14/23 at 1215, Routine [facility] predniSONE 20 mg tablet 00:00: 00 Yes [id number] 100 60mg Take 3 tablets by mouth every morning. [facility] albuterol 90 mcg/actuati on inhaler 00:00: 00 Yes [id number] 100 2{puff} Inhale 2 Puffs every 4 (four) hours as needed for Wheezing or Shortness of Breath. [facility] benzonatate 100 mg capsule 00:00: 00 01-10 00:00 :00 No [id number] 100 100mg Take 1 capsule by mouth 3 (three) times daily as needed for Cough. [facility] pramoxine (PROCTOFOAM ) 1 % foam 11-13 00:00: 00 Yes [id number] Insert into rectum every 2 (two) hours as needed for Rectal itching/pa in. [facility] ondansetron (ZOFRAN (PF)) injection 4 mg 09-30 17:00: 00 09-30 17:41 :00 No 4mg 4 mg, Slow IV Push, ONCE, 1 dose, On Tue09/30/22 at 1200, BETHANIE [facility] phenazopyri dine 200 mg tablet 09-30 00:00: 00 Yes [id number] 200mg Take 1 tablet by mouth in the morning and 1 tablet at noon and 1 tablet in the evening. [facility] ondansetron 4 mg disintegrat ing tablet 09-30 00:00: 00 Yes [id number] 4mg Take 1 tablet by mouth every 8 (eight) hours as needed for Nausea and Vomiting (N/V). [facility] acetaminoph en (TYLENOL) tablet 1,000 mg 06-02 05:30: 00 06-02 05:24 :00 No 1000mg 1,000 mg, Oral, ONCE, 1 dose, On Tue06/02/22 at 0030, BETHANIE [facility] ketorolac (TORADOL) injection 30 mg 05-30 22:00: 00 05-30 21:28 :00 No 30mg 30 mg, Slow IV Push, ONCE, 1 dose, On Tue05/30/22 at 1700, Routine [facility] NaCl 0.9% (NS) bolus infusion 1,000 mL 05-30 21:45: 00 05-30 22:50 :00 No 1000mL at 999 mL/hr, 1,000 mL, IV Infusion, ONCE, 1 dose, On Tue05/30/22 at 1645, BETHANIE [facility] ondansetron (ZOFRAN (PF)) injection 4 mg 05-30 21:15: 00 05-30 21:25 :00 No 4mg 4 mg, Slow IV Push, ONCE, 1 dose, On Tue05/30/22 at 1615, BETHANIE [facility] morpHINE (4 mg/mL) injection 4 mg 05-30 21:15: 00 05-30 21:29 :00 No 4mg 4 mg, Slow IV Push, ONCE, 1 dose, On Tue05/30/22 at 1615, STAT [facility] cephALEXin 500 mg capsule 05-30 00:00: 00 11-13 00:00 :00 No [id number] 500mg Take 1 capsule by mouth 4 (four) times daily. [facility] ibuprofen 600 mg tablet 05-30 00:00: 00 11-13 00:00 :00 No [id number] 600mg Take 1 tablet by mouth every 6 (six) hours as needed for Pain (scale 4-6). [facility] aspirin chewable tablet 324 mg 10-05 14:00: 00 Yes 324mg 324 mg, Oral, DAILY, First dose on Tue10/05/21 at 0900, Until Discontinu ed, Routine [facility] ondansetron (ZOFRAN (PF)) injection 4 mg 10-05 03:00: 00 10-05 02:49 :00 No 4mg 4 mg, Slow IV Push, ONCE, 1 dose, On Tue10/04/21 at 2200, BETHANIE [facility] morpHINE (4 mg/mL) injection 4 mg 10-05 03:00: 00 10-05 02:44 :00 No 4mg 4 mg, Slow IV Push, ONCE, 1 dose, On 10/04/21 at 2200, STAT [facility] meclizine 25 mg tablet 03-16 00:00: 00 Yes [id number] 25mg Take 1 tablet by mouth every 6 (six) hours. [facility] hydroCHLORO thiazide 12.5 mg tablet 05-21 00:00: 00 Yes 12.5mg Take 12.5 mg by mouth daily. [facility] ALPRAZolam 0.5 mg tablet 04-02 00:00: 00 Yes .5mg Take 0.5 mg by mouth 2 (two) times daily. [facility] proMETHazin e 25 mg tablet 2018-02 00:00: 00 Yes [id number] 25mg Take 1 tablet by mouth every 6 (six) hours as needed for Nausea and Vomiting (N/V). [facility] metFORMIN 500 mg tablet 2016-02 00:00: 00 Yes 500mg Take 1 tablet by mouth 2 (two) times daily with meals. [facility] Immunizations Ordered Immunization Name Filled Immunization Name Date Status Comments Source TDAP 2016-10-14 00:00:00 Completed [facility] TDAP 2016-10-14 00:00:00 Completed [facility] TDAP 2016-10-14 00:00:00 Completed [facility] TDAP 2016-10-14 00:00:00 Completed [facility] TDAP 2016-10-14 00:00:00 Completed [facility] TDAP 2016-10-14 00:00:00 Completed [facility] TDAP 2016-10-14 00:00:00 Completed [facility] TDAP 2016-10-14 00:00:00 Completed [facility] TDAP 2016-10-14 00:00:00 Completed [facility] TDAP 2016-10-14 00:00:00 Completed [facility] Influenza Virus Vaccine Quad IM 3+ YRS 2016-06-09 00:00:00 Completed [facility] Influenza Virus Vaccine Quad IM 3+ YRS 2016-06-09 00:00:00 Completed [facility] Influenza Virus Vaccine Quad IM 3+ YRS 2016-06-09 00:00:00 Completed [facility] Influenza Virus Vaccine Quad IM 3+ YRS 2016-06-09 00:00:00 Completed [facility] Influenza Virus Vaccine Quad IM 3+ YRS 2016-06-09 00:00:00 Completed [facility] Influenza Virus Vaccine Quad IM 3+ YRS 2016-06-09 00:00:00 Completed [facility] Influenza Virus Vaccine Quad IM 3+ YRS 2016-06-09 00:00:00 Completed [facility] Influenza Virus Vaccine Quad IM 3+ YRS 2016-06-09 00:00:00 Completed [facility] Influenza Virus Vaccine Quad IM 3+ YRS 2016-06-09 00:00:00 Completed [facility] Influenza Virus Vaccine Quad IM 3+ YRS 2016-06-09 00:00:00 Completed [facility] Influenza Virus Vaccine Quad IM 3+ YRS Unknown Completed [facility] TDAP Unknown Completed [facility] Influenza Virus Vaccine Quad IM 3+ YRS Unknown Completed [facility] TDAP Unknown Completed [facility] Influenza Virus Vaccine Quad IM 3+ YRS Unknown Completed [facility] TDAP Unknown Completed [facility] Influenza Virus Vaccine Quad IM 3+ YRS Unknown Completed [facility] TDAP Unknown Completed [facility] Influenza Virus Vaccine Quad IM 3+ YRS Unknown Completed [facility] TDAP Unknown Completed [facility] Vital Signs Vital Name Observation Time Observation Value Comments S ource Systolic blood pressure 2024-01-11 11:20:00 145 mm[Hg] [facility] Diastolic blood pressure 2024-01-11 11:20:00 88 mm[Hg] [facility] Heart rate 2024-01-11 11:20:00 90 /min Un[facility] Body temperature 2024-01-11 11:20:00 36.89 Mariaa [facility] Respiratory rate 2024-01-11 11:20:00 16 /min [facility] Body height 2024-01-11 11:20:00 162.6 cm [facility] Body weight 2024-01-11 11:20:00 113.354 kg [facility] BMI 2024-01-11 11:20:00 42.90 kg/m2 [facility] Oxygen saturation in Arterial blood by Pulse oximetry 2024-01-11 11:20:00 99 /min [facility] Heart rate 2023-07-21 04:03:00 81 /min Unive [facility] Body temperature 2023-07-21 04:03:00 36.72 Mariaa [facility] Respiratory rate 2023-07-21 04:03:00 22 /min [facility] Oxygen saturation in Arterial blood by Pulse oximetry 2023-07-21 04:03:00 99 /min [facility] Systolic blood pressure 2023-07-21 04:00:00 131 mm[Hg] [facility] Diastolic blood pressure 2023-07-21 04:00:00 91 mm[Hg] [facility] Body height 2023-07-21 00:24:00 162.6 cm [facility] Body weight 2023-07-21 00:24:00 113.399 kg [facility] BMI 2023-07-21 00:24:00 42.91 kg/m2 [facility] Heart rate 2023-04-14 17:34:00 75 /min Unive [facility] Respiratory rate 2023-04-14 17:34:00 18 /min [facility] Oxygen saturation in Arterial blood by Pulse oximetry 2023-04-14 17:34:00 97 /min [facility] Systolic blood pressure 2023-04-14 17:10:00 170 mm[Hg] [facility] Diastolic blood pressure 2023-04-14 17:10:00 95 mm[Hg] [facility] Body temperature 2023-04-14 17:10:00 36.94 Mariaa [facility] Body weight 2023-04-14 17:10:00 111.131 kg [facility] BMI 2023-04-14 17:10:00 42.05 kg/m2 [facility] Systolic blood pressure 2022-11-13 15:00:00 148 mm[Hg] [facility] Diastolic blood pressure 2022-11-13 15:00:00 86 mm[Hg] [facility] Heart rate 2022-11-13 15:00:00 86 /min Un[facility] Body temperature 2022-11-13 15:00:00 37.22 Mariaa [facility] Respiratory rate 2022-11-13 15:00:00 16 /min [facility] Body height 2022-11-13 15:00:00 162.6 cm [facility] Body weight 2022-11-13 15:00:00 108.863 kg [facility] BMI 2022-11-13 15:00:00 41.20 kg/m2 [facility] Oxygen saturation in Arterial blood by Pulse oximetry 2022-11-13 15:00:00 98 /min [facility] Systolic blood pressure 2022-09-30 20:34:31 140 mm[Hg] [facility] Diastolic blood pressure 2022-09-30 20:34:31 113 mm[Hg] [facility] Heart rate 2022-09-30 20:34:31 98 [facility] Body temperature 2022-09-30 20:34:31 36.89 Mariaa [facility] Respiratory rate 2022-09-30 20:34:31 18 /min [facility] Oxygen saturation in Arterial blood by Pulse oximetry 2022-09-30 20:33:52 99 /min [facility] Body weight 2022-09-30 16:55:00 109.77 kg [facility] BMI 2022-09-30 16:55:00 41.54 kg/m2 [facility] Systolic blood pressure 2022-08-11 18:32:00 129 mm[Hg] [facility] Diastolic blood pressure 2022-08-11 18:32:00 82 mm[Hg] [facility] Heart rate 2022-08-11 18:32:00 84 /min [facility] Body temperature 2022-08-11 18:32:00 35.61 Mariaa [facility] Respiratory rate 2022-08-11 18:32:00 18 /min [facility] Body height 2022-08-11 18:32:00 162.6 cm [facility] Body weight 2022-08-11 18:32:00 114.533 kg [facility] BMI 2022-08-11 18:32:00 43.34 kg/m2 [facility] Systolic blood pressure 2022-06-02 06:36:00 135 mm[Hg] [facility] Diastolic blood pressure 2022-06-02 06:36:00 97 mm[Hg] [facility] Heart rate 2022-06-02 06:36:00 100 /min [facility] Body temperature 2022-06-02 06:36:00 38 Mariaa [facility] Respiratory rate 2022-06-02 06:36:00 20 /min [facility] Oxygen saturation in Arterial blood by Pulse oximetry 2022-06-02 06:36:00 98 /min [facility] Body height 2022-06-02 05:16:00 162.6 cm [facility] Body weight 2022-06-02 05:16:00 108.41 kg [facility] BMI 2022-06-02 05:16:00 41.02 kg/m2 [facility] Systolic blood pressure 2022-05-30 22:00:00 116 mm[Hg] [facility] Diastolic blood pressure 2022-05-30 22:00:00 80 mm[Hg] [facility] Heart rate 2022-05-30 22:00:00 94 /min Un[facility] Respiratory rate 2022-05-30 22:00:00 18 /min [facility] Oxygen saturation in Arterial blood by Pulse oximetry 2022-05-30 22:00:00 97 /min [facility] Body temperature 2022-05-30 20:39:00 37.39 Mariaa [facility] Body height 2022-05-30 20:39:00 162.6 cm [facility] Body weight 2022-05-30 20:39:00 108.41 kg [facility] BMI 2022-05-30 20:39:00 41.02 kg/m2 [facility] Systolic blood pressure 2021-10-05 04:00:00 140 mm[Hg] [facility] Diastolic blood pressure 2021-10-05 04:00:00 62 mm[Hg] [facility] Heart rate 2021-10-05 04:00:00 71 /min Un[facility] Respiratory rate 2021-10-05 04:00:00 19 /min [facility] Oxygen saturation in Arterial blood by Pulse oximetry 2021-10-05 04:00:00 98 /min [facility] Body temperature 2021-10-05 01:11:00 37.11 Mariaa [facility] Body height 2021-10-05 01:11:00 162.6 cm [facility] Body weight 2021-10-05 01:11:00 112.946 kg [facility] BMI 2021-10-05 01:11:00 42.74 kg/m2 [facility] Systolic blood pressure 2021-08-11 18:19:00 132 mm[Hg] [facility] Diastolic blood pressure 2021-08-11 18:19:00 78 mm[Hg] [facility] Heart rate 2021-08-11 18:19:00 84 /min [facility] Body [facility] 2021-08-11 18:19:00 36.56 Mariaa [facility] Respiratory rate 2021-08-11 18:19:00 18 /min [facility] Body height 2021-08-11 18:19:00 162.6 cm [facility] Body weight 2021-08-11 18:19:00 115.469 kg [facility] BMI 2021-08-11 18:19:00 43.70 kg/m2 [facility] Procedures Procedure Date / Time Performed Performing Clinician Source INFLUENZA A/B RSV COVID NAAT 2024-01-11 11:22:00 ChesterMaryana [facility] EKG-12 LEAD 2023-07-21 02:57:52 Adama Nazario [facility] CT ABDOMEN PELVIS WO CONTRAST 2023-07-21 01:58:00 Adama Nazario [facility] POCT TEST 2023-07-21 01:19:00 Adama Nazario [facility] LIPASE 2023-07-21 01:17:00 Adama Nazario [facility] TROPONIN I 2023-07-21 01:17:00 Adama Nazario [facility] COMP. METABOLIC PANEL ([id number]) 2023-07-21 01:17:00 Adama Nazario [facility] CBC WITH DIFF 2023-07-21 01:17:00 Adama Nazario [facility] URINALYSIS 2023-07-21 01:17:00 Adama Nazario [facility] ASSIGNMENT OF BENEFITS 2023-04-14 18:12:52 Docto r Unassigned, [facility] XR CHEST 2 VW 2023-04-14 17:56:43 Isis Mcclendon [facility] RAPID INFLUENZA A/B 2023-04-14 17:25:00 Isis Mcclendon [facility] COVID-19 (ID NOW RAPID TESTING) 2023-04-14 17:25:00 Isis Mcclendon [facility] CONSENT/REFUSAL FOR DIAGNOSIS AND TREATMENT 2023-04-14 17:06:33 Doctor Unassigned, [facility] CONSENT/REFUSAL FOR DIAGNOSIS AND TREATMENT 2022-11-13 15:09:48 Doctor Unassigned, [facility] COVID-19 (ID NOW RAPID TESTING) 2022-09-30 18:39:00 Maricel Parikh [facility] LIPASE 2022-09-30 17:39:00 Maricel Parikh [facility] COMP. METABOLIC PANEL ([id number]) 2022-09-30 17:39:00 Maricel Parikh [facility] CBC WITH DIFF 2022-09-30 17:39:00 Maricel Parikh [facility] POCT TEST 2022-09-30 17:35:00 Maricel Yee [facility] URINALYSIS 2022-09-30 17:34:00 Maricel Parikh [facility] CONSENT/REFUSAL FOR DIAGNOSIS AND TREATMENT 2022-09-30 16:44:46 Doctor Unassigned, [facility] ASSIGNMENT OF BENEFITS 2022-08-11 18:23:46 Docto r Unassigned, [facility] NOTICE OF PRIVACY PRACTICES 2022-06-02 05:09:15 Doctor Unassigned, [facility] CONSENT/REFUSAL FOR DIAGNOSIS AND TREATMENT 2022-06-02 05:08:40 Doctor Unassigned, [facility] CT THORAX WO CONTRAST 2022-05-30 21:42:00 Rusty Ibarra [facility] LIPASE 2022-05-30 21:16:00 [facility] COMP. METABOLIC PANEL ([id number]) 2022-05-30 21:16:00 Hayley Ibarra [facility] SEDIMENTATION RATE 2022-05-30 21:16:00 Angie Ibarra [facility] CBC WITH DIFF 2022-05-30 21:16:00 Hayley Ibarra [facility] EBV-MONONUCLEOSIS SCREEN 2022-05-30 21:16:00 Hayley Ibarra [facility] CONSENT/REFUSAL FOR DIAGNOSIS AND TREATMENT 2022-05-30 20:36:59 Doctor Unassigned, [facility] TROPONIN I 2021-10-05 03:15:00 April Hylton [facility] XR CHEST 1 VW 2021-10-05 01:30:54 April Hylton [facility] LIPASE 2021-10-05 01:20:00 April Hylton [facility] TROPONIN I 2021-10-05 01:20:00 April Hylton [facility] COMP. METABOLIC PANEL (78502) 2021-10-05 01:20:00 April Hylton [facility] CBC WITH DIFF 2021-10-05 01:20:00 [facility] / INR 2021-10-05 01:20:00 Duncan Hylton [facility] ACTIVATED PARTIAL THRMPLAS DEEPTHI 2021-10-05 01:20:00 April Hylton [facility] CONSENT/REFUSAL FOR DIAGNOSIS AND TREATMENT 2021-10-05 01:03:42 Doctor Unassigned, [facility] Encounters Start Date/Time End Date/Time Encounter Type Admission Type Attending [facility] Facility Care Department Encounter ID Source 2020-12-13 14:22:14 Emergency [facility] [id number] [facility] 2024-01-11 05:26:00 2024-01-11 06:08:00 Emergency MARYANA CRUZ PHILLIP [facility] ERT [id number] [facility] 2024-01-11 05:26:00 2024-01-11 06:08:00 Emergency Maryana Chester [facility] AT [facility] 1..840.114 350.1.13.10 4.2.7.2.686 [id number] [facility] 2024-01-10 09:50:01 2024-01-10 09:50:01 Outpatient [facility] [id number] Ozzy Corrales Yuinor 2023-07-20 19:27:00 2023-07-20 23:07:00 Emergency X ADAMA NAZARIO [facility] ERT [id number] [facility] 2023-07-20 19:27:00 2023-07-20 23:07:00 Emergency Adama Nazario [facility] 1..840.114 350.1.13.10 4.2.7.2.686 [id number] [facility] 2023-04-14 11:13:00 2023-04-14 12:26:00 Emergency X DANELLE ISIS QUARLES [facility] ERT [id number] [facility] 2023-04-14 11:13:00 2023-04-14 12:26:00 Emergency Mcclendon Isis Manzano [facility] 1.840.114 350.1.13.10 4.2.7.2.686 [id number] [facility] 2022-12-28 13:45:00 2022-12-28 23:59:00 Outpatient R PADMINI MEYER [facility] [id number] [facility] 2022-12-28 07:23:29 2022-12-28 23:59:00 Hospital Encounter Padmini Meyer [facility] .840.114 350.1.13.10 4.2.7.2.686 [id number] [facility] 2022-11-13 10:19:00 2022-11-13 11:19:00 Emergency X LEELA BENITEZ [facility] ERT [id number] [facility] 2022-11-13 10:19:00 2022-11-13 11:19:00 Emergency Leela Benitez [facility] .840.114 350.1.13.10 4.2.7.2.686 [id number] [facility] 2022-11-03 00:00:00 2022-11-03 00:00:00 Outpatient R PADMINI MEYER [facility] [id number] [facility] 2022-11-01 00:00:00 2022-11-01 00:00:00 Telephone Padmini Meyer [facility] [employer] [facility] .840.114 350.1.13.10 4.2.7.2.686 [id number] [facility] 2022-10-01 00:00:00 2022-10-01 00:00:00 Patient Secure Msg Doctor Unassigned, [facility] 1..114 350.1.13.10 4.2.7.2.686 [id number] [facility] 2022-09-30 11:58:00 2022-09-30 15:39:00 Emergency X MARICEL PARIKH [facility] ERT [id number] [facility] 2022-09-30 11:58:00 2022-09-30 15:39:00 Emergency Maricel Parikh [facility] 1..114 350.1.13.10 4.2.7.2.686 [id number] [facility] 2022-08-11 13:30:00 2022-08-11 14:23:51 Outpatient R PADMINI MEYER [facility] [id number] [facility] 2022-08-11 13:30:00 2022-08-11 14:23:51 Office Visit Padmini Meyer [facility] [employer] [facility] 1.84.114 350.1.13.10 4.2.7.2.686 [id number] [facility] 2022-08-11 13:15:00 2022-08-11 13:15:00 Outpatient R PADMINI MEYER [facility] [id number] [facility] 2022-08-11 00:00:00 2022-08-11 00:00:00 Orders Only Doctor Unassigned, [facility] 1.84.114 350.1.13.10 4.2.7.2.686 [id number] [facility] 2022-06-02 00:19:00 2022-06-02 02:06:00 Emergency X CHLOÉ MARTINS [facility] ERT [id number] [facility] 2022-06-02 00:19:00 2022-06-02 02:06:00 Emergency Chloé Martins [facility] 1.2840.114 350.1.13.10 4.2.7.2.686 [id number] [facility] 2022-05-30 15:40:00 2022-05-30 18:20:00 [facility] ERT [id number] [facility] 2022-05-30 15:40:00 2022-05-30 18:20:00 Emergency Hayley Ibarra F [facility] 1.2840.114 350.1.13.10 4.2.7.2.686 [id number] [facility] 2021-10-26 06:46:08 2021-10-26 23:59:00 Outpatient R PADMINI MEYER [facility] [id number] [facility] 2021-10-26 06:46:08 2021-10-26 23:59:00 Hospital Encounter Padmini Meyer [facility] 1.2840.114 350.1.13.10 4.2.7.2.686 [id number] [facility] 2021-10-04 20:06:00 2021-10-04 23:21:00 Emergency X APRIL HYLTON [facility] ERT [id number] [facility] 2021-10-04 20:06:00 2021-10-04 23:21:00 Emergency Gill Hyltonsteffany Perales [facility] 1.2840.114 350.1.13.10 4.2.7.2.686 [id number] [facility] 2021-08-11 13:15:00 2021-08-11 14:04:37 Outpatient R PADMINI MEYER [facility] [id number] [facility] 2021-08-11 13:15:00 2021-08-11 14:04:37 Office Visit Padmini Meyer [facility] [employer] [facility]ILD [facility] 1.840.114 350.1.13.10 4.2.7.2.686 [id number] [facility] 2021-08-11 13:15:00 2021-08-11 14:04:37 Outpatient R PADMINI MEYER [facility] [id number] [facility] 2021-07-02 00:00:00 2021-07-02 00:00:00 Telephone Gurdeep Solis [facility] [employer] OPERATOR [facility]ILD [facility] 1.840.114 350.1.13.10 4.2.7.2.686 [id number] [facility] 2021-03-16 16:20:00 2021-03-16 22:25:00 Emergency X SENTHIL ROTH [facility] ERT [id number] [facility] 2021-03-16 16:20:00 2021-03-16 22:25:00 Emergency Senthil Roth S [facility] 1.840.114 350.1.13.10 4.2.7.2.686 [id number] [facility] 2021-02-11 10:49:55 2021-02-11 23:59:00 Outpatient R TRICE BENITEZ [facility] [id number] [facility] 2021-02-11 10:49:55 2021-02-11 23:59:00 Hospital Encounter Triec Benitez [facility] .840.114 350.1.13.10 4.2.7.2.686 [id number] [facility] 2020-12-29 00:00:00 2020-12-29 00:00:00 Outpatient TRICE PETERSON [facility] [id number] [facility] 2020-07-24 12:26:06 2020-07-24 23:59:00 Outpatient TRICE PETERSON [facility] [id number] [facility] 2020-07-01 11:58:52 2020-07-01 23:59:00 Outpatient TRICE PETERSON [facility] [id number] [facility] 2020-07-01 00:00:00 2020-07-01 00:00:00 Outpatient TRICE PETERSON [facility] [id number] [facility] 2020-06-23 13:30:00 2020-06-23 13:30:00 Outpatient Lenin [facility] [id number] [facility] 2020-06-16 00:00:00 2020-06-16 00:00:00 Outpatient BASIM REYES SANGEETA [facility] [id number] [facility] 2020-06-16 00:00:00 2020-06-16 00:00:00 Outpatient BASIM REYES SANGEETA [facility] [id number] [facility] 2020-06-16 00:00:00 2020-06-16 00:00:00 Outpatient BASIM REYES SANGEETA [facility] [id number] [facility] 2020-06-10 13:15:00 2020-06-10 13:15:00 Outpatient TRICE PETERSON [facility] [id number] [facility] 2019-09-17 14:51:00 2019-09-17 16:38:00 Emergency Kimberly Meyer [facility] 1.2.840.114 350.1.13.10 4.2.7.2.686 [id number] 2019-09-17 00:00:00 2019-09-17 00:00:00 Orders Only Doctor Unassigned, [facility] 1.2.840.114 350.1.13.10 4.2.7.2.686 [id number] 2018-12-06 20:14:02 2018-12-06 22:54:00 Emergency X SENTHIL ROTH [facility] ERT [id number] [facility] Results Test Description Test Time Test [...] or pelvis. There is no compression fracture. [facility] (26582)2023-07-21 01:43:47* Test Item Value Reference Range Interpretation Comme nts NA (test code = 5618124265) 139 mmol/L 135-145 K (test code = 6684732449) 3.7 mmol/L 3.5-5.0 CL (test code = 0223436718) 103 mmol/L 98-108 CO2 TOTAL (test code = 8923109245) 30 mmol/L 23-31 AGAP (test code = 9601891832) 6 2-16 BUN (test code = 4552776699) 11 mg/dL 7-23 GLUCOSE (test code = 6588347873) 84 mg/dL 70-110 CREATININE (test code = 2160-0) 0.86 mg/dL 0.50-1.04 TOTAL BILI (test code = 2038347918) 0.6 mg/dL 0.1-1.1 CALCIUM (test code = 8297401352) 8.7 mg/dL 8.6-10.6 T PROTEIN (test code = 0775703925) 7.5 g/dL 6.3-8.2 ALBUMIN (test code = 9142067765) 4.2 g/dL 3.5-5.0 ALK PHOS (test code = 9195401458) 65 U/L 34-122 ALTv (test code = 1742-6) 18 U/L 5-35 AST(SGOT) (test code = 9189195419) 21 U/L 13-40 eGFR (test code = 46706-5) 84.5 mL/min/1.73m2 CKD-EPI eGFR (20 21). Assuming creatinine has been stable day-to-day for at least three months, the eGFR indicates Category G2 (60 - 89 mL/min/1.73 m2) [facility]12* Test Item Value Reference Range Interpretation Comme nts LIPASE (test code = 7426583371) 93 U/L 0-220 Lab Interpretation (test cod e = 82580-6) Normal [facility] with [id number] 01:29:28* Test Item Value Reference Range Interpretation [...] 32.9 g/dL 31.6-35.1 RDW-SD (test code = 50531-5) 42.2 fL 39.0-49.9 RDW-CV (test code = 788-0) 13.2 % 12.0-15.5 PLT (test code = 777-3) 258 166-358 MPV (test code = 85602-8) 9.3 fL 9.5-12.9 L NRBC/100 WBC (test code = 3493230615) 0.0 0.0-10.0 NRBC x10^3 (test code = 8740584407) See_Comment [Automated messa ge] The system which generated this result transmitted reference range: 10*3/?L. The reference range was not used to interpret this result as normal/abnormal. GRAN MAT (NEUT) % (test code = 770-8) 72.3 % IMM GRAN % (test code = 7992746575) 0.80 % LYMPH % (test code = 736-9) 14.4 % MONO % (test code = 5905-5) 11.2 % EOS % (test code = 713-8) 1.0 % BASO % (test code = 706-2) 0.3 % GRAN MAT x10^3(ANC) (test code = 9841052798) 8.81 10*3/uL 1.88-7.09 H IMM GRAN x10^3 (test code = 7203230228) 0.10 10*3/uL 0.00-0.06 H LYMPH x10^3 (test code = 731-0) 1.75 10*3/uL 1.32-3.29 MONO x10^3 (test code = 742-7) 1.37 10*3/uL 0.33-0.92 H EOS x10^3 (test code = 711-2) 0.12 10*3/uL 0.03-0.39 BASO x10^3 (test code = 704-7) 0.04 10*3/uL 0.01-0.07 Lab Interpretation (test code = 46181-6) Abnormal [facility] [id number] 01:19:00* Test Item Value Reference Range Interpretation Comme nts POCT PREG (test code = 1605) Negative On board controls acceptable with C Line (test code = 3574) Yes POCT PREG LOT # (test code = 4036) [id number] POCT PREG TEST DATE ( test code = 3576) 06-17-2024 Lab Interpretation (test cod e = 85458-1) Normal [facility] CHEST 2 [id number] 17:59:43HISTORY: Cough. TECHNIQUE: PA and lateral views of the chest are obtained. Comparison madewith a 05/03/2021 study. FINDINGS: Congestion seen in the lower lungs, slightly more in the rightlung base without focal area of consolidation. No acute pneumonia detected.No pneumothorax or pleural effusion. Cardiomediastinal contour appearsnormal. CONCLUSIONS: Mild bibasilar pulmonary congestion consistent withpossibility of viral infection.[facility] COMP. METABOLIC PANEL (21507)2022-09-30 18:06:59* Test Item Value Reference Range Interpretation Comme nts NA (test code = 8010416947) 140 mmol/L 135-145 K (test code = 5106127288) 3.7 mmol/L 3.5-5.0 CL (test code = 4916291575) 106 mmol/L 98-108 CO2 TOTAL (test code = 7703294726) 25 mmol/L 23-31 AGAP (test code = 4239398303) 9 2-16 BUN (test code = 8907652818) 10 mg/dL 7-23 GLUCOSE (test code = 2981941775) 114 mg/dL 70-110 H CREATININE (test code = 3394685148) 0.69 mg/dL 0.50-1.04 TOTAL BILI (test code = 0359760814) 1.0 mg/dL 0.1-1.1 CALCIUM (test code = 8529042293) 8.5 mg/dL 8.6-10.6 L T PROTEIN (test code = 1788509033) 7.7 g/dL 6.3-8.2 ALBUMIN (test code = 1846243604) 4.3 g/dL 3.5-5.0 ALK PHOS (test code = 9002072312) 48 U/L 34-122 ALTv (test code = 1742-6) 17 U/L 5-35 AST(SGOT) (test code = 9658902240) 21 U/L 13-40 eGFR (test code = 9490266330) 92.0 mL/min/1.73m2 TEJAL (test code = TEJAL) [...] imaging tests). Lab Interpretation (test code = 47481-0) Abnormal [facility] 18:06:39* Test Item Value Reference Range Interpretation Comme nts LIPASE (test code = 4749263283) 55 U/L 0-220 Lab Interpretation (test cod e = 49669-8) Normal [facility] WITH [id number] 17:55:58* Test Item Value Reference Range Interpretation Comme nts WBC (test code = 6690-2) 8.72 See_Comment [Automated [employer]] The system which generated this result transmitted reference range: 4.30 - 11.10 10*3/?L. The reference range was not used to interpret this result as normal/abnormal. RBC (test code = 789-8) 4.53 See_Comment [Automated [employer]] The system which generated this result transmitted [...] 33.5 g/dL 31.6-35.1 RDW-SD (test code = 76195-3) 39.8 fL 39.0-49.9 RDW-CV (test code = 788-0) 12.6 % 12.0-15.5 PLT (test code = 777-3) 244 See_Comment [Automated [employer]] The system which generated this result transmitted reference range: 166 - 358 10*3/?L. The reference range was not used to interpret this result as normal/abnormal. MPV (test code = 49937-6) 9.5 fL 9.5-12.9 NRBC/100 WBC (test code = 9039043746) 0.0 See_Comment [Automated Ad.IQ ssage] The system which generated this result transmitted reference range: 0.0 - 10.0 /100 WBCs. The reference range was not used to interpret this result as normal/abnormal. NRBC x10^3 (test code = 5319441102) See_Comment [Automated [employer]IQ ssage] The system which generated this result transmitted reference range: 10*3/?L. The reference range was not used to interpret this result as normal/abnormal. GRAN MAT (NEUT) % (test code = 770-8) 74.0 % IMM GRAN % (test code = 1095544315) 0.60 % LYMPH % (test code = 736-9) 15.1 % MONO % (test code = 5905-5) 9.4 % EOS % (test code = 713-8) 0.6 % BASO % (test code = 706-2) 0.3 % GRAN MAT x10^3(ANC) (test code = 1244067060) 6.45 10*3/uL 1.88-7.09 IMM GRAN x10^3 (test code = 3143716884) 0.05 10*3/uL 0.00-0.06 LYMPH x10^3 (test code = 731-0) 1.32 10*3/uL 1.32-3.29 MONO x10^3 (test code = 742-7) 0.82 10*3/uL 0.33-0.92 EOS x10^3 (test code = 711-2) 0.05 10*3/uL 0.03-0.39 BASO x10^3 (test code = 704-7) 0.03 10*3/uL 0.01-0.07 [facility] [id number] 17:35:00* Test Item Value Reference Range Interpretation Comme nts POCT PREG (test code = 1605) Negative On board controls acceptable with C Line (test code = 3574) Yes POCT PREG LOT # (test code = 3575) [id number] POCT PREG TEST DATE ( test code = 3576) 02/17/2024 Lab Interpretation (test cod e = 45980-7) Normal [facility]MON[facility]UCLEOS[facility] [id number] 22:36:10* Test Item Value Reference Range Interpretation Comme nts EBV Mononucleosis Screen (te st code = 5994143068) Negative Negative Lab Interpretation (test cod e = 63542-3) Normal [facility]ED[facility]ATION [id number] 22:13:14* Test Item Value Reference Range Interpretation Comme nts ESR (test code = 61022-2) 9 See_Comment [Automated message] The system which generated this result transmitted reference range: 0 - 20 mm/HR. The reference range was not used to interpret this result as normal/abnormal. Lab Interpretation (test code = 67661-6) Normal [facility] MET[facility]OLIC PANEL (33463)2022-05-30 22:10:18* Test Item Value Reference Range Interpretation Comme nts NA (test code = 5420712109) 138 mmol/L 135-145 K (test code = 4299869467) 4.5 mmol/L 3.5-5.0 CL (test code = 6380093827) 100 mmol/L 98-108 CO2 TOTAL (test code = 4143481582) 27 mmol/L 23-31 AGAP (test code = 1198502534) 11 2-16 BUN (test code = 6410180443) 9 mg/dL 7-23 GLUCOSE (test code = 8769004597) 105 mg/dL 70-110 CREATININE (test code = 8803863945) 0.80 mg/dL 0.50-1.04 TOTAL BILI (test code = 2027032201) 0.8 mg/dL 0.1-1.1 CALCIUM (test code = 0052033081) 9.0 mg/dL 8.6-10.6 T PROTEIN (test code = 9783242783) 7.3 g/dL 6.3-8.2 ALBUMIN (test code = 8404537113) 4.4 g/dL 3.5-5.0 ALK PHOS (test code = 1215848332) 49 U/L 34-122 ALTv (test code = 1742-6) 24 U/L 5-35 AST(SGOT) (test code = 6545911293) 25 U/L 13-40 eGFR (test code = 3199647166) 77.6 mL/min/1.73m2 TEJAL (test code = TEJAL) [...] or urine or abnormalities in imaging tests). [facility] 22:09:37* Test Item Value Reference Range Interpretation Comme nts LIPASE (test code = 4545742663) 52 U/L 0-220 Lab Interpretation (test cod e = 98640-4) Normal [facility] WITH [id number] 21:50:52* Test Item Value Reference Range Interpretation Comme nts WBC (test code = 6690-2) 7.08 See_Comment [Automated [employer]oorAtlas] The system which generated this result transmitted reference range: 4.30 - 11.10 10*3/?L. The reference range was not used to interpret this result as normal/abnormal. RBC (test code = 789-8) 5.09 See_Comment [Automated [employer]] The system which generated this result transmitted [...] 32.8 g/dL 31.6-35.1 RDW-SD (test code = 78971-1) 41.7 fL 39.0-49.9 RDW-CV (test code = 788-0) 12.8 % 12.0-15.5 PLT (test code = 777-3) 228 See_Comment [Automated messa ge] The system which generated this result transmitted reference range: 166 - 358 10*3/?L. The reference range was not used to interpret this result as normal/abnormal. MPV (test code = 33483-4) 9.6 fL 9.5-12.9 NRBC/100 WBC (test code = 7407566821) 0.0 See_Comment [Automated me ssage] The system which generated this result transmitted reference range: 0.0 - 10.0 /100 WBCs. The reference range was not used to interpret this result as normal/abnormal. NRBC x10^3 (test code = 1352905302) See_Comment [Automated messa ge] The system which generated this result transmitted reference range: 10*3/?L. The reference range was not used to interpret this result as normal/abnormal. GRAN MAT (NEUT) % (test code = 770-8) 68.7 % IMM GRAN % (test code = 3295855558) 0.40 % LYMPH % (test code = 736-9) 13.3 % MONO % (test code = 5905-5) 17.1 % EOS % (test code = 713-8) 0.1 % BASO % (test code = 706-2) 0.4 % GRAN MAT x10^3(ANC) (test code = 3268726488) 4.86 10*3/uL 1.88-7.09 IMM GRAN x10^3 (test code = 1426236017) 0.03 10*3/uL 0.00-0.06 LYMPH x10^3 (test code = 731-0) 0.94 10*3/uL 1.32-3.29 L MONO x10^3 (test code = 742-7) 1.21 10*3/uL 0.33-0.92 H EOS x10^3 (test code = 711-2) 0.03-0.39 L BASO x10^3 (test code = 704-7) 0.03 10*3/uL 0.01-0.07 Lab Interpretation (test code = 73900-1) [facility] [id number] 03:46:06* Test Item Value Reference Range Interpretation Comments TROPONIN I (test code = 3049989701) 0.001 ng/mL See_Comment [Automated message] The system [...] of biotin. Lab Interpretation (test code = 60205-7) Normal [facility] [id number] 01:53:04* Test Item Value Reference Range Interpretation Comments TROPONIN I (test code = 5115077920) 0.002 ng/mL See_Comment [Automated message] The system [...] of biotin. Lab Interpretation (test code = 01065-9) Normal [facility]aPTT2022-08-22 01:42:22* Test Item Value Reference Range Interpretation Comme nts APTT Patient (test code = 3173-2) See_Comment [Automated message] The system which generated this result transmitted reference range: 23 - 38 Seconds. The reference range was not used to interpret this result as normal/abnormal. TEJAL (test code = TEJAL) The [facility] patient population mean normal value for aPTT is 30 seconds. Lab Interpretation (test code = 85599-3) Normal [facility]. METABOLIC PANEL (82565)2021-10-05 01:42:02* Test Item Value Reference Range Interpretation Comme nts NA (test code = 9434724620) 138 mmol/L 135-145 K (test code = 3958971044) 4.2 mmol/L 3.5-5 CL (test code = 2064225659) 103 mmol/L 98-108 CO2 TOTAL (test code = 2407228815) 30 mmol/L 23-31 AGAP (test code = 0636403220) 2-16 BUN (test code = 1091922958) 7 mg/dL 7-23 GLUCOSE (test code = 4175516052) 115 mg/dL 70-110 H CREATININE (test code = 1308394249) 0.81 mg/dL 0.5-1.04 TOTAL BILI (test code = 9855518166) 0.2 mg/dL 0.1-1.1 CALCIUM (test code = 4751460143) 8.4 mg/dL 8.6-10.6 L T PROTEIN (test code = 1211807775) 6.6 g/dL 6.3-8.2 ALBUMIN (test code = 0822623875) 4.1 g/dL 3.5-5 ALK PHOS (test code = 8294967481) 60 U/L 34-122 ALTv (test code = 1742-6) 20 U/L 5-35 AST(SGOT) (test code = 7533212078) 23 U/L 13-40 eGFR (test code = 6623828889) mL/min/1.73m2 TEJAL (test code = TEJAL) Association [...] imaging tests). Lab Interpretation (test code = 55903-4) [id number]:41:22* Test Item Value Reference Range Interpretation Comme nts LIPASE (test code = 0308126776) 110 U/L 0-220 Lab Interpretation (test cod e = 69685-9) Normal [facility] / [id number] 01:39:21* Test Item Value Reference Range Interpretation Comme nts PROTIME PATIENT (test code = 5964-2) See_Comment [CheckBonus] The system which generated this result transmitted reference range: 12.0 - 14.7 Seconds. The reference range was not used to interpret this result as normal/abnormal. INR (test code = 6301-6) Normal INR <1.1; Warfarin Therapeutic range 2.0 to 3.0 or 2.5 to 3.5, depending upon the indications. Lab Interpretation (test code = 34773-0) Normal [facility] [id number] 01:28:20* Test Item Value Reference Range Interpretation Comme nts WBC (test code = 6690-2) See_Comment [CheckBonus] The system which generated this result transmitted reference range: 4.30 - 11.10 10*3/?L. The reference range was not used to interpret this result as normal/abnormal. RBC (test code = 789-8) See_Comment [Automated messa ge] The system which [...] 33.0 g/dL 31.6-35.1 RDW-SD (test code = 34980-1) 42.2 fL 39-49.9 RDW-CV (test code = 788-0) 13.3 % 12-15.5 PLT (test code = 777-3) See_Comment [Automated messa ge] The system which generated this result transmitted reference range: 166 - 358 10*3/?L. The reference range was not used to interpret this result as normal/abnormal. MPV (test code = 41446-1) 9.0 fL 9.5-12.9 L NRBC/100 WBC (test code = 8359891799) See_Comment [Automated [employer] ssage] The system which generated this result transmitted reference range: 0.0 - 10.0 /100 WBCs. The reference range was not used to interpret this result as normal/abnormal. NRBC x10^3 (test code = 7123727047) See_Comment [Automated [employer] ge] The system which generated this result transmitted reference range: 10*3/?L. The reference range was not used to interpret this result as normal/abnormal. GRAN MAT (NEUT) % (test code = 770-8) 59.1 % IMM GRAN % (test code = 4120987481) 0.40 % LYMPH % (test code = 736-9) 26.1 % MONO % (test code = 5905-5) 12.1 % EOS % (test code = 713-8) 1.8 % BASO % (test code = 706-2) 0.5 % GRAN MAT x10^3(ANC) (test code = 7631129719) 4.47 10*3/uL 1.88-7.09 IMM GRAN x10^3 (test code = 0532765353) 0.03 10*3/uL 0-0.06 LYMPH x10^3 (test code = 731-0) 1.98 10*3/uL 1.32-3.29 MONO x10^3 (test code = 742-7) 0.92 10*3/uL 0.33-0.92 EOS x10^3 (test code = 711-2) 0.14 10*3/uL 0.03-0.39 BASO x10^3 (test code = 704-7) 0.04 10*3/uL 0.01-0.07 Lab Interpretation (test code = 22151-1) Abnormal [facility] Notes Date/Time Note Provider Source 2024-01-11 06:06:20 Awake, alert oriented X4, respiratory even and unlabored,skin w/d color appropriate for race, moves all ext well, pt encouraged to follow up with pcp and or return as needed Pt given printed and verbal discharge instructions regarding viral syndrome and acute bronchitis. Patient verbalized understanding and signature obtained, patient denies any other concerns. Prescriptions provided. Advised to seek medical attention for new/prolonged/worsening of symptoms. No adverse reaction to meds given in ER noted upon discharge. Pt ambulated to the lobby with steady gait. NTIFIC GLASS BLOWER [facility] 2024-01-11 05:18:13 Arrives to ED ambulatory states she has been having a cough since 01/04. States tonight she started to have a rattling feeling on her chest. Denies any congestion or fever. 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 Viral syndrome. No hypoxia. HR 90. BP mild elevation. Taking cough medicine but out. Past Medical History/Immunizations: Past Medical History: Diagnosis Date Anxiety 2012 ongoing, on medication Benign breast lumps 07/28/2020 [...] Dean Rasmussen; Location: Labor and Delivery - [place] CHOLECYSTECTOMY 2011 Review of Systems: Review of Systems Constitutional: Positive for fever. Negative for chills and fatigue. HENT: Positive for congestion and postnasal drip. Negative for sore throat. Eyes: Negative for pain. Respiratory: Positive for cough. Negative for chest tightness, shortness of breath and stridor. Breasts: Negative for pain. Cardiovascular: Negative for chest pain and palpitations. Gastrointestinal: Negative for abdominal pain, constipation and diarrhea. Genitourinary: Negative for bladder incontinence, vaginal discharge and difficulty urinating. Musculoskeletal: Positive for myalgias. Negative for back pain. Skin: Negative for color change and wound. Neurological: Positive for headaches. Negative for dizziness, seizures, weakness and light-headedness. Physical Exam: ED Triage Vitals [01/11/24519] Weight 113.4 kg (249 lb 14.4 oz) Actual or estimated Actual Height 1.626 m (5' 4") BP (!) 145/88 Pulse 90 Resp 16 Temp 36.9 ?C (98.4 ?F) Temp source Oral SpO2 99 % Measured on Physical Exam Constitutional: General: She is not in acute distress. Appearance: She is well-developed. HENT: Head: Normocephalic and atraumatic. Eyes: Pupils: Pupils are equal, round, and reactive to light. Cardiovascular: Rate and Rhythm: Normal rate. Pulmonary: Effort: Pulmonary effort is normal. Abdominal: General: There is no distension. Musculoskeletal: General: Normal range of motion. Cervical back: Normal range of motion. Skin: General: Skin is warm and dry. Neurological: Mental Status: She is alert and oriented to person, place, and time. Radiology: XR CHEST 1 VW Preliminary Result EXAM: XR CHEST 1 VW COMPARISON: Chest x-ray HISTORY: shortness of breath FINDINGS: Lungs: The lungs are well expanded. Bilateral lower lung haziness is likely secondary to superimposed soft tissues. No focal opacity. No pleural abnormality. Heart/Mediastinum: The cardiomediastinal silhouette is unremarkable. Bones and soft tissues: No osseous lesions visualized. IMPRESSION No radiographic evidence of acute cardiopulmonary process. Preliminary Report Dictated by Resident: Cathy Morejon Lab Results: Lab Results - No data to display EKG: If EKG completed, see Procedure Note. Orders and Treatments: Orders Placed This Encounter Procedures XR CHEST 1 VW Influenza A B RSV COVID NAAT Orders Placed This Encounter Medications dexamethasone sod phos PF injection 10 mg benzonatate 100 mg capsule zxurccxi-lgelmoar-xobuzrcez-D M 12.5-2-5-10 mg/10 mL SoSq First Provider Eval: ED Events Date/Time Event User Comments 01/11/24519 Medical Screening Begins MARYANA CHESTER -- 01/11/24519 First Provider Evaluation MARYANA CHESTER -- ED COURSE Diagnosis/Impression as of 01/11/24 0602 Acute viral syndrome Acute bronchitis, unspecified organism Procedures: Procedures MDM: Medical Decision Making Problems Addressed: Acute bronchitis, unspecified organism: acute illness or injury Acute viral syndrome: acute illness or injury Amount and/or Complexity of Data Reviewed Labs: ordered. Radiology: ordered. Risk OTC drugs. Prescription drug management. Flowsheet Documentation: Scoring Tools: No data recorded Disposition/Condition: ED Disposition ED Disposition Discharge Condition Stable Comment -- Discharge Medications: Patient's Medications START taking these medications KXXJTVYZ-GZJIFERY-JBKFIMTGK-D M 12.5-2-5-10 MG/10 ML SOSQ Take 5 mL by mouth every 6 (six) hours as needed for Other (cough). CONTINUE taking these medications which have NOT CHANGED ALBUTEROL 90 MCG/ACTUATION INHALER Inhale 2 Puffs every 4 (four) hours as needed for Wheezing or Shortness of Breath. ALPRAZOLAM 0.5 MG TABLET Take 0.5 mg by mouth 2 (two) times daily. HYDROCHLOROTHIAZIDE 12.5 MG TABLET Take 12.5 mg [...] (N/V). START taking Modified Medications as Prescribed Modified Medication Previous Medication BENZONATATE 100 MG CAPSULE benzonatate 100 mg capsule Take 1 capsule by mouth 3 (three) times daily as needed for Cough. Take 1 capsule by mouth 3 (three) times daily as needed for Cough. STOP taking these medications No medications on file Follow-up: Contact information for follow-up Padmini Meyer WHCNP Specialty: [facility] Relationship: PCP - General PCP - Insurance [facility] [id number] [facility] [id number] Instructions: For follow up of the presenting symptoms. [facility]-Emergency Department Specialty: Emergency Medicine [address] [place] [id number] Instructions: If symptoms worsen as documented in the discharge Electronically signed by: Maryana Chester DO 01/11/24601 NTIFIC GLASS BLOWER [facility] 2023-07-20 23:07:30 Pt discharged with diagnosis of [...] site, catheter in tact. Nohemi Butler RN [facility] 2023-07-20 19:22:15 Pt arrives ambulatory to ED c/o sharp abdominal pain that began this morning. Says she began feeling a full discomfort yesterday but today the pain got too bad and she had to come in. She reports taking gas-x, & pepto, without relief. 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 METABOLIC PANEL (16800) NA 139 135 - 145 mmol/L K [...] CONTRAST Cbc with Diff Comp. Metabolic Panel (02260) Urinalysis Lipase POCT Test Troponin I Orders [...] MD -- ED COURSE Diagnosis/Impression as of 07/20/23 2201 Abdominal pain, unspecified abdominal location Diverticulitis Procedures: EKG-12 Lead ONCE Date/Time: 07/20/2023 8:19 PM Performed by: Adama Nazario MD Authorized by: Adama Nazario MD ECG interpreted by ED Physician in the absence of a machinery rigger: yes Previous ECG: Previous ECG: Unavailable Interpretation: [...] PCP Electronically signed by: Adama Nazario MD 07/20/232156 [facility] 2023-04-14 12:26:18 Patient discharged home. Follow up with pcp as needed. Return if worsening symptoms. NTIFIC GLASS BLOWER Harry Moreno RN [facility] 2023-04-14 11:08:34 Patient reports having cough causing chest pain since Tuesday with green sputum. She also reports nasal congestion. Denies sore throat or fever. Has been trying OTC meds with no relief. Denies hx of heart problems. DM2. NTIFIC GLASS BLOWER Bo Gonzalez RN [facility] 2022-11-02 11:49:58 Formatting of this n ote might be different from the original. Attempted to contact patient x3 to reschedule mammogram appointment. Will address when patient calls back. Braden Mullins [facility] 2022-11-01 11:02:59 Formatting of this n ote might be different from the original. Roman Rios is a 47 year old female Patient wanting to reschedule mammogram appointment, please call [phone] (home) Silvia Bajwa [facility] 2022-09-30 15:37:21 Formatting of this n ote [...] in no apparent distress, Sonya Lamas RN [facility] 2022-09-30 11:54:20 Formatting of this n ote might be different from the original. Pt states she work up at about 0300 this am with nausea. States her period is 8 days late, that also reports urgency. Marlen Lopez RN [facility]
[2024-01-13] MEDS ORDERED: MORPHINE 4 MG/ML SYR ONE (01:05)
[2024-01-13] MEDS ORDERED: KETOROLAC 30 MG/ML INJ ONE (01:05)
[2024-01-13 01:13] LABS: Absolute Basophils 0.1 K/uL (0-0.5); Absolute Eosinophils 0.1 K/uL (0-0.5); Absolute Lymphocytes (CBC) 2.3 K/uL (0.7-4.9); Absolute Monocytes 1.1 K/uL (0.1-1.3); Absolute Neutrophil 4.9 K/uL (1.8-8.0); Basophils % 0.7 % (0-1.3); Eosinophils % 1.2 % (0-4.4); Hemoglobin 13.2 g/dL (12.0-15.0); Lymphocytes % 26.9 % (15.3-44.8); MCH 29.3 pg (27.0-35.0); MCHC 33.8 g/dL (32.0-36.0); MCV 86.4 fL (80-100); MPV 7.3 fL (7.6-11.3); Monocytes % 13.3 % (3.3-12.3); Neutrophils % 57.9 % (41.7-73.7); Platelets 242 thou/uL (152-406); RBC Red Blood Cell Count 4.51 M/uL (3.86-4.86); Red Cell Distribution Width 13.8 % (12.1-15.2)
[2024-01-13] MEDS ORDERED: PROMETHAZINE 25 MG TABLET ONE (01:15)
[2024-01-13] MEDS ORDERED: BENZONATATE 100 MG CAP PO ONE (01:16)
[2024-01-13] MEDS ORDERED: AZITHROMYCIN 250 MG TAB ONE (01:16)
[2024-01-13 01:47] LABS: Albumin 3.5 g/dL (3.4-5.0); Albumin/Globulin Ratio 1.2 (1.1-1.8); Bilirubin Total 0.3 mg/dL (0.2-1.0); Protein, Total 6.5 g/dL (6.4-8.2)
[2024-01-13 01:59] LABS: SARS-CoV-2 Antigen CONTROL BLUE LINE VIS/BG OK; SARS-CoV-2 Antigen Rapid Res Negative (Negative)
--- NOTE | 2024-01-13 04:02 | EDPHYS ---
Physician Documentation [facility] Name: Aracelis Morales Age: 48 yrs Sex: Female : 1975 Arrival Date: 01/13/2024 Time: 00:37 Bed 7 Private MD: ED Physician Micheal Coffey HPI: 01/12 00:55 This 48 yrs old Female presents to ER via Unassigned with complaints of Chest sp4 Tightness, Cough, Congestion. 21:05 48-year-old female presents with complaint of chest tightness cough and congestion.. sp4 Historical: - Allergies: 00:40 Iodine; ha1 00:40 IV contrast; ha1 - Home Meds: 00:40 alprazolam 0.5 mg Oral tab twice a day [Active]; metformin 500 mg Oral tab 1 tab daily ha1 [Active]; - PMHx: 00:40 Anxiety; Diabetes - NIDDM; Pancreatitis; ha1 - PSHx: 00:40 section; Cholecystectomy; ha1 - Immunization history:: Adult Immunizations not up to date. - Infectious Disease History:: Denies. - Social history:: Smoking status: Patient denies any tobacco usage or history of. - Family history:: not pertinent. ROS: 21:05 Constitutional: Negative for fever, chills, and weight loss, positive chest tightness, sp4 positive cough, positive congestion 21:05 All other systems are negative, Exam: 21:05 Constitutional: This is a well developed, well nourished patient who is awake, alert, sp4 and in no acute distress. Head/Face: Normocephalic, atraumatic. Eyes: Pupils equal round and reactive to light, extra-ocular motions intact. Lids and lashes normal. Conjunctiva and sclera are not injected. Cornea within normal limits. Periorbital areas with no swelling, redness, or edema. ENT: Nares patent. No nasal discharge, no septal abnormalities noted. Tympanic membranes are normal and external auditory canals are clear. Oropharynx with no redness, swelling, or masses, exudates, or evidence of obstruction, uvula midline. Mucous membranes moist. Neck: Trachea midline, no thyromegaly or masses palpated, and no cervical lymphadenopathy. Supple, full range of motion without nuchal rigidity, or vertebral point tenderness. Chest/axilla: Normal chest wall appearance and motion. Nontender with no deformity. No lesions are appreciated. Cardiovascular: Regular rate and rhythm with a normal S1 and S2. No gallops, murmurs, or rubs. Normal PMI, no JVD. No pulse deficits. Respiratory: Lungs have equal breath sounds bilaterally, clear to auscultation and percussion. No rales, rhonchi or wheezes noted. No increased work of breathing, no retractions or nasal flaring. Persistent cough on exam Abdomen/GI: Soft, with normal bowel sounds. No distension or tympany. No guarding or rebound. No evidence of tenderness throughout. Back: No spinal tenderness. No costovertebral tenderness. Skin: Warm, dry with normal turgor. Normal color with no rashes, no lesions, and no evidence of cellulitis. MS/ Extremity: Pulses equal, no cyanosis. Neurovascular intact. Full, normal range of motion. Neuro: Awake and alert, GCS 15, oriented to person, place, time, and situation. Cranial nerves II-XII grossly intact. Motor strength 5/5 in all extremities. Sensory grossly intact. Psych: Awake, alert, with orientation to person, place and time. Behavior, mood, and affect are within normal limits Vital Signs: 00:40 BP 175 / 87; Pulse 77; Resp 17 S; Temp 97.7(T); Pulse Ox 97% on R/A; Weight 131.54 kg; ha1 Height 5 ft. 4 in. ; 01:58 BP 115 / 84; Pulse 63; Resp 18; Temp 97.2(TE); Pulse Ox 93% on R/A; br2 03:27 BP 133 / 70; Pulse 70; Resp 18 S; Pulse Ox 94% on R/A; br2 00:40 Body Mass Index 49.78 (131.54 kg, 162.56 cm) ha1 Bryce Coma Score: 21:05 Eye Response: spontaneous(4). Motor Response: obeys commands(6). Verbal Response: sp4 oriented(5). Total: 15. MDM: 00:58 Medical Screening Exam initiated sp4 21:10 Differential diagnosis: acute pericarditis, anxiety, chest wall pain, esophagitis, sp4 gastritis, pneumonia. Data reviewed: vital signs, nurses notes, lab test result(s), radiologic studies, plain films. ED course: EXAM: XR Chest, 2 Views CLINICAL HISTORY: The patient is 48 years old and is Female; COUGH TECHNIQUE: Two views of the chest. COMPARISON: No relevant prior studies available. FINDINGS: Lungs: No pulmonary vascular congestion or consolidation. Pleural space: Unremarkable. No pneumothorax. Heart: Unremarkable. No cardiomegaly. Mediastinum: Unremarkable. Bones/joints: No acute fracture visualized. Vertebral osteophytes. Upper abdomen: No free air in the visualized upper abdomen. IMPRESSION: No acute cardiopulmonary process identified. . ED course: Positive for normal chest x-ray. Patient stable for discharge home with as needed cough medicine and Zithromax. 01/12 00:56 Order name: CBC with Diff; Complete Time: 03:53 sp4 01/12 00:56 Order name: CMP; Complete Time: 03:53 sp4 01/12 00:58 Order name: SARS RAPID; Complete Time: 03:53 sp4 01/12 00:58 Order name: Influenza Screen (a \T\ B); Complete Time: 03:53 sp4 01/12 00:56 Order name: Chest Pa And Lat (2 Views) XRAY sp4 01/12 00:56 Order name: IV Saline Lock; Complete Time: 01:13 sp4 01/12 00:56 Order name: Labs collected and sent; Complete Time: : sp4 Administered Medications: 01:13 Drug: TORadol - Ketorolac IVP 15 mg IVP once Route: IVP; Site: right antecubital; br2 01:13 Drug: morphine IVP or IV 4 mg IVP once over 4 mins Route: IVP; Infused Over: 4 mins; br2 Site: right antecubital; 01:34 Drug: AZITHromycin PO 500 mg PO once Route: PO; br2 01:34 Drug: Promethazine PO 25 mg PO once Route: PO; br2 01:34 Drug: Tessalon Perle PO 100 mg PO once Route: PO; br2 04:20 Drug: Rocephin (cefTRIAXone) IM 1 grams IM once Route: IM; Site: right gluteus; br2 04:20 Drug: HYDROcodone-acetaminophen PO 5 mg-325 mg 2 tabs PO once Route: PO; br2 Disposition: 21:12 Chart complete. sp4 Disposition Summary: 11/29/24 04:01 Discharge Ordered Notes: Location: Home sp4 Problem: new sp4 Symptoms: have improved sp4 Condition: Stable sp4 Diagnosis - Acute Pharyngitis, Acute Cough sp4 - Acute Bacterial Pharyngitis sp4 Followup: sp4 - With: Private Physician - When: 7 - 10 days - Reason: Recheck today's complaints Discharge Instructions: - Discharge Summary Sheet sp4 - Pharyngitis, Kbwj-hs-Bpis sp4 - Form - Return To Work br2 Forms: - Patient Portal Instructions sp4 - Work release form br2 Prescriptions: - dextromethorphan-guaifenesin 20-400 mg Oral tablet - take 1 tablet ORAL route every 6 hours PRN cough; 60 tablet; Refills: 0, sp4 Product Selection Permitted - Ibuprofen 800 mg Oral Tablet - take 1 tablet ORAL route every 8 hours As needed take with food; 30 tablet; sp4 Refills: 0, Product Selection Permitted - Albuterol Sulfate 2.5 mg /3 mL (0.083 %) Inhalation Solution for Nebulization - inhale 1 unit NEBULIZATION route every 4 hours As needed PRN cough , Dispense sp4 with Nebulizer and adult mask, Dispense 50 vials of Albuterol; 50 unit; Refills: 0, Product Selection Permitted - Zithromax Z-Krishna 250 mg Oral Tablet - take 1 tablet ORAL route as directed for 5 days Day 1 - take two (2) tablets sp4 one time. Day 2, 3, 4 , 5 take one (1) tablet once daily.; 6 tablet; Refills: 0, Product Selection Permitted - promethazine 25 mg Oral tablet - take 1 tablet ORAL route every 6 hours As needed PRN nausea; 30 tablet; sp4 Refills: 0, Product Selection Permitted Signatures: Dispatcher [employer] Saida Angel RN RN ha1 Micheal Coffey MD MD sp4 Lissette Holly RN RN br2
--- NOTE | 2024-01-13 04:02 | ER ---
Nurse's Notes [facility] Name: Aracelis Morales Age: 48 yrs Sex: Female : 1975 Arrival Date: 01/13/2024 Time: 00:37 Bed 7 Private MD: Diagnosis: Acute Pharyngitis, Acute Cough ;Acute Bacterial Pharyngitis Presentation: 01/12 00:40 Chief complaint: Patient states: PERSISTENT COUGH, NASAL CONGESTION FOR THE PAST EIGHT ha1 DAYS. WHEEZING AND CHEST TIGHTNESS. 00:40 Coronavirus screen: Vaccine status: Patient reports being unvaccinated. Ebola Screen: ha1 No symptoms or risks identified at this time. Initial Sepsis Screen: Does the patient meet any 2 criteria? No. Patient's initial sepsis screen is negative. Does the patient have a suspected source of infection? No. Patient's initial sepsis screen is negative. Risk Assessment: Do you want to hurt yourself or someone else? Patient reports no desire to harm self or others. Onset of symptoms was January 13, 2024. 00:40 Method Of Arrival: Ambulatory ha1 00:40 Acuity: TACHO 3 ha1 Triage Assessment: 00:40 General: Appears uncomfortable, Behavior is calm, cooperative. Pain: Denies pain. ha1 Neuro: Level of Consciousness is awake, alert, obeys commands, Oriented to person, place, time, situation. Cardiovascular: Patient's skin is warm and dry. Respiratory: Reports cough that is persistent NASAL CONGESTION Airway is patent Respiratory effort is even, unlabored, Respiratory pattern is regular, symmetrical. Musculoskeletal: No signs and/or symptoms reported regarding the musculoskeletal system. Circulation, motion, and sensation intact. Range of motion: intact in all extremities. Historical: - Allergies: 00:40 Iodine; ha1 00:40 IV contrast; ha1 - Home Meds: 00:40 alprazolam 0.5 mg Oral tab twice a day [Active]; metformin 500 mg Oral tab 1 tab daily ha1 [Active]; - PMHx: 00:40 Anxiety; Diabetes - NIDDM; Pancreatitis; ha1 - PSHx: 00:40 section; Cholecystectomy; ha1 - Immunization history:: Adult Immunizations not up to date. - Infectious Disease History:: Denies. - Social history:: Smoking status: Patient denies any tobacco usage or history of. - Family history:: not pertinent. Screenin:00 [facility] ED Fall Risk Assessment (Adult) History of falling in the last 3 months, br2 including since admission No falls in past 3 months (0 pts) Confusion or Disorientation No (0 pts) Intoxicated or Sedated No (0 pts) Impaired Gait No (0 pts) Mobility Assist Device Used No (0 pt) Altered Elimination No (0 pt) Score/Fall Risk Level 0 - 2 = Low Risk Oriented to surroundings. Abuse screen: Denies threats or abuse. Denies injuries from another. Nutritional screening: No deficits noted. Tuberculosis screening: No symptoms or risk factors identified. Assessment: 01:00 Reassessment: Patient and/or family updated on plan of care and expected duration. Pain br2 level reassessed. Patient is alert, oriented x 3, equal unlabored respirations, skin warm/dry/pink. General: Appears in no apparent distress. uncomfortable, Behavior is calm, cooperative. Pain: Complains of pain in anterior aspect of right upper chest, anterior aspect of left upper chest, xiphoid area, mid-sternal area, right breast and left breast Pain does not radiate. Pain currently is 8 out of 10 on a pain scale. Quality of pain is described as aching, Pain began 1 week ago. Neuro: Dolan Agitation-Sedation Scale (RASS): 0 - Alert and Calm Level of Consciousness is awake, alert, Oriented to person, place, time, situation. Cardiovascular: Capillary refill < 3 seconds. Respiratory: Breath sounds are clear bilaterally. GI: No signs and/or symptoms were reported involving the gastrointestinal system. : No signs and/or symptoms were reported regarding the genitourinary system. EENT: No signs and/or symptoms were reported regarding the EENT system. Vital Signs: 00:40 BP 175 / 87; Pulse 77; Resp 17 S; Temp 97.7(T); Pulse Ox 97% on R/A; Weight 131.54 kg; ha1 Height 5 ft. 4 in. ; 01:58 BP 115 / 84; Pulse 63; Resp 18; Temp 97.2(TE); Pulse Ox 93% on R/A; br2 03:27 BP 133 / 70; Pulse 70; Resp 18 S; Pulse Ox 94% on R/A; br2 00:40 Body Mass Index 49.78 (131.54 kg, 162.56 cm) ha1 Riley Coma Score: 21:05 Eye Response: spontaneous(4). Motor Response: obeys commands(6). Verbal Response: sp4 oriented(5). Total: 15. ED Course: 00:40 Patient arrived in ED. gm2 00:49 Payton Garber, JORGE is Primary Nurse. al5 00:55 Micheal Coffey MD is Attending Physician. sp4 01:00 Patient has correct armband on for positive identification. Bed in low position. Call br2 light in reach. Side rails up X 1. Provided Education on: plan of care. Client placed on continuous cardiac and pulse oximetry monitoring. NIBP monitoring applied. 01:08 Influenza Screen (a \T\ B) Sent. oe 01:08 SARS RAPID Sent. oe 01:16 Triage completed. ha1 01:34 Chest Pa And Lat (2 Views) XRAY In Process Unspecified. EDMS 03:29 Primary Nurse role handed off by Payton Garber RN br2 03:29 Lissette Holly RN is Primary Nurse. br2 04:34 IV discontinued, intact, bleeding controlled, No redness/swelling at site. Pressure br2 dressing applied. 04:36 No provider procedures requiring assistance completed. Patient maintains SpO2 br2 saturation greater than 95% on room air. Administered Medications: 01:13 Drug: TORadol - Ketorolac IVP 15 mg IVP once Route: IVP; Site: right antecubital; br2 01:13 Drug: morphine IVP or IV 4 mg IVP once over 4 mins Route: IVP; Infused Over: 4 mins; br2 Site: right antecubital; 01:34 Drug: AZITHromycin PO 500 mg PO once Route: PO; br2 01:34 Drug: Promethazine PO 25 mg PO once Route: PO; br2 01:34 Drug: Tessalon Perle PO 100 mg PO once Route: PO; br2 04:20 Drug: Rocephin (cefTRIAXone) IM 1 grams IM once Route: IM; Site: right gluteus; br2 04:20 Drug: HYDROcodone-acetaminophen PO 5 mg-325 mg 2 tabs PO once Route: PO; br2 Outcome: 04:01 Discharge ordered by . sp4 04:36 Discharged to home ambulatory, br2 04:36 Condition: good 04:36 Discharge instructions given to patient, Instructed on discharge instructions, follow up and referral plans. Demonstrated understanding of instructions, follow-up care, Prescriptions given X 5 04:37 Patient left the ED. br2 Signatures: Dispatcher [employer] EDMS Lazarus Chicas Heidy, RN RN ha1 Micheal Coffey MD MD sp4 Makayla Saba gm2 Payton Garber RN RN al5 Lissette Holly RN RN br2 Corrections: (The following items were deleted from the chart) 01:30 00:40 Acuity: TACHO 4 ha1 ha1
[2024-01-13] MEDS ORDERED: LIDOCAINE 1% MPF 5 ML VIAL ONE (04:15)
[2024-01-13] MEDS ORDERED: CEFTRIAXONE 1000 MG/VIAL ONE (04:15)
[2024-01-13] MEDS ORDERED: HYDROCODONE/APAP 5/325 MG TAB ONE (04:15)
[2024-01-13 04:54] VITALS: TEMP 97.2
[2024-01-13 04:55] VITALS: BP 133/70; O2SAT 94
--- NOTE | 2024-01-13 07:35 | RAD REPORT ---
EXAM: XR Chest, 2 Views CLINICAL HISTORY: The patient is 48 years old and is Female; COUGH TECHNIQUE: Two views of the chest. COMPARISON: No relevant prior studies available. FINDINGS: Lungs: No pulmonary vascular congestion or consolidation. Pleural space: Unremarkable. No pneumothorax. Heart: Unremarkable. No cardiomegaly. Mediastinum: Unremarkable. Bones/joints: No acute fracture visualized. Vertebral osteophytes. Upper abdomen: No free air in the visualized upper abdomen. IMPRESSION: No acute cardiopulmonary process identified. Electronically signed by: Tessy Argueta MD 01/13/2024 06:[address] [facility] [place] Due to temporary technical issues with the PACS/[employer] reporting system, reports are being tina d by the in-house radiologist without review as a courtesy to ensure prompt reporting the interpreting radiologist is fully responsible for the content of the report. Transcribed Date/Time: 01/13/2024 7:34 AM
== END 2024-01-13 04:37 | disposition home or self-care (01) ==
LOC: ER 00:37
DX: J02.8 Acute pharyngitis due to other specified organisms (principal); R05.9 Cough, unspecified; R07.89 Other chest pain; E11.9 Type 2 diabetes mellitus without complications; Z11.52 Encounter for screening for COVID-19
CPT/HCPCS: 85025; 36415; 80053; 87804 ×2; 71046; 87811; Q0169; J2003; J0696